=== PATIENT | female | born 1945 | race Caucasian/White ===

== ENCOUNTER → 2016-08-02 | Outpatient (CLI) | payer BC ==
[~2016-08-02] MED LIST: ACET-1311 PO; AML/5 PO; BENA-4 PO; BNC/20125 PO; CANA1TAB PO; CHOL100010 PO; DIPH-416 PO; LTN/10 PO; SITA100T3 PO; WARF3TAB PO; WARF3TAB6 PO
[2016-08-02 09:49] LABS: INR 2.6 (0.9-1.1); PROTHROMBIN TIME (PATIENT) 28.4 SECONDS (9.0-12.0)
== END | disposition home or self-care (01) ==
LOC: C.LAB 09:17
PROVIDERS: ATTEND Pathology Blood Banking & Transfusion Medicine
DX: Z79.01 Long term (current) use of anticoagulants (principal)

== ENCOUNTER → 2017-01-07 | Outpatient (CLI) | payer BC ==
[~2017-01-07] MED LIST changes: -AML/5 PO; -BNC/20125 PO; -LTN/10 PO; -WARF3TAB6 PO
--- NOTE | 2017-01-07 13:53 | MAMMOGRAPHY REPORT ---
BILATERAL DIGITAL SCREENING MAMMOGRAM WITH CAD: 01/07/2017 CLINICAL HISTORY: Routine screening. Patient has no complaints. TECHNIQUE: Current study was also evaluated with a Computer Aided Detection (CAD) system. Bilateral CC and MLO views were obtained. COMPARISON: Comparison is made to exams dated: 01/07/2016 mammogram, 01/04/2015 mammogram, 01/03/2014 m ammogram, 02/01/2012 mammogram, 02/02/2011 ultrasound, and 01/21/2009 mammogram - [facility]. BREAST COMPOSITION: There are scattered areas of fibroglandular density in both breasts. FINDINGS: No suspicious masses, calcifications, or areas of architectural distortion are noted in ei ther breast. There has been no significant interval change compared to prior exams. Scattered bilater al benign-appearing calcifications are not significantly changed. IMPRESSION: ACR BI-RADS CATEGORY 2: BENIGN There is no mammographic evidence of malignancy. A 1 year screening mammogram is recommended. The pa tient will receive written notification of the results. Approximately 10% of breast cancers are not detected with mammography. A negative mammographic report should not delay biopsy if a clinically suggestive mass is present. Milena Jean-Baptiste M.D. ah/:01/07/2017 11:50:15 [employer] Tender: Denisa ANNA(R)(M), [facility] letter sent: Normal 1/2 BI-RADS Code: ACR BI-RADS Category 2: Benign
== END | disposition home or self-care (01) ==
LOC: C.MAMM 11:12
PROVIDERS: ATTEND Family Medicine
DX: Z12.31 Encounter for screening mammogram for malignant neoplasm of breast (principal)

== ENCOUNTER → 2017-04-06 | Outpatient (CLI) | payer BC ==
[~2017-04-06] MED LIST changes: +CANA1TAB3 PO; +CLOT1CRE3 PV; +METF500T5 PO; +OPTIRAY 320 IV PRN
--- NOTE | 2017-04-06 14:13 | DIAGNOSTIC IMAGING REPORT ---
CT OF THE CHEST WITH IV CONTRAST CLINICAL HISTORY: COLON CANCER COMPARISON STUDY: 03/12/2016 TECHNIQUE: Following the IV administration of 95 mL of Optiray-320, CT of the thorax was performed from the thoracic inlet to the lung bases. Images are reviewed in the axial, sagittal, and coronal planes. IV contrast was administered without complication. A dose lowering technique was utilized adhering to the principles of ALARA. CT DOSE: 1627.37 mGy.cm FINDINGS: Thyroid: Imaged portions of the thyroid gland are normal in appearance. Thoracic aorta: The thoracic aorta is normal in course and caliber, noting standard 3-vessel arch anatomy. No aneurysm or dissection is seen. Pulmonary vasculature: The pulmonary trunk is normal in caliber. There are no central filling defects identified to suggest pulmonary embolus. Note that this examination was not protocoled for the evaluation of pulmonary emboli. HEART: The heart is normal in size and configuration, without pericardial effusion. Lungs and pleural spaces: There are bilateral subpleural interstitial opacities with upper lung zone predominance. These remain similar to the preceding study. There is no acute lobar consolidation. No suspicious pulmonary masses are visualized. Mediastinum: Subcentimeter mediastinal lymph nodes remain unchanged the preceding study Felicia: There is no evidence of pathologic hilar adenopathy Axilla: There is no evidence of pathologic axillary lymphadenopathy Upper abdomen: There is hepatic steatosis. There is a 17 mm peripheral hypervascular focus near the left and right lobe hepatic junction. It is unclear whether this represents a true hepatic lesion, perfusional variant, or a focus of focal fatty sparing. Skeletal structures: There are no lytic or blastic osseous lesions. IMPRESSION: 1. No evidence of intrathoracic metastasis 2. Hepatic steatosis. Nonspecific 17 mm peripheral hyperdense/hypervascular focus within the liver. Electronically signed by: Claudio Caldwell M.D. 04/06/2017 2:12 PM Dictated Date/Time: 04/06/2017 2:05 PM
--- NOTE | 2017-04-06 14:22 | DIAGNOSTIC IMAGING REPORT ---
ABD/PELVIS IV AND ORAL CONT CLINICAL HISTORY: 71 years-old Female presenting with COLON CANCER, surveillance, status post resection. TECHNIQUE: Multidetector CT of the abdomen and pelvis was performed after the administration of oral and intravenous contrast. IV contrast: 95 mL of Optiray 320. A dose lowering technique was used consistent with the principles of ALARA (as low as reasonably achievable). COMPARISON: 03/12/2016. CT DOSE (mGy.cm): The estimated cumulative dose is 1627.[address] chest. FINDINGS: Manager Resource topogram: Unremarkable. Lung bases: Minimal basilar opacities, likely atelectasis. Punctate solid nodule noted in the left lower lobe (series 10 image 29). Normal heart size. Coronary artery calcification. No pericardial or pleural effusion. Liver: Normal morphology. Density consistent with hepatic steatosis. No focal lesion. Patent hepatic vasculature. Biliary: Mild biliary ductal prominence likely a reservoir effect in the post cholecystectomy state. Gallbladder surgically absent. Pancreas: Mild parenchymal atrophy. Spleen: Normal. Adrenal glands: Normal. Kidneys and ureters: Subcentimeter hypodensity in the left kidney likely cyst. No hydronephrosis. No nephrolithiasis. Ureters normal. Nonspecific mild perinephric fat stranding. Bladder: Mild circumferential bladder wall thickening and mucosal hyperenhancement allowing for under distention. Pelvic organs: Uterus surgically absent. No adnexal masses. Bowel: Diverticulosis of the sigmoid colon. Postsurgical changes of right hemicolectomy with patent ileocolic anastomosis in the right mid abdomen. Motion artifact mildly degrades evaluation of the anastomosis and adjacent bowel. Allowing for this, no focal nodular masslike soft tissue at the anastomosis sutures suggested recurrent disease. Adjacent omental infarct noted. No bowel obstruction. Small hiatal hernia may be present versus extensive intraesophageal reflux of contrast. Peritoneal cavity: No free fluid or intraperitoneal gas. Lymph nodes: No enlarged lymph nodes in the abdomen or pelvis. Vasculature: Atherosclerosis of the normal caliber abdominal aorta. IVC patent. Abdominal wall: Midline surgical incision in the infraumbilical ventral abdominal wall. Postsurgical changes of the right upper quadrant abdominal wall likely from prior cholecystectomy. Small fat-containing midline ventral hernia associated with the surgical incision site. Musculoskeletal: Degenerative changes of the spine. No destructive osseous lesion. IMPRESSION: 1. Postoperative changes of right hemicolectomy with ileocolic anastomosis. No evidence of recurrent or residual disease. No metastatic disease in abdomen or pelvis. 2. Hepatic steatosis. 3. Mild circumferential bladder wall thickening and mucosal hyperenhancement could suggest cystitis. Correlate with urinalysis to exclude infection. Alternatively, this could be seen in the setting of post radiation change. Electronically signed by: Geraldo Augustine M.D. 04/06/2017 2:21 PM Dictated Date/Time: 04/06/2017 2:12 PM
== END | disposition home or self-care (01) ==
LOC: C.CTS 13:24
PROVIDERS: ATTEND Internal Medicine Hematology & Oncology
DX: C18.9 Malignant neoplasm of colon, unspecified (principal); K76.0 Fatty (change of) liver, not elsewhere classified

== ENCOUNTER → 2017-04-27 | Outpatient (CLI) | payer BC ==
[~2017-04-27] MED LIST changes: -CANA1TAB3 PO; -CLOT1CRE3 PV; -METF500T5 PO; -OPTIRAY 320 IV PRN
--- NOTE | 2017-04-27 11:30 | DIAGNOSTIC IMAGING REPORT ---
L FOOT MIN 3 VIEWS ROUTINE HISTORY: 71 years-old Female M20.62 acute deformity of the second third toes with history of diabetes. COMPARISON: None available TECHNIQUE: 4 views of the left foot FINDINGS: The bones appear mildly demineralized. Mild degenerative changes of the first MTP joint. Midfoot alignment is anatomic. No acute fracture identified. Moderate degenerative changes are seen throughout the interphalangeal joints with flexion deformities possible mild subluxation of the PIP joints. There is mild extension of the DIP joints throughout. Moderate spurring of the mid foot. Peripheral vascular disease. Moderate spurring about the calcaneus. IMPRESSION: 1. Osteopenia without acute fracture identified. 2. Flexion of the PIP joints with mild extension of the DIP joints noted predominantly within the second through fourth digits with moderate associated joint space narrowing, likely degenerative. 3. Peripheral vascular disease. The above report was generated using voice recognition software. It may contain grammatical, syntax or spelling errors. Electronically signed by: John Paul Ramos M.D. 04/27/2017 11:29 AM Dictated Date/Time: 04/27/2017 11:26 AM
== END | disposition home or self-care (01) ==
LOC: C.RAD 10:48
PROVIDERS: ATTEND Family Medicine
DX: M19.072 Primary osteoarthritis, left ankle and foot (principal); I73.9 Peripheral vascular disease, unspecified; M20.62 Acquired deformities of toe(s), unspecified, left foot

== ENCOUNTER 2018-08-13 10:50 | Inpatient (IN) ==
[2018-08-13] MEDS ORDERED: ONDANSETRON INJ 2 MG/ML 2 ML VIAL IV STA (11:19)
[2018-08-13] MEDS ORDERED: KETOROLAC TROMETHAMINE 15 MG/ML VIAL IV STA (11:19)
[2018-08-13] MEDS ORDERED: SODIUM CHLORIDE 0.9% 500 ML IV SCH (11:30)
[2018-08-13 11:45] LABS: Basophils # (auto) 0.06 K/uL (0-0.2); Basophils % (auto) 0.5 %; Eosinophils # (auto) 0.14 K/uL (0-0.5); Eosinophils % (auto) 1.1 %; Hematocrit (blood only) 42.6 % (37-47); Hemoglobin 15.5 g/dL (12.0-16.0); Immature Granulocytes # (auto) 0.16 K/uL (0.00-0.02); Immature Granulocytes % (auto) 1.3 %; Lymphocytes # (auto) 2.58 K/uL (1.2-3.4); Lymphocytes % (auto) 20.7 %; Mean Corpuscular Hgb Conc 36.4 g/dL (32-36); Mean Platelet Volume 9.7 fL (7.4-10.4); Monocytes # (auto) 0.94 K/uL (0.11-0.59); Monocytes % (auto) 7.5 %; Neutrophils # (auto) 8.61 K/uL (1.4-6.5); Neutrophils % (auto) 68.9 %; Platelet Count 279 K/uL (130-400); RDW Standard Deviation 45.7 fL (36.4-46.3); Red Blood Count 5.07 M/uL (4.2-5.4); White Blood Count 12.49 K/uL (4.8-10.8)
[2018-08-13 11:55] LABS: INR 3.2 (0.9-1.1); Partial Thromboplastin Ratio 1.3; Partial Thromboplastin Time 35.8 Seconds (21.0-31.0); Prothrombin Time 30.2 Seconds (9.0-12.0)
[2018-08-13 12:03] LABS: Alanine Aminotransferase 19 U/L (12-78); Albumin Level 3.5 gm/dl (3.4-5.0); Aspartate Aminotransferase 18 U/L (15-37); BUN Creatinine Ratio 24.2 (10-20); Blood Urea Nitrogen 22 mg/dl (7-18); Calcium 9.4 mg/dl (8.5-10.1); Carbon Dioxide 27 mmol/L (21-32); Chloride 106 mmol/L (98-107); Glucose 167 mg/dl (70-99); Sodium 137 mmol/L (136-145)
[2018-08-13 12:06] LABS: Albumin Globulin Ratio 0.8 (0.9-2); Alkaline Phosphatase 80 U/L (45-117); Bilirubin,Total 0.7 mg/dl (0.2-1); Globulin 4.2 gm/dl (2.5-4.0); Total Protein 7.7 gm/dl (6.4-8.2)
[2018-08-13 12:11] LABS: Appearance Urine Turbid (Clear); Bacteria Urine Automated Negative (Negative); Bilirubin Urine Negative (Negative); Blood Urine 2+ (Negative); Color Urine Yellow; Epithelial Cell Urine Auto 20-30 /lpf (0-5); Glucose Urine UA Negative (Negative); Ketones Urine Negative (Negative); Leukocyte Esterase Urine 3+ (Negative); Nitrite Urine Negative (Negative); Protein Urine 2+ (Negative); Specific Gravity Urine 1.017 (1.000-1.030); Urobilinogen Urine Negative (Negative); WBC Urine Automated >30 /hpf (0-5)
--- NOTE | 2018-08-13 13:09 | CT Scan Report ---
CT abd pelvis IV con only CT DOSE: 671.21 mGy.cm HISTORY: Pain pain, poss divertic or abscess TECHNIQUE: Multiaxial CT images of the abdomen and pelvis were performed following the use of intrave nous contrast. A dose lowering technique was utilized adhering to the principles of ALARA. COMPARISON STUDY: 04/07/2018 FINDINGS: Nonspecific left and to a lesser extent right basilar interstitial change. Fatty replacemen t of the liver.. Kidneys show moderate cortical scarring bilaterally. Several small renal cysts are present. No eviden ce for hydronephrosis. Postoperative changes again noted within the right colon. The abdominal bowel pattern is considered n onobstructive. Pelvis demonstrates findings of acute focal diverticulitis of the mid sigmoid. There is mild localize d pericolonic infiltrative change with mild reactive wall thickening of the base of the bladder. No evidence for drainable abscess or collection. No obstructive changes. IMPRESSION: 1. Focal acute mid sigmoid diverticulitis. 2. Moderate pericolonic infiltrative change with mild reactive thickening of the bladder base. 3. No evidence for abscess collection or obstructive change. The above report was generated using voice recognition software. It may contain grammatical, syntax or spelling errors. Electronically signed by: Dong Diaz M.D. 08/13/2018 1:08 PM
[2018-08-13] MEDS ORDERED: AMPICILLIN/SULBACTAM SOD 3,000 MG in 0.9 % SODIUM CHLORIDE 100 ML IV STA (13:13)
--- NOTE | 2018-08-13 14:06 | Emergency Department Note ---
Entered by Angie Tamayo acting as a scribe for Jefferson Siddiqui MD History of Present Illness General Chief complaint: Urinary Symptoms Stated complaint: URINARY SX Time Seen by Provider: 08/13/18 11:09 Source: patient, family () and old records reviewed History of Present Illness Onset (ago): month(s) 4 Location: pelvis Pain Consistency: + intermittent Maximum Pain Intensity: 10 Quality: + other (difficulty urinating) Associated symptoms: + other (pelvic pressure, vaginal redness and swelling); no fever/chills and no nausea/vomiting The patient is a 72 year old female that is presenting to the Emergency Room with complaints of intermittent difficulty urinating that started several months ago. The patient reports that she feels pressure in her pelvic region and that she is unable to urinate at times. She states that the pressure stops and that she is then able to urinate. She denies any fever or vomiting. She notes that her symptoms were better yesterday afternoon but worsened again in the evening. She notes that she is followed by MARIA DOLORES Ohara, who started her on Clobetasol 2 times a day for lichen sclerosis. The patient notes that she is very sore in her vaginal area and that the ointment relieves the discomfort only immediately after it is used. She reports that the soreness then returns shortly after. She states that Dr. Ramsey told her she can start using the ointment 3 ti mes a day and that she recommended using Aquaphor in between applications. The patients states that the area is red and swollen but notes that it improved initially with the ointment. The patient has been in the Emergency Department 4 times in the past year. She was last here on 07/31/18 for urinary symptoms Lab work was unrevealing urinalysis suggested infection but the urine culture returned negative. Genital culture showed normal clemente. Home Medications Home Medications Medication Instructions Recorded Confirmed Type benazepril 20 mg tablet 20 mg PO QAM 01/31/18 08/13/18 History cholecalciferol (vitamin D3) 5,000 5,000 units PO QAM 01/31/18 08/13/18 History unit capsule sitagliptin 100 mg tablet 100 mg PO QAM 01/31/18 08/13/18 History insulin detemir U-100 [Levemir 6 unit SUBCUT HS 04/04/18 08/13/18 History FlexTouch U-100 Insuln] warfarin 3 mg tablet 3 mg PO HS #30 tab 06/29/18 08/13/18 Rx cranberry 500 mg capsule 500 mg PO DAILY 07/11/18 08/13/18 History lactobacillus combination no.8 3 3,000 mmu cells PO DAILY 07/11/18 08/13/18 History billion cell capsule conjugated estrogens [Premarin] 1 applic VAGINAL HS 07/31/18 08/13/18 History nystatin 1 applic TOPICAL TID 07/31/18 08/13/18 History clobetasol 1 applic TOPICAL DIRECTED 08/13/18 08/13/18 History mineral oil-hydrophil petrolat 1 applic TOPICAL TID PRN 08/13/18 08/13/18 History [Aquaphor] Allergies Allergy/AdvReac Type Severity Reaction Status Date / Time No Known Allergies Allergy Unverified 07/31/18 11:09 Past Med/Surg History Medical History Essential hypertension (Chronic) Anticoagulated on Coumadin (Chronic) Acute diverticulitis (Acute) Colon cancer UTI (urinary tract infection) Hypokalemia (Resolved) Hypomagnesemia (Resolved) PNA (pneumonia) (Resolved) Community acquired pneumonia (Resolved) Cystitis (Resolved) Contusion of left knee (Acute) Forehead contusion (Acute) Left shoulder strain (Acute) Surgical History History of colon surgery S/P cholecystectomy Family History Other Family history non-contributory Social History Preferred Language: Telugu Communication Ability: Effective 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 and A total of 10 systems reviewed and were otherwise negative Physical Exam Vital Signs Vital Signs - 24 hr 08/13/18 11:00 08/13/18 12:51 08/13/18 14:00 Temperature 36.5 C Temperature Source Oral Sepsis Recent Fever Within 48 Hours No Sepsis New/Unexplained Change in Mental Status No Sepsis Action Taken by Nursing No Action Required Pulse Rate 56 L Pulse Rate [Apical] 90 68 Respiratory Rate 18 16 16 Respiratory Effort / Characteristics Non-Labored Spontaneous Respiratory Depth Normal Respiratory Pattern Regular Blood Pressure 184/81 H Blood Pressure [Right Arm] 176/65 H 134/76 Blood Pressure Mean 115 Blood Pressure Mean [Right Arm] 102 95 Blood Pressure Position Sitting Pulse Oximetry 98 99 97 Oxygen Delivery Method Room Air Room Air Room Air GENERAL: Patient is in no acute distress. HEENT: No acute trauma, normocephalic atraumatic, mucous membranes moist, no nasal congestion, no scleral icterus. NECK: No stridor, no adenopathy, no meningismus, trachea is midline. LUNGS: Clear to auscultation bilaterally, no wheeze, no rhonchi, breath sounds equal. HEART: Without murmurs gallops or rubs, regular rate and rhythm. ABDOMEN: Soft, diffusely mildly tender but moderately tender over the mid- pelvis, bowel sounds positive, no hernias, no peritonitis. EXTREMITIES: No cyanosis or edema, full range of motion of all the joints without pain or difficulty, no signs for acute trauma. NEUROLOGIC: Oriented x 3, no acute motor or sensory deficits, no focal weakness. SKIN: No rash, no jaundice, no diaphoresis. Course 1114:The patient was evaluated in room A10. A complete history and physical examination was performed. 1145: Nurses did straight catheter on the patient and noted vaginal swelling but no urinary retention. 1325: I updated the patient on her current lab and imaging results. 1341: I discussed the patients case with ANNE Mayo, who will evaluate the patient for further management and care. 1345: Upon reevaluation, the patient is resting comfortably. I discussed laboratory and radiographic results with the patient. She verbalized agreement of the treatment plan. The patient will be evaluated for further management and care. Consultations Consultation #1: I discussed the patients case with ANNE Mayo, who will evaluate the patient for further management and care. Time: 13:41 Administered Medications Discontinued Medications Sodium Chloride (Nss) 500 mls @ 999 mls/hr IV .Q31M YOLIS Stop: 08/13/18 12:00 Last Infusion: 08/13/18 12:22 Dose: 0 mls/hr Documented by: [id number] Admin: 08/13/18 11:44 Dose: 999 mls/hr Documented by: [id number] Ampicillin Sodium/Sulbactam Sodium 3,000 mg/ Sodium Chloride 108 mls @ 200 mls/hr IV NOW STA; Protocol Stop: 08/13/18 13:45 Last Infusion: 08/13/18 14:23 Dose: 0 mls/hr Documented by: [id number] Admin: 08/13/18 13:50 Dose: 200 mls/hr Documented by: [id number] Ketorolac Tromethamine (Toradol) 15 mg IV NOW STA Stop: 08/13/18 11:20 Last Admin: 08/13/18 11:43 Dose: 15 mg Documented by: [id number] Ondansetron HCl (Zofran) 4 mg IV NOW STA Stop: 08/13/18 11:20 Last Admin: 08/13/18 11:43 Dose: 4 mg Documented by: [id number] Medical Decision Making Differential Diagnosis Differential diagnosis includes: Etiologies such as urinary retention, cystitis, vaginal swelling and irritation, diverticulitis, abscess, colitis, abdominal mass, renal failure, electrolyte imbalance, cellulitis as well as others were entertained. Medical Records Attestation: I reviewed the patient's medical records. Home Medications Current Medication List: was personally reviewed by me Laboratory Data Attestation: I reviewed the patient's lab results. Result diagrams: 08/13/18 11:37 08/13/18 11:37 Lab Results 08/13/18 08/13/18 08/13/18 Range/Units 11:15 11:37 11:37 WBC 12.49 H (4.8-10.8) K/uL RBC 5.07 (4.2-5.4) M/uL Hgb 15.5 (12.0-16.0) g/dL Hct 42.6 (37-47) % MCV 84.0 (80-100) fL MCH 30.6 (25-34) pg MCHC 36.4 H (32-36) g/dL RDW Std Deviation 45.7 (36.4-46.3) fL RDW Coeff of Robin 15.0 H (11.5-14.5) % Plt Count 279 (130-400) K/uL MPV 9.7 (7.4-10.4) fL Immature Gran % (Auto) 1.3 % Neut % (Auto) 68.9 % Lymph % (Auto) 20.7 % [place]oke % (Auto) 7.5 % Eos % (Auto) 1.1 % Baso % (Auto) 0.5 % Immature Gran # (Auto) 0.16 H (0.00-0.02) K/uL Neut # (Auto) 8.61 H (1.4-6.5) K/uL Lymph # (Auto) 2.58 (1.2-3.4) K/uL [place]oke # (Auto) 0.94 H (0.11-0.59) K/uL Eos # (Auto) 0.14 (0-0.5) K/uL Baso # (Auto) 0.06 (0-0.2) K/uL PT 30.2 H (9.0-12.0) Seconds INR 3.2 H (0.9-1.1) APTT 35.8 H (21.0-31.0) Seconds PTT Ratio 1.3 Sodium (136-145) mmol/L Potassium (3.5-5.1) mmol/L Chloride (98-107) mmol/L Carbon Dioxide (21-32) mmol/L Anion Gap (3-11) BUN (7-18) mg/dl Creatinine (0.6-1.2) mg/dl Est Cr Clr Drug Dosing Est GFR ( Amer) Est GFR (Non-Af Amer) BUN/Creatinine Ratio (10-20) Glucose (70-99) mg/dl Calcium (8.5-10.1) mg/dl Total Bilirubin (0.2-1) mg/dl AST (15-37) U/L ALT (12-78) U/L Alkaline Phosphatase (45-117) U/L Total Protein (6.4-8.2) gm/dl Albumin (3.4-5.0) gm/dl Globulin (2.5-4.0) gm/dl Albumin/Globulin Ratio (0.9-2) Lipase (73-393) U/L Urine Color Yellow Urine Appearance Turbid A (Clear) Urine pH 5.0 (4.5-7.5) Ur Specific [place] 1.017 (1.000-1.030) Urine Protein 2+ H (Negative) Urine Glucose (UA) Negative (Negative) Urine Ketones Negative (Negative) Urine Blood 2+ H (Negative) Urine Nitrite Negative (Negative) Urine Bilirubin Negative (Negative) Urine Urobilinogen Negative (Negative) Ur Leukocyte Esterase 3+ H (Negative) Urine WBC (Auto) >30 H (0-5) /hpf Urine RBC (Auto) 10-30 H (0-4) /hpf U Hyaline Cast (Auto) 1-5 (0-5) /lpf U Epithel Cells (Auto) 20-30 H (0-5) /lpf Urine Bacteria (Auto) Negative (Negative) Urine Yeast Not Reportable 08/13/18 Range/Units 11:37 WBC (4.8-10.8) K/uL RBC (4.2-5.4) M/uL Hgb (12.0-16.0) g/dL Hct (37-47) % MCV (80-100) fL MCH (25-34) pg MCHC (32-36) g/dL RDW Std Deviation (36.4-46.3) fL RDW Coeff of Robin (11.5-14.5) % Plt Count (130-400) K/uL MPV (7.4-10.4) fL Immature Gran % (Auto) % Neut % (Auto) % Lymph % (Auto) % [place] % (Auto) % Eos % (Auto) % Baso % (Auto) % Immature Gran # (Auto) (0.00-0.02) K/uL Neut # (Auto) (1.4-6.5) K/uL Lymph # (Auto) (1.2-3.4) K/uL [place] # (Auto) (0.11-0.59) K/uL Eos # (Auto) (0-0.5) K/uL Baso # (Auto) (0-0.2) K/uL PT (9.0-12.0) Seconds INR (0.9-1.1) APTT (21.0-31.0) Seconds PTT Ratio Sodium 137 (136-145) mmol/L Potassium 4.0 (3.5-5.1) mmol/L Chloride 106 (98-107) mmol/L Carbon Dioxide 27 (21-32) mmol/L Anion Gap 4.0 (3-11) BUN 22 H (7-18) mg/dl Creatinine 0.90 (0.6-1.2) mg/dl Est Cr Clr Drug Dosing Not Reportable Est GFR ( Amer) 73.0 Est GFR (Non-Af Amer) 63.0 BUN/Creatinine Ratio 24.2 H (10-20) Glucose 167 H (70-99) mg/dl Calcium 9.4 (8.5-10.1) mg/dl Total Bilirubin 0.7 (0.2-1) mg/dl AST 18 (15-37) U/L ALT 19 (12-78) U/L Alkaline Phosphatase 80 (45-117) U/L Total Protein 7.7 (6.4-8.2) gm/dl Albumin 3.5 (3.4-5.0) gm/dl Globulin 4.2 H (2.5-4.0) gm/dl Albumin/Globulin Ratio 0.8 L (0.9-2) Lipase 156 (73-393) U/L Urine Color Urine Appearance (Clear) Urine pH (4.5-7.5) Ur Specific [place] (1.000-1.030) Urine Protein (Negative) Urine Glucose (UA) (Negative) Urine Ketones (Negative) Urine Blood (Negative) Urine Nitrite (Negative) Urine Bilirubin (Negative) Urine Urobilinogen (Negative) Ur Leukocyte Esterase (Negative) Urine WBC (Auto) (0-5) /hpf Urine RBC (Auto) (0-4) /hpf U Hyaline Cast (Auto) (0-5) /lpf U Epithel Cells (Auto) (0-5) /lpf Urine Bacteria (Auto) (Negative) Urine Yeast Imaging Data Radiologist's Impression: Radiology results as stated below per my review and the radiologist's interpretation: CT abd pelvis IV con only CT DOSE: 671.21 mGy.cm HISTORY: Pain pain, poss divertic or abscess TECHNIQUE: Multiaxial CT images of the abdomen and pelvis were performed following the use of intravenous contrast. A dose lowering technique was utilized adhering to the principles of ALARA. COMPARISON STUDY: 04/07/2018 FINDINGS: Nonspecific left and to a lesser extent right basilar interstitial change. Fatty replacement of the liver.. Kidneys show moderate cortical scarring bilaterally. Several small renal cysts are present. No evidence for hydronephrosis. Postoperative changes again noted within the right colon. The abdominal bowel pattern is considered nonobstructive. Pelvis demonstrates findings of acute focal diverticulitis of the mid sigmoid. There is mild localized pericolonic infiltrative change with mild reactive wall thickening of the base of the bladder. No evidence for drainable abscess or collection. No obstructive changes. IMPRESSION: 1. Focal acute mid sigmoid diverticulitis. 2. Moderate pericolonic infiltrative change with mild reactive thickening of the bladder base. 3. No evidence for abscess collection or obstructive change. The above report was generated using voice recognition software. It may contain grammatical, syntax or spelling errors. Electronically signed by: Dong Diaz M.D. 08/13/2018 1:08 PM Blood Pressure Blood Pressure Findings: Elevated blood pressure Blood Pressure Disposition: further management by hospitalist DAWSON Narrative There is a mild leukocytosis at 12.49, this would be consistent with infection. No concerning anemia. INR is elevated consistent with her Coumadin use. No significant electrolyte abnormality or kidney failure. No hepatitis. No pancreatitis. Urinalysis shows possible infection versus contamination. Urine culture is pending. A urine straight cath was performed, the patient was not retaining urine. Abdominal and pelvis CT shows evidence for diverticulitis. No bowel obstruction, no abscess noted. Patient received IV Unasyn, IV Toradol, IV Zofran and IV saline, she seems to be resting comfortably. Patient was quite weak when she tried to go to the restroom, 2 nurses had to hold her from falling. Patient admits to recent increased weakness. The patient presents with urinary complaints and lower abdominal pain. She has diverticulitis. Certainly, diverticulitis up against the bladder could be causing her urinary complaints. She is weak, she has been dealing with similar symptoms for several months. I do think IV hydration, strengthening, IV anti biotics are indicated. I am concerned that she will fall if sent home. I did speak to the patient and immigration case worker. The on-call hospitalist was consulted. Impression & Plan Acute diverticulitis, Weakness, Difficulty urinating, Leukocytosis Discharge Plan Visit Data Chief Complaint: Urinary Symptoms Stated Complaint: URINARY SX ED Provider: Jefferson Siddiqui Discharge Problem: Acute diverticulitis, Weakness, Difficulty urinating, Leukocytosis Patient Disposition: Being Evaluated by Hospitalist Discharge Instructions Interventions: ED Discharge Assessment Last Done: 08/13/18 14:47 Discharge Problem: Leukocytosis Qualifiers: Leukocytosis type: unspecified Qualified Code(s): D72.829 - Elevated white blood cell count, unspecified The scribe's documentation has been prepared under my direction and personally reviewed by me in its entirety. I confirm that the note above accurately reflects all work, treatment, procedures, and medical decision making performed by me.
--- NOTE | 2018-08-13 14:26 | History & Physical Report ---
Date of Service August 13, 2018 Assessment & Plan (1) Acute diverticulitis: CT scan reveals acute diverticulitis in the mid sigmoid area. Will treat with intravenous Unasyn. Clear liquid diet. Serial lab studies Present on Admission?: Yes (2) Anticoagulated on Coumadin: Monitor daily INR Present on Admission?: Yes (3) Type 2 diabetes mellitus: Levemir and sitagliptin are on hold. Sliding scale insulin coverage for now while on clear liquid diet Present on Admission?: Yes (4) Essential hypertension: Treated and controlled with benazepril Present on Admission?: Yes History of Present Illness Chief Complaint: Left-sided abdominal pain in addition to chronic lower midline abdominal pain Primary Care Provider: Palak Chiang MD 72-year-old white female with chronic recurrent UTI and chronic abdominal pain. However she developed more localized pain in the left lower quadrant over the past 2 days accompanied by weakness. CT scan today in the ED reveals evidence of mid sigmoid diverticulitis. White count is elevated at 12,000. She has been administered Unasyn. 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 Current INR 3.2. She will be placed on clear liquids and admitted for further evaluation and treatment. Allergies Allergy/AdvReac Type Severity Reaction Status Date / Time No Known Allergies Allergy Unverified 07/31/18 11:09 Home Medications Home Medications Medication Instructions Recorded Confirmed Type benazepril 20 mg tablet 20 mg PO QAM 01/31/18 08/13/18 History cholecalciferol (vitamin D3) 5,000 5,000 units PO QAM 01/31/18 08/13/18 History unit capsule sitagliptin 100 mg tablet 100 mg PO QAM 01/31/18 08/13/18 History insulin detemir U-100 [Levemir 6 unit SUBCUT HS 04/04/18 08/13/18 History FlexTouch U-100 Insuln] warfarin 3 mg tablet 3 mg PO HS #30 tab 06/29/18 08/13/18 Rx cranberry 500 mg capsule 500 mg PO DAILY 07/11/18 08/13/18 History lactobacillus combination no.8 3 3,000 mmu cells PO DAILY 07/11/18 08/13/18 History billion cell capsule conjugated estrogens [Premarin] 1 applic VAGINAL HS 07/31/18 08/13/18 History nystatin 1 applic TOPICAL TID 07/31/18 08/13/18 History clobetasol 1 applic TOPICAL DIRECTED 08/13/18 08/13/18 History mineral oil-hydrophil petrolat 1 applic TOPICAL TID PRN 08/13/18 08/13/18 History [Aquaphor] Past Med/Surg History Medical History Colon cancer UTI (urinary tract infection) Hypokalemia (Resolved) Hypomagnesemia (Resolved) PNA (pneumonia) (Resolved) Community acquired pneumonia (Resolved) Cystitis (Resolved) Contusion of left knee (Acute) Forehead contusion (Acute) Left shoulder strain (Acute) Surgical History History of colon surgery S/P cholecystectomy Family History Other Family history non-contributory Social History Preferred Language: French marital status: current occupational status: retired Feels Safe at Home: Yes Smoking Status: Never smoker Review of Systems Review of Systems: All systems reviewed & are unremarkable except as noted in HPI & below Gastrointestinal: Tender left lower quadrant. No rebound or guarding. No masses Physical Exam Constitutional: WD/WN, vitals as above Eyes: PERRL, conjunctivae normal, anicteric sclerae ENMT: external ear and nose normal, oropharynx normal Neck: trachea midline, no thyromegaly Respiratory: normal respiratory effort, lungs clear to auscultation Cardiovascular: RRR, no murmur, no edema Gastrointestinal (Abdomen): Inspection/Auscultation: abdomen normal to inspection and normal bowel sounds Percussion/Palpation: no hepatosplenomegaly Mild left lower quadrant tenderness. No rebound or guarding. No masses Musculoskeletal: no cyanosis or clubbing, extremities motor strength 5/5 Skin: no rashes, warm and dry Neurologic: CN's II-XI intact bilaterally and moves all extremities; no focal motor deficits Results & Data Vital Signs (Past 12 Hours) Vital Signs Temp Pulse Pulse Resp BP BP Pulse Ox 08/13/18 14:00 68 16 134/76 97 08/13/18 12:51 90 16 176/65 H 99 08/13/18 11:00 36.5 C 56 L 18 184/81 H 98 Laboratory Results 08/13/18 11:37 08/13/18 11:37
[2018-08-13] MEDS ORDERED: MINERAL OIL HYDROPHIL PETROLAT TOP PRN (16:02)
[2018-08-13] MEDS ORDERED: ALUMINUM/MAGNESIUM SUSP 30 ML UDC PO PRN (16:02)
[2018-08-13] MEDS ORDERED: ONDANSETRON INJ 2 MG/ML 2 ML VIAL IV PRN (16:02)
[2018-08-13] MEDS ORDERED: GLUCOSE 10 TABS/TUBE PO PRN (16:30)
[2018-08-13] MEDS ORDERED: GLUCAGON FOR INJ 1 MG VIAL IM PRN (16:30)
[2018-08-13] MEDS ORDERED: CARBOHYDRATES FOR HYPOGLYCEMIA PO PRN (16:30)
[2018-08-13] MEDS ORDERED: DEXTROSE 50% 50 ML SYRINGE IV PRN (16:30)
[2018-08-13] MEDS ORDERED: GLUCOSE 40% GEL 15 GM TUBE PO PRN (16:30)
[2018-08-13] MEDS: SODIUM CHLORIDE 0.9% 1000ML 1,000 ML IV SCH (17:34)
[2018-08-13] MEDS: INSULIN ASPART 100 UNITS/ML 3 ML PEN SC SCH ×2 (18:08→20:49)
[2018-08-13] MEDS: AMPICILLIN/SULBACTAM SOD 3,000 MG in 0.9 % SODIUM CHLORIDE 100 ML IV SCH (20:00)
[2018-08-13] MEDS: ACETAMINOPHEN 325 MG TAB PO PRN ×2 (20:03→23:49)
[2018-08-13] MEDS: WARFARIN SOD 3 MG TAB PO SCH (20:48)
[2018-08-13] MEDS: PREMARIN VAG CRM 14 APPLN/30 GM TUBE PV SCH (20:49)
[2018-08-14] MEDS: AMPICILLIN/SULBACTAM SOD 3,000 MG in 0.9 % SODIUM CHLORIDE 100 ML IV SCH ×4 (01:26→20:38)
[2018-08-14] MEDS: ACETAMINOPHEN 325 MG TAB PO PRN ×4 (03:43→21:07)
[2018-08-14] MEDS: SODIUM CHLORIDE 0.9% 1000ML 1,000 ML IV SCH (05:02)
[2018-08-14 06:33] LABS: Basophils # (auto) 0.04 K/uL (0-0.2); Basophils % (auto) 0.4 %; Eosinophils # (auto) 0.16 K/uL (0-0.5); Eosinophils % (auto) 1.6 %; Hemoglobin 13.4 g/dL (12.0-16.0); Immature Granulocytes # (auto) 0.11 K/uL (0.00-0.02); Immature Granulocytes % (auto) 1.1 %; Lymphocytes # (auto) 2.16 K/uL (1.2-3.4); Lymphocytes % (auto) 21.6 %; Mean Corpuscular Hgb Conc 34.4 g/dL (32-36); Mean Platelet Volume 9.6 fL (7.4-10.4); Neutrophils # (auto) 6.64 K/uL (1.4-6.5); Neutrophils % (auto) 66.3 %; Platelet Count 226 K/uL (130-400); RDW Standard Deviation 46.8 fL (36.4-46.3); Red Blood Count 4.59 M/uL (4.2-5.4); White Blood Count 10.01 K/uL (4.8-10.8)
[2018-08-14 06:45] LABS: INR 2.9 (0.9-1.1); Prothrombin Time 27.5 Seconds (9.0-12.0)
[2018-08-14 07:12] LABS: BUN Creatinine Ratio 25.5 (10-20); Calcium 8.1 mg/dl (8.5-10.1); Creatinine Clr Calc Pharmacy 63.5 ml/min; Est GFR (African American) 80.5; Est GFR (Non-African American) 69.5
[2018-08-14] MEDS: INSULIN ASPART 100 UNITS/ML 3 ML PEN SC SCH ×4 (08:30→20:39)
[2018-08-14] MEDS: LACTOBACILLUS ACIDOPHILUS (FLORANEX) TAB PO SCH (08:31)
[2018-08-14] MEDS: CHOLECALCIFEROL 1,000 UNITS TAB PO SCH (08:32)
[2018-08-14] MEDS: ENALAPRIL MALEATE 10 MG TAB PO SCH (08:33)
[2018-08-14] MEDS ORDERED: NON-FORMULARY MEDICATION (Cranberry 500 MG) PO SCH (09:00)
[2018-08-14] MEDS ORDERED: PHENAZOPYRIDINE HCL 200 MG TAB PO PRN (09:17)
--- NOTE | 2018-08-14 13:56 | Hospitalist Progress Note ---
Date of Service August 14, 2018 Assessment & Plan (1) Acute diverticulitis: - CT A/P: acute diverticulitis in the mid sigmoid area. - Unasyn IV for empiric coverage. - CLD as tolerated; will d/c IV fluids due to basilar crackles. - Tylenol prn pain. (2) Lichen sclerosus 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: - May be contributing to burning lower abd sensation. - Did not respond to Premarin cream in past. - Apply Clobetasol cream as prescribed -- her will bring med from home. - Follows with Dr. Ramsey; will need to follow up with gynecology as an outpatient. (3) UTI (urinary tract infection): - U/a was positive; UC +lactobacillus species. - Pyridium TID prn dysuria. (4) Type 2 diabetes mellitus: - Hold home meds during this admission. - SSI coverage while inpatient. - Hemoglobin A1C pending in the morning. (5) Essential hypertension: - Hold home Benazepril while inpatient (non-formulary) - Enalapril 20 mg qAM. - BP has been elevated, will monitor -- outpt records show HCTZ/ACEI combo but pt. is unsure of what medication she takes. - Hydralazine IV prn SBP >180, DBP >110. (6) History of DVT (deep vein thrombosis): - On Warfarin therapy; will continue 3 mg qPM. - Monitor INR daily -- was therapeutic this morning. (7) Metastatic colon cancer to liver: - History of colon cancer. (8) DVT prophylaxis: - Coumadin as noted above. Dispo: Med/surg for treatment of acute diverticulitis. Supervising Physician Co-Signing Physician Notes Attending Attestation- Chart reviewed in detail, care plan d/w KIRSTEN Sood. I agree w/ the hairston components of her documentation. 72yo female with uncomplicated sigmoid diverticulitis. Continue current management including IV antibiotics and diet restriction. Unasyn should cover her lactobacillus UTI as well if truly pathogenic. Labs/vitals stable although has periods of bradycardia. This appears chronic. She is not on any AV ligia agent. TSH last month was normal. Follow this closely. Jagdeep Edmonds MD Subjective Pt. is stable overall. She has abd pain with movement, stable at rest. Has been using Tylenol prn. Is tolerating CLD, will not advance today. Had nausea this morning, no vomiting noted. Complains of burning with urination, will start pyridium prn. Review of Systems Review of Systems: All systems reviewed & are unremarkable except as noted in HPI & below Constitutional: no fever, no chills, no fatigue, no weakness and no anorexia Respiratory: no cough, no dyspnea, no dyspnea on exertion and no wheezing Cardiovascular: no chest pain, no palpitations, no syncope and no edema Gastrointestinal: + abdominal pain and + nausea; no vomiting, no constipation and no diarrhea/loose stools Genitourinary: + dysuria; no difficulty urinating and no hematuria Musculoskeletal: no back pain and no joint pain Integumentary: no non-healing lesions Allergy / Immunological: no rash Physical Exam Physical Exam: General: Resting comfortably in no apparent distress; A&OX3 HEENT: NC/AT; PERRLA with EOMI; [place] conjunctiva, MMM. No erythema of posterior pharynx Neck: Supple and nontender Cardiac: RRR w/o murmurs, gallops or rubs Lungs: CTA bilaterally; No rhonchi, wheezing, or rales Abdomen: Bowel normoactive X 4; Tender to light palpation over lower abdomen Extremities: Warm. No edema present Neuro: No focal weakness Skin: No rash Results & Data Vital Signs (Past 12 Hours) Vital Signs Temp Pulse Resp BP Pulse Ox 08/14/18 07:16 36.4 C L 49 L 18 177/67 H 97 Laboratory Results 08/14/18 08/14/18 08/14/18 Range/Units 11:52 06:22 06:22 WBC (4.8-10.8) K/uL RBC (4.2-5.4) M/uL Hgb (12.0-16.0) g/dL Hct (37-47) % MCV (80-100) fL MCH (25-34) pg MCHC (32-36) g/dL RDW Std Deviation (36.4-46.3) fL RDW Coeff of Robin (11.5-14.5) % Plt Count (130-400) K/uL MPV (7.4-10.4) fL Immature Gran % (Auto) % Neut % (Auto) % Lymph % (Auto) % [place] % (Auto) % Eos % (Auto) % Baso % (Auto) % Immature Gran # (Auto) (0.00-0.02) K/uL Neut # (Auto) (1.4-6.5) K/uL Lymph # (Auto) (1.2-3.4) K/uL [place] # (Auto) (0.11-0.59) K/uL Eos # (Auto) (0-0.5) K/uL Baso # (Auto) (0-0.2) K/uL PT 27.5 H (9.0-12.0) Seconds INR 2.9 H (0.9-1.1) Sodium 140 (136-145) mmol/L Potassium 4.0 (3.5-5.1) mmol/L Chloride 111 H (98-107) mmol/L Carbon Dioxide 24 (21-32) mmol/L Anion Gap 6.0 (3-11) BUN 21 H (7-18) mg/dl Creatinine 0.83 (0.6-1.2) mg/dl Est Cr Clr Drug Dosing 63.5 ml/min Est GFR ( Amer) 80.5 Est GFR (Non-Af Amer) 69.5 BUN/Creatinine Ratio 25.5 H (10-20) Glucose 126 H (70-99) mg/dl POC Glucose 121 H (70-99) Calcium 8.1 L (8.5-10.1) mg/dl 08/14/18 08/13/18 08/13/18 Range/Units 06:22 20:15 17:00 WBC 10.01 (4.8-10.8) K/uL RBC 4.59 (4.2-5.4) M/uL Hgb 13.4 (12.0-16.0) g/dL Hct 39.0 (37-47) % MCV 85.0 (80-100) fL MCH 29.2 (25-34) pg MCHC 34.4 (32-36) g/dL RDW Std Deviation 46.8 H (36.4-46.3) fL RDW Coeff of Robin 15.0 H (11.5-14.5) % Plt Count 226 (130-400) K/uL MPV 9.6 (7.4-10.4) fL Immature Gran % (Auto) 1.1 % Neut % (Auto) 66.3 % Lymph % (Auto) 21.6 % [place] % (Auto) 9.0 % Eos % (Auto) 1.6 % Baso % (Auto) 0.4 % Immature Gran # (Auto) 0.11 H (0.00-0.02) K/uL Neut # (Auto) 6.64 H (1.4-6.5) K/uL Lymph # (Auto) 2.16 (1.2-3.4) K/uL [place] # (Auto) 0.90 H (0.11-0.59) K/uL Eos # (Auto) 0.16 (0-0.5) K/uL Baso # (Auto) 0.04 (0-0.2) K/uL PT (9.0-12.0) Seconds INR (0.9-1.1) Sodium (136-145) mmol/L Potassium (3.5-5.1) mmol/L Chloride (98-107) mmol/L Carbon Dioxide (21-32) mmol/L Anion Gap (3-11) BUN (7-18) mg/dl Creatinine (0.6-1.2) mg/dl Est Cr Clr Drug Dosing ml/min Est GFR ( Amer) Est GFR (Non-Af Amer) BUN/Creatinine Ratio (10-20) Glucose (70-99) mg/dl POC Glucose 175 H 113 H (70-99) Calcium (8.5-10.1) mg/dl (1) UTI (urinary tract infection) Hematuria presence: with hematuria Urinary tract infection type: site unspecified Qualified Code(s): N39.0 - Urinary tract infection, site not specified; R31.9 - Hematuria, unspecified
[2018-08-14] MEDS: WARFARIN SOD 3 MG TAB PO SCH (16:32)
[2018-08-14] MEDS ORDERED: MoRPHine SULFATE 2 MG/ML CARP IV PRN (16:47)
[2018-08-14] MEDS: PREMARIN VAG CRM 14 APPLN/30 GM TUBE PV SCH ×2 (20:38→21:08)
[2018-08-15] MEDS: HydrALAZINE HCL 20 MG/ML VIAL IV PRN (01:22)
[2018-08-15] MEDS: AMPICILLIN/SULBACTAM SOD 3,000 MG in 0.9 % SODIUM CHLORIDE 100 ML IV SCH ×4 (01:25→20:35)
[2018-08-15 07:52] LABS: Basophils # (auto) 0.04 K/uL (0-0.2); Basophils % (auto) 0.4 %; Eosinophils # (auto) 0.18 K/uL (0-0.5); Eosinophils % (auto) 1.9 %; Hematocrit (blood only) 40.1 % (37-47); Hemoglobin 13.9 g/dL (12.0-16.0); Immature Granulocytes # (auto) 0.07 K/uL (0.00-0.02); Immature Granulocytes % (auto) 0.8 %; Lymphocytes # (auto) 1.98 K/uL (1.2-3.4); Lymphocytes % (auto) 21.4 %; Mean Corpuscular Hgb Conc 34.7 g/dL (32-36); Mean Corpuscular Volume 85.5 fL (80-100); Mean Platelet Volume 9.6 fL (7.4-10.4); Monocytes # (auto) 0.84 K/uL (0.11-0.59); Monocytes % (auto) 9.1 %; Neutrophils # (auto) 6.14 K/uL (1.4-6.5); Neutrophils % (auto) 66.4 %; Platelet Count 237 K/uL (130-400); RDW Coefficient of Variation 15.2 % (11.5-14.5); RDW Standard Deviation 47.4 fL (36.4-46.3); Red Blood Count 4.69 M/uL (4.2-5.4); White Blood Count 9.25 K/uL (4.8-10.8)
[2018-08-15 08:09] LABS: INR 3.3 (0.9-1.1); Prothrombin Time 31.1 Seconds (9.0-12.0)
[2018-08-15 08:27] LABS: BUN Creatinine Ratio 17.4 (10-20); Calcium 8.5 mg/dl (8.5-10.1); Creatinine Clr Calc Pharmacy 73.2 ml/min; Est GFR (African American) 95.6; Est GFR (Non-African American) 82.5; Potassium 3.6 mmol/L (3.5-5.1)
[2018-08-15] MEDS: LACTOBACILLUS ACIDOPHILUS (FLORANEX) TAB PO SCH (09:35)
[2018-08-15] MEDS: INSULIN ASPART 100 UNITS/ML 3 ML PEN SC SCH ×4 (09:35→21:14)
[2018-08-15] MEDS: CHOLECALCIFEROL 1,000 UNITS TAB PO SCH (09:35)
[2018-08-15] MEDS: ENALAPRIL MALEATE 10 MG TAB PO SCH (09:35)
[2018-08-15] MEDS ORDERED: PROCHLORPERAZINE 10 MG in SYRINGE 8 ML IV PRN (09:48)
--- NOTE | 2018-08-15 14:25 | Hospitalist Progress Note ---
Date of Service August 15, 2018 Assessment & Plan (1) Acute diverticulitis: - CT A/P: acute diverticulitis in the mid sigmoid area. - Unasyn IV for empiric coverage. - CLD as tolerated, advance if abd pain is improving; hold IV fluids due to lung crackles on exam. - Tylenol & Morphine prn pain. (2) Lichen sclerosus 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: - Has ongoing lower abd/vaginal burning sensation -- is likely related to this condition. Was diagnosed by Dr. Ramsey as outpatient, recently started Clobetasol ointment on 08/02/18. - Continue Premarin qhs. - Apply Clobetasol ointment BID -- brought med from home, today will be first dose as inpatient. - Was also advised to use Eucerin ointment between doses of Clobetasol if needed. - Follows with Dr. Ramsey; will need to be evaluated/addressed as outpatient. (3) UTI (urinary tract infection): - U/a was positive; UC +lactobacillus species. - Unasyn IV for empiric coverage. - Pyridium prn dysuria -- symptoms are more likely related to vaginal issues alt bhavana pt. does describe burning. (4) Type 2 diabetes mellitus: - Hold home meds during this admission. - SSI coverage while inpatient. (5) Essential hypertension: - Hold home Benazepril while inpatient (non-formulary) - Enalapril 20 mg qAM. - BP has been elevated, will monitor -- may be response to pain vs. anxiety. Confirmed correct dose of outpatient anti-hypertensive with pharmacy (outpt records show combo med of HCTZ/ACEI, is not accurate) - Hydralazine IV prn SBP >180, DBP >110. (6) History of DVT (deep vein thrombosis): - On Warfarin therapy, 3 mg qhs at home. - Monitor INR daily -- was supratherapeutic this morning. - Will hold dose this evening and re-evaluate on 08/16/18. (7) Metastatic colon cancer to liver: - History of colon cancer. (8) DVT prophylaxis: - Coumadin as noted above. Dispo: Med/surg for treatment of acute diverticulitis/UTI. Discharge pending improvement in lower abd pain/burning sensation -- may need to be addressed as outpatient. Subjective Pt. has ongoing lower abd pain/burning. She states she felt worse overnight -- had nausea, denied vomiting, along with lower abdominal pain and burning sensation. When questioned further about burning sensation, pt. states it is vaginal burning and denies dysuria. She was recently diagnosed with lichen sclerosus 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 and prescribed Clobetasol cream by gynecology. She has not applied cream during this admission -- her did bring med from home today. Nausea now improved, is tolerating CLD. Does not have significant lower abdominal pain, is slightly tender on exam. Has been receiving Unasyn for treatment of diverticulitis and UTI. Burning sensation that patient has been describing is likely from chronic issues related to lichen sclerosus 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 vs. ongoing issues from diverticulitis and UTI. Discussed acute issues with the at bedside. Review of Systems Review of Systems: All systems reviewed & are unremarkable except as noted in HPI & below Constitutional: + fatigue and + weakness; no fever, no chills and no anorexia Respiratory: no cough, no dyspnea, no dyspnea on exertion and no wheezing Cardiovascular: no chest pain Gastrointestinal: + abdominal pain and + nausea; no bloating, no early satiety, no vomiting, no constipation and no diarrhea/loose stools Genitourinary: + vaginal dryness (And burning. ); no dysuria, no difficulty urinating, no vaginal discharge and no vaginal itching Musculoskeletal: no back pain and no joint pain Integumentary: no non-healing lesions Allergy / Immunological: no rash Physical Exam Physical Exam: General: Resting comfortably in no apparent distress HEENT: NC/AT; PERRLA with EOMI; [place] conjunctiva, MMM. No erythema of posterior pharynx Neck: Supple and nontender Cardiac: RRR Lungs: CTA bilaterally Abdomen: Bowel normoactive X 4; Tender to light palpation over LLQ. Extremities: Warm. No edema present Neuro: No focal weakness Skin: No rash Results & Data Vital Signs (Past 12 Hours) Vital Signs Temp Pulse Resp BP Pulse Ox 08/15/18 07:59 36.6 C 53 L 17 156/55 H 53 L 08/15/18 03:27 63 163/76 H Laboratory Results 08/15/18 08/15/18 08/15/18 Range/Units 11:40 08:13 07:33 WBC (4.8-10.8) K/uL RBC (4.2-5.4) M/uL Hgb (12.0-16.0) g/dL Hct (37-47) % MCV (80-100) fL MCH (25-34) pg MCHC (32-36) g/dL RDW Std Deviation (36.4-46.3) fL RDW Coeff of Robin (11.5-14.5) % Plt Count (130-400) K/uL MPV (7.4-10.4) fL Immature Gran % (Auto) % Neut % (Auto) % Lymph % (Auto) % [place] % (Auto) % Eos % (Auto) % Baso % (Auto) % Immature Gran # (Auto) (0.00-0.02) K/uL Neut # (Auto) (1.4-6.5) K/uL Lymph # (Auto) (1.2-3.4) K/uL [place] # (Auto) (0.11-0.59) K/uL Eos # (Auto) (0-0.5) K/uL Baso # (Auto) (0-0.2) K/uL PT (9.0-12.0) Seconds INR (0.9-1.1) Sodium 143 (136-145) mmol/L Potassium 3.6 (3.5-5.1) mmol/L Chloride 112 H (98-107) mmol/L Carbon Dioxide 24 (21-32) mmol/L Anion Gap 7.0 (3-11) BUN 13 (7-18) mg/dl Creatinine 0.72 (0.6-1.2) mg/dl Est Cr Clr Drug Dosing 73.2 ml/min Est GFR ( Amer) 95.6 Est GFR (Non-Af Amer) 82.5 BUN/Creatinine Ratio 17.4 (10-20) Glucose 140 H (70-99) mg/dl POC Glucose 183 H 129 H (70-99) Calcium 8.5 (8.5-10.1) mg/dl 08/15/18 08/15/18 08/14/18 Range/Units 07:33 07:33 20:15 WBC 9.25 (4.8-10.8) K/uL RBC 4.69 (4.2-5.4) M/uL Hgb 13.9 (12.0-16.0) g/dL Hct 40.1 (37-47) % MCV 85.5 (80-100) fL MCH 29.6 (25-34) pg MCHC 34.7 (32-36) g/dL RDW Std Deviation 47.4 H (36.4-46.3) fL RDW Coeff of Robin 15.2 H (11.5-14.5) % Plt Count 237 (130-400) K/uL MPV 9.6 (7.4-10.4) fL Immature Gran % (Auto) 0.8 % Neut % (Auto) 66.4 % Lymph % (Auto) 21.4 % [place] % (Auto) 9.1 % Eos % (Auto) 1.9 % Baso % (Auto) 0.4 % Immature Gran # (Auto) 0.07 H (0.00-0.02) K/uL Neut # (Auto) 6.14 (1.4-6.5) K/uL Lymph # (Auto) 1.98 (1.2-3.4) K/uL [place] # (Auto) 0.84 H (0.11-0.59) K/uL Eos # (Auto) 0.18 (0-0.5) K/uL Baso # (Auto) 0.04 (0-0.2) K/uL PT 31.1 H (9.0-12.0) Seconds INR 3.3 H (0.9-1.1) Sodium (136-145) mmol/L Potassium (3.5-5.1) mmol/L Chloride (98-107) mmol/L Carbon Dioxide (21-32) mmol/L Anion Gap (3-11) BUN (7-18) mg/dl Creatinine (0.6-1.2) mg/dl Est Cr Clr Drug Dosing ml/min Est GFR ( Amer) Est GFR (Non-Af Amer) BUN/Creatinine Ratio (10-20) Glucose (70-99) mg/dl POC Glucose 180 H (70-99) Calcium (8.5-10.1) mg/dl 08/14/18 Range/Units 16:45 WBC (4.8-10.8) K/uL RBC (4.2-5.4) M/uL Hgb (12.0-16.0) g/dL Hct (37-47) % MCV (80-100) fL MCH (25-34) pg MCHC (32-36) g/dL RDW Std Deviation (36.4-46.3) fL RDW Coeff of Robin (11.5-14.5) % Plt Count (130-400) K/uL MPV (7.4-10.4) fL Immature Gran % (Auto) % Neut % (Auto) % Lymph % (Auto) % [place] % (Auto) % Eos % (Auto) % Baso % (Auto) % Immature Gran # (Auto) (0.00-0.02) K/uL Neut # (Auto) (1.4-6.5) K/uL Lymph # (Auto) (1.2-3.4) K/uL [place] # (Auto) (0.11-0.59) K/uL Eos # (Auto) (0-0.5) K/uL Baso # (Auto) (0-0.2) K/uL PT (9.0-12.0) Seconds INR (0.9-1.1) Sodium (136-145) mmol/L Potassium (3.5-5.1) mmol/L Chloride (98-107) mmol/L Carbon Dioxide (21-32) mmol/L Anion Gap (3-11) BUN (7-18) mg/dl Creatinine (0.6-1.2) mg/dl Est Cr Clr Drug Dosing ml/min Est GFR ( Amer) Est GFR (Non-Af Amer) BUN/Creatinine Ratio (10-20) Glucose (70-99) mg/dl POC Glucose 113 H (70-99) Calcium (8.5-10.1) mg/dl (1) UTI (urinary tract infection) Hematuria presence: with hematuria Urinary tract infection type: site unspecified Qualified Code(s): N39.0 - Urinary tract infection, site not specified; R31.9 - Hematuria, unspecified
[2018-08-15] MEDS: ACETAMINOPHEN 325 MG TAB PO PRN ×2 (17:02→21:12)
[2018-08-15] MEDS: CLOBETASOL PROPIONATE 0.05% OINT 15 GM TUBE EXT SCH ×2 (17:40→20:38)
[2018-08-15] MEDS: PREMARIN VAG CRM 14 APPLN/30 GM TUBE PV SCH (20:38)
[2018-08-15] MEDS ORDERED: CLOBETASOL PROPIONATE 0.05% OINT 15 GM TUBE EXT SCH (21:00)
[2018-08-16] MEDS: AMPICILLIN/SULBACTAM SOD 3,000 MG in 0.9 % SODIUM CHLORIDE 100 ML IV SCH ×4 (02:34→19:56)
[2018-08-16 07:14] LABS: Basophils # (auto) 0.03 K/uL (0-0.2); Basophils % (auto) 0.4 %; Eosinophils # (auto) 0.16 K/uL (0-0.5); Hematocrit (blood only) 42.6 % (37-47); Hemoglobin 14.7 g/dL (12.0-16.0); Immature Granulocytes # (auto) 0.08 K/uL (0.00-0.02); Lymphocytes # (auto) 2.06 K/uL (1.2-3.4); Lymphocytes % (auto) 25.3 %; Mean Corpuscular Hgb Conc 34.5 g/dL (32-36); Mean Corpuscular Volume 86.6 fL (80-100); Mean Platelet Volume 9.5 fL (7.4-10.4); Monocytes # (auto) 0.69 K/uL (0.11-0.59); Monocytes % (auto) 8.5 %; Neutrophils # (auto) 5.11 K/uL (1.4-6.5); Neutrophils % (auto) 62.8 %; Platelet Count 264 K/uL (130-400); RDW Coefficient of Variation 15.3 % (11.5-14.5); RDW Standard Deviation 48.8 fL (36.4-46.3); Red Blood Count 4.92 M/uL (4.2-5.4); White Blood Count 8.13 K/uL (4.8-10.8)
[2018-08-16 07:21] LABS: INR 2.9 (0.9-1.1); Prothrombin Time 27.7 Seconds (9.0-12.0)
[2018-08-16 07:41] LABS: BUN Creatinine Ratio 12.2 (10-20); Calcium 8.7 mg/dl (8.5-10.1); Creatinine Clr Calc Pharmacy 64.3 ml/min; Est GFR (African American) 81.7; Est GFR (Non-African American) 70.5; Potassium 3.5 mmol/L (3.5-5.1)
[2018-08-16] MEDS: CHOLECALCIFEROL 1,000 UNITS TAB PO SCH (08:21)
[2018-08-16] MEDS: LACTOBACILLUS ACIDOPHILUS (FLORANEX) TAB PO SCH (08:21)
[2018-08-16] MEDS: ENALAPRIL MALEATE 10 MG TAB PO SCH (08:21)
[2018-08-16] MEDS: CLOBETASOL PROPIONATE 0.05% OINT 15 GM TUBE EXT SCH ×3 (08:21→21:01)
[2018-08-16] MEDS: INSULIN ASPART 100 UNITS/ML 3 ML PEN SC SCH ×4 (08:27→20:51)
[2018-08-16] MEDS: HydrALAZINE HCL 20 MG/ML VIAL IV PRN (11:01)
[2018-08-16] MEDS: ACETAMINOPHEN 325 MG TAB PO PRN (17:10)
[2018-08-16] MEDS: PREMARIN VAG CRM 14 APPLN/30 GM TUBE PV SCH (20:52)
--- NOTE | 2018-08-16 21:31 | Hospitalist Progress Note ---
Date of Service August 16, 2018 Assessment & Plan (1) Acute diverticulitis: - CT A/P: acute diverticulitis in the mid sigmoid area. - Unasyn IV for empiric coverage - possible can convert to oral medications tomorrow pending symptoms - Advance to full liquids and pending tolerance can do low fiber in AM - Tylenol & Morphine PRN Present on Admission?: Yes (2) Lichen sclerosus 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: - Has ongoing lower abd/vaginal burning sensation -- is likely related to this condition. Was diagnosed by Dr. Ramsey as outpatient, recently started Clobetasol ointment on 08/02/18. - Continue Premarin HS; Apply Clobetasol ointment BID -- brought med from home, today will be first dose as inpatient. - Was also advised to use Eucerin ointment between doses of Clobetasol if needed. - Follows with Dr. Ramsey and has F/U appt already established per Present on Admission?: Yes (3) UTI (urinary tract infection): - U/A was positive; H/O Cx with normal clemente Present on Admission?: Yes (4) Type 2 diabetes mellitus: - Hold home meds during this admission. - SSI coverage while inpatient. Present on Admission?: Yes (5) Essential hypertension: - Hold home Benazepril while inpatient (non-formulary) and use Enalapril 20 mg qAM. - BP has been elevated but asymptomatic -- may be response to pain vs. anxiety - Hydralazine IV prn SBP >180, DBP >110. - Can be further monitored with PCP when acute issues resolve and medication adjustments if necessary Present on Admission?: Yes (6) History of DVT (deep vein thrombosis): - On Warfarin therapy, 3 mg daily - Monitor INR daily -- was supratherapeutic and now at 2.9 but will hold today with INR check in the AM and adjustments per results Present on Admission?: Yes (7) Metastatic colon cancer to liver: - History of colon cancer - NOTED (8) DVT prophylaxis: - Coumadin Dispo: Pending diet advancement - possible D/C next 1-2 days Subjective Reports feeling a bit better today but continues with intermittent discomfort. However, seems like this may be more vaginal from her lichen sclerosus. Tolerating clear liquids and will advance to fulls today and monitor for tolerance and further advancement Anticipating home PT/OT Review of Systems Constitutional: + fatigue and + weakness; no fever, no chills and no anorexia Respiratory: no cough and no dyspnea Cardiovascular: + edema; no chest pain and no palpitations Gastrointestinal: + abdominal pain; no nausea, no vomiting, no constipation and no diarrhea/loose stools Genitourinary: + vaginal dryness (And burning); no dysuria, no vaginal discharge and no vaginal itching Musculoskeletal: no joint pain Integumentary: + rash (small unraised red spot on R buttocks) Physical Exam Constitutional: WD/WN, vitals as above Eyes: + anicteric sclerae ENMT: Ears: no hearing impairment Neck: normal visual inspection and trachea midline Respiratory: normal respiratory effort, lungs clear to auscultation Cardiovascular: RRR, no murmur, no edema Gastrointestinal (Abdomen): Inspection/Auscultation: normal bowel sounds; abdomen not distended Percussion/Palpation: + abdomen tender (mild with deep palpation of b/l lower quadrants) and abdomen soft; no guarding and abdomen not rigid Musculoskeletal: Head/Neck/Chest: normocephalic and head atraumatic Extremities: no cyanosis and no clubbing Skin: no rashes, warm and dry (other than in ) Neurologic: moves all extremities Psychiatric: A+Ox3, euthymic affect Genitourinary: no external lesions and no external erythema small unraised erythematous [place] on R buttocks without pain or drainage Results & Data Vital Signs (Past 12 Hours) Vital Signs Temp Pulse Pulse Resp BP BP Pulse Ox 08/16/18 17:14 57 L 164/71 H 97 08/16/18 16:48 62 175/69 H 08/16/18 15:10 36.5 C 59 L 18 138/64 98 08/16/18 11:32 67 154/65 H 08/16/18 10:58 51 L 196/64 H (1) UTI (urinary tract infection) Hematuria presence: with hematuria Urinary tract infection type: site unspecified Qualified Code(s): N39.0 - Urinary tract infection, site not specified; R31.9 - Hematuria, unspecified
[2018-08-17] MEDS: AMPICILLIN/SULBACTAM SOD 3,000 MG in 0.9 % SODIUM CHLORIDE 100 ML IV SCH ×3 (01:34→13:35)
[2018-08-17 08:04] LABS: Hematocrit (blood only) 38.4 % (37-47); Hemoglobin 13.5 g/dL (12.0-16.0); Mean Corpuscular Hgb Conc 35.2 g/dL (32-36); Mean Corpuscular Volume 85.1 fL (80-100); Mean Platelet Volume 9.7 fL (7.4-10.4); Platelet Count 239 K/uL (130-400); RDW Coefficient of Variation 15.2 % (11.5-14.5); RDW Standard Deviation 47.3 fL (36.4-46.3); Red Blood Count 4.51 M/uL (4.2-5.4); White Blood Count 8.91 K/uL (4.8-10.8)
[2018-08-17 08:13] LABS: Prothrombin Time 19.8 Seconds (9.0-12.0)
[2018-08-17] MEDS: ENALAPRIL MALEATE 10 MG TAB PO SCH (08:17)
[2018-08-17] MEDS: CHOLECALCIFEROL 1,000 UNITS TAB PO SCH (08:17)
[2018-08-17] MEDS: LACTOBACILLUS ACIDOPHILUS (FLORANEX) TAB PO SCH (08:17)
[2018-08-17] MEDS: CLOBETASOL PROPIONATE 0.05% OINT 15 GM TUBE EXT SCH ×3 (08:18→20:48)
[2018-08-17 08:32] LABS: BUN Creatinine Ratio 11.7 (10-20); Calcium 8.4 mg/dl (8.5-10.1); Creatinine Clr Calc Pharmacy 73.2 ml/min; Est GFR (African American) 95.6; Est GFR (Non-African American) 82.5; Potassium 3.2 mmol/L (3.5-5.1)
[2018-08-17] MEDS: INSULIN ASPART 100 UNITS/ML 3 ML PEN SC SCH ×4 (08:52→21:11)
[2018-08-17] MEDS ORDERED: POTASSIUM CHLORIDE 20 MEQ TABCR PO STA (08:54)
--- NOTE | 2018-08-17 13:21 | Hospitalist Progress Note ---
Date of Service August 17, 2018 Assessment & Plan (1) Acute diverticulitis: - CT A/P: acute diverticulitis in the mid sigmoid area. - Unasyn IV initially and will transition to Augmentin BID to complete 14 day course - treatment end date of 08/26 - Advance to low fiber diet; currently tolerating diet - Tylenol & Morphine PRN Present on Admission?: Yes (2) Lichen sclerosus 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: - Has ongoing lower abd/vaginal burning sensation -- is likely related to this condition. Was diagnosed by Dr. Ramsey as outpatient, recently started Clobetasol ointment on 08/02/18. - Continue Premarin HS; Apply Clobetasol ointment BID -- brought med from home - Was also advised to use Eucerin ointment between doses of Clobetasol if needed. - Follows with Dr. Ramsey and has F/U appt already established per Present on Admission?: Yes (3) UTI (urinary tract infection): - U/A was positive; H/O Cx with normal clemente - no further intervention at this time Present on Admission?: Yes (4) Type 2 diabetes mellitus: - Hold home meds during this admission. - SSI coverage while inpatient. Present on Admission?: Yes (5) Essential hypertension: - Hold home Benazepril while inpatient (non-formulary) and use Enalapril 20 mg daily - BP has been elevated but asymptomatic -- may be response to pain vs. anxiety - Hydralazine IV prn SBP >180, DBP >110. - Can be further monitored with PCP when acute issues resolve and medication adjustments if necessary Present on Admission?: Yes (6) History of DVT (deep vein thrombosis): - On Warfarin therapy, 3 mg daily; follows with Coumadin clinic - Monitor INR daily -- currently INR 2 and will resume Coumadin Present on Admission?: Yes (7) Metastatic colon cancer to liver: - History of colon cancer - NOTED Present on Admission?: Yes (8) DVT prophylaxis: - Coumadin Dispo: Possible D/C tomorrow or next day Subjective Reports feeling better today. Still with intermittent pain but seems to be improving. Tolerated a full diet and will advance to low fiber. Verbalizes no new complaints. Planning on returning home with services on discharge Review of Systems Constitutional: no fever, no chills and no anorexia Respiratory: no cough and no dyspnea Cardiovascular: + edema; no chest pain and no palpitations Gastrointestinal: + abdominal pain (improving; mild in lower quadrants) and + diarrhea/loose stools; no nausea, no vomiting and no constipation Genitourinary: + vaginal dryness (And burning); no dysuria, no vaginal discharge and no vaginal itching Integumentary: + rash (small unraised red spot on R buttocks) Physical Exam Constitutional: WD/WN, vitals as above Eyes: + anicteric sclerae ENMT: Ears: no hearing impairment Neck: normal visual inspection and trachea midline Respiratory: normal respiratory effort, lungs clear to auscultation Cardiovascular: RRR, no murmur, no edema Gastrointestinal (Abdomen): Inspection/Auscultation: normal bowel sounds; abdomen not distended Percussion/Palpation: abdomen soft; abdomen nontender, no guarding and abdomen not rigid Musculoskeletal: Head/Neck/Chest: normocephalic and head atraumatic Extremities: no cyanosis and no clubbing Neurologic: moves all extremities Psychiatric: A+Ox3, euthymic affect Results & Data Vital Signs (Past 12 Hours) Vital Signs Temp Pulse Resp BP Pulse Ox 08/17/18 07:10 36.8 C 49 L 20 175/66 H 96 (1) UTI (urinary tract infection) Hematuria presence: with hematuria Urinary tract infection type: site unspecified Qualified Code(s): N39.0 - Urinary tract infection, site not specified; R31.9 - Hematuria, unspecified
[2018-08-17] MEDS ORDERED: LOPERAMIDE HCL 2 MG CAP PO PRN (13:39)
[2018-08-17] MEDS: WARFARIN SOD 3 MG TAB PO SCH (16:38)
[2018-08-17] MEDS: AMOXICILLIN/CLAVULANATE 875 MG TAB PO SCH (17:37)
[2018-08-17] MEDS: ACETAMINOPHEN 325 MG TAB PO PRN (18:41)
[2018-08-17] MEDS: PREMARIN VAG CRM 14 APPLN/30 GM TUBE PV SCH (20:56)
[2018-08-17] MEDS: HydrALAZINE HCL 20 MG/ML VIAL IV PRN (23:32)
[2018-08-18] MEDS: ACETAMINOPHEN 325 MG TAB PO PRN (00:47)
[2018-08-18] MEDS: EUCERIN CR 120 GM JAR EXT PRN ×2 (03:46→21:20)
[2018-08-18] MEDS ORDERED: LORazepam 0.5 MG TAB PO ONE (05:00)
[2018-08-18] MEDS: CLOBETASOL PROPIONATE 0.05% OINT 15 GM TUBE EXT SCH ×3 (08:25→21:20)
[2018-08-18] MEDS: INSULIN ASPART 100 UNITS/ML 3 ML PEN SC SCH ×4 (08:25→21:22)
[2018-08-18] MEDS: CHOLECALCIFEROL 1,000 UNITS TAB PO SCH (08:26)
[2018-08-18] MEDS: AMOXICILLIN/CLAVULANATE 875 MG TAB PO SCH ×2 (08:26→18:01)
[2018-08-18] MEDS: LACTOBACILLUS ACIDOPHILUS (FLORANEX) TAB PO SCH (08:27)
[2018-08-18] MEDS: ENALAPRIL MALEATE 10 MG TAB PO SCH (08:27)
[2018-08-18] MEDS ORDERED: TRAMADOL HCL 50 MG TABLET PO PRN (10:41)
[2018-08-18 12:23] LABS: Appearance Urine Cloudy (Clear); Bacteria Urine Automated Negative (Negative); Bilirubin Urine Negative (Negative); Blood Urine Trace (Negative); Color Urine Yellow; Glucose Urine UA Negative (Negative); Ketones Urine Negative (Negative); Leukocyte Esterase Urine 2+ (Negative); Nitrite Urine Negative (Negative); Protein Urine 1+ (Negative); Specific Gravity Urine 1.019 (1.000-1.030); Urobilinogen Urine Negative (Negative); WBC Urine Automated >30 /hpf (0-5); pH Urine 6.5 (4.5-7.5)
[2018-08-18] MEDS: ACETAMINOPHEN 500 MG TAB PO PRN ×2 (15:23→21:30)
[2018-08-18] MEDS: WARFARIN SOD 3 MG TAB PO SCH (15:24)
--- NOTE | 2018-08-18 16:47 | Hospitalist Progress Note ---
Date of Service August 18, 2018 Assessment & Plan (1) Acute diverticulitis: - CT A/P: acute diverticulitis in the mid sigmoid area. - Unasyn IV initially and transitioned to Augmentin BID to complete 14 day course - treatment end date of 08/26 - Tolerating low fiber diet - Tylenol, Tramadol, & Morphine PRN (2) Lichen sclerosus 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: - Has ongoing lower abd/vaginal burning sensation -- is likely related to this condition. Was diagnosed by Dr. Ramsey as outpatient, recently started Clobetasol ointment on 08/02/18. - Continue Premarin HS; Apply Clobetasol ointment BID -- brought med from home - Was also advised to use Eucerin ointment between doses of Clobetasol if needed. - Follows with Dr. Ramsey and has F/U appt already established per - Seems to have flairs of this condition which can be painful and causing some anxiety (3) UTI (urinary tract infection): - U/A was positive; H/O Cx with normal vaginal clemente - no further intervention at this time - Given symptoms on 08/17 did repeat UA which does have epithelial cells and UCx pending - likely not infectious and Augmentin likely would cover most organisms but will monitor (4) Type 2 diabetes mellitus: - Hold home meds during this admission. - SSI coverage while inpatient. (5) Essential hypertension: - Hold home Benazepril while inpatient (non-formulary) and use Enalapril 20 mg daily - BP has been elevated but asymptomatic -- may be response to pain vs. anxiety - Hydralazine IV prn SBP >180, DBP >110. - Can be further monitored with PCP when acute issues resolve and medication adjustments if necessary (6) History of DVT (deep vein thrombosis): - On Warfarin therapy, 3 mg daily; follows with Coumadin clinic - Monitor INR daily (7) Metastatic colon cancer to liver: - History of colon cancer - NOTED (8) DVT prophylaxis: - Coumadin Dispo: Possible D/C tomorrow Subjective Reports feeling well today but had a rough night. Reports increasing burning pain likely from her lichen sclerosis which was severe requiring IV pain medication. Also reports experiencing a lot of anxiety last night due to this. Is more fearful about her pain and if this will occur again. Pain is not occurring due to food and seems to be more vaginal than abdominal. Review of Systems Constitutional: no fever and no chills Respiratory: no cough and no dyspnea Cardiovascular: no chest pain, no palpitations and no edema Gastrointestinal: + abdominal pain (improving; mild in lower quadrants); no nausea, no vomiting, no constipation and no diarrhea/loose stools Genitourinary: + vaginal dryness (And burning); no dysuria, no vaginal discharge and no vaginal itching Physical Exam Constitutional: WD/WN, vitals as above Eyes: + anicteric sclerae ENMT: Ears: no hearing impairment Neck: normal visual inspection and trachea midline Respiratory: normal respiratory effort, lungs clear to auscultation Cardiovascular: RRR, no murmur, no edema Gastrointestinal (Abdomen): Inspection/Auscultation: normal bowel sounds; abdomen not distended Percussion/Palpation: abdomen soft; abdomen nontender, no guarding and abdomen not rigid Musculoskeletal: Head/Neck/Chest: normocephalic and head atraumatic Extremities: no cyanosis and no clubbing Skin: no rashes, warm and dry Neurologic: moves all extremities Psychiatric: A+Ox3, euthymic affect Results & Data Vital Signs (Past 12 Hours) Vital Signs Temp Pulse Pulse Resp BP BP Pulse Ox 08/18/18 15:12 36.6 C 56 L 20 164/69 H 94 08/18/18 10:18 59 L 165/66 H 08/18/18 07:21 36.6 C 55 L 18 183/67 H 96 (1) UTI (urinary tract infection) Hematuria presence: with hematuria Urinary tract infection type: site unspecified Qualified Code(s): N39.0 - Urinary tract infection, site not specified; R31.9 - Hematuria, unspecified
[2018-08-18] MEDS: PREMARIN VAG CRM 14 APPLN/30 GM TUBE PV SCH (21:19)
[2018-08-18] MEDS: HydrALAZINE HCL 20 MG/ML VIAL IV PRN (22:52)
[2018-08-18 23:07] VITALS: TEMP 98.2
[2018-08-19 07:23] VITALS: O2SAT 96
[2018-08-19 07:43] LABS: Hematocrit (blood only) 41.1 % (37-47); Hemoglobin 14.1 g/dL (12.0-16.0); Mean Corpuscular Hgb Conc 34.3 g/dL (32-36); Mean Corpuscular Volume 85.6 fL (80-100); Mean Platelet Volume 10.2 fL (7.4-10.4); Platelet Count 251 K/uL (130-400); RDW Coefficient of Variation 15.1 % (11.5-14.5); White Blood Count 9.12 K/uL (4.8-10.8)
[2018-08-19 07:53] LABS: INR 1.6 (0.9-1.1); Prothrombin Time 16.2 Seconds (9.0-12.0)
[2018-08-19] MEDS: CLOBETASOL PROPIONATE 0.05% OINT 15 GM TUBE EXT SCH (08:15)
[2018-08-19] MEDS: ENALAPRIL MALEATE 10 MG TAB PO SCH (08:15)
[2018-08-19] MEDS: LACTOBACILLUS ACIDOPHILUS (FLORANEX) TAB PO SCH (08:15)
[2018-08-19] MEDS: CHOLECALCIFEROL 1,000 UNITS TAB PO SCH (08:15)
[2018-08-19] MEDS: AMOXICILLIN/CLAVULANATE 875 MG TAB PO SCH (08:15)
[2018-08-19] MEDS: ACETAMINOPHEN 500 MG TAB PO PRN (08:18)
[2018-08-19 08:19] LABS: Calcium 8.8 mg/dl (8.5-10.1); Creatinine Clr Calc Pharmacy 69.3 ml/min; Est GFR (African American) 89.6; Est GFR (Non-African American) 77.3; Potassium 3.5 mmol/L (3.5-5.1)
[2018-08-19] MEDS: INSULIN ASPART 100 UNITS/ML 3 ML PEN SC SCH ×2 (08:55→13:25)
[2018-08-19 12:31] VITALS: BP 190/70; PULSE 68
--- NOTE | 2018-08-19 23:08 | Discharge Summary ---
Date of Service August 19, 2018 Admission HPI Per Admitting Provider 72-year-old white female with chronic recurrent UTI and chronic abdominal pain. However she developed more localized pain in the left lower quadrant over the past 2 days accompanied by weakness. CT scan today in the ED reveals evidence of mid sigmoid diverticulitis. White count is elevated at 12,000. She has been administered Unasyn. 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 Current INR 3.2. She will be placed on clear liquids and admitted for further evaluation and treatment. Principal Diagnosis Acute sigmoid diverticulitis Discharge Exam Constitutional WD/WN, vitals as above Eyes PERRL, conjunctivae normal, anicteric sclerae ENMT external ear and nose normal, oropharynx normal Neck trachea midline, no thyromegaly Respiratory normal respiratory effort, lungs clear to auscultation Cardiovascular RRR, no murmur, no edema Gastrointestinal (Abdomen) normal bowel sounds, soft, nontender, no hepatosplenomegaly Musculoskeletal no cyanosis or clubbing, extremities motor strength 5/5 Skin no rashes, warm and dry Neurologic patellar DTR's 2+ bilat, sensation intact and PERRL, EOMI, accommodation nl, no face palsy, no dysarthria Psychiatric A+Ox3, euthymic affect Lymphatic no cervical or axillary lymphadenopathy Discharge Data Allergies Allergy/AdvReac Type Severity Reaction Status Date / Time No Known Allergies Allergy Unverified 07/31/18 11:09 Consultations 08/13/18 13:41 ED Decision to Admit Stat Ordered Studies 08/13/18 11:19 CT abd pelvis IV con only Stat Hospital Course (1) Acute diverticulitis: - CT A/P: acute diverticulitis in the mid sigmoid area. - Unasyn IV initially and transitioned to Augmentin BID, will complete 9 more days after discharge no pain, no fever, WBC normal to complete 14 day course - treatment end date of 08/26 - Tolerating low fiber diet, can advance as tolerated at home (2) Lichen sclerosus 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: - Has ongoing lower abd/vaginal burning sensation -- is likely related to this condition. Was diagnosed by Dr. Ramsey as outpatient, recently started Clobetasol ointment on 08/02/18. - Continue Premarin HS; Apply Clobetasol ointment BID -- brought med from home - Was also advised to use Eucerin ointment between doses of Clobetasol if needed. - Follows with Dr. Ramsey and has F/U appt already established per on 09/15 - Seems to have flairs of this condition which can be painful and causing some anxiety instructed to call Dr. Ramsey's office if she needs an earlier appointment (3) UTI (urinary tract infection): - U/A was positive; H/O Cx with normal vaginal clemente - no further intervention at this time - Given symptoms on 08/17 did repeat UA which does have epithelial cells and UCx pending - likely not infectious and Augmentin likely would cover most organisms but will monitor likely had WBC in her urine due to the inflammation in the adjacent sigmoid colon (4) Type 2 diabetes mellitus: - Hold home meds during this admission. - SSI coverage while inpatient. (5) Essential hypertension: - Hold home Benazepril while inpatient (non-formulary) and use Enalapril 20 mg daily - BP has been elevated but asymptomatic -- may be response to pain vs. anxiety - Hydralazine IV prn SBP >180, DBP >110. - Can be further monitored with PCP when acute issues resolve and medication adjustments if necessary (6) History of DVT (deep vein thrombosis): - On Warfarin therapy, 3 mg daily; follows with Coumadin clinic - Monitor INR daily (7) Metastatic colon cancer to liver: - History of colon cancer - NOTED (8) DVT prophylaxis: - Coumadin Dispo: d'c to home Total Time Total Time Spent Total Time Spent (In Minutes): 32 minutes Total Time Includes: Examination of the Patient, Discharge Planning and Medication Reconciliation Discharge Plan Discharge Items Patient Disposition: Home - Self-Care Reason For Visit: ACUTE SIGMOID DIVERTICULITIS Discharge Diagnosis: Sigmoid diverticulitis Lichen sclerosis Condition: Good Discharge Goals: Decrease discomfort, Improve disease control and Improve function Activity: Resume your previous activity Non-emergency contact: Primary Care Provider and Vacuum Drum Drier Operator Call non-emergency contact if: you have any medication questions, your symptoms worsen, your pain is not controlled and you have a fever Follow-up/Referrals: Palak Chiang MD [Primary Care Provider] - 08/24/18 9:30 am (Please, follow up at Dr. Palak Chiang' office with her assistant case manager, Emilie Nesbitt PA-C, on WednesdayAugust 24 at 9:30 am. *If you need to change this appointment, call the office at [phone].) Diet: Carb Consistent or DM2 Addtl Provider Instructions: Medications: - AUGMENTIN: antibiotic for diverticulitis, take twice a day, next dose is this evening, take 18 more doses - ULTRAM: use as needed for any abdominal pain or pain from vaginal irritation Diverticulitis improved on antibiotics, no fever, WBC normal for 5 days, pain gone treatment is antibiotics for 14 days will complete 9 more days at home on the Augmentin, take twice a day, next dose this evening use Ultram as needed for pain Lichen sclerosis continue the Premarin, Clobetasol as prescribed by Dr. Ramsey follow up with Dr. Ramsey as scheduled on 09/15 if symptoms continue to be intense, not relieved by creams, then call for sooner appointment Prescriptions: New tramadol 50 mg Tablet 50 mg PO Q4H PRN (Reason: pain) 10 Days Qty: 20 RF: 0 amoxicillin-pot clavulanate 875-125 mg Tablet 1 tab PO BIDM 9 Days Qty: 18 RF: 0 Continued cholecalciferol (vitamin D3) 5,000 unit capsule 5,000 units PO QAM RF: 0 benazepril 20 mg tablet 20 mg PO QAM RF: 0 sitagliptin [Januvia] 100 mg tablet 100 mg PO QAM RF: 0 Adult Probiotic 3 billion cell capsule 3,000 mmu cells PO DAILY RF: 0 cranberry 500 mg capsule 500 mg PO DAILY RF: 0 warfarin 3 mg tablet 3 mg PO HS Qty: 30 RF: 1 Levemir FlexTouch U-100 Insuln 100 unit/mL (3 mL) insulin pen 6 unit subcut HS RF: 0 clobetasol 0.05 % ointment 1 applic topical DIRECTED RF: 0 nystatin 100,000 unit/gram Powder 1 applic TOPICAL TID RF: 0 Stand-Alone Forms: [facility] Discharge Orders: Discharge Order (Routine); Ordered 08/19/18 Ordered By: Rex Leiva Admission Data Admit Date/Time: 08/13/18 14:29 Attending Provider: Rex Leiva Admit Provider: Anderson Dahl Primary Care Provider: Palak Chiang Other Providers: Anderson Dahl Service: Medical Other Interventions: Discharge Summary Assessment (RN) Last Done: 08/19/18 12:30 DC Date/Time DO NOT enter until pt leaves facility: 08/19/18 13:59
== END 2018-08-19 13:59 | disposition home or self-care (01) | DRG 392 ==
LOC: ED 10:50 → 4W 14:29 → SUATTDRO 14:29 → 4W 14:47
DX: Z85.038 Personal history of other malignant neoplasm of large intestine; Z85.05 Personal history of malignant neoplasm of liver; Z86.718 Personal history of other venous thrombosis and embolism; I10 Essential (primary) hypertension; Z79.4 Long term (current) use of insulin; K57.32 Diverticulitis of large intestine without perforation or abscess without bleeding; Z79.01 Long term (current) use of anticoagulants; L90.0 Lichen sclerosus et atrophicus; N39.0 Urinary tract infection, site not specified; C78.7 Secondary malignant neoplasm of liver and intrahepatic bile duct; E11.9 Type 2 diabetes mellitus without complications

== ENCOUNTER 2019-06-04 20:40 | Inpatient (IN) ==
[2019-06-04] MEDS ORDERED: KETOROLAC TROMETHAMINE 15 MG/ML VIAL IV STA (21:06)
[2019-06-04] MEDS ORDERED: SODIUM CHLORIDE 0.9% 500 ML IV SCH (21:15)
[2019-06-04 21:27] LABS: Appearance Urine Turbid (Clear); Bilirubin Urine Negative (Negative); Blood Urine 3+ (Negative); Color Urine Yellow; Glucose Urine UA Negative (Negative); Ketones Urine Trace (Negative); Leukocyte Esterase Urine 1+ (Negative); Nitrite Urine Negative (Negative); Protein Urine 2+ (Negative); Specific Gravity Urine >= 1.030 (1.000-1.030); Urobilinogen Urine Negative (Negative)
[2019-06-04 21:33] LABS: Basophils # (auto) 0.03 K/uL (0-0.2); Basophils % (auto) 0.3 %; Eosinophils # (auto) 0.18 K/uL (0-0.5); Eosinophils % (auto) 1.7 %; Hematocrit (blood only) 43.1 % (37-47); Hemoglobin 14.4 g/dL (12.0-16.0); Immature Granulocytes # (auto) 0.16 K/uL (0.00-0.02); Immature Granulocytes % (auto) 1.5 %; Lymphocytes # (auto) 2.79 K/uL (1.2-3.4); Lymphocytes % (auto) 26.6 %; Mean Corpuscular Hemoglobin 28.2 pg (25-34); Mean Corpuscular Hgb Conc 33.4 g/dL (32-36); Mean Corpuscular Volume 84.5 fL (80-100); Mean Platelet Volume 10.4 fL (7.4-10.4); Monocytes # (auto) 1.21 K/uL (0.11-0.59); Monocytes % (auto) 11.6 %; Neutrophils % (auto) 58.3 %; Platelet Count 248 K/uL (130-400); RDW Coefficient of Variation 15.7 % (11.5-14.5); RDW Standard Deviation 48.4 fL (36.4-46.3); White Blood Count 10.47 K/uL (4.8-10.8)
[2019-06-04 21:44] LABS: Bacteria Urine 2+ (Negative); WBC Urine >30 /hpf (0-5)
[2019-06-04 21:46] LABS: INR 1.8 (0.9-1.1); Partial Thromboplastin Time 28.2 Seconds (21.0-31.0); Prothrombin Time 18.1 Seconds (9.0-12.0)
[2019-06-04 21:51] LABS: Albumin Level 3.2 gm/dl (3.4-5.0); BUN Creatinine Ratio 25.8 (10-20); Calcium 9.5 mg/dl (8.5-10.1); Creatinine Clr Calc Pharmacy 48.2 ml/min; Est GFR (African American) 60.9; Est GFR (Non-African American) 52.5; Potassium 4.1 mmol/L (3.5-5.1)
[2019-06-04 21:54] LABS: Albumin Globulin Ratio 0.8 (0.9-2); Bilirubin,Total 0.8 mg/dl (0.2-1); Globulin 4.1 gm/dl (2.5-4.0); Total Protein 7.3 gm/dl (6.4-8.2)
[2019-06-04] MEDS ORDERED: cefTRIAXone SODIUM 1,000 MG/50 ML BAG IV STA (22:25)
[2019-06-04] MEDS ORDERED: SODIUM CHLORIDE 0.9% 500 ML IV ONE (22:26)
--- NOTE | 2019-06-05 00:45 | Emergency Department Note ---
Entered by Nickie Mercado acting as a scribe for History of Present Illness General Chief complaint: Urinary Symptoms Time Seen by Provider: 06/04/19 20:55 Source: patient and family History of Present Illness Onset (ago): day(s) 4 Location: abdomen Severity: severe Pain Consistency: + constant Quality: + burning Relieved By: + none Associated symptoms: + confusion, + nausea/vomiting (denies vomiting) and + other (burning with urination, abdominal pain, diarrhea); no fever/chills Treatments prior to arrival: none The patient is a 73 year old female who presents to the Emergency Room with complaints of urinary symptoms that have been ongoing for the past month, but worsened this week. The patient was seen in the hospital 3 weeks ago for similar urinary symptoms. After discharge, she was taken to [facility], where she stayed for about a month. She returned home on , 4 days ago. She complains of severe pain and burning with urination, as well as nausea. Her family notes that these symptoms have been going on for months, but recently worsened. She denies fever and vomiting. Her daughter reports that she has also had diarrhea for the past day and a half. Her family notes that her mental state has been declining as well. She has been diagnosed with Lichen sclerosis. The patient has not fallen since she has been home. The family decided to bring her in today because she had increased abdominal pain and trouble sleeping last night. The patient is diabetic and is on Coumadin. A recent CT scan showed a spot on her bladder. The patient also has a history of cancer. Home Medications Home Medications Medication Instructions Recorded Confirmed Type benazepril 20 mg tablet 20 mg PO QAM 01/31/18 06/04/19 History cholecalciferol (vitamin D3) 125 5,000 units PO QAM 01/31/18 06/04/19 History mcg (5,000 unit) capsule sitagliptin 100 mg tablet 100 mg PO QAM 01/31/18 06/04/19 History blood sugar diagnostic #10 ea 11/29/18 05/17/19 History lancets 28 gauge #25 ea 11/29/18 05/17/19 History acetaminophen 325 mg tablet 325 - 650 mg PO Q6H PRN tab 12/07/18 06/04/19 History warfarin 3 mg tablet 3 mg PO HS tab 12/07/18 06/04/19 History insulin detemir U-100 100 unit/mL 8 unit SUBCUT QAM 01/05/19 06/04/19 History (3 mL) subcutaneous pen escitalopram oxalate 10 mg tablet 10 mg PO .DAILY @ 1730 04/03/19 06/04/19 History Probiotic 0 mmu cells PO QAM 05/11/19 06/04/19 History clobetasol 1 applic TOPICAL 2XWK 05/11/19 06/04/19 History insulin detemir U-100 [Levemir 12 unit SUBCUT HS 05/22/19 06/04/19 History U-100 Insulin] Abh Cream Medication 1 dose TOPICAL Q8H 06/04/19 06/04/19 History acetaminophen [Tylenol Extra 1,000 mg PO Q6H PRN 06/04/19 06/04/19 History Strength] loperamide [Imodium A-D] 1 mg PO ONCE 06/04/19 06/04/19 History Allergies Allergy/AdvReac Type Severity Reaction Status Date / Time nitrofurantoin AdvReac Intermediate Abdominal Verified 06/04/19 21:28 [From Macrobid] Pain Past Med/Surg History Medical History Bladder mass Colon cancer Cystitis DVT prophylaxis Essential hypertension History of chemotherapy History of deep vein thrombophlebitis of lower extremity History of diverticulitis History of DVT (deep vein thrombosis) History of nephrolithiasis Lichen sclerosus 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 Metastatic colon cancer to liver Type 2 diabetes mellitus UTI (urinary tract infection) Surgical History History of appendectomy History of colon surgery History of colonoscopy History of hysterectomy History of partial colectomy History of tonsillectomy History of tubal ligation S/P cholecystectomy Status post cardiac surgery inferior vena cava bo filter placement Family History Father Diabetes Coronary heart disease Mother Colorectal cancer Sister Hypertension Diabetes Family/Other Diabetes Hypertension Other Family history non-contributory Social History Preferred Language: Cuban Communication Ability: Effective Manager Utilization Review Required: No Beliefs That Will Affect Care: None marital status: Current Living Situation: Spouse Current Living Situation Comment: [facility] current occupational status: retired Feels Safe at Home: Yes Safety Concerns: Feels Safe At This Time Smoking Status: Never smoker Second Hand Exposure: No ; Hx Alcohol Use: No Hx Substance Use: No Review of Systems See HPI for pertinent positives & negatives. and A total of 10 systems reviewed and were otherwise negative Physical Exam Vital Signs Vital Signs - 24 hr 06/04/19 20:55 06/04/19 23:31 Temperature 36.7 C Temperature Source Oral Pulse Rate 67 Pulse Rate [Bilateral] 57 L Pulse Rhythm Regular Pulse Rhythm [Bilateral] Regular Pulse Strength Normal Pulse Strength [Bilateral] Normal Respiratory Rate 18 18 Respiratory Effort / Characteristics Non-Labored Spontaneous Non-Labored Spontaneous Respiratory Depth Normal Normal Respiratory Pattern Regular Blood Pressure 175/77 H Blood Pressure [Left Arm] 170/72 H Blood Pressure Mean 109 Blood Pressure Mean [Left Arm] 104 Blood Pressure Position Lying Blood Pressure Position [Left Arm] Lying Pulse Oximetry 95 97 Oxygen Delivery Method Room Air Room Air Sepsis Recent Fever Within 48 Hours No Sepsis Action Taken by Nursing No Action Required General: Mildly-uncomfortably appearing older female in no acute distress who complains of abdominal pain. HEENT: Normal cephalic atraumatic. Pupils are equal round and reactive to light. Extraocular movements are intact. Oropharynx is pink with moist mucous membranes. No swelling of the mouth lips or tongue. Neck: Supple with a midline trachea. No meningeal signs or stiffness, no JVD or bruits. No Stridor. Chest: Clear to auscultation bilaterally. No wheezes or rhonchi. No increased work of breathing. Heart: regular rate and rhythm. Abdomen: Suprapubic abdominal tenderness. Cath urine specimen showed purulent looking urine. Soft, nondistended without rebound guarding or rigidity. Extremities: No cyanosis clubbing or edema. No calf tenderness or asymmetry Spine/Back. Non tender to palpation. No CVA tenderness Skin: Good turgor without rashes. Neurologic exam: Cranial nerves two through 12 are intact. Motor and sensation are intact and symmetrical throughout. Course Course 2057: Past medical records reviewed. The patient was evaluated in room C08. A complete history and physical exam was performed. 2232: The family does not think that the patient is stable enough to go home, especially due to her altered mental status. The hospitalist has been paged. 0005: I spoke to Dr. Álvarez, [facility] hospitalist, who agreed to take over care of the patient. The patient is agreeable to staying in the hospital and understands the treatment plan. The patient will stay for further evaluation. Administered Medications Discontinued Medications Sodium Chloride (Nss) 500 mls @ 999 mls/hr IV .Q31M YOLIS Stop: 06/04/19 21:45 Last Infusion: 06/04/19 22:37 Dose: 0 mls/hr Documented by: [id number] Admin: 06/04/19 21:40 Dose: 999 mls/hr Documented by: [id number] Ceftriaxone Sodium (Rocephin) 1,000 mg in 50 mls @ 100 mls/hr IV NOW STA Stop: 06/04/19 22:54 Last Infusion: 06/05/19 00:04 Dose: 0 mls/hr Documented by: [id number] Admin: 06/04/19 23:27 Dose: 100 mls/hr Documented by: [id number] Sodium Chloride (Nss) 500 mls @ 999 mls/hr IV .Q31M ONE Stop: 06/04/19 22:56 Last Infusion: 06/05/19 00:04 Dose: 0 mls/hr Documented by: [id number] Admin: 06/04/19 23:28 Dose: 999 mls/hr Documented by: [id number] Ketorolac Tromethamine (Toradol) 15 mg IV NOW STA Stop: 06/04/19 21:07 Last Admin: 06/04/19 21:39 Dose: 15 mg Documented by: [id number] Medical Decision Making Differential Diagnosis Differential diagnosis includes: UTI, sepsis, inter abdominal processes, electrolyte or metabolic abnormalities, among others were considered. Medical Records Attestation: I reviewed the patient's medical records. Home Medications Current Medication List: was personally reviewed by me Laboratory Data Attestation: I reviewed the patient's lab results. Result diagrams: 06/04/19 21:24 06/04/19 21:24 Lab Results 06/04/19 06/04/19 06/04/19 Range/Units 21:00 21:24 21:24 WBC 10.47 (4.8-10.8) K/uL RBC 5.10 (4.2-5.4) M/uL Hgb 14.4 (12.0-16.0) g/dL Hct 43.1 (37-47) % MCV 84.5 (80-100) fL MCH 28.2 (25-34) pg MCHC 33.4 (32-36) g/dL RDW Std Deviation 48.4 H (36.4-46.3) fL RDW Coeff of Robin 15.7 H (11.5-14.5) % Plt Count 248 (130-400) K/uL MPV 10.4 (7.4-10.4) fL Immature Gran % (Auto) 1.5 % Neut % (Auto) 58.3 % Lymph % (Auto) 26.6 % [place] % (Auto) 11.6 % Eos % (Auto) 1.7 % Baso % (Auto) 0.3 % Immature Gran # (Auto) 0.16 H (0.00-0.02) K/uL Neut # (Auto) 6.10 (1.4-6.5) K/uL Lymph # (Auto) 2.79 (1.2-3.4) K/uL [place] # (Auto) 1.21 H (0.11-0.59) K/uL Eos # (Auto) 0.18 (0-0.5) K/uL Baso # (Auto) 0.03 (0-0.2) K/uL PT 18.1 H (9.0-12.0) Seconds INR 1.8 H (0.9-1.1) APTT 28.2 (21.0-31.0) Seconds PTT Ratio 1.0 Sodium (136-145) mmol/L Potassium (3.5-5.1) mmol/L Chloride (98-107) mmol/L Carbon Dioxide (21-32) mmol/L Anion Gap (3-11) BUN (7-18) mg/dl Creatinine (0.6-1.2) mg/dl Est Cr Clr Drug Dosing ml/min Est GFR ( Amer) Est GFR (Non-Af Amer) BUN/Creatinine Ratio (10-20) Glucose (70-99) mg/dl Lactate (0.4-2.0) mmol/L Calcium (8.5-10.1) mg/dl Total Bilirubin (0.2-1) mg/dl AST (15-37) U/L ALT (12-78) U/L Alkaline Phosphatase (45-117) U/L Total Protein (6.4-8.2) gm/dl Albumin (3.4-5.0) gm/dl Globulin (2.5-4.0) gm/dl Albumin/Globulin Ratio (0.9-2) Lipase (73-393) U/L Urine Color Yellow Urine Appearance Turbid A (Clear) Urine pH 5.0 (4.5-7.5) Ur Specific [place] >= 1.030 (1.000-1.030) Urine Protein 2+ H (Negative) Urine Glucose (UA) Negative (Negative) Urine Ketones Trace H (Negative) Urine Blood 3+ H (Negative) Urine Nitrite Negative (Negative) Urine Bilirubin Negative (Negative) Urine Urobilinogen Negative (Negative) Ur Leukocyte Esterase 1+ H (Negative) Urine RBC 5-10 H (0-4) /hpf Urine WBC >30 H (0-5) /hpf Ur Epithelial Cells 5-10 H (0-5) /lpf Urine Bacteria 2+ H (Negative) 06/04/19 06/04/19 Range/Units 21:24 22:56 WBC (4.8-10.8) K/uL RBC (4.2-5.4) M/uL Hgb (12.0-16.0) g/dL Hct (37-47) % MCV (80-100) fL MCH (25-34) pg MCHC (32-36) g/dL RDW Std Deviation (36.4-46.3) fL RDW Coeff of Robin (11.5-14.5) % Plt Count (130-400) K/uL MPV (7.4-10.4) fL Immature Gran % (Auto) % Neut % (Auto) % Lymph % (Auto) % [place] % (Auto) % Eos % (Auto) % Baso % (Auto) % Immature Gran # (Auto) (0.00-0.02) K/uL Neut # (Auto) (1.4-6.5) K/uL Lymph # (Auto) (1.2-3.4) K/uL [place] # (Auto) (0.11-0.59) K/uL Eos # (Auto) (0-0.5) K/uL Baso # (Auto) (0-0.2) K/uL PT (9.0-12.0) Seconds INR (0.9-1.1) APTT (21.0-31.0) Seconds PTT Ratio Sodium 136 (136-145) mmol/L Potassium 4.1 (3.5-5.1) mmol/L Chloride 102 (98-107) mmol/L Carbon Dioxide 27 (21-32) mmol/L Anion Gap 6.0 (3-11) BUN 27 H (7-18) mg/dl Creatinine 1.04 (0.6-1.2) mg/dl Est Cr Clr Drug Dosing 48.2 ml/min Est GFR ( Amer) 60.9 Est GFR (Non-Af Amer) 52.5 BUN/Creatinine Ratio 25.8 H (10-20) Glucose 133 H (70-99) mg/dl Lactate 1.0 (0.4-2.0) mmol/L Calcium 9.5 (8.5-10.1) mg/dl Total Bilirubin 0.8 (0.2-1) mg/dl AST 21 (15-37) U/L ALT 20 (12-78) U/L Alkaline Phosphatase 55 (45-117) U/L Total Protein 7.3 (6.4-8.2) gm/dl Albumin 3.2 L (3.4-5.0) gm/dl Globulin 4.1 H (2.5-4.0) gm/dl Albumin/Globulin Ratio 0.8 L (0.9-2) Lipase 107 (73-393) U/L Urine Color Urine Appearance (Clear) Urine pH (4.5-7.5) Ur Specific [place] (1.000-1.030) Urine Protein (Negative) Urine Glucose (UA) (Negative) Urine Ketones (Negative) Urine Blood (Negative) Urine Nitrite (Negative) Urine Bilirubin (Negative) Urine Urobilinogen (Negative) Ur Leukocyte Esterase (Negative) Urine RBC (0-4) /hpf Urine WBC (0-5) /hpf Ur Epithelial Cells (0-5) /lpf Urine Bacteria (Negative) Blood Pressure Blood Pressure Findings: Elevated blood pressure Blood Pressure Disposition: further management by hospitalist DAWSON Vigil This patient comes in as described above. She was placed in room C8. She brought in by her family after having significant lower abdominal pain. She was recently in the hospital and she has been weak and they are concerned about her being able ambulate at home. she has also had some confusion that has been persistent. IV access was established and blood work was obtained. we did a cath urine and it looks like pus, it was dark and purulent appearing. IV access was established and multiple blood testing was obtained. She has no elevation white count or lactic acid to suggest sepsis. She has no sign of electrolyte or metabolic abnormality. I did give her IV Rocephin and blood cultures were obtai jose. I do think that she needs to be admitted/observe for her treatment of urinary tract infection and weakness. She is slightly subtherapeutic on her Coumadin with an INR of 1.8. I discussed with Dr. Mckenzie to see her in the ER for these measures Impression & Plan Weakness, UTI (urinary tract infection), Abdominal pain, lower, penitentiary (current) use of anticoagulants Discharge Plan Visit Data Chief Complaint: Urinary Symptoms ED Provider: Saleem Silva Discharge Problem: Weakness, UTI (urinary tract infection), Abdominal pain, lower, penitentiary (current) use of anticoagulants Forms Stand Alone Forms: My [facility] Prescriptions Prescriptions: No Action cholecalciferol (vitamin D3) 5,000 unit capsule 5,000 units PO QAM RF: 0 benazepril 20 mg tablet 20 mg PO QAM RF: 0 sitagliptin [Januvia] 100 mg tablet 100 mg PO QAM RF: 0 warfarin 3 mg tablet 3 mg PO HS RF: 0 escitalopram oxalate [Lexapro] 10 mg tablet 10 mg PO .DAILY @ 1730 RF: 0 (DME) FreeStyle Lite Strips strip See Dose Instructions .ROUTE .MEDSUPPLY Qty: 10 RF: 0 (DME) lancets [FreeStyle Lancets] 28 gauge misc See Dose Instructions .ROUTE .MEDSUPPLY Qty: 25 RF: 0 acetaminophen 325 mg tablet 325 - 650 mg PO Q6H PRN (Reason: fever or pain) RF: 0 Levemir FlexTouch U-100 Insuln 100 unit/mL (3 mL) insulin pen 8 unit subcut QAM RF: 0 clobetasol 0.05 % ointment 1 applic topical [id number] RF: 0 Probiotic 3 billion cell Capsule 0 mmu cells PO QAM RF: 0 acetaminophen [Tylenol Extra Strength] 500 mg Tablet 1,000 mg PO Q6H PRN (Reason: Pain) RF: 0 Abh Cream Medication 1 dose topical Q8H RF: 0 loperamide [Imodium A-D] 2 mg Tablet 1 mg PO ONCE RF: 0 Levemir U-100 Insulin 100 unit/mL Solution 12 unit SUBCUT HS RF: 0 Discharge Problem: UTI (urinary tract infection) Qualifiers: Urinary tract infection type: site unspecified Hematuria presence: without hematuria Qualified Code(s): N39.0 - Urinary tract infection, site not specified The scribe's documentation has been prepared under my direction and personally reviewed by me in its entirety. I confirm that the note above accurately reflects all work, treatment, procedures, and medical decision making performed by me.
[2019-06-05] MEDS ORDERED: GLUCOSE 10 TABS/TUBE PO PRN (02:59)
[2019-06-05] MEDS ORDERED: GLUCAGON FOR INJ 1 MG VIAL SQ PRN (02:59)
[2019-06-05] MEDS ORDERED: DEXTROSE 50% 50 ML SYRINGE IV PRN (02:59)
[2019-06-05] MEDS ORDERED: ONDANSETRON INJ 2 MG/ML 2 ML VIAL IV PRN (02:59)
[2019-06-05] MEDS ORDERED: CARBOHYDRATES FOR HYPOGLYCEMIA PO PRN (02:59)
[2019-06-05] MEDS ORDERED: GLUCOSE 40% GEL 15 GM TUBE PO PRN (02:59)
[2019-06-05] MEDS ORDERED: HEPARIN SODIUM/DEXTROSE 25,000 UNITS/500 ML BAG IV SCH (04:45)
--- NOTE | 2019-06-05 04:49 | History & Physical Report ---
Date of Service June 05, 2019 Assessment & Plan (1) UTI (urinary tract infection): Recurrent urinary tract infection- Placed on IV fluids. Follow urine culture and sensitivity. Empiric ceftriaxone 1 g IV daily. Present on Admission?: Yes (2) Bladder mass: Patient has been following with Dr. Burton from urology in the outpatient setting, and arrangements were being made for a procedure to assess a bladder mass. We will hold patient's warfarin, placed on heparin IV, and consult urology to see if procedure should be done this admission. Present on Admission?: Yes (3) Generalized weakness: Patient had presented as part of her symptom complex during her earlier admission with generalized weakness, for which she had gone to [facility] for rehab. She likely has become more deconditioned due to development of a UTI. Family has been making arrangements to have home care through [facility]. We will consult social director to see if any additional help is needed. Present on Admission?: Yes (4) History of DVT (deep vein thrombosis): History of DVT/long-term use of warfarin- INR 1.8 upon admission. Patient is potentially to undergo a procedure by urology for a bladder mass. We will hold warfarin, and place on low-dose heparin infusion in the interim. If no procedures is to be performed, patient can resume her usual warfarin dosing Present on Admission?: Yes (5) longterm (current) use of anticoagulants: See above Present on Admission?: Yes (6) Type 2 diabetes mellitus: Will reduce her Levemir in half. Hold Januvia. Placed on Accu-Cheks before meals and at bedtime/every 6 hours with NovoLog coverage per scale. Present on Admission?: Yes (7) Depression: Lexapro 10 mg p.o. daily. Present on Admission?: Yes History of Present Illness Chief Complaint: The patient presents to the emergency department with complaint of urinary symptoms and generalized weakness along with worsening of her baseline confusion over the past month, but in particular over the past few days. The patient herself is not able to contribute significantly to HPI or rev iew of systems, and information is primarily provided by the granddaughter and who are in attendance Primary Care Provider: Palak Chiang MD The patient is a 73-year-old female with a past medical history including urinary tract infections, colon cancer, history of DVT, bladder mass, lichen sclerosis atrophicus, gastroenteritis, acute diverticulitis, hypertension, pneumonia, cystitis and generalized weakness. She was most recently admitted to [facility] from 05/12-05/16/2019, and was then discharged to [facility] for rehab. She was released from [facility] 3 days ago, and began to develop lower abdominal and pelvic pressure, worsening confusion, and was brought by family to the ED for assessment. In the emergency department, work- up included a significantly abnormal urinalysis, and patient was found to be confused and disoriented. Allergies Allergy/AdvReac Type Severity Reaction Status Date / Time nitrofurantoin AdvReac Intermediate Abdominal Verified 06/04/19 21:28 [From Macrobid] Pain Home Medications Home Medications Medication Instructions Recorded Confirmed Type benazepril 20 mg tablet 20 mg PO QAM 01/31/18 06/04/19 History cholecalciferol (vitamin D3) 125 5,000 units PO QAM 01/31/18 06/04/19 History mcg (5,000 unit) capsule sitagliptin 100 mg tablet 100 mg PO QAM 01/31/18 06/04/19 History blood sugar diagnostic #10 ea 11/29/18 05/17/19 History lancets 28 gauge #25 ea 11/29/18 05/17/19 History acetaminophen 325 mg tablet 325 - 650 mg PO Q6H PRN tab 12/07/18 06/04/19 History warfarin 3 mg tablet 3 mg PO HS tab 12/07/18 06/04/19 History insulin detemir U-100 100 unit/mL 8 unit SUBCUT QAM 01/05/19 06/04/19 History (3 mL) subcutaneous pen escitalopram oxalate 10 mg tablet 10 mg PO .DAILY @ 1730 04/03/19 06/04/19 History Probiotic 0 mmu cells PO QAM 05/11/19 06/04/19 History clobetasol 1 applic TOPICAL 2XWK 05/11/19 06/04/19 History insulin detemir U-100 [Levemir 12 unit SUBCUT HS 05/22/19 06/04/19 History U-100 Insulin] Abh Cream Medication 1 dose TOPICAL Q8H 06/04/19 06/04/19 History acetaminophen [Tylenol Extra 1,000 mg PO Q6H PRN 06/04/19 06/04/19 History Strength] loperamide [Imodium A-D] 1 mg PO ONCE 06/04/19 06/04/19 History Past Med/Surg History Medical History Bladder mass Colon cancer Cystitis DVT prophylaxis Essential hypertension History of chemotherapy History of deep vein thrombophlebitis of lower extremity History of diverticulitis History of DVT (deep vein thrombosis) History of nephrolithiasis Lichen sclerosus 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 Metastatic colon cancer to liver Type 2 diabetes mellitus UTI (urinary tract infection) Surgical History History of appendectomy History of colon surgery History of colonoscopy History of hysterectomy History of partial colectomy History of tonsillectomy History of tubal ligation S/P cholecystectomy Status post cardiac surgery inferior vena cava bo filter placement Family History Father Diabetes Coronary heart disease Mother Colorectal cancer Sister Hypertension Diabetes Family/Other Diabetes Hypertension Other Family history non-contributory Social History Preferred Language: Armenian Communication Ability: Effective Instrument Tester Required: No Beliefs That Will Affect Care: None marital status: Current Living Situation: Spouse Current Living Situation Comment: [facility] current occupational status: retired Feels Safe at Home: Yes Safety Concerns: Feels Safe At This Time Smoking Status: Never smoker Second Hand Exposure: No ; Hx Alcohol Use: No Hx Substance Use: No Review of Systems Review of Systems: Unobtainable due to cognitive status Physical Exam Physical Exam: The patient is awake, alert. well developed and well nourished, normocephalic and atraumatic, lying in bed and in no acute distress. HEENT--PERRL, EOMI, mucous membranes and oropharynx dry. Neck--supple. No JVD. No bruits. Thyroid normal, trachea midline, no adenopathy. Heart--normal S1 and S2. No murmurs, rubs or gallops. Lungs--clear bilaterally, no respiratory distress, no accessory muscle use. Abdomen--normal bowel sounds and soft. Nontender. Nondistended. Extremities--no cyanosis or clubbing. No edema. Dermatologic--normal skin turgor, normal color, no abnormal lymph nodes, no rash. Neurologic--cranial nerves II through XII grossly intact. Rheumatologic--normal range of motion. Psychiatric--normal affect. Results & Data Vital Signs (Past 12 Hours) Vital Signs Temp Pulse Pulse Resp BP BP Pulse Ox 06/05/19 04:12 167/68 H 06/05/19 03:08 184/82 H 06/05/19 02:30 97.7 F 65 16 200/71 H 98 06/05/19 02:23 53 L 18 176/92 H 95 06/04/19 23:31 57 L 18 170/72 H 97 06/04/19 20:55 98.1 F 67 18 175/77 H 95 Laboratory Results Laboratory Results WBC 10.47 K/uL (4.8-10.8) 06/04/19 21:24 RBC 5.10 M/uL (4.2-5.4) 06/04/19 21:24 Hgb 14.4 g/dL (12.0-16.0) 06/04/19 21:24 Hct 43.1 % (37-47) 06/04/19 21:24 MCV 84.5 fL (80-100) 06/04/19 21:24 MCH 28.2 pg (25-34) 06/04/19 21:24 MCHC 33.4 g/dL (32-36) 06/04/19 21:24 RDW Std Deviation 48.4 fL (36.4-46.3) H 06/04/19 21:24 RDW Coeff of Robin 15.7 % (11.5-14.5) H 06/04/19 21:24 Plt Count 248 K/uL (130-400) 06/04/19 21:24 MPV 10.4 fL (7.4-10.4) 06/04/19 21:24 Immature Gran % (Auto) 1.5 % 06/04/19 21:24 Neut % (Auto) 58.3 % 06/04/19 21:24 Lymph % (Auto) 26.6 % 06/04/19 21:24 [place] % (Auto) 11.6 % 06/04/19 21:24 Eos % (Auto) 1.7 % 06/04/19 21:24 Baso % (Auto) 0.3 % 03/01/20 21:24 Immature Gran # (Auto) 0.16 K/uL (0.00-0.02) H 06/04/19 21:24 Neut # (Auto) 6.10 K/uL (1.4-6.5) 06/04/19 21:24 Lymph # (Auto) 2.79 K/uL (1.2-3.4) 06/04/19 21:24 [place] # (Auto) 1.21 K/uL (0.11-0.59) H 06/04/19 21:24 Eos # (Auto) 0.18 K/uL (0-0.5) 06/04/19 21:24 Baso # (Auto) 0.03 K/uL (0-0.2) 06/04/19 21:24 PT 18.1 Seconds (9.0-12.0) H 06/04/19 21:24 INR 1.8 (0.9-1.1) H 06/04/19 21:24 APTT 28.2 Seconds (21.0-31.0) 06/04/19 21:24 PTT Ratio 1.0 06/04/19 21:24 Sodium 136 mmol/L (136-145) 06/04/19 21:24 Potassium 4.1 mmol/L (3.5-5.1) 06/04/19 21:24 Chloride 102 mmol/L (98-107) 06/04/19 21:24 Carbon Dioxide 27 mmol/L (21-32) 06/04/19 21:24 Anion Gap 6.0 (3-11) 06/04/19 21:24 BUN 27 mg/dl (7-18) H 06/04/19 21:24 Creatinine 1.04 mg/dl (0.6-1.2) 06/04/19 21:24 Est Cr Clr Drug Dosing 48.2 ml/min 06/04/19 21:24 Est GFR ( Amer) 60.9 06/04/19 21:24 Est GFR (Non-Af Amer) 52.5 06/04/19 21:24 BUN/Creatinine Ratio 25.8 (10-20) H 06/04/19 21:24 Glucose 133 mg/dl (70-99) H 06/04/19 21:24 Lactate 1.0 mmol/L (0.4-2.0) 06/04/19 22:56 Calcium 9.5 mg/dl (8.5-10.1) 06/04/19 21:24 Total Bilirubin 0.8 mg/dl (0.2-1) 06/04/19 21:24 AST 21 U/L (15-37) 06/04/19 21:24 ALT 20 U/L (12-78) 06/04/19 21:24 Alkaline Phosphatase 55 U/L (45-117) 06/04/19 21:24 Total Protein 7.3 gm/dl (6.4-8.2) 06/04/19 21:24 Albumin 3.2 gm/dl (3.4-5.0) L 06/04/19 21:24 Globulin 4.1 gm/dl (2.5-4.0) H 06/04/19 21:24 Albumin/Globulin Ratio 0.8 (0.9-2) L 06/04/19 21:24 Lipase 107 U/L (73-393) 06/04/19 21:24 Urine Color Yellow 06/04/19 21:00 Urine Appearance Turbid (Clear) A 06/04/19 21:00 Urine pH 5.0 (4.5-7.5) 06/04/19 21:00 Ur Specific [place] >= 1.030 (1.000-1.030) 06/04/19 21:00 Urine Protein 2+ (Negative) H 06/04/19 21:00 Urine Glucose (UA) Negative (Negative) 06/04/19 21:00 Urine Ketones Trace (Negative) H 06/04/19 21:00 Urine Blood 3+ (Negative) H 06/04/19 21:00 Urine Nitrite Negative (Negative) 06/04/19 21:00 Urine Bilirubin Negative (Negative) 06/04/19 21:00 Urine Urobilinogen Negative (Negative) 06/04/19 21:00 Ur Leukocyte Esterase 1+ (Negative) H 06/04/19 21:00 Urine RBC 5-10 /hpf (0-4) H 06/04/19 21:00 Urine WBC >30 /hpf (0-5) H 06/04/19 21:00 Ur Epithelial Cells 5-10 /lpf (0-5) H 06/04/19 21:00 Urine Bacteria 2+ (Negative) H 06/04/19 21:00 Code Status & VTE Plan Code Status Full code VTE Prophylaxis Plan VTE Prophylaxis will be ordered: Yes PG Care Time/CCT Total # of Minutes Spent Total Time Spent with Patient: Total time spent is greater than 50% in coordination of care (as documented) at patient's floor/unit and/or counseling patient: Coding Level of Care Code 38144 Initial Inpt Care Lvl 3 Diagnoses UTI (urinary tract infection) N39.0 Hematuria presence: without hematuria Urinary tract infection type: site unspecified Bladder mass N32.89 Generalized weakness R53.1 History of DVT (deep vein thrombosis) Z86.718 longterm (current) use of anticoagulants Z79.01 Type 2 diabetes mellitus E11.9 Depression F32.9 (1) UTI (urinary tract infection) Hematuria presence: without hematuria Urinary tract infection type: site unspecified Qualified Code(s): N39.0 - Urinary tract infection, site not specified
[2019-06-05] MEDS ORDERED: Nursing to Pharmacy Communication ONE (05:41)
[2019-06-05] MEDS: INSULIN ASPART 100 UNITS/ML 3 ML PEN SC SCH ×5 (05:51→20:24)
[2019-06-05 06:13] LABS: Estimated Average Glucose 209 mg/dl; Hemoglobin A1C 8.9 % (4.5-5.6)
[2019-06-05 06:48] LABS: Basophils # (auto) 0.05 K/uL (0-0.2); Basophils % (auto) 0.5 %; Eosinophils # (auto) 0.21 K/uL (0-0.5); Eosinophils % (auto) 2.1 %; Hematocrit (blood only) 38.6 % (37-47); Hemoglobin 12.8 g/dL (12.0-16.0); Immature Granulocytes # (auto) 0.14 K/uL (0.00-0.02); Immature Granulocytes % (auto) 1.4 %; Lymphocytes # (auto) 2.22 K/uL (1.2-3.4); Lymphocytes % (auto) 21.8 %; Mean Corpuscular Hemoglobin 28.4 pg (25-34); Mean Corpuscular Hgb Conc 33.2 g/dL (32-36); Mean Corpuscular Volume 85.8 fL (80-100); Mean Platelet Volume 9.5 fL (7.4-10.4); Monocytes # (auto) 1.05 K/uL (0.11-0.59); Monocytes % (auto) 10.3 %; Neutrophils # (auto) 6.53 K/uL (1.4-6.5); Neutrophils % (auto) 63.9 %; Platelet Count 216 K/uL (130-400); RDW Coefficient of Variation 15.6 % (11.5-14.5); RDW Standard Deviation 49.6 fL (36.4-46.3)
[2019-06-05 07:00] LABS: INR 1.9 (0.9-1.1); Prothrombin Time 18.7 Seconds (9.0-12.0)
[2019-06-05] MEDS: Heparin IV Low Dose *NO* Bolus IV SCH ×4 (07:11→07:28)
[2019-06-05] MEDS: ENALAPRIL MALEATE 10 MG TAB PO SCH (08:48)
[2019-06-05] MEDS ORDERED: INSULIN DETEMIR FLEXPEN/FLEX TOUCH 100 UNITS/ML 3ML SC SCH ×2 (09:00→21:00)
[2019-06-05] MEDS ORDERED: INSULIN DETEMIR FLEXPEN/FLEX TOUCH 100 UNITS/ML 3ML SQ SCH (09:00)
[2019-06-05] MEDS: CHOLECALCIFEROL 1,000 UNITS 25 MCG TAB PO SCH (10:17)
--- NOTE | 2019-06-05 10:38 | Urology Consultation ---
Date of Consultation June 05, 2019 Assessment & Plan (1) UTI (urinary tract infection): (2) Bladder mass: 73 yo F with multiple comorbidities admitted for weakness and suspected UTI. - UC&S pending - BCx pending - Continue broad spectrum abx until sensitivity results, then treat based on s ensitivities - Discussed case with Dr. Burton - Pt will need UTI treated appropriately prior to upcoming procedure - Will plan to proceed with TURBT for bladder mass as scheduled on 06/11 - Will continue to follow History of Present Illness Reason for Consultation: UTI, bladder mass Attending Physician: Kushal Knott MD History of Present Illness 73 yo F with multiple comorbidities admitted for weakness and suspected UTI. New consultation for urinary tract infection and bladder mass. Patient is known to our service, last visit with Dr. Burton on 05/17 for bladder mass, scheduled for TURBT on 06/12/19. Pt admitted via [facility] ED on 06/04/19. Presented with worsening dysuria, nausea, and weakness. Recent admission to [facility] from 05/12 through 05/16/19, and was discharged to rehab facility. Per admitting note, she was disch arged from rehab 3 days prior to arrival to ED and family noted worsening urinary symptoms and abdominal pain which prompted ED evaluation. Lab work on admission: Lactate 1.0, WBC 10.47, Creatinine 1.04. UA 1+ Leuks, 5-10 RBCs, >30 WBC, 2+ bacteria. She was treated with IV fluids and IV Ceftriaxone in ED. Chart review: Afebrile Cr (06/03) - 1.04 WBC (06/04) - 10.20 UC&S - pending BCx - pending On IV Ceftriaxone Pt awake, lying in bed. Appears comfortable. No issues overnight. Denies abdominal or flank pain at present. Voiding spontaneously. Reports dysuria intermittently. Reports urinary frequency and urgency at baseline. No gross hematuria. Denies fever or chills. No nausea or vomiting. Reports BM yesterday. Denies any additional acute urological concerns today. Allergies Allergy/AdvReac Type Severity Reaction Status Date / Time nitrofurantoin AdvReac Intermediate Abdominal Verified 06/04/19 21:28 [From Macrobid] Pain Home Medications Home Medications Medication Instructions Recorded Confirmed Type benazepril 20 mg tablet 20 mg PO QAM 01/31/18 06/04/19 History cholecalciferol (vitamin D3) 125 5,000 units PO QAM 01/31/18 06/04/19 History mcg (5,000 unit) capsule sitagliptin 100 mg tablet 100 mg PO QAM 01/31/18 06/04/19 History blood sugar diagnostic #10 ea 11/29/18 05/17/19 History lancets 28 gauge #25 ea 11/29/18 05/17/19 History acetaminophen 325 mg tablet 325 - 650 mg PO Q6H PRN tab 12/07/18 06/04/19 History warfarin 3 mg tablet 3 mg PO HS tab 12/07/18 06/04/19 History insulin detemir U-100 100 unit/mL 8 unit SUBCUT QAM 01/05/19 06/04/19 History (3 mL) subcutaneous pen escitalopram oxalate 10 mg tablet 10 mg PO .DAILY @ 1730 04/03/19 06/04/19 History Probiotic 0 mmu cells PO QAM 05/11/19 06/04/19 History clobetasol 1 applic TOPICAL 2XWK 05/11/19 06/04/19 History insulin detemir U-100 [Levemir 12 unit SUBCUT HS 05/22/19 06/04/19 History U-100 Insulin] Abh Cream Medication 1 dose TOPICAL Q8H 06/04/19 06/04/19 History acetaminophen [Tylenol Extra 1,000 mg PO Q6H PRN 06/04/19 06/04/19 History Strength] loperamide [Imodium A-D] 1 mg PO ONCE 06/04/19 06/04/19 History Patient History Medical History Bladder mass Colon cancer Cystitis Depression DVT prophylaxis Essential hypertension History of chemotherapy History of deep vein thrombophlebitis of lower extremity History of diverticulitis History of DVT (deep vein thrombosis) History of nephrolithiasis Lichen sclerosus 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 Metastatic colon cancer to liver Type 2 diabetes mellitus UTI (urinary tract infection) Surgical History History of appendectomy History of colon surgery History of colonoscopy History of hysterectomy History of partial colectomy History of tonsillectomy History of tubal ligation S/P cholecystectomy Status post cardiac surgery inferior vena cava bo filter placement Family History Father Diabetes Coronary heart disease Mother Colorectal cancer Sister Hypertension Diabetes Family/Other Diabetes Hypertension Other Family history non-contributory Social History Preferred Language: Pakistani Communication Ability: Effective Mail Examiner Required: No Beliefs That Will Affect Care: None marital status: Current Living Situation: Spouse Current Living Situation Comment: [facility] current occupational status: retired Feels Safe at Home: Yes Safety Concerns: Feels Safe At This Time Smoking Status: Never smoker Second Hand Exposure: No ; Hx Alcohol Use: No Hx Substance Use: No Review of Systems Constitutional: as per Subjective / HPI Gastrointestinal: as per Subjective / HPI Genitourinary: as per Subjective / HPI Physical Exam Constitutional: well developed and well nourished; no acute distress Respiratory: normal respiratory effort and able to speak in complete sentenc es; no respiratory distress and no labored breathing Cardiovascular: Extremities: no pedal edema Gastrointestinal (Abdomen): Inspection/Auscultation: abdomen normal to inspection; abdomen not distended Percussion/Palpation: abdomen soft; abdomen nontender and no guarding Neurologic: moves all extremities and awake Psychiatric: Orientation: alert, oriented to person and cooperative Answers questions, forgetful at times Genitourinary: no CVA tenderness voiding spontaneously, urine not visualized during exam Results & Data Vital Signs (Past 12 Hours) Vital Signs Temp Pulse Pulse Resp BP Pulse Ox 06/05/19 07:40 36.3 C L 68 18 128/72 96 06/05/19 04:12 167/68 H 06/05/19 03:08 184/82 H 06/05/19 02:30 36.5 C 65 16 200/71 H 98 06/05/19 02:23 53 L 18 176/92 H 95 06/04/19 23:31 57 L 18 170/72 H 97 PG Care Time/CCT Total # of Minutes Spent Total Time Spent with Patient: Total time spent is greater than 50% in coordination of care (as documented) at patient's floor/unit and/or counseling patient: Coding Level of Care Code 77094 Inpt Consult Level 3 Diagnoses UTI (urinary tract infection) N39.0 Hematuria presence: without hematuria Urinary tract infection type: site unspecified Bladder mass N32.89 (1) UTI (urinary tract infection) Hematuria presence: without hematuria Urinary tract infection type: site unspecified Qualified Code(s): N39.0 - Urinary tract infection, site not specified
--- NOTE | 2019-06-05 12:13 | Hospitalist Progress Note ---
Date of Service June 05, 2019 Assessment & Plan (1) UTI (urinary tract infection): Recurrent urinary tract infection- Continue IV fluids. Follow urine culture and sensitivity. Continue ceftriaxone 1 g IV daily. (2) Bladder mass: Patient has been following with Dr. Burton from urology in the outpatient setting, and arrangements were being made for a procedure to assess a bladder mass. DC heparin gtt and resume warfarin as plan for TURBT on 06/11 remains - urology would like UTI treated before intervention (3) Generalized weakness: Patient had presented as part of her symptom complex during her earlier admission with generalized weakness, for which she had gone to [facility] for rehab. She likely has become more deconditioned due to development of a UTI. Family has been making arrangements to have home care through [facility]. appreciate social worker school asstance (4) History of DVT (deep vein thrombosis): History of DVT/long-term use of warfarin- INR 1.9 today (5) [facility] (current) use of anticoagulants: See above (6) Type 2 diabetes mellitus: Glycemic pharmacist consult Resume Juan Carlos reed ac & hs (7) Depression: Lexapro 10 mg p.o. daily. Admission and Anticipated Discharge Date Admission Date: June 05, 2019 Subjective Ms. Arguello is tired today but awakens to voice. She has no complaints. Disoriented. ROS Constitutional: no chills, aches, sweats or fever Respiratory: no sob,cough, sputum, or wheezing Cardiac: no chest pain, palpitations, edema, orthopnea or lightheadedness GI: no abdominal pain, nausea, vomiting, diarrhea or constipation : no dysuria or hesitancy Extremities: no joint pain or weakness Skin: no rash All other systems reviewed and negative Physical Exam Physical Exam: General: no distress Eyes: normal inspection, PERLL Respiratory: chest non tender, clear to auscultation, normal breath sounds, no respiratory distress, no accessory muscle use Cardiac: regular rate and rhythm, no rub or gallop, no murmur, no edema, no jvd GI/: active bowel sounds, no abd pain or tenderness, soft, non distended Extremities: normal range of motion, normal strength, non tender Neuro/Psych: alert and oriented to person, normal mood and affect Skin: normal color, dry Results & Data ([facility]) Vital Signs (Past 12 Hours) Vital Signs Temp Pulse Pulse Resp BP Pulse Ox 06/05/19 11:40 36.4 C L 58 L 16 130/76 96 06/05/19 07:40 36.3 C L 68 18 128/72 96 06/05/19 04:12 167/68 H 06/05/19 03:08 184/82 H 06/05/19 02:30 36.5 C 65 16 200/71 H 98 06/05/19 02:23 53 L 18 176/92 H 95 PG Care Time/CCT Total # of Minutes Spent Total Time Spent with Patient: Total time spent is greater than 50% in coordination of care (as documented) at patient's floor/unit and/or counseling patient: Coding Level of Care Code None Diagnoses UTI (urinary tract infection) N39.0 Hematuria presence: without hematuria Urinary tract infection type: site unspecified Bladder mass N32.89 Generalized weakness R53.1 History of DVT (deep vein thrombosis) 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
[2019-06-05] MEDS ORDERED: PHARMACY GLYCEMIC MGMT CONSULT PRN (12:25)
[2019-06-05] MEDS ORDERED: INSULIN DETEMIR FLEXPEN/FLEX TOUCH 100 UNITS/ML 3ML SC ONE (12:30)
[2019-06-05 13:46] LABS: Partial Thromboplastin Ratio 1.2; Partial Thromboplastin Time 32.5 Seconds (21.0-31.0)
--- NOTE | 2019-06-05 14:31 | Pharmacy Report ---
Glycemic Control Consultation - Date of Service June 05, 2019 - Scope Scope: Glycemic Pharmacist consulted for glycemic control and to write orders per [facility] inpatient glycemic control protocol. - Objective Weight: 77.8 kg Accuchecks BSG (last 24hrs): 06/04/19 06/05/19 06/05/19 21:24 05:49 12:01 Glucose 133 H POC Glucose 102 H 115 H Laboratory Data (last 24hrs): 06/04/19 21:24 Potassium 4.1 Carbon Dioxide 27 Anion Gap 6.0 Creatinine 1.04 Est Cr Clr Drug Dosing 48.2 HbA1c: Hemoglobin A1c 8.9 % (4.5-5.6) H 06/04/19 21:14 - Recent Pertinent Medications Outpatient Anti-diabetic Regimen: * Levemir 8 units in the morning and 12 units in the PM The patient is currently receiving: * Basal insulin: Levemir 4 units in morning and 6 units in the evening * Correctional Insulin: Novolog Correction per scale ACHS Goal Range: Low 110 mg/dL - High 140 mg/dL Correction Factor: 25 mg/dL/unit * Prandial insulin: Per carb ratio of 1 unit per 10 grams CHO consumed * Oral Agents: Risk Factors for Insulin Resistance: * Infection: Rocephin for UTI * IVF: heparin gtt (d/c'ed at time of consult around noon) * Diet: T2DM - Assessment & Plan Assessment & Plan: ASSESSMENT: * Ms Argulelo is a 73 y/o F with moderately controlled T2DM who presents with weakness and a UTI. Currently receiving Rocephin. She was NPO for possible urologic procedure but this has been placed on hold until infection clears. Converted off heparin infusion once surgery placed on hold. * BSG yesterday was 133 mg/dL yesterday evening. BSGs today were 102 mg/dL and 115 mg/dL. It appears patient missed Levemir evening dose --> only received 8 units in the morning. * Patient received 4 units of Levemir this morning. Gave additional 5 units to make 9 units total for today. Will not give dose tonight since the 8 units from yesterday appeared sufficient based upon fasting from today. Also attempt to force a more 50/50 basal/bolus split (at home patient's regimen entirely basal). * Start weight-based stress of 2-3 Novolog. May require loosening later. PLAN FOR INPATIENT GLYCEMIC CONTROL: * Basal insulin * Levemir 5 units SQ x 1 in additional to 4 units this morning * Bolus insulin * NovoLog per scale ACHS or Q6hrs while NPO * Goal Range: Low 110 mg/dL - High 140 mg/dL * Correction Factor: 25 mg/dL/unit * Nutritional / Prandial insulin per carb ratio of 1 unit per 8 grams CHO consumed * Please note that the plan above was derived based on current level of insulin resistance and hospital stress. These recommendations are appropriate for inpatient admission only. Plan of care upon discharge will need to be reassessed to avoid potential outpatient hypo/hyperglycemia. Thank you.
[2019-06-05] MEDS: ESCITALOPRAM OXALATE 10 MG TAB PO SCH (18:36)
[2019-06-05] MEDS: ACETAMINOPHEN 325 MG TAB PO PRN (18:36)
[2019-06-05] MEDS ORDERED: cefTRIAXone SODIUM 2,000 MG in DEXTROSE 5% 50 ML IV SCH (20:00)
[2019-06-05] MEDS ORDERED: INSULIN DETEMIR SQ SCH (21:00)
[2019-06-05] MEDS ORDERED: WARFARIN SOD 3 MG TAB PO SCH (21:00)
[2019-06-06] MEDS: ACETAMINOPHEN 325 MG TAB PO PRN ×2 (02:00→14:04)
[2019-06-06 08:40] LABS: Basophils # (auto) 0.05 K/uL (0-0.2); Basophils % (auto) 0.6 %; Eosinophils % (auto) 2.5 %; Hematocrit (blood only) 41.1 % (37-47); Hemoglobin 13.8 g/dL (12.0-16.0); Immature Granulocytes # (auto) 0.22 K/uL (0.00-0.02); Immature Granulocytes % (auto) 2.7 %; Lymphocytes # (auto) 1.72 K/uL (1.2-3.4); Lymphocytes % (auto) 21.3 %; Mean Corpuscular Hemoglobin 28.6 pg (25-34); Mean Corpuscular Hgb Conc 33.6 g/dL (32-36); Mean Corpuscular Volume 85.1 fL (80-100); Mean Platelet Volume 10.1 fL (7.4-10.4); Monocytes # (auto) 0.83 K/uL (0.11-0.59); Monocytes % (auto) 10.3 %; Neutrophils # (auto) 5.04 K/uL (1.4-6.5); Neutrophils % (auto) 62.6 %; Platelet Count 246 K/uL (130-400); RDW Coefficient of Variation 15.8 % (11.5-14.5); RDW Standard Deviation 49.2 fL (36.4-46.3); Red Blood Count 4.83 M/uL (4.2-5.4); White Blood Count 8.06 K/uL (4.8-10.8)
[2019-06-06 08:45] LABS: INR 1.8 (0.9-1.1); Prothrombin Time 17.5 Seconds (9.0-12.0)
[2019-06-06] MEDS: ENALAPRIL MALEATE 10 MG TAB PO SCH (08:55)
[2019-06-06] MEDS: CHOLECALCIFEROL 1,000 UNITS 25 MCG TAB PO SCH (08:55)
[2019-06-06] MEDS: INSULIN ASPART 100 UNITS/ML 3 ML PEN SC SCH ×4 (08:59→21:05)
[2019-06-06] MEDS ORDERED: INSULIN DETEMIR FLEXPEN/FLEX TOUCH 100 UNITS/ML 3ML SC ONE (09:00)
[2019-06-06] MEDS ORDERED: SITAGLIPTIN PHOSPHATE 100 MG TAB PO SCH (09:00)
[2019-06-06 09:04] LABS: BUN Creatinine Ratio 25.1 (10-20); Calcium 9.2 mg/dl (8.5-10.1); Creatinine Clr Calc Pharmacy 62.1 ml/min; Est GFR (African American) 84.9; Est GFR (Non-African American) 73.2; Potassium 3.7 mmol/L (3.5-5.1)
[2019-06-06] MEDS: ENOXAPARIN INJ 40 MG/0.4 ML SYR SQ SCH (09:50)
--- NOTE | 2019-06-06 09:57 | Urology Progress Note ---
Date of Service June 06, 2019 Assessment & Plan (1) UTI (urinary tract infection): (2) Bladder mass: 73 yo F with multiple comorbidities admitted for weakness and suspected UTI. - UC&S prelim yeast < 20,000 cfu - BCx - no growth x 24 hours - Plan to proceed with TURBT as scheduled on 06/11 - Reviewed case with Dr. Burton - Recommend transition abx to PO cefuroxime until procedure day - Follow UC&S and treat yeast if indicated Thank you for allowing us to participate in the acute care of Mrs. Arguello. Please reconsult us with additional questions, concerns or changes in patient status. Subjective Awake and alert, sitting up in bedside chair during exam this AM. No complaints at present. No issues overnight. No f/c/n/v. No abdominal, suprapubic, or abdominal pain. Voiding spontaneously. Continues to c/o intermittent dysuria. States it is painful and "sometimes wakes me at night." Denies hematuria. Urinary urgency and frequency at baseline. UC&S - prelim yeast < 20,000 cfu BCx - no growth x 24 hours Denies any acute urological concerns at present. Review of Systems Constitutional: as per Subjective / HPI Gastrointestinal: as per Subjective / HPI Genitourinary: as per Subjective / HPI Physical Exam Constitutional: well developed, well nourished and comfortable; no acute distress Respiratory: able to speak in complete sentences; no respiratory distress and no labored breathing Cardiovascular: Extremities: no pedal edema Neurologic: moves all extremities and awake Psychiatric: Orientation: oriented to person and cooperative Genitourinary: Voiding spontaneously, urine not visualized during exam. Results & Data Vital Signs (Past 12 Hours) Vital Signs Temp Pulse Resp BP Pulse Ox 06/06/19 07:53 36.5 C 63 18 152/75 H 95 06/05/19 23:16 36.8 C 56 L 16 154/73 H 96 PG Care Time/CCT Total # of Minutes Spent Total Time Spent with Patient: Total time spent is greater than 50% in coordination of care (as documented) at patient's floor/unit and/or counseling patient: Coding Level of Care Code 70583 Subseq Hosp Care Lvl 2 Diagnoses UTI (urinary tract infection) N39.0 Hematuria presence: without hematuria Urinary tract infection type: site unspecified Bladder mass N32.89 (1) UTI (urinary tract infection) Hematuria presence: without hematuria Urinary tract infection type: site unspecified Qualified Code(s): N39.0 - Urinary tract infection, site not specified
--- NOTE | 2019-06-06 11:45 | Hospitalist Progress Note ---
Date of Service June 06, 2019 Assessment & Plan (1) Generalized weakness: Patient had presented as part of her symptom complex during her earlier admission with generalized weakness, for which she had gone to [facility] for rehab. Urine culture and blood cultures were negative so antibiotics were discontinued Will have PT/OT re-evaluate. Unclear why patient had this episode of weakness. Per , memory issues are worsening but are still in the process of being worked up with [facility] neurology. It's possible that she is not eating and drinking as well as she should at home due to memory problems. Both this admission and the last she was admitted for UTI but then subsequently had a negative culture so I do not think chronic UTIs are the issue at this time. Family has been making arrangements to have home care through [facility]. appreciate social worker school assistance Await PT/OT evals (2) Bladder mass: Patient has been following with Dr. Burton from urology in the outpatient setting, and arrangements were being made for a procedure to assess a bladder mass. 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 daily. Admission and Anticipated Discharge Date Admission Date: June 05, 2019 Subjective Ms. Arguello is more oriented today. She has no complaints. ROS Constitutional: no chills, aches, sweats or fever Respiratory: no sob,cough, sputum, or wheezing Cardiac: no chest pain, palpitations, edema, orthopnea or lightheadedness GI: no abdominal pain, nausea, vomiting, diarrhea or constipation : no dysuria or hesitancy Extremities: no joint pain or weakness Skin: no rash All other systems reviewed and negative Physical Exam Physical Exam: General: no distress Eyes: normal inspection, PERLL Respiratory: chest non tender, clear to auscultation, normal breath sounds, no respiratory distress, no accessory muscle use Cardiac: regular rate and rhythm, no rub or gallop, no murmur, no edema, no jvd GI/: active bowel sounds, no abd pain or tenderness, soft, non distended Extremities: normal range of motion, normal strength, non tender Neuro/Psych: alert and oriented x 3, normal mood and affect Skin: normal color, dry Results & Data ([facility]) Vital Signs (Past 12 Hours) Vital Signs Temp Pulse Resp BP BP Pulse Ox 06/06/19 11:22 36.9 C 57 L 20 127/59 L 94 06/06/19 07:53 36.5 C 63 18 152/75 H 95 PG Care Time/CCT Total # of Minutes Spent Total Time Spent with Patient: Total time spent is greater than 50% in coordination of care (as documented) at patient's floor/unit and/or counseling patient: Coding Level of Care Code 19303 Subseq Hosp Care Lvl 2 Diagnoses Generalized weakness R53.1 Bladder mass N32.89 History of DVT (deep vein thrombosis) Z86.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
[2019-06-06] MEDS ORDERED: ENOXAPARIN INJ 40 MG/0.4 ML SYR SQ SCH (12:00)
--- NOTE | 2019-06-06 15:22 | Pharmacy Report ---
Glycemic Control Progress Note - Date of Service June 06, 2019 - Scope Glycemic Pharmacist consulted for glycemic control to write orders per [facility] inpatient glycemic control protocol. - Objective Accuchecks BSG(last 24 hours):: 06/05/19 06/05/19 06/06/19 17:05 20:20 07:55 Glucose POC Glucose 133 H 217 H 153 H 06/06/19 06/06/19 08:20 12:07 Glucose 168 H POC Glucose 175 H HbA1c:: Hemoglobin A1c 8.9 % (4.5-5.6) H 06/04/19 21:14 - Recent Pertinent Medications The patient is currently receiving: * Basal insulin: LEVEMIR 9 units yesterday * Correctional Insulin: Novolog Correction per scale ACHS Goal Range: Low 110 mg/dL - High 140 mg/dL Correction Factor: 25 mg/dL/unit * Prandial insulin: Per carb ratio of 1 unit per 8 grams CHO consumed - Outpatient Anti-Diabetic Meds Levemir 8 units in the morning and 12 units in the evening Januvia 100 mg PO daily - Assessment & Plan ASSESSMENT: * See progress note from 06/05/2019 for more background info, in short: * Pt receiving SQ basal bolus insulin regimen for hyperglycemia secondary to baseline DM (outpatient regimen on hold),stress/infection (on Ceftin and fluconazole). * Patient is currently receiving an average of 21 units of insulin per day * 9 units of basal insulin * 12 units of prandial/correctional insulin * BSGs ranging 102 - 217 mg/dl over the past 24hrs * Changes needed to insulin regimen: * AM Fasting BSG = 153 mg/dl. This is slightly above goal range for patient based on inpatient targets and co-morbidities. Therefore Basal insulin will be increased closer to home regimen of 20 units. Increase to 15 units daily. * Post-prandial BSGs trended upwards yesterday. Tighten both parameters. * Total daily dose = 30 units. * Additional notes / comments: Continue to hold Januvia PLAN FOR INPATIENT GLYCEMIC CONTROL: * Increasing Levemir to 15 units SQ qAM * TIGHTENING correction factor to 25 mg/dl/unit * TIGHTENING carb ratio to 1 unit per 7 grams CHO consumed * Continuing goal range of Low 110 mg/dL - High 140 mg/dL * Please note that the plan above was derived based on current level of insulin resistance and hospital stress. These recommendations are appropriate for inpatient admission only. Plan of care upon discharge will need to be reassessed to avoid potential outpatient hypo/hyperglycemia. Thank you.
[2019-06-06] MEDS ORDERED: PHENAZOPYRIDINE HCL 200 MG TAB PO ONE (15:30)
[2019-06-06] MEDS: ESCITALOPRAM OXALATE 10 MG TAB PO SCH (16:17)
[2019-06-06] MEDS: PHENAZOPYRIDINE HCL 200 MG TAB PO SCH (19:59)
[2019-06-06] MEDS: cefUROXime axetil 500 MG TAB PO SCH (19:59)
[2019-06-06] MEDS ORDERED: cefTRIAXone SODIUM 2,000 MG in DEXTROSE 5% 50 ML IV SCH (20:00)
[2019-06-07 08:36] LABS: INR 1.9 (0.9-1.1); Prothrombin Time 18.3 Seconds (9.0-12.0)
[2019-06-07 09:00] LABS: Creatinine Clr Calc Pharmacy 53.9 ml/min; Est GFR (African American) 71.5; Est GFR (Non-African American) 61.7
[2019-06-07] MEDS ORDERED: INSULIN DETEMIR FLEXPEN/FLEX TOUCH 100 UNITS/ML 3ML SC ONE (09:00)
[2019-06-07] MEDS: ENOXAPARIN INJ 40 MG/0.4 ML SYR SQ SCH (09:38)
[2019-06-07] MEDS: PHENAZOPYRIDINE HCL 200 MG TAB PO SCH ×3 (09:39→21:11)
[2019-06-07] MEDS: cefUROXime axetil 500 MG TAB PO SCH ×2 (09:39→21:10)
[2019-06-07] MEDS: ENALAPRIL MALEATE 10 MG TAB PO SCH (09:39)
[2019-06-07] MEDS: CHOLECALCIFEROL 1,000 UNITS 25 MCG TAB PO SCH (09:43)
[2019-06-07] MEDS: INSULIN ASPART 100 UNITS/ML 3 ML PEN SC SCH ×4 (09:45→20:57)
[2019-06-07] MEDS ORDERED: ENOXAPARIN 1 MG/KG SQ SCH (10:00)
--- NOTE | 2019-06-07 15:41 | Pharmacy Report ---
Glycemic Control Progress Note - Date of Service June 07, 2019 - Scope Glycemic Pharmacist consulted for glycemic control to write orders per [facility] inpatient glycemic control protocol. - Objective Accuchecks BSG(last 24 hours):: 06/06/19 06/06/19 06/07/19 17:03 20:30 08:16 POC Glucose 121 H 201 H 148 H 06/07/19 12:00 POC Glucose 219 H HbA1c:: Hemoglobin A1c 8.9 % (4.5-5.6) H 06/04/19 21:14 - Recent Pertinent Medications The patient is currently receiving: * Basal insulin: Levemir 15 units every 24 hours * Correctional Insulin: Novolog Correction per scale ACHS Goal Range: Low 110 mg/dL - High 140 mg/dL Correction Factor: 25 mg/dL/unit * Prandial insulin: Per carb ratio of 1 unit per 7 grams CHO consumed - Outpatient Anti-Diabetic Meds Levemir 8 units qAM plus Levemir 12 units qPM - Assessment & Plan ASSESSMENT: * See progress note from 06/06/2019 for more background info, in short: * Pt receiving SQ basal bolus insulin regimen for hyperglycemia secondary to baseline DM (outpatient regimen on hold) and infection (on ceftin) * Patient is currently receiving an average of 35 units of insulin per day * 15 units of basal insulin * 20 units of prandial/correctional insulin * BSGs ranging 121 - 201 mg/dl over the past 24hrs * Changes needed to insulin regimen: * AM Fasting BSG = 148 mg/dl. This is slightly above goal range for patient based on inpatient targets and co-morbidities. Therefore Basal insulin will be increased for today. Scale will be ordered ongoing. * Post-prandial BSGs trend upwards. Tighten Carbohydrate ratio slightly. * Total daily dose = 40 units. Adjusted meds accordingly. PLAN FOR INPATIENT GLYCEMIC CONTROL: * Increasing Levemir to 18 units SQ x 1 then 15-20 units SQ qAM * Continuing correction factor of 25 mg/dl/unit * TIGHTENING carb ratio to 1 unit per 6 grams CHO consumed * Continuing goal range of Low 110 mg/dL - High 140 mg/dL RECOMMENDATIONS FOR DISCHARGE: * Patient's HbA1C is slightly not controlled. Recommend: * Levemir 18 units daily * Novolog 5 with meals if possible - if not may do with largest meal of the day. Thank you.
[2019-06-07] MEDS ORDERED: CASPOFUNGIN 70 MG in SODIUM CHLORIDE 0.9% 250 ML IV ONE (16:30)
--- NOTE | 2019-06-07 16:41 | Hospitalist Progress Note ---
Date of Service June 07, 2019 Assessment & Plan (1) Generalized weakness: No bacterial growth on urine culture, but did grow yeast as below, blood cultures negative PT/OT evals (2) Bladder mass: Patient has been following with Dr. Burton from urology in the outpatient setting, and arrangements were being made for a procedure to assess a bladder mass. Hold warfarin for upcoming TURBT on June 11 Pyridium TID for pain - will need dc'd on 06/09 in preparation for procedure per uro Urine culture growing jose glabrata - discussed with urology and will need to treat. Per pharmacy recommendation with start caspofungin. Will order US guided IV to allow for continued administration after discharge to snf. (3) History of DVT (deep vein thrombosis): History of DVT/long-term use of warfarin- Hold warfarin for procedure, continue with enoxaparin for dvt proph in the interim (4) skilled nursing (current) use of anticoagulants: See above (5) Type 2 diabetes mellitus: Glycemic pharmacist consult Continue Juan Carlos bscatherine ac & hs (6) Depression: Lexapro 10 mg p.o. daily. Dispo: can discharge to [facility] tomorrow after IV caspofungin has been arranged for. Admission and Anticipated Discharge Date Admission Date: June 05, 2019 Subjective Ms. Arguello's pain has improved. No complaints ROS Constitutional: no chills, aches, sweats or fever Respiratory: no sob,cough, sputum, or wheezing Cardiac: no chest pain, palpitations, edema, orthopnea or lightheadedness GI: no abdominal pain, nausea, vomiting, diarrhea or constipation : no dysuria or hesitancy Extremities: no joint pain or weakness Skin: no rash All other systems reviewed and negative Physical Exam Physical Exam: General: no distress Eyes: normal inspection, PERLL Respiratory: chest non tender, clear to auscultation, normal breath sounds, no respiratory distress, no accessory muscle use Cardiac: regular rate and rhythm, no rub or gallop, no murmur, no edema, no jvd GI/: active bowel sounds, no abd pain or tenderness, soft, non distended Extremities: normal range of motion, normal strength, non tender Neuro/Psych: alert and oriented to person and place, normal mood and affect Skin: normal color, dry Results & Data ([facility]) Vital Signs (Past 12 Hours) Vital Signs Temp Pulse Resp BP Pulse Ox 06/07/19 15:58 36.9 C 61 17 138/57 L 94 06/07/19 07:15 36.6 C 59 L 18 166/68 H 93 PG Care Time/CCT Total # of Minutes Spent Total Time Spent with Patient: Total time spent is greater than 50% in coordination of care (as documented) at patient's floor/unit and/or counseling patient: Coding Level of Care Code 07461 Subseq Hosp Care Lvl 2 Diagnoses Generalized weakness R53.1 Bladder mass N32.89 History of DVT (deep vein thrombosis) 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
[2019-06-07] MEDS: ESCITALOPRAM OXALATE 10 MG TAB PO SCH (18:42)
[2019-06-08] MEDS ORDERED: INSULIN DETEMIR FLEXPEN/FLEX TOUCH 100 UNITS/ML 3ML SC SCH (09:00)
[2019-06-08] MEDS: cefUROXime axetil 500 MG TAB PO SCH (09:20)
[2019-06-08] MEDS: PHENAZOPYRIDINE HCL 200 MG TAB PO SCH ×2 (09:20→13:16)
[2019-06-08] MEDS: CHOLECALCIFEROL 1,000 UNITS 25 MCG TAB PO SCH (09:20)
[2019-06-08] MEDS: ENOXAPARIN INJ 40 MG/0.4 ML SYR SQ SCH (09:21)
[2019-06-08] MEDS: ENALAPRIL MALEATE 10 MG TAB PO SCH (09:21)
[2019-06-08] MEDS: INSULIN ASPART 100 UNITS/ML 3 ML PEN SC SCH ×2 (09:24→13:15)
[2019-06-08] MEDS: ACETAMINOPHEN 325 MG TAB PO PRN (13:18)
[2019-06-08] MEDS ORDERED: CASPOFUNGIN 50 MG in SODIUM CHLORIDE 0.9% 250 ML IV SCH (16:00)
--- NOTE | 2019-06-08 16:43 | Discharge Summary ---
Date of Service June 08, 2019 Admission HPI Per Admitting Provider The patient is a 73-year-old female with a past medical history including urinary tract infections, colon cancer, history of DVT, bladder mass, lichen sclerosis atrophicus, gastroenteritis, acute diverticulitis, hypertension, pneumonia, cystitis and generalized weakness. She was most recently admitted to [facility] from 05/12-05/16/2019, and was then discharged to [facility] for rehab. She was released from [facility] 3 days ago, and began to develop lower abdominal and pelvic pressure, worsening confusion, and was brought by family to the ED for assessment. In the emergency department, work-u p included a significantly abnormal urinalysis, and patient was found to be confused and disoriented. Principal Diagnosis Weakness due to jose UTI Discharge Exam Constitutional WD/WN, vitals as above Eyes PERRL, conjunctivae normal, anicteric sclerae ENMT external ear and nose normal, oropharynx normal Neck trachea midline, no thyromegaly Respiratory normal respiratory effort, lungs clear to auscultation Cardiovascular RRR, no murmur, no edema Gastrointestinal (Abdomen) normal bowel sounds, soft, nontender, no hepatosplenomegaly Musculoskeletal Head/Neck/Chest: normocephalic and head atraumatic Extremities: extremities normal to inspection and + abnormal strength (generalized weakness); full ROM of extremities Skin no rashes, warm and dry Neurologic patellar DTR's 2+ bilat, sensation intact and PERRL, EOMI, accommodation nl, no face palsy, no dysarthria Psychiatric A+Ox3, euthymic affect Lymphatic no cervical or axillary lymphadenopathy Discharge Data Allergies Allergy/AdvReac Type Severity Reaction Status Date / Time nitrofurantoin AdvReac Intermediate Abdominal Verified 06/04/19 21:28 [From Macrobid] Pain Consultations 06/04/19 23:03 ED Decision to Admit Stat 06/05/19 02:59 Consult Case Management - Discharge Planning Routine Consult Urology Routine Hospital Course (1) Generalized weakness: likely due to combination of Jose UTI and deconditioning PT/OT evaluations, recommend short term rehab treat UTI with Caspofungin, continue rehabilitation at SNF (2) Bladder mass: Patient has been following with Dr. Burton from urology in the outpatient setting, and arrangements were being made for a procedure to assess a bladder mass. Hold warfarin for upcoming TURBT on June 11 Pyridium TID for pain - instructed to stop this on 06/09 in preparation for procedure Urine culture growing jose glabrata - discussed with urology and will need to treat. 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 daily. (7) Candidal UTI (urinary tract infection): will treat with Caspofungin IV, tolerating well prescribed 10-14 days total to eradicate infection, can stop earlier if okay with urology Total Time Total Time Spent Total Time Spent (In Minutes): 33 minutes Total Time Includes: Examination of the Patient, Discharge Planning, Medication Reconciliation and Communication With Other Providers (urology) Discharge Plan Discharge Items Patient Disposition: Transfer [facility] Reason For Visit: URINARY SYMPTOMS Discharge Diagnosis: Weakness Jose UTI - treat with Caspofungin Bladder mass Condition on Discharge: Good Goals: complete treatment of Jose UTI follow up 06/[address] Burton for TURBT Activity: Resume your previous activity Non-emergency contact: Primary Care Provider and Urologist Call non-emergency contact if: you have any medication questions, your symptoms worsen and you have a fever Follow-up/Referrals: Palak Chiang MD [Primary Care Provider] - Diet: Carb Consistent or DM2 Addtl Attending Provider Instructions: Medications: - CASPOFUNGIN: 50mg daily via US guided peripheral IV, will need 14 days total, last day would be 06/20 - CEFUROXIME: continue taking 500mg twice a day until at least 06/11 at time of TURBT urine culture did not grow any bacteria, only grew the Jose - PYRIDIUM: you can continue to take this three times a day for bladder spasm however, you need to stop on 06/09 for planned bladder surgery on 06/11 - WARFARIN: continue to hold this medication in anticipation of bladder surgery on 06/11 UTI, Jose galbrata will treat with Caspofungin 50mg daily x 14 days total continue with IV infusion via US guided peripheral IV no fever, vitals stable Bladder tumor: plan for TURBT on 06/[address] Burton you will continue to hold Warfarin you should stop Pyridium on 06/09 nothing to eat after midnight on 06/10 for surgery on 06/11 Weakness: go to SNF for rehab, short term Pending Studies at Discharge: No Stand-Alone Forms: [employer] [place], Smoking Cessation Skilled Items Patient informed of condition?: Yes DNR: No Discharge Level of Care: Skilled Communicable Disease: No Discharge Prognosis: Stable Lines: US Guided Peripheral IV Urinary Catheter: No Medications and DC Order Prescriptions: New cefuroxime axetil 500 mg Tablet 500 mg PO BID 7 Days Qty: 14 RF: 0 Continued cholecalciferol (vitamin D3) 5,000 unit capsule 5,000 units PO QAM RF: 0 benazepril 20 mg tablet 20 mg PO QAM RF: 0 sitagliptin [Januvia] 100 mg tablet 100 mg PO QAM RF: 0 escitalopram oxalate [Lexapro] 10 mg tablet 10 mg PO .DAILY @ 1730 RF: 0 (DME) FreeStyle Lite Strips strip See Dose Instructions .ROUTE .MEDSUPPLY Qty: 10 RF: 0 (DME) lancets [FreeStyle Lancets] 28 gauge misc See Dose Instructions .ROUTE .MEDSUPPLY Qty: 25 RF: 0 acetaminophen 325 mg tablet 325 - 650 mg PO Q6H PRN (Reason: fever or pain) RF: 0 Levemir FlexTouch U-100 Insuln 100 unit/mL (3 mL) insulin pen 8 unit subcut QAM RF: 0 clobetasol 0.05 % ointment 1 applic topical 2XWK RF: 0 Probiotic 3 billion cell Capsule 0 mmu cells PO QAM RF: 0 acetaminophen [Tylenol Extra Strength] 500 mg Tablet 1,000 mg PO Q6H PRN (Reason: Pain) RF: 0 Abh Cream Medication 1 dose topical Q8H RF: 0 loperamide [Imodium A-D] 2 mg Tablet 1 mg PO ONCE RF: 0 Levemir U-100 Insulin 100 unit/mL Solution 12 unit SUBCUT HS RF: 0 Discontinued warfarin 3 mg tablet 3 mg PO HS RF: 0 Discharge Orders: Discharge Order (Routine); Ordered 03/05/20 Ordered By: Rex Leiva Admission Data Admit Date/Time: 06/05/19 01:59 Attending Provider: Rex Leiva Admit Provider: Tyron Álvarez Primary Care Provider: Palak Chiang Other Providers: Tee Burton ; Kushal Knott ; Karen Escobedo ; [facility] ; [facility] Other Interventions: Discharge Summary Assessment (RN) Last Done: 06/08/19 13:27 DC Date/Time DO NOT enter until pt leaves facility: 06/08/19 15:27 Coding Level of Care Code D/C Day Management >30 mins Diagnoses Generalized weakness R53.1 Bladder mass N32.89 History of DVT (deep vein thrombosis) Z86.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
== END 2019-06-08 15:27 | DRG 759 ==
LOC: ED 20:40 → SUATTDRO 06-05 01:59 → 3N 06-05 01:59

== ENCOUNTER 2019-07-15 16:08 | Inpatient (IN) ==
--- NOTE | 2019-07-15 16:52 | Emergency Department Note ---
History of Present Illness General Chief complaint: Fall Stated complaint: fall/ L shoulder & neck pain Time Seen by Provider: 07/15/19 16:19 History of Present Illness Provider complaint: Fall Onset (ago): hour(s) 3 Location: upper extremity and left Radiation: non-radiation Severity: severe 73-year-old female presents emergency department with granddaughter status post fall. Granddaughter reports the fall occurred approximate 145 when she was trying to get out of her wheelchair without waiting for the granddaughter help her up. The granddaughter reports she immediately fell on her left side and started having pain over her left shoulder area. Patient is on Coumadin. No loss of consciousness. No fevers or chest pain. Home Medications Home Medications Medication Instructions Recorded Confirmed Type cholecalciferol (vitamin D3) 125 5,000 units PO QAM 01/31/18 07/15/19 History mcg (5,000 unit) capsule sitagliptin 100 mg tablet 100 mg PO QAM 01/31/18 07/15/19 History blood sugar diagnostic #10 ea 11/29/18 07/13/19 History lancets 28 gauge #25 ea 11/29/18 07/13/19 History acetaminophen 325 mg tablet 325 - 650 mg PO Q6H PRN tab 12/07/18 07/15/19 History insulin detemir U-100 100 unit/mL 10 unit SUBCUT QAM 01/05/19 07/15/19 History (3 mL) subcutaneous pen escitalopram oxalate 10 mg tablet 10 mg PO QDD 04/03/19 07/15/19 History Probiotic 0 mmu cells PO QDD 05/11/19 07/15/19 History clobetasol 1 applic TOPICAL 5XWK 05/11/19 07/15/19 History Levemir U-100 Insulin 12 unit SUBCUT HS 05/22/19 07/15/19 History acetaminophen [Tylenol Extra 1,000 mg PO Q6H PRN 06/04/19 07/15/19 History Strength] warfarin 3 mg tablet 3 mg PO HS tab 07/13/19 07/15/19 History benazepril 20 mg PO QAM 07/15/19 07/15/19 History mirtazapine 3.75 mg PO HS 07/15/19 07/15/19 History nystatin 1 applic TOPICAL 5XWK 07/15/19 07/15/19 History Allergies Allergy/AdvReac Type Severity Reaction Status Date / Time nitrofurantoin AdvReac Intermediate Abdominal Verified 07/15/19 16:46 [From Macrobid] Pain Past Med/Surg History Medical History Bladder mass Colon cancer Cystitis Depression DVT prophylaxis Essential hypertension History of chemotherapy History of deep vein thrombophlebitis of lower extremity History of diverticulitis History of DVT (deep vein thrombosis) History of nephrolithiasis Lichen sclerosus 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 Metastatic colon cancer to liver Type 2 diabetes mellitus UTI (urinary tract infection) Surgical History History of appendectomy History of colon surgery History of colonoscopy History of hysterectomy History of partial colectomy History of tonsillectomy History of tubal ligation S/P cholecystectomy Status post cardiac surgery inferior vena cava bo filter placement Family History Father Diabetes Coronary heart disease Mother Colorectal cancer Sister Hypertension Diabetes Family/Other Diabetes Hypertension Other Family history non-contributory Social History Preferred Language: Bulgarian Communication Ability: Effective Shelter Advocate Required: No Beliefs That Will Affect Care: None marital status: Current Living Situation: Spouse Current Living Situation Comment: [facility] current occupational status: retired Feels Safe at Home: Yes Smoking Status: Never smoker Second Hand Exposure: No ; Hx Alcohol Use: No Hx Substance Use: No Review of Systems A total of 10 systems reviewed and were otherwise negative Physical Exam Vital Signs Vital Signs - 24 hr 07/15/19 16:08 07/15/19 16:12 07/15/19 16:56 Temperature 36.6 C Temperature Source Oral Pulse Rate 79 Pulse Rate from SpO2 Sensor 78 Respiratory Rate 20 Respiratory Effort / Characteristics Non-Labored Respiratory Depth Normal Respiratory Pattern Regular Blood Pressure 131/61 131/61 130/62 Blood Pressure Mean 84 76 93 Pulse Oximetry 92 93 Oxygen Delivery Method Room Air Sepsis Recent Fever Within 48 Hours No Sepsis New/Unexplained Change in Mental Status No Sepsis Action Taken by Nursing No Action Required 07/15/19 17:00 07/15/19 17:12 07/15/19 17:31 Temperature Temperature Source Pulse Rate 79 79 Pulse Rate from SpO2 Sensor 80 Respiratory Rate 19 21 Respiratory Effort / Characteristics Respiratory Depth Respiratory Pattern Blood Pressure 134/62 137/65 Blood Pressure Mean 99 106 Pulse Oximetry 94 94 94 Oxygen Delivery Method Room Air Sepsis Recent Fever Within 48 Hours Sepsis New/Unexplained Change in Mental Status Sepsis Action Taken by Nursing 07/15/19 18:14 Temperature Temperature Source Pulse Rate Pulse Rate from SpO2 Sensor 87 Respiratory Rate 22 Respiratory Effort / Characteristics Respiratory Depth Respiratory Pattern Blood Pressure 154/73 H Blood Pressure Mean 100 Pulse Oximetry 97 Oxygen Delivery Method Sepsis Recent Fever Within 48 Hours Sepsis New/Unexplained Change in Mental Status Sepsis Action Taken by Nursing Physical Exam EYES: Conjunctivae and EOM are normal. Pupils are equal, round, and reactive to light. Right eye exhibits no discharge. Left eye exhibits no discharge. No scleral icterus. NECK: No pain on palpation of the C-spine. CV: Normal rate, regular rhythm, normal heart sounds and intact distal pulses. There is no peripheral edema. Palpable radial pulses bue. PULM/CHEST: Effort normal and breath sounds normal. No respiratory distress. No stridor. She has no wheezes. She has no rales. -Chest Wall: She exhibits no tenderness. ABD: The abdomen is soft. Ecchymosis over the anterior abdominal wall. Bowel sounds are normal. She has no distension. No mass is present. There is no tenderness. There is no rebound, no guarding, no Marsh's sign and no tenderness at McBurney's point. Rovsig negative MUSC/SKEL: Pain on palpation of the left shoulder and left proximal humerus. LYMPH: No cervical adenopathy. NEURO: She is alert and oriented to person, place, and time. No cranial nerve deficit or sensory deficit. GCS eye subscore is 4. GCS verbal subscore is 5. GCS motor subscore is 6. Course Course 1645: The patient was evaluated in room B12. A complete history and physical exam was performed. 184: Vital signs stable. Imaging shows a left-sided humeral neck fracture and greater tuberosity fracture. Discussed with Dr. Doni Rjoo orthopedics who agrees to be on consult. The patient also appears to have a pyelonephritis with leukocytosis of 21. POC lactic acid 1.8. Family states that they cannot take care of the patient at home and want the patient admitted and will eventually n eed placement into a rehab facility. Discussed with hospitalist Dr. Roberts who agrees to the admission and states to admit under Dr. Rainey. Dr. Roberts asks that blood cultures also be drawn. Administered Medications Sodium Chloride (Nss) 500 mls @ 125 mls/hr IV .Q4H YOLIS Stop: 08/14/19 16:59 Last Admin: 07/15/19 17:25 Dose: 125 mls/hr Documented by: [id number] Discontinued Medications Morphine Sulfate (Morphine Sulfate) 4 mg IV NOW STA Stop: 07/15/19 17:16 Last Admin: 07/15/19 17:22 Dose: 4 mg Documented by: [id number] Ondansetron HCl (Zofran) 4 mg IV NOW STA Stop: 07/15/19 17:16 Last Admin: 07/15/19 17:23 Dose: 4 mg Documented by: [id number] Medical Decision Making Laboratory Data Result diagrams: 07/15/19 17:13 07/15/19 17:13 Lab Results 07/15/19 07/15/19 07/15/19 Range/Units 16:50 17:13 17:13 WBC 21.15 H (4.8-10.8) K/uL RBC 4.76 (4.2-5.4) M/uL Hgb 13.7 (12.0-16.0) g/dL POC Hgb (12.0-16.0) g/dl Hct 41.3 (37-47) % POC Hct (37-47) % MCV 86.8 (80-100) fL MCH 28.8 (25-34) pg MCHC 33.2 (32-36) g/dL RDW Std Deviation 50.5 H (36.4-46.3) fL RDW Coeff of Robin 15.7 H (11.5-14.5) % Plt Count 345 (130-400) K/uL MPV 9.7 (7.4-10.4) fL Immature Gran % (Auto) 0.9 % Neut % (Auto) 87.8 % Lymph % (Auto) 5.3 % Storey % (Auto) 5.6 % Eos % (Auto) 0.1 % Baso % (Auto) 0.3 % Immature Gran # (Auto) 0.19 H (0.00-0.02) K/uL Neut # (Auto) 18.56 H (1.4-6.5) K/uL Lymph # (Auto) 1.13 L (1.2-3.4) K/uL Storey # (Auto) 1.19 H (0.11-0.59) K/uL Eos # (Auto) 0.02 (0-0.5) K/uL Baso # (Auto) 0.06 (0-0.2) K/uL PT 23.9 H (9.0-12.0) Seconds INR 2.4 H (0.9-1.1) APTT 32.4 H (21.0-31.0) Seconds PTT Ratio 1.2 POC Sodium (135-144) mmol/L Sodium (136-145) mmol/L POC Potassium (3.3-5.0) mmol/L Potassium (3.5-5.1) mmol/L POC Chloride (101-112) mmol/L Chloride (98-107) mmol/L Carbon Dioxide (21-32) mmol/L POC Total CO2 (24-31) mEq/l Anion Gap (3-11) POC Anion Gap (16-25) mmol/L POC BUN (7-18) mg/dl BUN (7-18) mg/dl Creatinine (0.6-1.2) mg/dl POC Creatinine (0.6-1.3) mg/dl Est Cr Clr Drug Dosing ml/min Est GFR ( Amer) Est GFR (Non-Af Amer) BUN/Creatinine Ratio (10-20) Glucose (70-99) mg/dl POC Glucose (other) (70-99) mg/dl Calcium (8.5-10.1) mg/dl POC Ioniz Calcium Jeanette (1.12-1.32) mmol/l Urine Color Yellow Urine Appearance Turbid A (Clear) Urine pH 6.0 (4.5-7.5) Ur Specific Stuart 1.016 (1.000-1.030) Urine Protein 1+ H (Negative) Urine Glucose (UA) 1+ H (Negative) Urine Ketones Negative (Negative) Urine Blood 2+ H (Negative) Urine Nitrite Positive A (Negative) Urine Bilirubin Negative (Negative) Urine Urobilinogen Negative (Negative) Ur Leukocyte Esterase 3+ H (Negative) Urine WBC (Auto) >30 H (0-5) /hpf Urine RBC (Auto) 0-4 (0-4) /hpf U Hyaline Cast (Auto) 0 (0-5) /lpf U Epithel Cells (Auto) 5-10 H (0-5) /lpf Urine Bacteria (Auto) 4+ H (Negative) Urine Yeast Not Reportable 07/15/19 07/15/19 Range/Units 17:13 17:19 WBC (4.8-10.8) K/uL RBC (4.2-5.4) M/uL Hgb (12.0-16.0) g/dL POC Hgb 13.6 (12.0-16.0) g/dl Hct (37-47) % POC Hct 40 (37-47) % MCV (80-100) fL MCH (25-34) pg MCHC (32-36) g/dL RDW Std Deviation (36.4-46.3) fL RDW Coeff of Robin (11.5-14.5) % Plt Count (130-400) K/uL MPV (7.4-10.4) fL Immature Gran % (Auto) % Neut % (Auto) % Lymph % (Auto) % Storey % (Auto) % Eos % (Auto) % Baso % (Auto) % Immature Gran # (Auto) (0.00-0.02) K/uL Neut # (Auto) (1.4-6.5) K/uL Lymph # (Auto) (1.2-3.4) K/uL Storey # (Auto) (0.11-0.59) K/uL Eos # (Auto) (0-0.5) K/uL Baso # (Auto) (0-0.2) K/uL PT (9.0-12.0) Seconds INR (0.9-1.1) APTT (21.0-31.0) Seconds PTT Ratio POC Sodium 135 (135-144) mmol/L Sodium 135 L (136-145) mmol/L POC Potassium 4.7 (3.3-5.0) mmol/L Potassium 4.6 (3.5-5.1) mmol/L POC Chloride 99 L (101-112) mmol/L Chloride 102 (98-107) mmol/L Carbon Dioxide 29 (21-32) mmol/L POC Total CO2 25 (24-31) mEq/l Anion Gap 5.0 (3-11) POC Anion Gap 16.0 (16-25) mmol/L POC BUN 24 H (7-18) mg/dl BUN 24 H (7-18) mg/dl Creatinine 1.04 (0.6-1.2) mg/dl POC Creatinine 0.9 (0.6-1.3) mg/dl Est Cr Clr Drug Dosing 45.1 ml/min Est GFR ( Amer) 60.9 Est GFR (Non-Af Amer) 52.5 BUN/Creatinine Ratio 23.3 H (10-20) Glucose 251 H (70-99) mg/dl POC Glucose (other) 250 H (70-99) mg/dl Calcium 9.3 (8.5-10.1) mg/dl POC Ioniz Calcium Jeanette 1.15 (1.12-1.32) mmol/l Urine Color Urine Appearance (Clear) Urine pH (4.5-7.5) Ur Specific Stuart (1.000-1.030) Urine Protein (Negative) Urine Glucose (UA) (Negative) Urine Ketones (Negative) Urine Blood (Negative) Urine Nitrite (Negative) Urine Bilirubin (Negative) Urine Urobilinogen (Negative) Ur Leukocyte Esterase (Negative) Urine WBC (Auto) (0-5) /hpf Urine RBC (Auto) (0-4) /hpf U Hyaline Cast (Auto) (0-5) /lpf U Epithel Cells (Auto) (0-5) /lpf Urine Bacteria (Auto) (Negative) Urine Yeast Imaging Data Radiologist's Impression: XR shoulder LT min 2V routine, XR humerus LT 2V HISTORY: 73 years-old Female fall on coumadin acute left upper extremity pain status post fall COMPARISON: Chest radiograph of same day TECHNIQUE: 2 views of the left shoulder and 2 views of the left humerus FINDINGS: SHOULDER: Limited exam secondary to positioning. There is an acute fracture of the surgical neck left humerus with impaction of a least 11 mm. Acute nondisplaced fracture also involves the greater tuberosity. Moderate glenohumeral and AC joint osteoarthritis. Demineralized appearance of the bones limits the study. No definite dislocation. Moderate soft tissue swelling. HUMERUS: Mid and distal humerus appear intact. Calcifications of the left breast. IMPRESSION: 1. Acute and impacted fracture of the surgical neck left humerus with acute nondisplaced fracture involving the greater tuberosity. 2. Moderate glenohumeral osteoarthritis without dislocation. ACT 112: Negative or not required by law. The above report was generated using voice recognition software. It may contain grammatical, syntax or spelling errors. Electronically signed by: John Paul Ramos M.D. 07/15/2019 6:07 PM Dictated: 07/15/191804 Transcribed: 07/15/191804 XR pelvis 1-2V routine HISTORY: 73 years-old Female fall on coumadin acute pelvic trauma status post fall COMPARISON: Pelvic radiograph 03/17/2019 TECHNIQUE: AP view of the pelvis FINDINGS: Moderate osteoarthritis of the femoral acetabular joints. Demineralized appearance of the bones. No acute fracture, dislocation or avascular necrosis. Pelvic ring appears intact. Multilevel degenerative changes of the imaged lumbar spine. Vascular calcifications. The soft tissues are within normal limits. Surgi katja suture material projects over the abdominal right lower quadrant. IMPRESSION: No acute fracture or dislocation. ACT 112: Negative or not required by law. The above report was generated using voice recognition software. It may contain grammatical, syntax or spelling errors. Electronically signed by: John Paul Ramos M.D. 07/15/2019 6:11 PM Dictated: 07/15/191809 Transcribed: 07/15/191809 CT head/brain wo con CLINICAL HISTORY: 73 years-old Female with fall on coumadin. Acute head trauma status post fall TECHNIQUE: Multiple axial CT images of the head were obtained without contrast. A dose lowering technique was utilized adhering to the principles of ALARA. COMPARISON: Head CT 05/11/2019 FINDINGS: No acute intracranial hemorrhage, midline shift, intracranial mass, hydro cephalus, territorial ischemia or abnormal extra-axial collection. Age-related involutional changes with ex vacuo ventriculomegaly. Patchy white matter hypodensities suggest chronic microvascular ischemic disease. Cerebral vascular calcifications. The calvarium is intact. Skull apex is partially excluded from the [id number]. Mastoid air cells are clear. Mild mucosal thickening with tiny air-fluid levels of the sphenoid sinuses. Mild polypoid mucosal thickening of the ethmoid air cells. Soft tissues and orbits are unremarkable. IMPRESSION: No acute intracranial abnormality or calvarial fracture. ACT 112: Negative or not required by law. The above report was generated using voice recognition software. It may contain grammatical, syntax or spelling errors. Electronically signed by: John Paul Ramos M.D. 07/15/2019 6:14 PM Dictated: 07/15/191810 Transcribed: 07/15/191810 CT cervical spine wo con CT DOSE: 1494.23 mGy.cm CLINICAL HISTORY: 73 years-old Female with fall on coumadin. Acute neck injury status post fall COMPARISON: CT cervical spine 03/17/2019 TECHNIQUE: Multiple axial CT images of the cervical spine were obtained without contrast. A dose lowering technique was utilized adhering to the principles of ALARA. FINDINGS: Acute and impacted fracture of the proximal left humerus noted on the multiple pressure riveter operator localizer image. Demineralized appearance the bones. Severe degenerative changes at C1-C2 with severe disc space narrowing at C4-C5, C5-C6 and T1-T2 with moderate to severe disc space narrowing at C6-C7. Prominent multilevel spondylitic spurring with posterior disc osteophyte complex formations in multilevel severe facet arthrosis. Unchanged grade 1 anterolisthesis C7 on T1 and T2 on T3, likely secondary to long-standing facet arthropathy. Evaluation of the central canal and neuroforamina is better assessed by MRI. Note is made of multilevel forami nal narrowing. There is at least moderate central canal stenosis at C4-C5 and C5-C6. Mild convex right curvature. Mastoid air cells are clear. No prevertebral soft tissue swelling. Prominent calcified plaque of the thoracic aortic arch and carotid arteries. Right subclavian [id number] catheter p artially imaged. IMPRESSION: No acute cervical spine fracture or subluxation. ACT 112: Negative or not required by law. The above report was generated using voice recognition software. It may contain grammatical, syntax or spelling errors. Electronically signed by: John Paul Ramos M.D. 07/15/2019 6:19 PM Dictated: 07/15/191813 Transcribed: 07/15/191813 ABDOMEN AND PELVIS CT WITH IV CONTRAST CT DOSE: 1115.86 mGy.cm HISTORY: Acute anterior abdominal wall pain status post trauma fall on coumadin ecchymosis over anterior abdomen TECHNIQUE: Multiaxial CT images of the abdomen and pelvis were performed following the IV administration of 90 cc of Optiray 320, A dose lowering t echnique was utilized adhering to the principles of ALARA. COMPARISON STUDY: CT abdomen pelvis 05/11/2019 FINDINGS: Limited exam secondary to upper extremity positioning. Cardiomegaly without pericardial effusion. Bibasilar subpleural reticular opacities suggest mild fibrotic changes with atelectasis. No pneumatosis or pneumoperitoneum. The spleen and adrenal glands are unremarkable. Moderate generalized pancreatic atrophy. Collateral vessels of the nnamdi hepatis redemonstrated. Cholecystectomy with likely postsurgical biliary ductal dilation. Nonspecific bilateral perinephric stranding. Cortical scarring with parenchymal thinning of the superior pole and interpolar left kidney. Probable cyst of the superior pole left kidney, 9 mm. No renal or ureteral calculi or obstructive uropathy. Urothelial thickening of the right renal pelvis and superior pole calyces. Partial distention of the bladder with moderate circumferential wall thickening, hyperemia and perivesicular stranding. The previously questioned masslike area of enhancement and wall thickening of the right posterolateral urinary bladder is not identified on today's study. Hysterectomy. No adnexal mass lesions. Extensive calcified plaque of the abdominal aorta without aneurysm. No adenopathy. Small hiatal hernia with circumferential wall thickening and probable mucosal hyperemia of the fluid-filled distal esophagus. No bowel obstruction. Colonic diverticulosis without acute diverticulitis. Postoperative changes of the right hemicolon are redemonstrated with adjacent area of fat necrosis. Moderate fecal retention. No ascites or mesenteric stranding. No retroperitoneal hemorrhage. Small fat filled periumbilical hernia, diastases 2.0 cm. Soft tissues are unremarkable without large anterior abdominal wall hematoma. Demineralized appearance of the bones. Degenerative changes of the spine, pelvis and hips. No acute fracture identified identified. Mild convex right curvature of the lumbar spine. IMPRESSION: 1. No acute posttraumatic intra-abdominal or intrapelvic abnormality. 2. No acute fracture, abdominal free fluid or abdominal wall hematoma. 3. Urinary bladder wall thickening and hyperemia with perivesicular stranding redemonstrated suspicious for urinalysis. Additionally, there is mild urothelial thickening of the right renal collecting system suggestive of infectious or inflammatory pyelitis from ascending infection. 4. Additional findings as above. ACT 112: Negative or not required by law. The above report was generated using voice recognition software. It may contain grammatical, syntax or spelling errors. Electronically signed by: John Paul Ramos M.D. 07/15/2019 6:31 PM Dictated: 04/11/20 1820 Transcribed: 07/15/191819 [facility] Narrative Vital signs stable. Imaging shows a left-sided humeral neck fracture and greater tuberosity fracture. Discussed with Dr. Doni Rojo orthopedics who agrees to be on consult. The patient also appears to have a pyelonephritis with leukocytosis of 21. POC lactic acid 1.8. Family states that they cannot take care of the patient at home and want the patient admitted and will eventually need placement into a rehab facility. Discussed with hospitalist Dr. Roberts who agrees to the admission and states to admit under Dr. Rainey. Dr. Roberts asks that blood cultures also be drawn. Impression & Plan Fracture of neck of humerus, Acute pyelonephritis Discharge Plan Visit Data Chief Complaint: Fall Stated Complaint: fall/ L shoulder & neck pain ED Provider: Erick Westbrook Discharge Problem: Fracture of neck of humerus, Acute pyelonephritis Patient Disposition: Being Evaluated by Hospitalist Forms Stand Alone Forms: [facility] [employer] Prescriptions Prescriptions: No Action warfarin 3 mg tablet 3 mg PO HS RF: 0 cholecalciferol (vitamin D3) 5,000 unit capsule 5,000 units PO QAM RF: 0 sitagliptin [Januvia] 100 mg tablet 100 mg PO QAM RF: 0 escitalopram oxalate [Lexapro] 10 mg tablet 10 mg PO QDD RF: 0 (DME) FreeStyle Lite Strips strip See Dose Instructions .ROUTE .MEDSUPPLY Qty: 10 RF: 0 (DME) lancets [FreeStyle Lancets] 28 gauge misc See Dose Instructions .ROUTE .MEDSUPPLY Qty: 25 RF: 0 acetaminophen 325 mg tablet 325 - 650 mg PO Q6H PRN (Reason: fever or pain) RF: 0 Levemir FlexTouch U-100 Insuln 100 unit/mL (3 mL) insulin pen 10 unit subcut QAM RF: 0 clobetasol 0.05 % ointment 1 applic topical 5XWK RF: 0 Probiotic 3 billion cell Capsule 0 mmu cells PO QDD RF: 0 acetaminophen [Tylenol Extra Strength] 500 mg Tablet 1,000 mg PO Q6H PRN (Reason: Pain) RF: 0 Levemir U-100 Insulin 100 unit/mL Solution 12 unit SUBCUT HS RF: 0 mirtazapine 7.5 mg Tablet 3.75 mg PO HS RF: 0 nystatin 100,000 unit/gram Ointment 1 applic TOPICAL 5XWK RF: 0 benazepril 20 mg Tablet 20 mg PO QAM RF: 0 Referrals Referrals: Palak Chiang MD [Primary Care Provider] - Discharge Problem: Fracture of neck of humerus Qualifiers: Encounter type: initial encounter Fracture type: closed Laterality: left Qualified Code(s): S42.212A - Unspecified displaced fracture of surgical neck of left humerus, initial encounter for closed fracture
[2019-07-15] MEDS ORDERED: MoRPHine SULFATE 4 MG/ML 1 ML CARP\\VIAL IV STA ×2 (17:15→20:38)
[2019-07-15] MEDS ORDERED: ONDANSETRON INJ 2 MG/ML 2 ML VIAL IV STA (17:15)
[2019-07-15 17:22] LABS: Hematocrit (blood only) 41.3 % (37-47); Hemoglobin 13.7 g/dL (12.0-16.0); Mean Corpuscular Hemoglobin 28.8 pg (25-34); Mean Corpuscular Hgb Conc 33.2 g/dL (32-36); Mean Corpuscular Volume 86.8 fL (80-100); Mean Platelet Volume 9.7 fL (7.4-10.4); Platelet Count 345 K/uL (130-400); RDW Coefficient of Variation 15.7 % (11.5-14.5); RDW Standard Deviation 50.5 fL (36.4-46.3); Red Blood Count 4.76 M/uL (4.2-5.4); White Blood Count 21.15 K/uL (4.8-10.8)
[2019-07-15] MEDS: SODIUM CHLORIDE 0.9% 500 ML IV SCH ×2 (17:25→22:13)
[2019-07-15 17:27] LABS: Appearance Urine Turbid (Clear); Bacteria Urine Automated 4+ (Negative); Bilirubin Urine Negative (Negative); Blood Urine 2+ (Negative); Color Urine Yellow; Glucose Urine UA 1+ (Negative); Ketones Urine Negative (Negative); Leukocyte Esterase Urine 3+ (Negative); Nitrite Urine Positive (Negative); Protein Urine 1+ (Negative); Specific Gravity Urine 1.016 (1.000-1.030); Urobilinogen Urine Negative (Negative); WBC Urine Automated >30 /hpf (0-5)
[2019-07-15 17:31] LABS: iSTAT Creatinine 0.9 mg/dl (0.6-1.3); iSTAT Hemoglobin 13.6 g/dl (12.0-16.0); iSTAT Ionized Calcium 1.15 mmol/l (1.12-1.32); iSTAT Potassium 4.7 mmol/L (3.3-5.0)
[2019-07-15 17:35] LABS: INR 2.4 (0.9-1.1); Partial Thromboplastin Ratio 1.2; Partial Thromboplastin Time 32.4 Seconds (21.0-31.0); Prothrombin Time 23.9 Seconds (9.0-12.0)
[2019-07-15 17:38] LABS: BUN Creatinine Ratio 23.3 (10-20); Calcium 9.3 mg/dl (8.5-10.1); Creatinine Clr Calc Pharmacy 45.1 ml/min; Est GFR (African American) 60.9; Est GFR (Non-African American) 52.5; Potassium 4.6 mmol/L (3.5-5.1)
[2019-07-15 17:41] LABS: Basophils # (auto) 0.06 K/uL (0-0.2); Basophils % (auto) 0.3 %; Eosinophils # (auto) 0.02 K/uL (0-0.5); Eosinophils % (auto) 0.1 %; Immature Granulocytes # (auto) 0.19 K/uL (0.00-0.02); Immature Granulocytes % (auto) 0.9 %; Lymphocytes # (auto) 1.13 K/uL (1.2-3.4); Lymphocytes % (auto) 5.3 %; Monocytes # (auto) 1.19 K/uL (0.11-0.59); Monocytes % (auto) 5.6 %; Neutrophils # (auto) 18.56 K/uL (1.4-6.5); Neutrophils % (auto) 87.8 %
[2019-07-15 17:45] LABS: RBC Urine Automated 0-4 /hpf (0-4)
[2019-07-15 17:46] LABS: Cast Urine Automated 0 /lpf (0-5)
--- NOTE | 2019-07-15 18:09 | XRay Report ---
XR shoulder LT min 2V routine, XR humerus LT 2V HISTORY: 73 years-old Female fall on coumadin acute left upper extremity pain status post fall COMPARISON: Chest radiograph of same day TECHNIQUE: 2 views of the left shoulder and 2 views of the left humerus FINDINGS: SHOULDER: Limited exam secondary to positioning. There is an acute fracture of the surgical neck left humerus w ith impaction of a least 11 mm. Acute nondisplaced fracture also involves the greater tuberosity. Mod erate glenohumeral and AC joint osteoarthritis. Demineralized appearance of the bones limits the stud y. No definite dislocation. Moderate soft tissue swelling. HUMERUS: Mid and distal humerus appear intact. Calcifications of the left breast. IMPRESSION: 1. Acute and impacted fracture of the surgical neck left humerus with acute nondisplaced fracture inv olving the greater tuberosity. 2. Moderate glenohumeral osteoarthritis without dislocation. ACT 112: Negative or not required by law. The above report was generated using voice recognition software. It may contain grammatical, syntax o r spelling errors. Electronically signed by: John Paul Ramos M.D. 07/15/2019 6:07 PM
--- NOTE | 2019-07-15 18:10 | XRay Report ---
XR chest 1V portable HISTORY: 73 years-old Female fall on coumadin acute chest and left shoulder trauma status post fall COMPARISON: Shoulder radiographs of same day, chest radiographs 05/16/2019 TECHNIQUE: Portable AP view of the chest FINDINGS: Cardiac silhouette is mildly enlarged. Lungs are mildly hypoinflated. Interstitial coarsening of the lungs redemonstrated suggestive of chronic fibrotic changes. No pneumothorax, pleural effusion or ove rt pulmonary edema. Degenerative changes of the shoulders and spine. Acute mildly impacted fracture o f the proximal left humerus. No acute displaced rib fracture identified. IMPRESSION: 1. No acute cardiopulmonary abnormality. 2. Acute mildly impacted fracture of the proximal left humerus. ACT 112: Negative or not required by law. The above report was generated using voice recognition software. It may contain grammatical, syntax o r spelling errors. Electronically signed by: John Paul Ramos M.D. 07/15/2019 6:09 PM
--- NOTE | 2019-07-15 18:12 | XRay Report ---
XR pelvis 1-2V routine HISTORY: 73 years-old Female fall on coumadin acute pelvic trauma status post fall COMPARISON: Pelvic radiograph 03/17/2019 TECHNIQUE: AP view of the pelvis FINDINGS: Moderate osteoarthritis of the femoral acetabular joints. Demineralized appearance of the bones. No a cute fracture, dislocation or avascular necrosis. Pelvic ring appears intact. Multilevel degenerative changes of the imaged lumbar spine. Vascular calcifications. The soft tissues are within normal limi ts. Surgical suture material projects over the abdominal right lower quadrant. IMPRESSION: No acute fracture or dislocation. ACT 112: Negative or not required by law. The above report was generated using voice recognition software. It may contain grammatical, syntax o r spelling errors. Electronically signed by: John Paul Ramos M.D. 07/15/2019 6:11 PM
--- NOTE | 2019-07-15 18:15 | CT Scan Report ---
CT head/brain wo con CLINICAL HISTORY: 73 years-old Female with fall on coumadin. Acute head trauma status post fall TECHNIQUE: Multiple axial CT images of the head were obtained without contrast. A dose lowering tech nique was utilized adhering to the principles of ALARA. COMPARISON: Head CT 05/11/2019 FINDINGS: No acute intracranial hemorrhage, midline shift, intracranial mass, hydrocephalus, territorial ischem ia or abnormal extra-axial collection. Age-related involutional changes with ex vacuo ventriculomegal y. Patchy white matter hypodensities suggest chronic microvascular ischemic disease. Cerebral vascula r calcifications. The calvarium is intact. Skull apex is partially excluded from the [id number]. Mastoid air cells a re clear. Mild mucosal thickening with tiny air-fluid levels of the sphenoid sinuses. Mild polypoid m ucosal thickening of the ethmoid air cells. Soft tissues and orbits are unremarkable. IMPRESSION: No acute intracranial abnormality or calvarial fracture. ACT 112: Negative or not required by law. The above report was generated using voice recognition software. It may contain grammatical, syntax o r spelling errors. Electronically signed by: John Paul Ramos M.D. 07/15/2019 6:14 PM
--- NOTE | 2019-07-15 18:21 | CT Scan Report ---
CT cervical spine wo con CT DOSE: 1494.23 mGy.cm CLINICAL HISTORY: 73 years-old Female with fall on coumadin. Acute neck injury status post fall COMPARISON: CT cervical spine 03/17/2019 TECHNIQUE: Multiple axial CT images of the cervical spine were obtained without contrast. A dose low ering technique was utilized adhering to the principles of ALARA. FINDINGS: Acute and impacted fracture of the proximal left humerus noted on the neonatal intensive care unit nurse localizer image. Demineralized appearance the bones. Severe degenerative changes at C1-C2 with severe disc space narro wing at C4-C5, C5-C6 and T1-T2 with moderate to severe disc space narrowing at C6-C7. Prominent multi level spondylitic spurring with posterior disc osteophyte complex formations in multilevel severe fac et arthrosis. Unchanged grade 1 anterolisthesis C7 on T1 and T2 on T3, likely secondary to long-stand ing facet arthropathy. Evaluation of the central canal and neuroforamina is better assessed by MRI. N ote is made of multilevel foraminal narrowing. There is at least moderate central canal stenosis at C 4-C5 and C5-C6. Mild convex right curvature. Mastoid air cells are clear. No prevertebral soft tissue swelling. Prominent calcified plaque of the thoracic aortic arch and younger tid arteries. Right subclavian [id number] catheter partially imaged. IMPRESSION: No acute cervical spine fracture or subluxation. ACT 112: Negative or not required by law. The above report was generated using voice recognition software. It may contain grammatical, syntax o r spelling errors. Electronically signed by: John Paul Ramos M.D. 07/15/2019 6:19 PM
[2019-07-15] MEDS ORDERED: cefTRIAXone SODIUM 1,000 MG/50 ML BAG IV STA (18:22)
--- NOTE | 2019-07-15 18:32 | CT Scan Report ---
ABDOMEN AND PELVIS CT WITH IV CONTRAST CT DOSE: 1115.86 mGy.cm HISTORY: Acute anterior abdominal wall pain status post trauma fall on coumadin ecchymosis over ante rior abdomen TECHNIQUE: Multiaxial CT images of the abdomen and pelvis were performed following the IV administrat ion of 90 cc of Optiray 320, A dose lowering technique was utilized adhering to the principles of AL VINCE. COMPARISON STUDY: CT abdomen pelvis 05/11/2019 FINDINGS: Limited exam secondary to upper extremity positioning. Cardiomegaly without pericardial effusion. Bib asilar subpleural reticular opacities suggest mild fibrotic changes with atelectasis. No pneumatosis or pneumoperitoneum. The spleen and adrenal glands are unremarkable. Moderate generalized pancreatic atrophy. Collateral vessels of the nnamdi hepatis redemonstrated. Cholecystectomy with likely postsurg ical biliary ductal dilation. Nonspecific bilateral perinephric stranding. Cortical scarring with parenchymal thinning of the super ior pole and interpolar left kidney. Probable cyst of the superior pole left kidney, 9 mm. No renal o r ureteral calculi or obstructive uropathy. Urothelial thickening of the right renal pelvis and super ior pole calyces. Partial distention of the bladder with moderate circumferential wall thickening, hy peremia and perivesicular stranding. The previously questioned masslike area of enhancement and wall thickening of the right posterolateral urinary bladder is not identified on today's study. Hysterecto my. No adnexal mass lesions. Extensive calcified plaque of the abdominal aorta without aneurysm. No a denopathy. Small hiatal hernia with circumferential wall thickening and probable mucosal hyperemia of the fluid- filled distal esophagus. No bowel obstruction. Colonic diverticulosis without acute diverticulitis. P ostoperative changes of the right hemicolon are redemonstrated with adjacent area of fat necrosis. Mo derate fecal retention. No ascites or mesenteric stranding. No retroperitoneal hemorrhage. Small fat filled periumbilical hernia, diastases 2.0 cm. Soft tissues are unremarkable without large anterior a bdominal wall hematoma. Demineralized appearance of the bones. Degenerative changes of the spine, pel vis and hips. No acute fracture identified identified. Mild convex right curvature of the lumbar spin e. IMPRESSION: 1. No acute posttraumatic intra-abdominal or intrapelvic abnormality. 2. No acute fracture, abdominal free fluid or abdominal wall hematoma. 3. Urinary bladder wall thickening and hyperemia with perivesicular stranding redemonstrated suspicio us for urinalysis. Additionally, there is mild urothelial thickening of the right renal collecting sy stem suggestive of infectious or inflammatory pyelitis from ascending infection. 4. Additional findings as above. ACT 112: Negative or not required by law. The above report was generated using voice recognition software. It may contain grammatical, syntax o r spelling errors. Electronically signed by: John Paul Ramos M.D. 07/15/2019 6:31 PM
[2019-07-15] MEDS ORDERED: MAGNESIUM HYDROXIDE SUSP 30 ML UDC PO PRN (21:43)
[2019-07-15] MEDS ORDERED: DEXTROSE 50% 50 ML SYRINGE IV PRN (21:43)
[2019-07-15] MEDS ORDERED: ONDANSETRON INJ 2 MG/ML 2 ML VIAL IV PRN (21:43)
[2019-07-15] MEDS ORDERED: GLUCOSE 40% GEL 15 GM TUBE PO PRN (21:43)
[2019-07-15] MEDS ORDERED: GLUCAGON FOR INJ 1 MG VIAL SQ PRN (21:43)
[2019-07-15] MEDS ORDERED: MoRPHine SULFATE 2 MG/ML CARP IV PRN (21:43)
[2019-07-15] MEDS ORDERED: GLUCOSE 10 TABS/TUBE PO PRN (21:43)
[2019-07-15] MEDS ORDERED: CARBOHYDRATES FOR HYPOGLYCEMIA PO PRN (21:43)
[2019-07-15] MEDS ORDERED: ALUMINUM/MAGNESIUM SUSP 30 ML UDC PO PRN (21:43)
[2019-07-15] MEDS: SODIUM CHLORIDE 0.9% 1000ML 1,000 ML IV SCH (21:58)
[2019-07-15] MEDS: WARFARIN SOD 3 MG TAB PO SCH (22:26)
[2019-07-15] MEDS: INSULIN DETEMIR FLEXPEN/FLEX TOUCH 100 UNITS/ML 3ML SC SCH (22:29)
[2019-07-15] MEDS: INSULIN ASPART 100 UNITS/ML 3 ML PEN SC SCH (22:30)
[2019-07-15] MEDS: MIRTAZAPINE TAB 15 MG TAB PO SCH (22:32)
--- NOTE | 2019-07-16 00:39 | History & Physical Report ---
Date of Service July 16, 2019 Patient seen and examine on 07/15/2019 Assessment & Plan (1) Fracture of neck of humerus: Closed nondisplaced fracture of left humeral neck- Continue to keep arm in sling. With Tylenol 650 mg p.o. every 6 hours as needed for mild pain or temperature. [place] 5/325, 1 p.o. every 6 hours as needed moderate pain. Morphine sulfate 2 mg IV every 4 hours as needed severe pain. Consult Dr. Khalil from orthopedics, who is aware the patient. Patient has been living at home with her granddaughter and , may not be able to return directly home, as she was having issues with ambulatory dysfunction prior to this, and her left proximal humerus fracture will likely further impede her ability to walk with walker Present on Admission?: Yes (2) Acute pyelonephritis: Cystitis/Ascending pyelitis/acute pyelonephritis/recent resection of bladder mass- Follow urine culture and sensitivity. IV fluids. Ceftriaxone 1 g IV daily. Present on Admission?: Yes (3) Type 2 diabetes mellitus: Glucose 251 upon admission. Continue Levemir 10 units subcu every morning and 12 units subcu at bedtime. Patient Accu-Cheks before meals and at bedtime with NovoLog coverage per scale. Patient is unlikely to need surgery, so we will continue with her usual diabetic diet. Present on Admission?: Yes (4) Depression: Continue Lexapro 10 mg p.o. daily Present on Admission?: Yes (5) [facility] (current) use of anticoagulants: INR therapeutic at 2.4. Continue current dosing of warfarin. No suggestion of bleeding associate with humeral fracture. Present on Admission?: Yes (6) Bladder mass: Status post recent resection on 06/16/2019 Present on Admission?: Yes Admission and Anticipated Discharge Date Admission Date: July 15, 2019 Anticipated date of discharge: 07/17/19 History of Present Illness Chief Complaint: Patient presents to the emergency department with grand daughter after a fall while she was trying to get out of her wheelchair by herself, sustaining immediate left shoulder pain. Primary Care Provider: Palak Chiang MD The patient is a 73-year-old female with a past medical history including diabetes mellitus type 2, UTI, long-term use of warfarin, UTI, Cassi UTI, colon cancer, hypertension, diverticulitis, pneumonia, hospitalization from 06/04- 06/07 for UTI with associated bladder mass, and status post resection of bladder mass during same-day surgery procedure by Dr. Rinku Knott on 06/16/2019. Patient lives with and granddaughter at home, and had been working on physical therapy with some difficulty. Work-up in the emergency department included a urinalysis and urine culture suggestive of UTI, and CT of abdomen/pelvis suggestive of UTI and urothelial thickening of the right renal collecting system suggestive of infectious or infl ammatory pyelitis from ascending infection. Imaging of chest and humerus revealed and acute mildly impacted fracture of the proximal left humerus. Her granddaughter has become very concerned regarding the patient's progressive dementia, and she has a MRI scheduled in the outpatient setting for this coming Wednesday, to further assess possible causes. Allergies Allergy/AdvReac Type Severity Reaction Status Date / Time nitrofurantoin AdvReac Intermediate Abdominal Verified 07/15/19 16:46 [From Macrobid] Pain Home Medications Home Medications Medication Instructions Recorded Confirmed Type cholecalciferol (vitamin D3) 125 5,000 units PO QAM 01/31/18 07/15/19 History mcg (5,000 unit) capsule sitagliptin 100 mg tablet 100 mg PO QAM 01/31/18 07/15/19 History blood sugar diagnostic #10 ea 11/29/18 07/13/19 History lancets 28 gauge #25 ea 11/29/18 07/13/19 History acetaminophen 325 mg tablet 325 - 650 mg PO Q6H PRN tab 12/07/18 07/15/19 History insulin detemir U-100 100 unit/mL 10 unit SUBCUT QAM 01/05/19 07/15/19 History (3 mL) subcutaneous pen escitalopram oxalate 10 mg tablet 10 mg PO QDD 04/03/19 07/15/19 History Probiotic 0 mmu cells PO QDD 05/11/19 07/15/19 History clobetasol 1 applic TOPICAL 5XWK 05/11/19 07/15/19 History Levemir U-100 Insulin 12 unit SUBCUT HS 05/22/19 07/15/19 History acetaminophen [Tylenol Extra 1,000 mg PO Q6H PRN 06/04/19 07/15/19 History Strength] warfarin 3 mg tablet 3 mg PO HS tab 07/13/19 07/15/19 History benazepril 20 mg PO QAM 07/15/19 07/15/19 History mirtazapine 3.75 mg PO HS 07/15/19 07/15/19 History nystatin 1 applic TOPICAL 5XWK 07/15/19 07/15/19 History Past Med/Surg History Medical History Bladder mass Colon cancer Cystitis Depression DVT prophylaxis Essential hypertension History of chemotherapy History of deep vein thrombophlebitis of lower extremity History of diverticulitis History of DVT (deep vein thrombosis) History of nephrolithiasis Lichen sclerosus 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 Metastatic colon cancer to liver Type 2 diabetes mellitus UTI (urinary tract infection) Surgical History History of appendectomy History of colon surgery History of colonoscopy History of hysterectomy History of partial colectomy History of tonsillectomy History of tubal ligation S/P cholecystectomy Status post cardiac surgery inferior vena cava bo filter placement Family History Father Diabetes Coronary heart disease Mother Colorectal cancer Sister Hypertension Diabetes Family/Other Diabetes Hypertension Other Family history non-contributory Social History Preferred Language: Telugu Communication Ability: Effective Academic Coach Required: No Beliefs That Will Affect Care: None marital status: Current Living Situation: Family Current Living Situation Comment: [facility] current occupational status: retired Other Information That Helps Us Care for You: No Feels Safe at Home: Yes Safety Concerns: Feels Safe At This Time Smoking Status: Unknown if ever smoked Hx Alcohol Use: No Hx Substance Use: No Review of Systems Review of Systems: Review of systems somewhat limited by patient's worsening dementia, however, her granddaughter who is with her, supplies most of her HPI and review of systems. Physical Exam Physical Exam: The patient is awake, alert and oriented 2, lying in bed, periodically wincing from left upper arm pain HEENT--PERRL, EOMI, mucous membranes and oropharynx normal. Neck--supple. No JVD. No bruits. Thyroid normal, trachea midline, no adenopathy. Heart--normal S1 and S2. No murmurs, rubs or gallops. Lungs--clear bilaterally, no respiratory distress, no accessory muscle use. Abdomen--normal bowel sounds and soft. Nontender. Nondistended. Extremities--no cyanosis or clubbing. No edema. Dermatologic--few scattered ecchymoses noted Neurologic--cranial nerves II through XII grossly intact with limitation due to left upper arm pain Rheumatologic--examination limited due to left arm pain Psychiatric--normal affect. Results & Data Results & Data ([facility]) Vital Signs (Past 12 Hours) Vital Signs Temp Pulse Pulse Resp BP BP Pulse Ox 07/15/19 21:55 99.5 F 95 H 18 137/73 95 07/15/19 21:27 77 22 135/60 95 07/15/19 20:00 89 19 130/60 93 07/15/19 19:42 85 15 137/65 94 07/15/19 18:15 154/73 H 93 07/15/19 18:14 22 154/73 H 97 07/15/19 17:31 79 21 137/65 94 07/15/19 17:12 94 07/15/19 17:00 79 19 134/62 94 07/15/19 16:56 130/62 93 07/15/19 16:12 131/61 07/15/19 16:08 97.9 F 79 20 131/61 92 Laboratory Results Laboratory Results WBC 21.15 K/uL (4.8-10.8) H 07/15/19 17:13 RBC 4.76 M/uL (4.2-5.4) 07/15/19 17:13 Hgb 13.7 g/dL (12.0-16.0) 07/15/19 17:13 POC Hgb 13.6 g/dl (12.0-16.0) 07/15/19 17:19 Hct 41.3 % (37-47) 07/15/19 17:13 POC Hct 40 % (37-47) 07/15/19 17:19 MCV 86.8 fL (80-100) 07/15/19 17:13 MCH 28.8 pg (25-34) 07/15/19 17:13 MCHC 33.2 g/dL (32-36) 07/15/19 17:13 RDW Std Deviation 50.5 fL (36.4-46.3) H 07/15/19 17:13 RDW Coeff of Robin 15.7 % (11.5-14.5) H 07/15/19 17:13 Plt Count 345 K/uL (130-400) 07/15/19 17:13 MPV 9.7 fL (7.4-10.4) 07/15/19 17:13 Immature Gran % (Auto) 0.9 % 07/15/19 17:13 Neut % (Auto) 87.8 % 07/15/19 17:13 Lymph % (Auto) 5.3 % 07/15/19 17:13 [place] % (Auto) 5.6 % 07/15/19 17:13 Eos % (Auto) 0.1 % 07/15/19 17:13 Baso % (Auto) 0.3 % 07/15/19 17:13 Immature Gran # (Auto) 0.19 K/uL (0.00-0.02) H 07/15/19 17:13 Neut # (Auto) 18.56 K/uL (1.4-6.5) H 07/15/19 17:13 Lymph # (Auto) 1.13 K/uL (1.2-3.4) L 07/15/19 17:13 [place] # (Auto) 1.19 K/uL (0.11-0.59) H 07/15/19 17:13 Eos # (Auto) 0.02 K/uL (0-0.5) 07/15/19 17:13 Baso # (Auto) 0.06 K/uL (0-0.2) 07/15/19 17:13 PT 23.9 Seconds (9.0-12.0) H 07/15/19 17:13 INR 2.4 (0.9-1.1) H 07/15/19 17:13 APTT 32.4 Seconds (21.0-31.0) H 07/15/19 17:13 PTT Ratio 1.2 07/15/19 17:13 POC Sodium 135 mmol/L (135-144) 07/15/19 17:19 Sodium 135 mmol/L (136-145) L 07/15/19 17:13 POC Potassium 4.7 mmol/L (3.3-5.0) 07/15/19 17:19 Potassium 4.6 mmol/L (3.5-5.1) 07/15/19 17:13 POC Chloride 99 mmol/L (101-112) L 07/15/19 17:19 Chloride 102 mmol/L (98-107) 07/15/19 17:13 Carbon Dioxide 29 mmol/L (21-32) 07/15/19 17:13 POC Total CO2 25 mEq/l (24-31) 07/15/19 17:19 Anion Gap 5.0 (3-11) 07/15/19 17:13 POC Anion Gap 16.0 mmol/L (16-25) 07/15/19 17:19 POC BUN 24 mg/dl (7-18) H 07/15/19 17:19 BUN 24 mg/dl (7-18) H 07/15/19 17:13 Creatinine 1.04 mg/dl (0.6-1.2) 07/15/19 17:13 POC Creatinine 0.9 mg/dl (0.6-1.3) 07/15/19 17:19 Est Cr Clr Drug Dosing 45.1 ml/min 07/15/19 17:13 Est GFR ( Amer) 60.9 07/15/19 17:13 Est GFR (Non-Af Amer) 52.5 07/15/19 17:13 BUN/Creatinine Ratio 23.3 (10-20) H 07/15/19 17:13 Glucose 251 mg/dl (70-99) H 07/15/19 17:13 POC Glucose 215 mg/dl (70-99) H 07/15/19 21:50 POC Glucose (other) 250 mg/dl (70-99) H 07/15/19 17:19 POC Lactic Acid Misael 1.80 mmol/L (0.90-1.70) H 07/15/19 18:49 Calcium 9.3 mg/dl (8.5-10.1) 07/15/19 17:13 POC Ioniz Calcium Jeanette 1.15 mmol/l (1.12-1.32) 07/15/19 17:19 Urine Color Yellow 07/15/19 16:50 Urine Appearance Turbid (Clear) A 07/15/19 16:50 Urine pH 6.0 (4.5-7.5) 07/15/19 16:50 Ur Specific [place] 1.016 (1.000-1.030) 07/15/19 16:50 Urine Protein 1+ (Negative) H 07/15/19 16:50 Urine Glucose (UA) 1+ (Negative) H 07/15/19 16:50 Urine Ketones Negative (Negative) 07/15/19 16:50 Urine Blood 2+ (Negative) H 07/15/19 16:50 Urine Nitrite Positive (Negative) A 07/15/19 16:50 Urine Bilirubin Negative (Negative) 07/15/19 16:50 Urine Urobilinogen Negative (Negative) 07/15/19 16:50 Ur Leukocyte Esterase 3+ (Negative) H 07/15/19 16:50 Urine WBC (Auto) >30 /hpf (0-5) H 07/15/19 16:50 Urine RBC (Auto) 0-4 /hpf (0-4) 07/15/19 16:50 U Hyaline Cast (Auto) 0 /lpf (0-5) 07/15/19 16:50 U Epithel Cells (Auto) 5-10 /lpf (0-5) H 07/15/19 16:50 Urine Bacteria (Auto) 4+ (Negative) H 07/15/19 16:50 Urine Yeast Not Reportable 07/15/19 16:50 Diagnostic Findings [place], [place] [phone] CT Scan Report Patient: AUGUSTO CONRAD EAdmit Date: 07/15/19 MR#: [id number]: [address] Acct ID:[id number]: [address] Date: [address] [place] [address] Zip: [place] [address] Age: 73Location: ED Sex: F Room/Bed: Att Phy:Diagnosis: fall/ L shoulder & neck pain Priya Phy: Palak Chiang M.D.Service Date: 07/15/19 Fam Phy: Palak Chiang M.D.Interpreting Phy: Samir Ramos Admit Phy: Ordering Phy: Erick Westbrook MD cc: ~ ABDOMEN AND PELVIS CT WITH IV CONTRAST CT DOSE: 1115.86 mGy.cm HISTORY: Acute anterior abdominal wall pain status post trauma fall on coumadin ecchymosis over anterior abdomen TECHNIQUE: Multiaxial CT images of the abdomen and pelvis were performed following the IV administration of 90 cc of Optiray 320, A dose lowering technique was utilized adhering to the principles of ALARA. COMPARISON STUDY: CT abdomen pelvis 05/11/2019 FINDINGS: Limited exam secondary to upper extremity positioning. Cardiomegaly without pericardial effusion. Bibasilar subpleural reticular opacities suggest mild fi brotic changes with atelectasis. No pneumatosis or pneumoperitoneum. The spleen and adrenal glands are unremarkable. Moderate generalized pancreatic atrophy. Collateral vessels of the nnamdi hepatis redemonstrated. Cholecystectomy with likely postsurgical biliary ductal dilation. Nonspecific bilateral perinephric stranding. Cortical scarring with parenchymal thinning of the superior pole and interpolar left kidney. Probable cyst of the superior pole left kidney, 9 mm. No renal or ureteral calculi or obstructive uropathy. Urothelial thickening of the right renal pelvis and superior pole calyces. Partial distention of the bladder with moderate circumferential wall thickening, hyperemia and perivesicular stranding. The previously questioned masslike area of enhancement and wall thickening of the right posterolateral urinary bladder is not identified on today's study. Hysterectomy. No adnexal mass lesions. Extensive calcified plaque of the abdominal aorta without aneurysm. No adenopathy. Small hiatal hernia with circumferential wall thickening and probable mucosal hyperemia of the fluid-filled distal esophagus. No bowel obstruction. Colonic diverticulosis without acute diverticulitis. Postoperative changes of the right hemicolon are redemonstrated with adjacent area of fat necrosis. Moderate fecal retention. No ascites or mesenteric stranding. No retroperitoneal hemorrhage. Small fat filled periumbilical hernia, diastases 2.0 cm. Soft tissues are unremarkable without large anterior abdominal wall hematoma. Demineralized appearance of the bones. Degenerative changes of the spine, pelvis and hips. No acute fracture identified identified. Mild convex right curvature of the lumbar spine. IMPRESSION: 1. No acute posttraumatic intra-abdominal or intrapelvic abnormality. 2. No acute fracture, abdominal free fluid or abdominal wall hematoma. 3. Urinary bladder wall thickening and hyperemia with perivesicular stranding redemonstrated suspicious for urinalysis. Additionally, there is mild urothelial thickening of the right renal collecting system suggestive of infectious or inflammatory pyelitis from ascending infection. 4. Additional findings as above. ACT 112: Negative or not required by law. The above report was generated using voice recognition software. It may contain grammatical, syntax or spelling errors. Electronically signed by: John Paul Ramos M.D. 07/15/2019 6:31 PM Dictated: 07/15/191819 Transcribed: 07/15/191819 [place], [place] [phone] CT Scan Report Patient: AUGUSTO CONRAD Date: 07/15/19 MR#: [id number]: [address] Acct ID:[id number]: [address] Date: 4City Zip: [place] [address] Age: 73Location: ED Sex: F Room/Bed: Att Phy:Diagnosis: fall/ L shoulder & neck pain Priya Phy: Palak Chiang M.D.Service Date: 07/15/19 Fam Phy: Palak Chiang M.D.Interpreting Phy: Samir Ramos Admit Phy: Ordering Phy: Erick Westbrook MD cc: ~ CT cervical spine wo con CT DOSE: 1494.23 mGy.cm CLINICAL HISTORY: 73 years-old Female with fall on coumadin. Acute neck injury status post fall COMPARISON: CT cervical spine 03/17/2019 TECHNIQUE: Multiple axial CT images of the cervical spine were obtained without contrast. A dose lowering technique was utilized adhering to the principles of ALARA. FINDINGS: Acute and impacted fracture of the proximal left humerus noted on the heat curer localizer image. Demineralized appearance the bones. Severe degenerative changes at C1-C2 with severe disc space narrowing at C4-C5, C5-C6 and T1-T2 with moderate to severe disc space narrowing at C6-C7. Prominent multilevel spondylitic spurring with posterior disc osteophyte complex formations in multilevel severe facet arthrosis. Unchanged grade 1 anterolisthesis C7 on T1 and T2 on T3, likely secondary to long-standing facet arthropathy. Evaluation of the central canal and neuroforamina is better assessed by MRI. Note is made of multilevel fo raminal narrowing. There is at least moderate central canal stenosis at C4-C5 and C5-C6. Mild convex right curvature. Mastoid air cells are clear. No prevertebral soft tissue swelling. Prominent calcified plaque of the thoracic aortic arch and carotid arteries. Right subclavian Zfeanj-r-Ztzk catheter partially imaged. IMPRESSION: No acute cervical spine fracture or subluxation. ACT 112: Negative or not required by law. The above report was generated using voice recognition software. It may contain grammatical, syntax or spelling errors. Electronically signed by: John Paul Ramos M.D. 07/15/2019 6:19 PM Dictated: 07/15/191813 Transcribed: 07/15/191813 [place], [place] [phone] XRay Report Patient: AUGUSTO CONRAD EAdmit Date: 07/15/19 MR#: [id number]: [address] Acct ID:[id number]: [address] Date: 4City Zip: [place] [address] Age: 73Location: ED Sex: F Room/Bed: Att Phy:Diagnosis: fall/ L shoulder & neck pain Priya Phy: Palak Chiang M.D.Service Date: 07/15/19 Fam Phy: Palak Chiang M.D.Interpreting Phy: Samir Ramos Admit Phy: Ordering Phy: Erick Westbrook MD cc: ~ XR chest 1V portable HISTORY: 73 years-old Female fall on coumadin acute chest and left shoulder trauma status post fall COMPARISON: Shoulder radiographs of same day, chest radiographs 05/16/2019 TECHNIQUE: Portable AP view of the chest FINDINGS: Cardiac silhouette is mildly enlarged. Lungs are mildly hypoinflated. Interstitial coarsening of the lungs redemonstrated suggestive of chronic fibr otic changes. No pneumothorax, pleural effusion or overt pulmonary edema. Degenerative changes of the shoulders and spine. Acute mildly impacted fracture of the proximal left humerus. No acute displaced rib fracture identified. IMPRESSION: 1. No acute cardiopulmonary abnormality. 2. Acute mildly impacted fracture of the proximal left humerus. ACT 112: Negative or not required by law. The above report was generated using voice recognition software. It may contain grammatical, syntax or spelling errors. Electronically signed by: John Paul Ramos M.D. 07/15/2019 6:09 PM Dictated: 07/15/191806 Transcribed: 07/15/191806 [place], [place] [phone] CT Scan Report Patient: AUGUSTO CONRAD EAdmit Date: 07/15/19 MR#: [id number]: [address] Acct ID:[id number]: [address] Date: 4City Zip: [place] [address] Age: 73Location: ED Sex: F Room/Bed: Att Phy:Diagnosis: fall/ L shoulder & neck pain Priya Phy: Palak Chiang M.D.Service Date: 07/15/19 Fam Phy: Palak Chiang M.D.Interpreting Phy: Samir Ramos Admit Phy: Ordering Phy: Erick Westbrook MD cc: ~ CT head/brain wo con CLINICAL HISTORY: 73 years-old Female with fall on coumadin. Acute head trauma status post fall TECHNIQUE: Multiple axial CT images of the head were obtained without contrast. A dose lowering technique was utilized adhering to the principles of ALARA. COMPARISON: Head CT 05/11/2019 FINDINGS: No acute intracranial hemorrhage, midline shift, intracranial mass, hydrocephalus, territorial ischemia or abnormal extra-axial collection. Age- related involutional changes with ex vacuo ventriculomegaly. Patchy white matter hypodensities suggest chronic microvascular ischemic disease. Cerebral vascular calcifications. The calvarium is intact. Skull apex is partially excluded from the [id number]-[id number]. Mastoid air cells are clear. Mild mucosal thickening with tiny air-fluid levels of the sphenoid sinuses. Mild polypoid mucosal thickening of the ethmoid air cells. Soft tissues and orbits are unremarkable. IMPRESSION: No acute intracranial abnormality or calvarial fracture. ACT 112: Negative or not required by law. The above report was generated using voice recognition software. It may contain grammatical, syntax or spelling errors. Electronically signed by: John Paul Ramos M.D. 07/15/2019 6:14 PM Dictated: 07/15/191810 Transcribed: 07/15/191810 [place], [place] [phone] XRay Report Patient: AUGUSTO CONRAD EAdmit Date: 07/15/19 MR#: [id number]: [address] Acct ID:[id number]: [address] Date: [address] [place] [address] Zip: [place] [address] Age: 73Location: ED Sex: F Room/Bed: Att Phy:Diagnosis: fall/ L shoulder & neck pain Priya Phy: Palak Chiang M.D.Service Date: 07/15/19 Fam Phy: Palak Chiang M.D.Interpreting Phy: Samir Ramos Admit Phy: Ordering Phy: Erick Westbrook MD cc: ~ XR shoulder LT min 2V routine, XR humerus LT 2V HISTORY: 73 years-old Female fall on coumadin acute left upper extremity pain status post fall COMPARISON: Chest radiograph of same day TECHNIQUE: 2 views of the left shoulder and 2 views of the left humerus FINDINGS: SHOULDER: Limited exam secondary to positioning. There is an acute fracture of the surgical neck left humerus with impaction of a least 11 mm. Acute nondisplaced fracture also involves the greater tuberosity. Moderate glenohumeral and AC joint osteoarthritis. Demineralized appearance of the bones limits the study. No definite dislocation. Moderate soft tissue swelling. HUMERUS: Mid and distal humerus appear intact. Calcifications of the left breast. IMPRESSION: 1. Acute and impacted fracture of the surgical neck left humerus with acute non displaced fracture involving the greater tuberosity. 2. Moderate glenohumeral osteoarthritis without dislocation. ACT 112: Negative or not required by law. The above report was generated using voice recognition software. It may contain grammatical, syntax or spelling errors. Electronically signed by: John Paul Ramos M.D. 07/15/2019 6:07 PM Dictated: 07/15/191804 Transcribed: 07/15/191804 [facility] [place] [phone] XRay Report Patient: AUGUSTO CONRAD EAdmit Date: 07/15/19 MR#: [id number]: [address] Acct ID:[id number]: [address] Date: 1945[facility] Zip: [place] [address] Age: 73Location: ED Sex: F Room/Bed: Att Phy:Diagnosis: fall/ L shoulder & neck pain Priya Phy: Palak Chiang M.D.Service Date: 07/15/19 Fam Phy: Palak Chiang M.D.Interpreting Phy: Samir Ramos Admit Phy: Ordering Phy: Erick Westbrook MD cc: ~ XR pelvis 1-2V routine HISTORY: 73 years-old Female fall on coumadin acute pelvic trauma status post fall COMPARISON: Pelvic radiograph 03/17/2019 TECHNIQUE: AP view of the pelvis FINDINGS: Moderate osteoarthritis of the femoral acetabular joints. Demineralized appe arance of the bones. No acute fracture, dislocation or avascular necrosis. Pelvic ring appears intact. Multilevel degenerative changes of the imaged lumbar spine. Vascular calcifications. The soft tissues are within normal limits. Surgical suture material projects over the abdominal right lower quadrant. IMPRESSION: No acute fracture or dislocation. ACT 112: Negative or not required by law. The above report was generated using voice recognition software. It may contain grammatical, syntax or spelling errors. Electronically signed by: John Paul Ramos M.D. 07/15/2019 6:11 PM Dictated: 07/15/191809 Transcribed: 07/15/191809 [place], [place] [phone] XRay Report Patient: AUGUSTO CONRAD EAdmit Date: 07/15/19 MR#: [id number]: [address] Acct ID:[id number]: [address] Date: [address] [place] [address] Zip: [place] [address] Age: 73Location: ED Sex: F Room/Bed: Att Phy:Diagnosis: fall/ L shoulder & neck pain Priya Phy: Palak Chiang M.D.Service Date: 07/15/19 Fam Phy: Palak Chiang M.D.Interpreting Phy: Samir Ramos Admit Phy: Ordering Phy: Erick Westbrook MD cc: ~ XR shoulder LT min 2V routine, XR humerus LT 2V HISTORY: 73 years-old Female fall on coumadin acute left upper extremity pain status post fall COMPARISON: Chest radiograph of same day TECHNIQUE: 2 views of the left shoulder and 2 views of the left humerus FINDINGS: SHOULDER: Limited exam secondary to positioning. There is an acute fracture of the surgical neck left humerus with impaction of a least 11 mm. Acute nondisplaced fracture also involves the greater tuberosity. Moderate glenohumeral and AC joint osteoarthritis. Demineralized appearance of the bones limits the study. No definite dislocation. Moderate soft tissue swelling. HUMERUS: Mid and distal humerus appear intact. Calcifications of the left breast. IMPRESSION: 1. Acute and impacted fracture of the surgical neck left humerus with acute nondisplaced fracture involving the greater tuberosity. 2. Moderate glenohumeral osteoarthritis without dislocation. ACT 112: Negative or not required by law. The above report was generated using voice recognition software. It may contain grammatical, syntax or spelling errors. Electronically signed by: John Paul Ramos M.D. 07/15/2019 6:07 PM Dictated: 07/15/191804 Transcribed: 07/15/191804 Code Status & VTE Plan Code Status Full code VTE Prophylaxis Plan VTE Prophylaxis will be ordered: Yes PG Care Time/CCT Total # of Minutes Spent Total Time Spent with Patient: Total time spent is greater than 50% in coordination of care (as documented) at patient's floor/unit and/or counseling patient: Coding Level of Care Code 38072 Initial Inpt Care Lvl 3 Diagnoses Fracture of neck of humerus S42.212A Encounter type: initial encounter Fracture type: closed Laterality: left Acute pyelonephritis N10 Type 2 diabetes mellitus E11.9 Depression F32.9 FDC (current) use of anticoagulants Z79.01 Bladder mass N32.89 (1) Fracture of neck of humerus Encounter type: initial encounter Fracture type: closed Laterality: left Qualified Code(s): S42.212A - Unspecified displaced fracture of surgical neck of left humerus, initial encounter for closed fracture
[2019-07-16] MEDS: INSULIN DETEMIR FLEXPEN/FLEX TOUCH 100 UNITS/ML 3ML SQ SCH (08:54)
[2019-07-16] MEDS: BENAZEPRIL HCL 10 MG TAB PO SCH (08:55)
[2019-07-16] MEDS: CHOLECALCIFEROL 1,000 UNITS 25 MCG TAB PO SCH (08:56)
[2019-07-16] MEDS: INSULIN ASPART 100 UNITS/ML 3 ML PEN SC SCH ×4 (08:57→21:38)
[2019-07-16] MEDS ORDERED: IMIPENEM/CILASTATIN CONSULT ACTIVE PRN (09:05)
[2019-07-16] MEDS ORDERED: IMIPENEM/CILASTATIN SODIUM 1,000 MG in DEXTROSE 5% 100 ML IV SCH (09:15)
--- NOTE | 2019-07-16 09:15 | Urology Progress Note ---
Date of Service July 16, 2019 Assessment & Plan (1) UTI (urinary tract infection): Complex UTI complicated by encephalopathy/fall and fracture no indication for intervention now path from recent TURBT is benign received imipenem upon arrival - cont appropriate abx will follow peripherally Subjective Pt not seen in person secondary to covid crisis - chart review leading to recommendations s/p TURBT on 06/16/19 suspected tumor, but pathology returned as inflammatory epithelium only subsequent UTI initially treated with bactrm - but final culture results showing e. coli and klebsiella with e. coli resistant to bactrim converted to cipro per phone notes in the chart, it sounds as though she was exhibiting signs of encephalopathy with the UTI ultimately suffered a fall and fracture repeat cultures pending now + leukocytosis CT reviewed - no hydro, some inflammatory changes around the kidneys - could be secondary to infection. No hydronephrosis Results & Data Vital Signs (Past 12 Hours) Vital Signs Temp Pulse Pulse Resp BP BP Pulse Ox 07/16/19 08:16 36.7 C 54 L 18 150/71 H 96 07/15/19 21:55 37.5 C 95 H 18 137/73 95 07/15/19 21:27 77 22 135/60 95 PG Care Time/CCT Total # of Minutes Spent Total Time Spent with Patient: Total time spent is greater than 50% in coordination of care (as documented) at patient's floor/unit and/or counseling patient: Coding Level of Care Code None Diagnoses UTI (urinary tract infection) N30.01 Hematuria presence: with hematuria Urinary tract infection type: acute cystitis (1) UTI (urinary tract infection) Hematuria presence: with hematuria Urinary tract infection type: acute cystitis Qualified Code(s): N30.01 - Acute cystitis with hematuria
[2019-07-16 09:23] LABS: Basophils # (auto) 0.04 K/uL (0-0.2); Basophils % (auto) 0.3 %; Eosinophils # (auto) 0.13 K/uL (0-0.5); Eosinophils % (auto) 1.1 %; Hematocrit (blood only) 33.7 % (37-47); Immature Granulocytes # (auto) 0.13 K/uL (0.00-0.02); Immature Granulocytes % (auto) 1.1 %; Lymphocytes # (auto) 1.77 K/uL (1.2-3.4); Lymphocytes % (auto) 15.1 %; Mean Corpuscular Hgb Conc 32.6 g/dL (32-36); Mean Corpuscular Volume 88.9 fL (80-100); Mean Platelet Volume 9.3 fL (7.4-10.4); Monocytes # (auto) 1.31 K/uL (0.11-0.59); Monocytes % (auto) 11.2 %; Neutrophils # (auto) 8.36 K/uL (1.4-6.5); Neutrophils % (auto) 71.2 %; Platelet Count 290 K/uL (130-400); RDW Standard Deviation 52.5 fL (36.4-46.3); Red Blood Count 3.79 M/uL (4.2-5.4); White Blood Count 11.74 K/uL (4.8-10.8)
[2019-07-16 09:33] LABS: INR 2.7 (0.9-1.1); Prothrombin Time 26.6 Seconds (9.0-12.0)
[2019-07-16 09:48] LABS: BUN Creatinine Ratio 24.9 (10-20); Calcium 7.9 mg/dl (8.5-10.1); Creatinine Clr Calc Pharmacy 56.8 ml/min; Est GFR (African American) 81.1; Potassium 3.7 mmol/L (3.5-5.1)
[2019-07-16] MEDS: SODIUM CHLORIDE 0.9% 1000ML 1,000 ML IV SCH ×2 (10:22→23:59)
[2019-07-16] MEDS: IMIPENEM/CILASTATIN SODIUM 300 MG in DEXTROSE 5% 100 ML IV SCH ×3 (10:23→21:35)
--- NOTE | 2019-07-16 10:23 | CT Scan Report ---
CT shoulder LT wo con CT DOSE: 510.36 mGy.cm CLINICAL HISTORY: Prox humerus fx, please do CT w 3D reconstruction TECHNIQUE: Helical images were acquired in the transverse plane. Sagittal coronal reformatted images including 3-D reconstruction was performed A dose lowering technique was utilized adhering to the pr inciples of RAINE. COMPARISON STUDY: X-ray study dated 07/15/2019 FINDINGS: There are left apical pulmonary opacities, likely representing atelectasis/scarring. There is an acut e comminuted impacted fracture of the left humeral neck and head. There is 13 mm of anterior displace ment of the humeral shaft with respect to the humeral head. There is no dislocation. IMPRESSION: Displaced comminuted impacted fracture of the humeral neck and head. ACT 112: Negative or not required by law. Electronically signed by: Claudio Caldwell M.D. 07/16/2019 10:21 AM
[2019-07-16] MEDS: ACETAMINOPHEN 325 MG TAB PO PRN ×2 (10:28→21:33)
--- NOTE | 2019-07-16 12:10 | Consultation Report ---
DATE OF CONSULTATION: 07/16/2019 Special attention to left proximal humerus fracture. HISTORY OF PRESENT ILLNESS: This is a 73-year-old female who sustained a fall while she is trying to get out of her wheelchair by herself. She complains of pain in the left shoulder. She is admitted to the hospitalist service with diagnoses of proximal humerus fracture as well as acute pyelonephritis and UTI. PAST MEDICAL HISTORY: 1. Type 2 diabetes. 2. History of UTI. 3. History of Coumadin use. 4. History of colon cancer. 5. Hypertension. 6. Diverticulitis. 7. Pneumonia. 8. Recent hospitalization for UTI. 9. Status post resection of a bladder mass. SOCIAL HISTORY: The patient is not ambulatory but does use a wheelchair to get about. PHYSICAL EXAMINATION: On left shoulder examination, the patient exhibits tenderness of the left shoulder. She has moderate ecchymosis in the shoulder region, but no open injuries. She does exhibit some baseline confusion and is unable to follow commands with her left hand. Her left hand is warm and well perfused, and she can flex and extend the digits, but further examination is limited secondary to lack of patient cooperation. ASSESSMENT: 1. Left proximal humerus fracture. 2. Acute pyelonephritis and urinary tract infection. PLAN: I discussed findings with her. Currently, she is in a sling. Radiographs do show mild displacement, but axillary views unable to be obtained. Recommendation is for a CAT scan of the shoulder to evaluate for any intraarticular split and further evaluate displacement. We will review this with our shoulder specialist to ensure that nonoperative treatment can be continued. At this point in time, we will likely continue nonoperative treatment with a sling. ANGELINA
--- NOTE | 2019-07-16 12:17 | Hospitalist Progress Note ---
Date of Service July 16, 2019 Assessment & Plan (1) Fracture of neck of humerus: Fell out of her wheelchair and sustained an acute comminuted impacted fracture of the left humeral neck and head w/ 13 mm of anterior displacement of the humeral shaft with respect to the humeral head; no dislocation all as per CT of the left shoulder. Continue to keep arm in sling. Appreciate orthopedic consultation-continue sling and nonoperative management at this time, nonweightbearing of left upper extremity. CT is to be reviewed by orthopedics in consultation with shoulder expert to make final decision about whether surgical repair is needed -Continue pain control with Tylenol as needed, added Toradol but would avoid opioids given her confusion -Will DC IV morphine -Will hold Coumadin for tonight in case orthopedics decides she does need a surgery-if INR goes less than 2.0, would bridge with Lovenox given history of DVT Patient has been living at home with her granddaughter and , may not be able to return directly home, as she was having issues with ambulatory dysfunction prior to this, and her left proximal humerus fracture will likely further impede her ability to walk with walker -PT/OT consults placed (2) Fall: As above Head CT, cervical spine CT, and pelvis x-ray all without fractures or acute issues With left humerus fracture as above (3) Acute pyelonephritis: With cystitis/Ascending pyelitis/acute pyelonephritis/recent resection of bladder mass- With significant leukocytosis here, afebrile, with abnormal UA and encephalopathy She had just completed a course of Cipro x7 days as an outpatient for an ESBL Klebsiella and E. coli UTI on urine culture from 07/[address] abdomen/pelvis confirms cystitis and possible right-sided pyelonephritis Her bladder mass turned out to be chronic inflammation but fortunately no malignancy-this was resected just 3 weeks ago Urine culture growing gram-negative bacilli and Streptococcus species Leukocytosis is significantly improved down to 11-received 1 dose of ceftriaxone upon admission, but given history of ESBL Klebsiella, convert to antibiotics as below: -DC ceftriaxone and start imipenem on 07/15 -Add on daptomycin to cover for possible enterococcus -Follow final urine culture and sensitivities -Continue gentle IV fluids -Follow CBC Appreciate urology consultation-no indication for intervention at this time- will follow peripherally (4) Acute metabolic encephalopathy: Secondary to acute pyelonephritis -Treating infection as above -Supportive care and frequent orientation, redirection (5) Type 2 diabetes mellitus: With hyperglycemia here likely secondary to acute infection -Holding home sitagliptin Continue Levemir 10 units subcu every morning and 12 units subcu at bedtime. -Continue Accu-Cheks before meals and at bedtime with NovoLog coverage per scale. -Continue diabetic diet -Follow-up hemoglobin A1c which is pending (6) Depression: Continue Lexapro 10 mg p.o. 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: INR remains therapeutic at 2.7 -Will hold warfarin for today in case orthopedics recommends surgical repair of humerus fracture Hemoglobin did drop from 13.7 down to 11.0, however some of this is likely hemo- dilutional rather than blood loss -Follow INR in the morning -Would start bridging Lovenox if INR less than 2 -Restart Coumadin tomorrow if no orthopedic surgery planned (8) Bladder mass: Status post recent resection on 06/16/2019 and was found to be chronic inflammation and not malignancy on pathology Also had a bladder stone removed (9) HTN (hypertension): Blood pressures are controlled -Continue home benazepril 20 mg daily -Follow BPs (10) History of DVT (deep vein thrombosis): On Coumadin for this as above -Bridged with Lovenox if INR less than 2.0 (11) DVT prophylaxis: Coumadin Disposition-continued stay PT/OT consults placed Admission and Anticipated Discharge Date Admission Date: July 15, 2019 Anticipated date of discharge: 07/18/19 Subjective Patient is confused and tearful at times. Seems paranoid and reports that she does not trust anyone here and that she is "keeping an eye on all those people out there." She is having quite a bit of pain left shoulder especially when she forgets that it is broken and tries to move her left upper extremity. Denies abdominal pain. Denies chest pain or shortness of breath. Reports that she is scared and does not want to have to stay here another night. When asked if she knows where she is, she said "I am in this place." Review of Systems Review of Systems: All systems reviewed & are unremarkable except as noted in HPI & below Physical Exam Constitutional: WD/WN, vitals as above no acute distress Eyes: + anicteric sclerae and EOM intact bilaterally Neck: trachea midline, no thyromegaly Respiratory: normal respiratory effort, lungs clear to auscultation Cardiovascular: RRR, no murmur, no edema Chest (Breasts): Chest: normal inspection of chest Gastrointestinal (Abdomen): normal bowel sounds, soft, nontender, no hepatosplenomegaly Musculoskeletal: Extremities: + extremities abnormal to inspection (Left upper extremity in sling, significant pain with any motion of the left upper extremity, positive ecchymosis and mild edema, positive tenderness to palpation over left shoulder), no cyanosis and no clubbing 2+ radial pulses bilaterally, sensation intact in the left hand compared to the right, able to move fingers on the left Skin: no rashes, warm and dry Neurologic: moves all extremities and awake; no focal motor deficits Psychiatric: Orientation: alert, oriented to person and + guarded; + not oriented to place and + not oriented to time Speech: normal rate/rhyth m/volume of speech Affect: + tearful affect Thought Content: + paranoid Insight: + poor insight Lymphatic: no lymphedema Results & Data Results & Data ([facility]) Vital Signs (Past 12 Hours) Vital Signs Temp Pulse Resp BP Pulse Ox 07/16/19 08:16 36.7 C 54 L 18 150/71 H 96 Laboratory Results 07/16/19 07/16/19 07/16/19 Range/Units 12:17 09:15 09:15 WBC (4.8-10.8) K/uL RBC (4.2-5.4) M/uL Hgb (12.0-16.0) g/dL POC Hgb (12.0-16.0) g/dl Hct (37-47) % POC Hct (37-47) % MCV (80-100) fL MCH (25-34) pg MCHC (32-36) g/dL RDW Std Deviation (36.4-46.3) fL RDW Coeff of Robin (11.5-14.5) % Plt Count (130-400) K/uL MPV (7.4-10.4) fL Immature Gran % (Auto) % Neut % (Auto) % Lymph % (Auto) % Mcdonald % (Auto) % Eos % (Auto) % Baso % (Auto) % Immature Gran # (Auto) (0.00-0.02) K/uL Neut # (Auto) (1.4-6.5) K/uL Lymph # (Auto) (1.2-3.4) K/uL Mcdonald # (Auto) (0.11-0.59) K/uL Eos # (Auto) (0-0.5) K/uL Baso # (Auto) (0-0.2) K/uL PT 26.6 H (9.0-12.0) Seconds INR 2.7 H (0.9-1.1) APTT (21.0-31.0) Seconds PTT Ratio POC Sodium (135-144) mmol/L Sodium 140 (136-145) mmol/L POC Potassium (3.3-5.0) mmol/L Potassium 3.7 D (3.5-5.1) mmol/L POC Chloride (101-112) mmol/L Chloride 109 H (98-107) mmol/L Carbon Dioxide 27 (21-32) mmol/L POC Total CO2 (24-31) mEq/l Anion Gap 4.0 (3-11) POC Anion Gap (16-25) mmol/L POC BUN (7-18) mg/dl BUN 20 H (7-18) mg/dl Creatinine 0.82 (0.6-1.2) mg/dl POC Creatinine (0.6-1.3) mg/dl Est Cr Clr Drug Dosing 56.8 ml/min Est GFR ( Amer) 81.1 Est GFR (Non-Af Amer) 70.0 BUN/Creatinine Ratio 24.9 H (10-20) Glucose 168 H (70-99) mg/dl POC Glucose 175 H (70-99) mg/dl POC Glucose (other) (70-99) mg/dl Estimat Average Glucose Hemoglobin A1c POC Lactic Acid Misael (0.90-1.70) mmol/L Calcium 7.9 L D (8.5-10.1) mg/dl POC Ioniz Calcium Jeanette (1.12-1.32) mmol/l Urine Color Urine Appearance (Clear) Urine pH (4.5-7.5) Ur Specific [place] (1.000-1.030) Urine Protein (Negative) Urine Glucose (UA) (Negative) Urine Ketones (Negative) Urine Blood (Negative) Urine Nitrite (Negative) Urine Bilirubin (Negative) Urine Urobilinogen (Negative) Ur Leukocyte Esterase (Negative) Urine WBC (Auto) (0-5) /hpf Urine RBC (Auto) (0-4) /hpf U Hyaline Cast (Auto) (0-5) /lpf U Epithel Cells (Auto) (0-5) /lpf Urine Bacteria (Auto) (Negative) Urine Yeast 07/16/19 07/16/19 07/15/19 Range/Units 09:15 08:14 21:50 WBC 11.74 H (4.8-10.8) K/uL RBC 3.79 L (4.2-5.4) M/uL Hgb 11.0 L (12.0-16.0) g/dL POC Hgb (12.0-16.0) g/dl Hct 33.7 L (37-47) % POC Hct (37-47) % MCV 88.9 (80-100) fL MCH 29.0 (25-34) pg MCHC 32.6 (32-36) g/dL RDW Std Deviation 52.5 H (36.4-46.3) fL RDW Coeff of Robin 16.0 H (11.5-14.5) % Plt Count 290 (130-400) K/uL MPV 9.3 (7.4-10.4) fL Immature Gran % (Auto) 1.1 % Neut % (Auto) 71.2 % Lymph % (Auto) 15.1 % Mcdonald % (Auto) 11.2 % Eos % (Auto) 1.1 % Baso % (Auto) 0.3 % Immature Gran # (Auto) 0.13 H (0.00-0.02) K/uL Neut # (Auto) 8.36 H (1.4-6.5) K/uL Lymph # (Auto) 1.77 (1.2-3.4) K/uL Mcdonald # (Auto) 1.31 H (0.11-0.59) K/uL Eos # (Auto) 0.13 (0-0.5) K/uL Baso # (Auto) 0.04 (0-0.2) K/uL PT (9.0-12.0) Seconds INR (0.9-1.1) APTT (21.0-31.0) Seconds PTT Ratio POC Sodium (135-144) mmol/L Sodium (136-145) mmol/L POC Potassium (3.3-5.0) mmol/L Potassium (3.5-5.1) mmol/L POC Chloride (101-112) mmol/L Chloride (98-107) mmol/L Carbon Dioxide (21-32) mmol/L POC Total CO2 (24-31) mEq/l Anion Gap (3-11) POC Anion Gap (16-25) mmol/L POC BUN (7-18) mg/dl BUN (7-18) mg/dl Creatinine (0.6-1.2) mg/dl POC Creatinine (0.6-1.3) mg/dl Est Cr Clr Drug Dosing ml/min Est GFR ( Amer) Est GFR (Non-Af Amer) BUN/Creatinine Ratio (10-20) Glucose (70-99) mg/dl POC Glucose 133 H 215 H (70-99) mg/dl POC Glucose (other) (70-99) mg/dl Estimat Average Glucose Hemoglobin A1c POC Lactic Acid Misael (0.90-1.70) mmol/L Calcium (8.5-10.1) mg/dl POC Ioniz Calcium Jeanette (1.12-1.32) mmol/l Urine Color Urine Appearance (Clear) Urine pH (4.5-7.5) Ur Specific [place] (1.000-1.030) Urine Protein (Negative) Urine Glucose (UA) (Negative) Urine Ketones (Negative) Urine Blood (Negative) Urine Nitrite (Negative) Urine Bilirubin (Negative) Urine Urobilinogen (Negative) Ur Leukocyte Esterase (Negative) Urine WBC (Auto) (0-5) /hpf Urine RBC (Auto) (0-4) /hpf U Hyaline Cast (Auto) (0-5) /lpf U Epithel Cells (Auto) (0-5) /lpf Urine Bacteria (Auto) (Negative) Urine Yeast 07/15/19 07/15/19 07/15/19 Range/Units 18:49 17:19 17:13 WBC (4.8-10.8) K/uL RBC (4.2-5.4) M/uL Hgb (12.0-16.0) g/dL POC Hgb 13.6 (12.0-16.0) g/dl Hct (37-47) % POC Hct 40 (37-47) % MCV (80-100) fL MCH (25-34) pg MCHC (32-36) g/dL RDW Std Deviation (36.4-46.3) fL RDW Coeff of Robin (11.5-14.5) % Plt Count (130-400) K/uL MPV (7.4-10.4) fL Immature Gran % (Auto) % Neut % (Auto) % Lymph % (Auto) % Mcdonald % (Auto) % Eos % (Auto) % Baso % (Auto) % Immature Gran # (Auto) (0.00-0.02) K/uL Neut # (Auto) (1.4-6.5) K/uL Lymph # (Auto) (1.2-3.4) K/uL Mcdonald # (Auto) (0.11-0.59) K/uL Eos # (Auto) (0-0.5) K/uL Baso # (Auto) (0-0.2) K/uL PT (9.0-12.0) Seconds INR (0.9-1.1) APTT (21.0-31.0) Seconds PTT Ratio POC Sodium 135 (135-144) mmol/L Sodium (136-145) mmol/L POC Potassium 4.7 (3.3-5.0) mmol/L Potassium (3.5-5.1) mmol/L POC Chloride 99 L (101-112) mmol/L Chloride (98-107) mmol/L Carbon Dioxide (21-32) mmol/L POC Total CO2 25 (24-31) mEq/l Anion Gap (3-11) POC Anion Gap 16.0 (16-25) mmol/L POC BUN 24 H (7-18) mg/dl BUN (7-18) mg/dl Creatinine (0.6-1.2) mg/dl POC Creatinine 0.9 (0.6-1.3) mg/dl Est Cr Clr Drug Dosing ml/min Est GFR ( Amer) Est GFR (Non-Af Amer) BUN/Creatinine Ratio (10-20) Glucose (70-99) mg/dl POC Glucose (70-99) mg/dl POC Glucose (other) 250 H (70-99) mg/dl Estimat Average Glucose Pending Hemoglobin A1c Pending POC Lactic Acid Misael 1.80 H (0.90-1.70) mmol/L Calcium (8.5-10.1) mg/dl POC Ioniz Calcium Jeanette 1.15 (1.12-1.32) mmol/l Urine Color Urine Appearance (Clear) Urine pH (4.5-7.5) Ur Specific [place] (1.000-1.030) Urine Protein (Negative) Urine Glucose (UA) (Negative) Urine Ketones (Negative) Urine Blood (Negative) Urine Nitrite (Negative) Urine Bilirubin (Negative) Urine Urobilinogen (Negative) Ur Leukocyte Esterase (Negative) Urine WBC (Auto) (0-5) /hpf Urine RBC (Auto) (0-4) /hpf U Hyaline Cast (Auto) (0-5) /lpf U Epithel Cells (Auto) (0-5) /lpf Urine Bacteria (Auto) (Negative) Urine Yeast 07/15/19 07/15/19 07/15/19 Range/Units 17:13 17:13 17:13 WBC 21.15 H (4.8-10.8) K/uL RBC 4.76 (4.2-5.4) M/uL Hgb 13.7 (12.0-16.0) g/dL POC Hgb (12.0-16.0) g/dl Hct 41.3 (37-47) % POC Hct (37-47) % MCV 86.8 (80-100) fL MCH 28.8 (25-34) pg MCHC 33.2 (32-36) g/dL RDW Std Deviation 50.5 H (36.4-46.3) fL RDW Coeff of Robin 15.7 H (11.5-14.5) % Plt Count 345 (130-400) K/uL MPV 9.7 (7.4-10.4) fL Immature Gran % (Auto) 0.9 % Neut % (Auto) 87.8 % Lymph % (Auto) 5.3 % Mcdonald % (Auto) 5.6 % Eos % (Auto) 0.1 % Baso % (Auto) 0.3 % Immature Gran # (Auto) 0.19 H (0.00-0.02) K/uL Neut # (Auto) 18.56 H (1.4-6.5) K/uL Lymph # (Auto) 1.13 L (1.2-3.4) K/uL Mcdonald # (Auto) 1.19 H (0.11-0.59) K/uL Eos # (Auto) 0.02 (0-0.5) K/uL Baso # (Auto) 0.06 (0-0.2) K/uL PT 23.9 H (9.0-12.0) Seconds INR 2.4 H (0.9-1.1) APTT 32.4 H (21.0-31.0) Seconds PTT Ratio 1.2 POC Sodium (135-144) mmol/L Sodium 135 L (136-145) mmol/L POC Potassium (3.3-5.0) mmol/L Potassium 4.6 (3.5-5.1) mmol/L POC Chloride (101-112) mmol/L Chloride 102 (98-107) mmol/L Carbon Dioxide 29 (21-32) mmol/L POC Total CO2 (24-31) mEq/l Anion Gap 5.0 (3-11) POC Anion Gap (16-25) mmol/L POC BUN (7-18) mg/dl BUN 24 H (7-18) mg/dl Creatinine 1.04 (0.6-1.2) mg/dl POC Creatinine (0.6-1.3) mg/dl Est Cr Clr Drug Dosing 45.1 ml/min Est GFR ( Amer) 60.9 Est GFR (Non-Af Amer) 52.5 BUN/Creatinine Ratio 23.3 H (10-20) Glucose 251 H (70-99) mg/dl POC Glucose (70-99) mg/dl POC Glucose (other) (70-99) mg/dl Estimat Average Glucose Hemoglobin A1c POC Lactic Acid Misael (0.90-1.70) mmol/L Calcium 9.3 (8.5-10.1) mg/dl POC Ioniz Calcium Jeanette (1.12-1.32) mmol/l Urine Color Urine Appearance (Clear) Urine pH (4.5-7.5) Ur Specific [place] (1.000-1.030) Urine Protein (Negative) Urine Glucose (UA) (Negative) Urine Ketones (Negative) Urine Blood (Negative) Urine Nitrite (Negative) Urine Bilirubin (Negative) Urine Urobilinogen (Negative) Ur Leukocyte Esterase (Negative) Urine WBC (Auto) (0-5) /hpf Urine RBC (Auto) (0-4) /hpf U Hyaline Cast (Auto) (0-5) /lpf U Epithel Cells (Auto) (0-5) /lpf Urine Bacteria (Auto) (Negative) Urine Yeast 07/15/19 Range/Units 16:50 WBC (4.8-10.8) K/uL RBC (4.2-5.4) M/uL Hgb (12.0-16.0) g/dL POC Hgb (12.0-16.0) g/dl Hct (37-47) % POC Hct (37-47) % MCV (80-100) fL MCH (25-34) pg MCHC (32-36) g/dL RDW Std Deviation (36.4-46.3) fL RDW Coeff of Robin (11.5-14.5) % Plt Count (130-400) K/uL MPV (7.4-10.4) fL Immature Gran % (Auto) % Neut % (Auto) % Lymph % (Auto) % Mcdonald % (Auto) % Eos % (Auto) % Baso % (Auto) % Immature Gran # (Auto) (0.00-0.02) K/uL Neut # (Auto) (1.4-6.5) K/uL Lymph # (Auto) (1.2-3.4) K/uL Mcdonald # (Auto) (0.11-0.59) K/uL Eos # (Auto) (0-0.5) K/uL Baso # (Auto) (0-0.2) K/uL PT (9.0-12.0) Seconds INR (0.9-1.1) APTT (21.0-31.0) Seconds PTT Ratio POC Sodium (135-144) mmol/L Sodium (136-145) mmol/L POC Potassium (3.3-5.0) mmol/L Potassium (3.5-5.1) mmol/L POC Chloride (101-112) mmol/L Chloride (98-107) mmol/L Carbon Dioxide (21-32) mmol/L POC Total CO2 (24-31) mEq/l Anion Gap (3-11) POC Anion Gap (16-25) mmol/L POC BUN (7-18) mg/dl BUN (7-18) mg/dl Creatinine (0.6-1.2) mg/dl POC Creatinine (0.6-1.3) mg/dl Est Cr Clr Drug Dosing ml/min Est GFR ( Amer) Est GFR (Non-Af Amer) BUN/Creatinine Ratio (10-20) Glucose (70-99) mg/dl POC Glucose (70-99) mg/dl POC Glucose (other) (70-99) mg/dl Estimat Average Glucose Hemoglobin A1c POC Lactic Acid Misael (0.90-1.70) mmol/L Calcium (8.5-10.1) mg/dl POC Ioniz Calcium Jeanette (1.12-1.32) mmol/l Urine Color Yellow Urine Appearance Turbid A (Clear) Urine pH 6.0 (4.5-7.5) Ur Specific [place] 1.016 (1.000-1.030) Urine Protein 1+ H (Negative) Urine Glucose (UA) 1+ H (Negative) Urine Ketones Negative (Negative) Urine Blood 2+ H (Negative) Urine Nitrite Positive A (Negative) Urine Bilirubin Negative (Negative) Urine Urobilinogen Negative (Negative) Ur Leukocyte Esterase 3+ H (Negative) Urine WBC (Auto) >30 H (0-5) /hpf Urine RBC (Auto) 0-4 (0-4) /hpf U Hyaline Cast (Auto) 0 (0-5) /lpf U Epithel Cells (Auto) 5-10 H (0-5) /lpf Urine Bacteria (Auto) 4+ H (Negative) Urine Yeast Not Reportable Urine culture with gram-negative bacilli and Streptococcus species growing Blood cultures-no growth to date PG Care Time/CCT Total # of Minutes Spent Total Time Spent with Patient: Total time spent is greater than 50% in coordination of care (as documented) at patient's floor/unit and/or counseling patient: Coding Level of Care Code 29562 Subseq Hosp Care Lvl 3 Diagnoses Fracture of neck of humerus S42.212A Encounter type: initial encounter Fracture type: closed Laterality: left Fall W19.XXXA Acute pyelonephritis N10 Acute metabolic encephalopathy G93.41 Type 2 diabetes mellitus E11.9 Depression F32.9 retirement (current) use of anticoagulants Z79.01 Bladder mass N32.89 HTN (hypertension) I10 History of DVT (deep vein thrombosis) Z86.718 DVT prophylaxis Z29.9 (1) Fracture of neck of humerus Encounter type: initial encounter Fracture type: closed Laterality: left Qualified Code(s): S42.212A - Unspecified displaced fracture of surgical neck of left humerus, initial encounter for closed fracture
[2019-07-16] MEDS ORDERED: DAPTOMYCIN CONSULT ACTIVE PRN (12:54)
[2019-07-16] MEDS: DAPTOmycin 200 MG in SYRINGE 0 ML IV SCH (13:41)
[2019-07-16] MEDS: ESCITALOPRAM OXALATE 10 MG TAB PO SCH (16:23)
[2019-07-16] MEDS: KETOROLAC TROMETHAMINE 15 MG/ML VIAL IV PRN (16:50)
[2019-07-16] MEDS ORDERED: cefTRIAXone SODIUM 1,000 MG in DEXTROSE 5% 50 ML IV SCH (20:00)
[2019-07-16] MEDS: MIRTAZAPINE TAB 15 MG TAB PO SCH (21:33)
[2019-07-16] MEDS: INSULIN DETEMIR FLEXPEN/FLEX TOUCH 100 UNITS/ML 3ML SC SCH (21:38)
[2019-07-17] MEDS: IMIPENEM/CILASTATIN SODIUM 300 MG in DEXTROSE 5% 100 ML IV SCH (03:20)
[2019-07-17 06:36] LABS: Estimated Average Glucose 169 mg/dl; Hemoglobin A1C 7.5 % (4.5-5.6)
[2019-07-17] MEDS: INSULIN ASPART 100 UNITS/ML 3 ML PEN SC SCH ×4 (08:32→20:29)
[2019-07-17] MEDS: INSULIN DETEMIR FLEXPEN/FLEX TOUCH 100 UNITS/ML 3ML SQ SCH (08:33)
[2019-07-17] MEDS: BENAZEPRIL HCL 10 MG TAB PO SCH ×2 (08:38→11:06)
[2019-07-17] MEDS: CHOLECALCIFEROL 1,000 UNITS 25 MCG TAB PO SCH (08:38)
[2019-07-17] MEDS ORDERED: cephALEXin 500 MG CAP PO SCH (10:00)
[2019-07-17] MEDS: SODIUM CHLORIDE 0.9% 1000ML 1,000 ML IV SCH ×2 (11:09→23:47)
[2019-07-17] MEDS ORDERED: CEFAZOLIN 500 MG in SYRINGE 0 ML IV SCH (11:45)
--- NOTE | 2019-07-17 11:57 | Hospitalist Progress Note ---
Date of Service July 17, 2019 Assessment & Plan (1) Fracture of neck of humerus: Fell out of her wheelchair and sustained an acute comminuted impacted fracture of the left humeral neck and head w/ 13 mm of anterior displacement of the humeral shaft with respect to the humeral head; no dislocation all as per CT of the left shoulder. Continue to keep arm in sling. -await further ortho input in regards to CT findings -fortunately pain under reasonable control -continue to hold coumadin pending further ortho input in regards to CT - resume coumadin if no surgery to be necessary Patient has been living at home with her granddaughter and , may not be able to return directly home, as she was having issues with ambulatory dysfunction prior to this, and her left proximal humerus fracture will likely further impede her ability to walk with walker -PT/OT consults placed, family looking at [facility] if snf/rehab needed (2) Fall: As above Head CT, cervical spine CT, and pelvis x-ray all without fractures or acute issues With left humerus fracture as above (3) Acute pyelonephritis: With cystitis/Ascending pyelitis/acute pyelonephritis/recent resection of bladder mass- -growing E Coli (S to all but bactrim) and strep (sensitivities pending) - was on ceftriaxone and dapto - can drop ceftriaxone to 1st gen cep (will keep IV for now since she's been refusing meds at times with her delirium) and hopefully once strep sensitivities are returned can dc dapto (4) Acute metabolic encephalopathy: Secondary to acute pyelonephritis, pain, foreign environment - undoubtedly made worse by the inability to have visitors as related to COVID19 -Treating infection as above, pain seems controlled -Supportive care and frequent orientation, redirection (Dr Wills visited her and she took meds for her - corroborating that familiarity is hairston) -as noted by dr soria on 07/15 - will try to get outpt MRI rec'd by neuro done while here since coordinating it as outpt between fracture, infection, possible need for SNF, and COVID related difficulties may create significant delay (5) Type 2 diabetes mellitus: -sugars now acceptable, A1c 7.5% - reasonable for age/comorbidities (6) Depression: Continue Lexapro 10 mg p.o. 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 follow. charles today w med refusal (10) History of DVT (deep vein thrombosis): On Coumadin for this as above -Bridge with Lovenox if INR less than 2.0 (11) DVT prophylaxis: Coumadin as above Disposition-continued stay PT/OT consults placed to help determine ?home w additional help vs needing SNF Admission and Anticipated Discharge Date Admission Date: July 15, 2019 Anticipated date of discharge: 07/18/19 Subjective nursing notes that pt confused and a little combative today - refusing meds. when i talk with her she is quiet and calm - offers no complaints - denies much of any arm pain even. no other complaints - but then quickly devolves into discussion of not liking doctors and that one person says one thing and another does another - very hard to redirect, appearing c/w delirium. later d/w dr wills who has known pt for years who notes that this is a sharp decline from even her more recent concerns of mild dementia/cognitive decline. Review of Systems Review of Systems: All systems reviewed & are unremarkable except as noted in HPI & below Physical Exam Physical Exam: gen awake, pleasant but then starts to change into a bit of a paranoid demeanor, no physical distress. heent nc at mmm breathing unlabored no accessory muscles good effort skin no rashes no pallor or icterus neuro no focal deficits. msk L arm in sling Results & Data Results & Data (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
[2019-07-17] MEDS ORDERED: CEFAZOLIN 1,000 MG in SYRINGE 0 ML IV SCH (12:00)
[2019-07-17] MEDS: DAPTOmycin 200 MG in SYRINGE 0 ML IV SCH (13:30)
[2019-07-17] MEDS: ESCITALOPRAM OXALATE 10 MG TAB PO SCH (17:20)
[2019-07-17] MEDS: AMPICILLIN 500 MG in SODIUM CHLORIDE 0.9% 50 ML IV SCH ×2 (17:24→23:46)
[2019-07-17] MEDS: ACETAMINOPHEN 325 MG TAB PO PRN ×2 (17:36→22:33)
[2019-07-17 17:37] LABS: Basophils # (auto) 0.05 K/uL (0-0.2); Basophils % (auto) 0.5 %; Eosinophils # (auto) 0.23 K/uL (0-0.5); Eosinophils % (auto) 2.2 %; Hematocrit (blood only) 36.9 % (37-47); Hemoglobin 12.1 g/dL (12.0-16.0); Immature Granulocytes # (auto) 0.09 K/uL (0.00-0.02); Immature Granulocytes % (auto) 0.9 %; Lymphocytes # (auto) 1.95 K/uL (1.2-3.4); Lymphocytes % (auto) 18.7 %; Mean Corpuscular Hemoglobin 28.5 pg (25-34); Mean Corpuscular Hgb Conc 32.8 g/dL (32-36); Mean Corpuscular Volume 86.8 fL (80-100); Mean Platelet Volume 9.9 fL (7.4-10.4); Monocytes # (auto) 0.94 K/uL (0.11-0.59); Neutrophils # (auto) 7.18 K/uL (1.4-6.5); Neutrophils % (auto) 68.7 %; Platelet Count 295 K/uL (130-400); RDW Coefficient of Variation 15.6 % (11.5-14.5); Red Blood Count 4.25 M/uL (4.2-5.4); White Blood Count 10.44 K/uL (4.8-10.8)
[2019-07-17 17:47] LABS: INR 2.1 (0.9-1.1); Prothrombin Time 21.4 Seconds (9.0-12.0)
[2019-07-17 17:55] LABS: BUN Creatinine Ratio 19.1 (10-20); Calcium 8.8 mg/dl (8.5-10.1); Creatinine Clr Calc Pharmacy 63.8 ml/min; Est GFR (African American) 93.4; Est GFR (Non-African American) 80.6; Potassium 3.8 mmol/L (3.5-5.1)
[2019-07-17] MEDS: INSULIN DETEMIR FLEXPEN/FLEX TOUCH 100 UNITS/ML 3ML SC SCH ×2 (20:30→20:54)
[2019-07-17] MEDS: MIRTAZAPINE TAB 15 MG TAB PO SCH (20:38)
--- NOTE | 2019-07-18 04:31 | Communication Note ---
Date of Service: July 18, 2019 Notified overnight that pt refused her MRI yesterday afternoon, and has been subsequently refusing her medications and nursing vitals/assessments.
[2019-07-18] MEDS: AMPICILLIN 500 MG in SODIUM CHLORIDE 0.9% 50 ML IV SCH ×3 (06:18→18:16)
[2019-07-18] MEDS: KETOROLAC TROMETHAMINE 15 MG/ML VIAL IV PRN (06:20)
[2019-07-18 06:21] LABS: Creatinine Clr Calc Pharmacy 75.2 ml/min; Est GFR (African American) 102.2; Est GFR (Non-African American) 88.2
[2019-07-18] MEDS: BENAZEPRIL HCL 10 MG TAB PO SCH (07:40)
[2019-07-18] MEDS: ACETAMINOPHEN 325 MG TAB PO PRN (07:44)
--- NOTE | 2019-07-18 08:07 | Communication Note ---
Date of Service: July 18, 2019 CT scan and plain films reviewed by Dr Douglas. Continue sling to LUE at this time. NWB LUE. No ROM of the shoulder. You may loosen the sling to help with elbow/wrist discomfort. Gentle wrist/elbow ROM allowed.
[2019-07-18] MEDS: CHOLECALCIFEROL 1,000 UNITS 25 MCG TAB PO SCH (08:43)
[2019-07-18] MEDS: INSULIN DETEMIR FLEXPEN/FLEX TOUCH 100 UNITS/ML 3ML SQ SCH (08:44)
[2019-07-18] MEDS: INSULIN ASPART 100 UNITS/ML 3 ML PEN SC SCH ×5 (08:47→21:37)
[2019-07-18] MEDS: SODIUM CHLORIDE 0.9% 1000ML 1,000 ML IV SCH (13:14)
--- NOTE | 2019-07-18 17:36 | Hospitalist Progress Note ---
Date of Service July 18, 2019 Assessment & Plan (1) Fracture of neck of humerus: Fell out of her wheelchair and sustained an acute comminuted impacted fracture of the left humeral neck and head w/ 13 mm of anterior displacement of the humeral shaft with respect to the humeral head; no dislocation all as per CT of the left shoulder. -sling and outpt ortho f/u for fx -fortunately pain under reasonable control -resume coumadin since no surgery to be necessary Patient has been living at home with her granddaughter and , after extensive discussions w granddtr home had become very difficult for her to manage even before current delirium - sounds in d/w granddtr that dementia was p rogressing - now definitely worse from delirium but prior was not good either -- at least for now plan is SNF w rehab emphasis and ultimate hopes of back home, but granddtr realistic that she may end up transitioning to SNF/rehab emphasis but never progress to being able to be safely independent again (2) Fall: As above Head CT, cervical spine CT, and pelvis x-ray all without fractures or acute issues With left humerus fracture as above (3) Acute pyelonephritis: With cystitis/Ascending pyelitis/acute pyelonephritis/recent resection of bladder mass- -growing E Coli and strep - ampicillin for now - transition to amoxicillin *of note yesterday and today granddtr noted frequent UTIs being a recur ring cause of delirium - while her current infection does appear legitimate, statistically as well as based on her prior cultures, i suspect she was probably having delirium/AMS from other causes (?dehydration, ?viral illnesses, ?progression of her dementia) for a good proportion of these situations rather than having true recurrent UTIs. d/w family yesterday and today that each time she is delirious there should be assessment for sx beyond urine, and only treat for UTI if positive for symptoms (not just positive test) and/or no other probable cause with postive urine* (4) Acute metabolic encephalopathy: Secondary to acute pyelonephritis, pain, foreign environment - undoubtedly made worse by the inability to have visitors as related to COVID19 -Treating infection as above, pain seems controlled -Supportive care and frequent orientation, redirection (Dr Knight visited her 07/16 and she took meds for her - corroborating that familiarity is hairston) -as noted by dr soria on 07/15 - will try to get outpt MRI rec'd by neuro done while here since coordinating it as outpt between fracture, infection, possible need for SNF, and COVID related difficulties may create significant delay -- tried on 07/16 to where pt was even downstairs before refusing. d/w granddtr that this will be unlikely to be "game changing" as it relates to the dementia, however - that it might be clarifying some but unlikley to dramatically alter her grandmother's management (5) Type 2 diabetes mellitus: -sugars overall acceptable and A1c 7.5% - reasonable for age/comorbidities (6) Depression: Continue Lexapro 10 mg p.o. daily and Remeron at bedtime (7) alf (current) use of anticoagulants: coumadin (8) Bladder mass: Status post recent resection on 06/16/2019 and was found to be chronic i nflammation and not malignancy on pathology Also had a bladder stone removed (9) HTN (hypertension): asymptomatic w BP. follow. certainly/understandably higher when she is refusing medications, but is asymptomatic from this (10) History of DVT (deep vein thrombosis): On Coumadin for this as above - resume 07/17 -Bridge with Lovenox if INR less than 2.0 (11) DVT prophylaxis: Coumadin as above Disposition-continued stay PT/OT and case management - anticipate [facility] once approved. Admission and Anticipated Discharge Date Admission Date: July 15, 2019 Subjective no meaningful HPI or ROS obtainable. 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 (~25mins on the phone) and updated, answered all questions to the best of my ability Review of Systems Review of Systems: Unobtainable due to cognitive status Physical Exam Physical Exam: resting comfortably, nad heent nc at mmm breathing unlabored no accessory muscles good effort skin no rashes no pallor or icterus arm in sling Results & Data Results & Data ([facility]) Vital Signs (Past 12 Hours) Vital Signs Temp Pulse Resp BP Pulse Ox 07/18/19 15:28 98.6 F 52 L 16 175/72 H 98 07/18/19 10:11 170/72 H 07/18/19 07:40 187/100 H 07/18/19 07:29 97.9 F 68 18 206/71 H 99 PG Care Time/CCT Total # of Minutes Spent Total Time Spent with Patient: Total time spent is greater than 50% in coordination of care (as documented) at patient's floor/unit and/or counseling patient: Coding Level of Care Code 03835 Subseq Hosp Care Lvl 2 Diagnoses Fracture of neck of humerus S42.212A Encounter type: initial encounter Fracture type: closed Laterality: left Fall W19.XXXA Acute pyelonephritis N10 Acute metabolic encephalopathy G93.41 Type 2 diabetes mellitus E11.9 Depression F32.9 alf (current) use of anticoagulants Z79.01 Bladder mass N32.89 HTN (hypertension) I10 History of DVT (deep vein thrombosis) Z86.718 DVT prophylaxis Z29.9 (1) Fracture of neck of humerus Encounter type: initial encounter Fracture type: closed Laterality: left Qualified Code(s): S42.212A - Unspecified displaced fracture of surgical neck of left humerus, initial encounter for closed fracture
--- NOTE | 2019-07-18 17:49 | Billing Data ---
Date of Service July 18, 2019 Coding Level of Care Code 15756 Subseq Hosp Care Lvl 3 Comment should be 233 NOT 232, thanks
[2019-07-18] MEDS: ESCITALOPRAM OXALATE 10 MG TAB PO SCH (17:59)
[2019-07-18] MEDS: MIRTAZAPINE TAB 15 MG TAB PO SCH (21:30)
[2019-07-18] MEDS: WARFARIN SOD 3 MG TAB PO SCH (21:31)
[2019-07-18] MEDS: INSULIN DETEMIR FLEXPEN/FLEX TOUCH 100 UNITS/ML 3ML SC SCH (21:39)
[2019-07-19] MEDS: AMPICILLIN 500 MG in SODIUM CHLORIDE 0.9% 50 ML IV SCH ×5 (00:40→23:22)
[2019-07-19] MEDS: SODIUM CHLORIDE 0.9% 1000ML 1,000 ML IV SCH ×2 (00:41→14:18)
[2019-07-19] MEDS: KETOROLAC TROMETHAMINE 15 MG/ML VIAL IV PRN (03:06)
[2019-07-19] MEDS: BENAZEPRIL HCL 10 MG TAB PO SCH (07:40)
[2019-07-19] MEDS: CHOLECALCIFEROL 1,000 UNITS 25 MCG TAB PO SCH (09:10)
[2019-07-19] MEDS: INSULIN DETEMIR FLEXPEN/FLEX TOUCH 100 UNITS/ML 3ML SQ SCH (10:13)
[2019-07-19] MEDS: INSULIN ASPART 100 UNITS/ML 3 ML PEN SC SCH ×4 (10:16→21:36)
[2019-07-19] MEDS ORDERED: INSULIN DETEMIR FLEXPEN/FLEX TOUCH 100 UNITS/ML 3ML SQ SCH (10:30)
[2019-07-19 12:35] LABS: Basophils # (auto) 0.05 K/uL (0-0.2); Basophils % (auto) 0.6 %; Eosinophils % (auto) 2.2 %; Hemoglobin 11.6 g/dL (12.0-16.0); Immature Granulocytes # (auto) 0.11 K/uL (0.00-0.02); Immature Granulocytes % (auto) 1.2 %; Lymphocytes # (auto) 1.99 K/uL (1.2-3.4); Lymphocytes % (auto) 22.2 %; Mean Corpuscular Hgb Conc 33.1 g/dL (32-36); Mean Corpuscular Volume 87.5 fL (80-100); Mean Platelet Volume 9.4 fL (7.4-10.4); Monocytes # (auto) 0.55 K/uL (0.11-0.59); Monocytes % (auto) 6.1 %; Neutrophils # (auto) 6.06 K/uL (1.4-6.5); Neutrophils % (auto) 67.7 %; Platelet Count 298 K/uL (130-400); RDW Coefficient of Variation 15.4 % (11.5-14.5); RDW Standard Deviation 50.1 fL (36.4-46.3); White Blood Count 8.96 K/uL (4.8-10.8)
[2019-07-19 12:44] LABS: INR 1.6 (0.9-1.1); Prothrombin Time 16.1 Seconds (9.0-12.0)
[2019-07-19 12:53] LABS: BUN Creatinine Ratio 19.1 (10-20); Calcium 8.5 mg/dl (8.5-10.1); Creatinine Clr Calc Pharmacy 67.5 ml/min; Est GFR (African American) 98.7; Est GFR (Non-African American) 85.2; Potassium 3.8 mmol/L (3.5-5.1)
--- NOTE | 2019-07-19 14:10 | Hospitalist Progress Note ---
Date of Service July 19, 2019 Assessment & Plan (1) Fracture of neck of humerus: Fell out of her wheelchair and sustained an acute comminuted impacted fracture of the left humeral neck and head w/ 13 mm of anterior displacement of the humeral shaft with respect to the humeral head; no dislocation all as per CT of the left shoulder. -sling and outpt ortho f/u for fx -fortunately pain under reasonable control -resume coumadin since no surgery to be necessary Patient has been living at home with her granddaughter and , after extensive discussions w granddtr home had become very difficult for her to manage even before current delirium - sounds in d/w granddtr that dementia was p rogressing - now definitely worse from delirium but prior was not good either -- at least for now plan is SNF w rehab emphasis and ultimate hopes of back home, but granddtr realistic that she may end up transitioning to SNF/rehab emphasis but never progress to being able to be safely independent again call placed to [facility] today, awaiting determination on beds, should be ready for d/c tomorrow (2) Fall: As above Head CT, cervical spine CT, and pelvis x-ray all without fractures or acute issues With left humerus fracture as above (3) Acute pyelonephritis: With cystitis/Ascending pyelitis/acute pyelonephritis/recent resection of bladder mass- -growing E Coli and strep - ampicillin for now - transition to amoxicillin *of note yesterday and today granddtr noted frequent UTIs being a recurring cause of delirium - while her current infection does appear legitimate, statistically as well as based on her prior cultures, i suspect she was probably having delirium/AMS from other causes (?dehydration, ?viral illnesses, ?progression of her dementia) for a good proportion of these situat ions rather than having true recurrent UTIs. d/w family yesterday and today that each time she is delirious there should be assessment for sx beyond urine, and only treat for UTI if positive for symptoms (not just positive test) and/or no other probable cause with postive urine* (4) Acute metabolic encephalopathy: Secondary to acute pyelonephritis, pain, foreign environment - undoubtedly made worse by the inability to have visitors as related to COVID19 -Treating infection as above, pain seems controlled -Supportive care and frequent orientation, redirection (Dr Knight visited her 07/16 and she took meds for her - corroborating that familiarity is hairston) -as noted by dr soria on 07/15 - will try to get outpt MRI rec'd by neuro done while here since coordinating it as outpt between fracture, infection, possible need for SNF, and COVID related difficulties may create significant delay -- tried on 07/16 to where pt was even downstairs before refusing. d/w granddtr that this will be unlikely to be "game changing" as it relates to the dementia, however - that it might be clarifying some but unlikley to dramatically alter her grandmother's management (5) Type 2 diabetes mellitus: -sugars overall acceptable and A1c 7.5% - reasonable for age/comorbidities sugars 90's this morning, attempted to give patient 5 units Levemir, she refused all insulin sugars in 200's later in the day (6) Depression: Continue Lexapro 10 mg p.o. daily and Remeron at bedtime (7) detention (current) use of anticoagulants: coumadin (8) Bladder mass: Status post recent resection on 06/16/2019 and was found to be chronic inflammation and not malignancy on pathology Also had a bladder stone removed (9) HTN (hypertension): asymptomatic w BP. follow. certainly/understandably higher when she is refusing medications, but is asymptomatic from this (10) History of DVT (deep vein thrombosis): On Coumadin for this as above - resumed 07/17 INR is 1.6 bridge with Lovenox, give dose today (11) DVT prophylaxis: Coumadin as above Disposition-continued stay PT/OT and case management - anticipate [facility] once approved, hopefully tomorrow Admission and Anticipated Discharge Date Admission Date: July 15, 2019 Subjective patient doing okay this morning, says that the pain in her left arm is tolerable she did not want to eat breakfast, says she does not like the food, encouraged her to try to eat lunch blood sugar in the 90's this morning, d/w RN, instructed her to give 5 units of Levemir, patient refused to take it patient denies fever/chills, no chest pain, no cough, no dyspnea discussed going to rehab, she agrees with the plan, will want her to go tomorrow if possible d/w DEEJAY, looking into [facility], awaiting call back about bed availability urine culture growing E coli and Enterococcus reviewed chart, prior notes as this is my first day taking care of patient Review of Systems Review of Systems: All systems reviewed & are unremarkable except as noted in HPI & below Constitutional: + weakness; no fever, no chills, no sweats and no fatigue Respiratory: no cough and no dyspnea Cardiovascular: no chest pain and no edema Gastrointestinal: + constipation; no abdominal pain, no nausea, no vomiting and no diarrhea/loose stools Musculoskeletal: + joint pain (left upper arm) Integumentary: + unusual bruising (left upper arm with the fracture) Physical Exam Constitutional: WD/WN, vitals as above Eyes: PERRL, conjunctivae normal, anicteric sclerae ENMT: external ear and nose normal, oropharynx normal Neck: trachea midline, no thyromegaly Respiratory: normal respiratory effort, lungs clear to auscultation Cardiovascular: RRR, no murmur, no edema Gastrointestinal (Abdomen): normal bowel sounds, soft, nontender, no hepatosplenomegaly Musculoskeletal: Head/Neck/Chest: normocephalic and head atraumatic Extremities: + limited ROM of extremities (left arm) and + abnormal strength; + extremities abnormal to inspection (left arm in sling, extensive brusing from fracture), no cyanosis, no clubbing and no petechiae Skin: no rashes, warm and dry Neurologic: patellar DTR's 2+ bilat, sensation intact and PERRL, EOMI, accommodation nl, no face palsy, no dysarthria Psychiatric: Orientation: alert, oriented to person and + guarded; + not oriented to place and + not oriented to time Lymphatic: no cervical or axillary lymphadenopathy Results & Data Results & Data ([facility]) Vital Signs (Past 12 Hours) Vital Signs Temp Pulse Resp BP Pulse Ox 07/19/19 10:03 177/65 H 07/19/19 09:05 183/70 H 07/19/19 07:26 36.8 C 58 L 18 197/72 H 97 Laboratory Results Laboratory Results - last 24 hr 07/18/19 07/18/19 07/19/19 17:03 20:17 07:54 WBC RBC Hgb Hct MCV MCH MCHC RDW Std Deviation RDW Coeff of Robin Plt Count MPV Immature Gran % (Auto) Neut % (Auto) Lymph % (Auto) [place] % (Auto) Eos % (Auto) Baso % (Auto) Immature Gran # (Auto) Neut # (Auto) Lymph # (Auto) [place] # (Auto) Eos # (Auto) Baso # (Auto) PT INR Sodium Potassium Chloride Carbon Dioxide Anion Gap BUN Creatinine Est Cr Clr Drug Dosing Est GFR ( Amer) Est GFR (Non-Af Amer) BUN/Creatinine Ratio Glucose POC Glucose 110 H 204 H 98 Calcium 07/19/19 07/19/19 07/19/19 11:53 12:25 12:25 WBC RBC Hgb Hct MCV MCH MCHC RDW Std Deviation RDW Coeff of Robin Plt Count MPV Immature Gran % (Auto) Neut % (Auto) Lymph % (Auto) [place] % (Auto) Eos % (Auto) Baso % (Auto) Immature Gran # (Auto) Neut # (Auto) Lymph # (Auto) [place] # (Auto) Eos # (Auto) Baso # (Auto) PT 16.1 H INR 1.6 H Sodium 140 Potassium 3.8 Chloride 109 H Carbon Dioxide 28 Anion Gap 2.0 L BUN 13 Creatinine 0.69 Est Cr Clr Drug Dosing 67.5 Est GFR ( Amer) 98.7 Est GFR (Non-Af Amer) 85.2 BUN/Creatinine Ratio 19.1 Glucose 95 POC Glucose 97 Calcium 8.5 07/19/19 12:25 WBC 8.96 RBC 4.00 L Hgb 11.6 L Hct 35.0 L MCV 87.5 MCH 29.0 MCHC 33.1 RDW Std Deviation 50.1 H RDW Coeff of Robin 15.4 H Plt Count 298 MPV 9.4 Immature Gran % (Auto) 1.2 Neut % (Auto) 67.7 Lymph % (Auto) 22.2 [place] % (Auto) 6.1 Eos % (Auto) 2.2 Baso % (Auto) 0.6 Immature Gran # (Auto) 0.11 H Neut # (Auto) 6.06 Lymph # (Auto) 1.99 [place] # (Auto) 0.55 Eos # (Auto) 0.20 Baso # (Auto) 0.05 PT INR Sodium Potassium Chloride Carbon Dioxide Anion Gap BUN Creatinine Est Cr Clr Drug Dosing Est GFR ( Amer) Est GFR (Non-Af Amer) BUN/Creatinine Ratio Glucose POC Glucose Calcium Medications Administered Current Inpatient Medications Acetaminophen (Tylenol) 650 mg PO Q4H PRN PRN Reason: pain/fever Stop: 08/14/19 21:42 Last Admin: 07/18/19 07:44 Dose: 650 mg Documented by: Al Hydrox/Mg Hydrox/Simethicone (Maalox) 30 ml PO Q6H PRN PRN Reason: Dyspepsia Stop: 08/14/19 21:42 Benazepril HCl (Lotensin) 20 mg PO QAM [facility] Stop: 08/15/19 08:59 Last Admin: 07/19/19 07:40 Dose: 20 mg Documented by: Dextrose (Dextrose 50%) 25 - 50 ml IV UD PRN; Protocol PRN Reason: Hypoglycemia Protocol Stop: 08/14/19 21:42 Escitalopram Oxalate (Lexapro Tab) 10 mg PO QDD [facility] Stop: 08/15/19 16:29 Last Admin: 07/18/19 17:59 Dose: 10 mg Documented by: Glucagon (Glucagen) 1 mg SQ UD PRN; Protocol PRN Reason: Hypoglycemia Protocol Stop: 08/14/19 21:42 Glucose (Dex4 Glucose) 4 - 8 tabs PO UD PRN; Protocol PRN Reason: Hypoglycemia Protocol Stop: 08/14/19 21:42 Glucose (Glucose 40%) 15 - 30 gm PO UD PRN; Protocol PRN Reason: Hypoglycemia Protocol Stop: 08/14/19 21:42 Sodium Chloride (Nss 1000ml) 1,000 mls @ 80 mls/hr IV .[id number] [facility] Stop: 08/14/19 21:42 Last Infusion: 07/19/19 12:24 Dose: 80 mls/hr Documented by: Ampicillin Sodium 500 mg/ (Sodium Chloride) 52 mls @ 100 mls/hr IV Q6H [facility] Stop: 07/27/19 17:59 Last Infusion: 07/19/19 12:24 Dose: Infused Documented by: Insulin Aspart (Novolog Flexpen) 0 units SC ACHS [facility] Stop: 08/14/19 21:42 Last Admin: 07/19/19 13:19 Dose: 1 units Documented by: Insulin Detemir (Levemir Flextouch) 12 units SC HS [facility] Stop: 08/14/19 21:59 Last Admin: 07/18/19 21:39 Dose: 12 units Documented by: Insulin Detemir (Levemir Flextouch) 5 units SQ QAM [facility] Stop: 08/18/19 10:29 Last Admin: 07/19/19 10:17 Dose: Not Given Documented by: Ketorolac Tromethamine (Toradol) 15 mg IV Q6H PRN PRN Reason: Pain Last Admin: 07/19/19 03:06 Dose: 15 mg Documented by: Magnesium Hydroxide (Milk Of Magnesia) 30 ml PO Q6H PRN PRN Reason: Constipation Stop: 08/14/19 21:42 Mirtazapine (Remeron) 7.5 mg PO HS [facility] Stop: 08/14/19 21:42 Last Admin: 07/18/19 21:30 Dose: 7.5 mg Documented by: Miscellaneous (Carbohydrates For Hypoglycemia) 15 - 30 gm PO UD PRN PRN Reason: Hypoglycemia Protocol Stop: 08/14/19 21:42 Ondansetron HCl (Zofran) 4 mg IV Q6H PRN PRN Reason: Nausea Stop: 08/14/19 21:42 Last Admin: 07/17/19 20:21 Dose: 4 mg Documented by: Vitamin D (Vitamin D3) 5,000 units [facility] [place] Stop: 08/15/19 08:59 Last Admin: 07/19/19 09:10 Dose: Not Given Documented by: Warfarin Sodium (Coumadin) 3 mg PO [facility] Stop: 08/14/19 21:42 Last Admin: 07/18/19 21:31 Dose: 3 mg Documented by: PG Care Time/CCT Total # of Minutes Spent Total Time Spent with Patient: Total time spent is greater than 50% in coordination of care (as documented) at patient's floor/unit and/or counseling patient: Coding Level of Care Code 11035 Subseq Hosp Care Lvl 2 Diagnoses Fracture of neck of humerus S42.212A Encounter type: initial encounter Fracture type: closed Laterality: left Fall W19.XXXA Acute pyelonephritis N10 Acute metabolic encephalopathy G93.41 Type 2 diabetes mellitus E11.9 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
[2019-07-19] MEDS ORDERED: ENOXAPARIN 1 MG/KG SC SCH (14:45)
[2019-07-19] MEDS: ESCITALOPRAM OXALATE 10 MG TAB PO SCH (18:07)
[2019-07-19] MEDS: WARFARIN SOD 3 MG TAB PO SCH (21:33)
[2019-07-19] MEDS: MIRTAZAPINE TAB 15 MG TAB PO SCH (21:34)
[2019-07-19] MEDS: INSULIN DETEMIR FLEXPEN/FLEX TOUCH 100 UNITS/ML 3ML SC SCH (21:35)
[2019-07-19] MEDS: ENOXAPARIN 80 MG/0.8 ML SYR SQ SCH (21:43)
[2019-07-20] MEDS: SODIUM CHLORIDE 0.9% 1000ML 1,000 ML IV SCH ×2 (02:38→14:24)
[2019-07-20] MEDS: AMPICILLIN 500 MG in SODIUM CHLORIDE 0.9% 50 ML IV SCH ×3 (05:00→18:40)
[2019-07-20 06:36] LABS: INR 1.7 (0.9-1.1); Prothrombin Time 17.2 Seconds (9.0-12.0)
[2019-07-20] MEDS: ENOXAPARIN 80 MG/0.8 ML SYR SQ SCH ×3 (08:44→21:18)
[2019-07-20] MEDS: BENAZEPRIL HCL 10 MG TAB PO SCH ×2 (08:44→15:55)
[2019-07-20] MEDS: INSULIN ASPART 100 UNITS/ML 3 ML PEN SC SCH ×5 (08:45→21:12)
[2019-07-20] MEDS: INSULIN DETEMIR FLEXPEN/FLEX TOUCH 100 UNITS/ML 3ML SQ SCH (08:45)
[2019-07-20] MEDS: CHOLECALCIFEROL 1,000 UNITS 25 MCG TAB PO SCH (08:45)
--- NOTE | 2019-07-20 13:57 | Hospitalist Progress Note ---
Date of Service July 20, 2019 Assessment & Plan (1) Fracture of neck of humerus: Fell out of her wheelchair and sustained an acute comminuted impacted fracture of the left humeral neck and head w/ 13 mm of anterior displacement of the humeral shaft with respect to the humeral head; no dislocation all as per CT of the left shoulder. -sling and outpt ortho f/u for fx -fortunately pain under reasonable control -resume coumadin since no surgery to be necessary Patient has been living at home with her granddaughter and , after extensive discussions w granddtr home had become very difficult for her to manage even before current delirium - sounds in d/w granddtr that dementia was p rogressing - now definitely worse from delirium but prior was not good either -- at least for now plan is SNF w rehab emphasis and ultimate hopes of back home, but granddtr realistic that she may end up transitioning to SNF/rehab emphasis but never progress to being able to be safely independent again [facility] cannot take patient referral made to [facility], they cannot meet patient's needs at this time referral made to [facility], they will likely not have a bed until next week difficult situation because patient refuses to participate in therapy, not taking her medications discussed with her today that she needs to trust us but she is very suspicious, like we don't have her best interests in mind (2) Fall: As above Head CT, cervical spine CT, and pelvis x-ray all without fractures or acute issues With left humerus fracture as above (3) Acute pyelonephritis: With cystitis/Ascending pyelitis/acute pyelonephritis/recent resection of bladder mass- -growing E Coli and strep - ampicillin for now - transition to amoxicillin complete 14 days total, last day would be 07/29 (4) Acute metabolic encephalopathy: Secondary to acute pyelonephritis, pain, foreign environment - undoubtedly made worse by the inability to have visitors as related to COVID19 -Treating infection as above, pain is well controlled -Supportive care and frequent orientation, redirection (Dr Knight visited her 07/16 and she took meds for her - corroborating that familiarity is hairston) -as noted by dr soria on 07/15 - will try to get outpt MRI rec'd by neuro done while here since coordinating it as outpt between fracture, infection, possible need for SNF, and COVID related difficulties may create significant delay -- patient is refusing to cooperate (5) Type 2 diabetes mellitus: -sugars overall acceptable and A1c 7.5% - reasonable for age/comorbidities patient not always allowing RN to give insulin (6) Depression: Continue Lexapro 10 mg p.o. 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 follow. certainly/understandably higher when she is refusing medications, but is asymptomatic from this (10) History of DVT (deep vein thrombosis): On Coumadin for this as above - resumed 07/17 INR is 1.7 bridge with Lovenox, (11) DVT prophylaxis: Coumadin as above, Lovenox Disposition-continued stay PT/OT and case management - referral made to [facility], hopeful she can go next week Admission and Anticipated Discharge Date Admission Date: July 15, 2019 Subjective patient awake and alert she is suspicious of what we are trying to do here, refuses to take her medications assured her that she needs the medications for her blood pressure discussed that I am concerned with how high per BP has been, would not want anything to happen she said "if something happens, I have paper work" INR is 1.7 today discussed with CM, no success in finding placement today Review of Systems Review of Systems: Unobtainable due to cognitive status (won't answer questions, unsure if she is truthful) Physical Exam Constitutional: WD/WN, vitals as above Eyes: PERRL, conjunctivae normal, anicteric sclerae ENMT: external ear and nose normal, oropharynx normal Neck: trachea midline, no thyromegaly Respiratory: normal respiratory effort, lungs clear to auscultation Cardiovascular: RRR, no murmur, no edema Gastrointestinal (Abdomen): normal bowel sounds, soft, nontender, no hepatosplenomegaly Musculoskeletal: Head/Neck/Chest: normocephalic and head atraumatic Extremities: + limited ROM of extremities (left arm) and + abnormal strength; + extremities abnormal to inspection (left arm in sling, extensive brusing from fracture), no cyanosis, no clubbing and no petechiae Skin: no rashes, warm and dry Neurologic: patellar DTR's 2+ bilat, sensation intact and PERRL, EOMI, accommodation nl, no face palsy, no dysarthria Psychiatric: Orientation: alert, oriented to person and + guarded; + not oriented to place and + not oriented to time Lymphatic: no cervical or axillary lymphadenopathy Results & Data Results & Data ([facility]) Vital Signs (Past 12 Hours) Vital Signs Temp Pulse Resp BP Pulse Ox 07/20/19 07:23 36.7 C 64 16 202/72 H 96 Laboratory Results Laboratory Results - last 24 hr 07/19/19 07/19/19 07/20/19 17:12 20:36 06:00 PT 17.2 H INR 1.7 H POC Glucose 129 H 200 H 07/20/19 07:57 PT INR POC Glucose 90 Medications Administered Current Inpatient Medications Acetaminophen (Tylenol) 650 mg PO Q4H PRN PRN Reason: pain/fever Stop: 08/14/19 21:42 Last Admin: 07/18/19 07:44 Dose: 650 mg Documented by: Al Hydrox/Mg Hydrox/Simethicone (Maalox) 30 ml PO Q6H PRN PRN Reason: Dyspepsia Stop: 08/14/19 21:42 Benazepril HCl (Lotensin) 20 mg PO QAM COUNTS INCLUDE 234 BEDS AT THE [facility] Stop: 08/15/19 08:59 Last Admin: 07/20/19 08:44 Dose: Not Given Documented by: Dextrose (Dextrose 50%) 25 - 50 ml IV UD PRN; Protocol PRN Reason: Hypoglycemia Protocol Stop: 08/14/19 21:42 Enoxaparin Sodium (Lovenox) 80 mg SQ Q12H COUNTS INCLUDE 234 BEDS AT THE [facility] Stop: 08/18/19 20:59 Last Admin: 07/20/19 08:44 Dose: Not Given Documented by: Escitalopram Oxalate (Lexapro Tab) 10 mg PO QDD COUNTS INCLUDE 234 BEDS AT THE [facility] Stop: 08/15/19 16:29 Last Admin: 07/19/19 18:07 Dose: 10 mg Documented by: Glucagon (Glucagen) 1 mg SQ UD PRN; Protocol PRN Reason: Hypoglycemia Protocol Stop: 08/14/19 21:42 Glucose (Dex4 Glucose) 4 - 8 tabs PO UD PRN; Protocol PRN Reason: Hypoglycemia Protocol Stop: 08/14/19 21:42 Glucose (Glucose 40%) 15 - 30 gm PO UD PRN; Protocol PRN Reason: Hypoglycemia Protocol Stop: 08/14/19 21:42 Sodium Chloride (Nss 1000ml) 1,000 mls @ 80 mls/hr IV .[id number] COUNTS INCLUDE 234 BEDS AT THE [facility] Stop: 08/14/19 21:42 Last Infusion: 07/20/19 13:20 Dose: Infused Documented by: Ampicillin Sodium 500 mg/ (Sodium Chloride) 52 mls @ 100 mls/hr IV Q6H COUNTS INCLUDE 234 BEDS AT THE [facility] Stop: 07/27/19 17:59 Last Infusion: 07/20/19 12:15 Dose: Infused Documented by: Insulin Aspart (Novolog Flexpen) 0 units SC [facility] COUNTS INCLUDE 234 BEDS AT THE [facility] Stop: 08/14/19 21:42 Last Admin: 07/20/19 12:36 Dose: Not Given Documented by: Insulin Detemir (Levemir Flextouch) 12 units SC [facility] Stop: 08/14/19 21:59 Last Admin: 07/19/19 21:35 Dose: 12 units Documented by: Insulin Detemir (Levemir Flextouch) 10 units SQ QAM COUNTS INCLUDE 234 BEDS AT THE [facility] Stop: 08/19/19 08:59 Last Admin: 07/20/19 08:45 Dose: Not Given Documented by: Ketorolac Tromethamine (Toradol) 15 mg IV Q6H PRN PRN Reason: Pain Last Admin: 07/19/19 03:06 Dose: 15 mg Documented by: Magnesium Hydroxide (Milk Of Magnesia) 30 ml PO Q6H PRN PRN Reason: Constipation Stop: 08/14/19 21:42 Mirtazapine (Remeron) 7.5 mg PO [facility] Stop: 08/14/19 21:42 Last Admin: 07/19/19 21:34 Dose: 7.5 mg Documented by: Miscellaneous (Carbohydrates For Hypoglycemia) 15 - 30 gm PO UD PRN PRN Reason: Hypoglycemia Protocol Stop: 08/14/19 21:42 Ondansetron HCl (Zofran) 4 mg IV Q6H PRN PRN Reason: Nausea Stop: 08/14/19 21:42 Last Admin: 07/17/19 20:21 Dose: 4 mg Documented by: Vitamin D (Vitamin D3) 5,000 units PO QAM COUNTS INCLUDE 234 BEDS AT THE [facility] Stop: 08/15/19 08:59 Last Admin: 07/20/19 08:45 Dose: Not Given Documented by: Warfarin Sodium (Coumadin) 3 mg PO HS [facility] Stop: 08/14/19 21:42 Last Admin: 07/19/19 21:33 Dose: 3 mg Documented by: PG Care Time/CCT Total # of Minutes Spent Total Time Spent with Patient: Total time spent is greater than 50% in coordination of care (as documented) at patient's floor/unit and/or counseling patient: Coding Level of Care Code 38417 Subseq Hosp Care Lvl 2 Diagnoses Fracture of neck of humerus S42.212A Encounter type: initial encounter Fracture type: closed Laterality: left Fall W19.XXXA Acute pyelonephritis N10 Acute metabolic encephalopathy G93.41 Type 2 diabetes mellitus E11.9 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
[2019-07-20] MEDS: ESCITALOPRAM OXALATE 10 MG TAB PO SCH (18:11)
[2019-07-20] MEDS ORDERED: HALOPERIDOL LACTATE 5 MG/ML 1 ML VIAL IM STA (19:58)
[2019-07-20] MEDS: WARFARIN SOD 3 MG TAB PO SCH (21:00)
[2019-07-20] MEDS: MIRTAZAPINE TAB 15 MG TAB PO SCH (21:01)
[2019-07-20] MEDS: INSULIN DETEMIR FLEXPEN/FLEX TOUCH 100 UNITS/ML 3ML SC SCH ×2 (21:05→21:18)
[2019-07-21] MEDS: AMPICILLIN 500 MG in SODIUM CHLORIDE 0.9% 50 ML IV SCH ×4 (01:23→18:17)
[2019-07-21] MEDS: SODIUM CHLORIDE 0.9% 1000ML 1,000 ML IV SCH ×2 (03:59→18:12)
[2019-07-21] MEDS: INSULIN ASPART 100 UNITS/ML 3 ML PEN SC SCH ×4 (08:59→21:39)
[2019-07-21] MEDS: ENOXAPARIN 80 MG/0.8 ML SYR SQ SCH ×2 (09:00→21:45)
[2019-07-21] MEDS: INSULIN DETEMIR FLEXPEN/FLEX TOUCH 100 UNITS/ML 3ML SQ SCH (09:00)
[2019-07-21] MEDS: BENAZEPRIL HCL 10 MG TAB PO SCH ×3 (09:00→21:36)
[2019-07-21] MEDS: CHOLECALCIFEROL 1,000 UNITS 25 MCG TAB PO SCH (09:00)
[2019-07-21] MEDS: KETOROLAC TROMETHAMINE 15 MG/ML VIAL IV PRN (10:30)
[2019-07-21 11:58] LABS: INR 1.9 (0.9-1.1); Prothrombin Time 19.3 Seconds (9.0-12.0)
[2019-07-21 12:17] LABS: BUN Creatinine Ratio 15.3 (10-20); Calcium 8.6 mg/dl (8.5-10.1); Est GFR (African American) 101.7; Est GFR (Non-African American) 87.7; Potassium 3.8 mmol/L (3.5-5.1)
--- NOTE | 2019-07-21 14:52 | Hospitalist Progress Note ---
Date of Service July 21, 2019 Assessment & Plan (1) Fracture of neck of humerus: Fell out of her wheelchair and sustained an acute comminuted impacted fracture of the left humeral neck and head w/ 13 mm of anterior displacement of the humeral shaft with respect to the humeral head; no dislocation all as per CT of the left shoulder. -sling and outpt ortho f/u for fx -pain under control Patient has been living at home with her granddaughter and , after extensive discussions w granddtr home had become very difficult for her to manage even before current delirium - sounds in d/w granddaughter that dementia was progressing - now definitely worse from delirium but prior was not good either -- at least for now plan is SNF w rehab emphasis and ultimate hopes of back home, but granddtr realistic that she may end up transitioning to SNF/rehab emphasis but never progress to being able to be safely independent again Remains medically stable; Awaiting placement. difficult situation because patient intermittently refuses therapy and medications (2) Fall: As above Head CT, cervical spine CT, and pelvis x-ray all without fractures or acute issues With left humerus fracture as above (3) Acute pyelonephritis: With cystitis/Ascending pyelitis/acute pyelonephritis/recent resection of bladder mass- -growing E Coli and strep - switch IV ampicillin to amoxicillin 500mg TID complete 14 days total, last day would be 07/29 (4) Acute metabolic encephalopathy: Secondary to acute pyelonephritis, pain, foreign environment - undoubtedly made worse by the inability to have visitors as related to COVID19 -Treating infection as above, pain is well controlled -Supportive care and frequent orientation, redirection (Dr Knight visited her 07/16 and she took meds for her - corroborating that familiarity is hairston) -as noted by dr soria on 07/15 - MRI cancelled as patient not willing to have this done. (5) Type 2 diabetes mellitus: -sugars overall acceptable and A1c 7.5% - reasonable for age/comorbidities Reduce HS Levemir to 6 units to avoid AM hypoglycemia. Difficult to manage as intermittently refusing doses. (6) Depression: Continue Lexapro 10 mg p.o. daily and Remeron at bedtime (7) group home (current) use of anticoagulants: coumadin. d/c lovenox once PTINR > 2 (8) Bladder mass: Status post recent resection on 06/16/2019 and was found to be chronic inflammation and not malignancy on pathology Also had a bladder stone removed (9) HTN (hypertension): Consistently elevated possibly due to receiving IV fluids since admission - now discontinued Partly due to missed Anti-hypertensives Increase benazepril to 20mg BID and will also add amlodipine 5mg BID (10) History of DVT (deep vein thrombosis): On Coumadin for this as above - resumed 07/17 INR is 1.9 bridge with Lovenox, (11) DVT prophylaxis: Coumadin as above, Lovenox Disposition - medically stable for discharge pending placement PT/OT and case management - referral made to [facility], hopeful she can go next week Admission and Anticipated Discharge Date Admission Date: July 15, 2019 Subjective Patient reports no ongoing issues at this time. No concerns or complaints. Still having significant left arm pain from humeral fracture but relatively well controlled. Review of Systems Review of Systems: All systems reviewed & are unremarkable except as noted in HPI & below Physical Exam Constitutional: WD/WN, vitals as above + obese Eyes: + anicteric sclerae; normal pupil size Respiratory: normal respiratory effort, lungs clear to auscultation Cardiovascular: RRR, no murmur, no edema Skin: no rashes, warm and dry Neurologic: NV intact distal to left humeral fracture Psychiatric: A+Ox3, euthymic affect Results & Data Results & Data ([facility]) Vital Signs (Past 12 Hours) Vital Signs Temp Pulse Resp BP Pulse Ox 07/21/19 07:20 36.7 C 61 18 187/77 H 98 PG Care Time/CCT Total # of Minutes Spent Total Time Spent with Patient: Total time spent is greater than 50% in coordination of care (as documented) at patient's floor/unit and/or counseling patient: Coding Level of Care Code 57789 Subseq Hosp Care Lvl 2 Diagnoses Fracture of neck of humerus S42.212A Encounter type: initial encounter Fracture type: closed Laterality: left Fall W19.XXXA Acute pyelonephritis N10 Acute metabolic encephalopathy G93.41 Type 2 diabetes mellitus E11.9 Depression F32.9 group home (current) use of anticoagulants Z79.01 Bladder mass N32.89 HTN (hypertension) I10 History of DVT (deep vein thrombosis) Z86.718 DVT prophylaxis Z29.9 (1) Fracture of neck of humerus Encounter type: initial encounter Fracture type: closed Laterality: left Qualified Code(s): S42.212A - Unspecified displaced fracture of surgical neck of left humerus, initial encounter for closed fracture
[2019-07-21] MEDS: ESCITALOPRAM OXALATE 10 MG TAB PO SCH (17:22)
[2019-07-21] MEDS: ACETAMINOPHEN 325 MG TAB PO PRN (19:30)
[2019-07-21] MEDS: MIRTAZAPINE TAB 15 MG TAB PO SCH (21:32)
[2019-07-21] MEDS: AMLODIPINE BESYLATE 5 MG TAB PO SCH (21:33)
[2019-07-21] MEDS: WARFARIN SOD 3 MG TAB PO SCH (21:36)
[2019-07-21] MEDS: INSULIN DETEMIR FLEXPEN/FLEX TOUCH 100 UNITS/ML 3ML SC SCH (21:40)
[2019-07-22 05:06] LABS: Basophils # (auto) 0.04 K/uL (0-0.2); Basophils % (auto) 0.5 %; Eosinophils # (auto) 0.29 K/uL (0-0.5); Eosinophils % (auto) 3.9 %; Hematocrit (blood only) 35.8 % (37-47); Hemoglobin 11.8 g/dL (12.0-16.0); Immature Granulocytes # (auto) 0.16 K/uL (0.00-0.02); Immature Granulocytes % (auto) 2.1 %; Lymphocytes # (auto) 2.14 K/uL (1.2-3.4); Lymphocytes % (auto) 28.5 %; Mean Corpuscular Hemoglobin 28.8 pg (25-34); Mean Corpuscular Volume 87.3 fL (80-100); Mean Platelet Volume 9.3 fL (7.4-10.4); Monocytes % (auto) 9.3 %; Neutrophils # (auto) 4.19 K/uL (1.4-6.5); Neutrophils % (auto) 55.7 %; Platelet Count 314 K/uL (130-400); RDW Standard Deviation 50.7 fL (36.4-46.3); White Blood Count 7.52 K/uL (4.8-10.8)
[2019-07-22 05:32] LABS: BUN Creatinine Ratio 19.3 (10-20); Calcium 8.7 mg/dl (8.5-10.1); Creatinine Clr Calc Pharmacy 57.5 ml/min; Est GFR (African American) 82.3; Potassium 3.6 mmol/L (3.5-5.1)
[2019-07-22 05:44] LABS: INR 1.9 (0.9-1.1); Prothrombin Time 19.2 Seconds (9.0-12.0)
[2019-07-22] MEDS: AMLODIPINE BESYLATE 5 MG TAB PO SCH ×2 (08:30→20:22)
[2019-07-22] MEDS: CHOLECALCIFEROL 1,000 UNITS 25 MCG TAB PO SCH (08:30)
[2019-07-22] MEDS: AMOXICILLIN 500 MG CAP PO SCH ×3 (08:30→20:23)
[2019-07-22] MEDS: BENAZEPRIL HCL 10 MG TAB PO SCH ×2 (08:30→20:23)
[2019-07-22] MEDS: INSULIN ASPART 100 UNITS/ML 3 ML PEN SC SCH ×4 (08:33→20:24)
[2019-07-22] MEDS: INSULIN DETEMIR FLEXPEN/FLEX TOUCH 100 UNITS/ML 3ML SQ SCH (08:33)
[2019-07-22] MEDS: ESCITALOPRAM OXALATE 10 MG TAB PO SCH (15:31)
[2019-07-22] MEDS ORDERED: HydrALAZINE HCL 20 MG/ML VIAL IV PRN (17:18)
--- NOTE | 2019-07-22 17:18 | Hospitalist Progress Note ---
Date of Service July 22, 2019 Assessment & Plan (1) Fracture of neck of humerus: Fell out of her wheelchair and sustained an acute comminuted impacted fracture of the left humeral neck and head w/ 13 mm of anterior displacement of the humeral shaft with respect to the humeral head; no dislocation all as per CT of the left shoulder. -sling and outpt ortho f/u for fx -pain under control Patient has been living at home with her granddaughter and , after extensive discussions w granddtr home had become very difficult for her to manage even before current delirium - sounds in d/w granddaughter that dementia was progressing - now definitely worse from delirium but prior was not good either -- at least for now plan is SNF w rehab emphasis and ultimate hopes of back home, but granddtr realistic that she may end up transitioning to SNF/rehab emphasis but never progress to being able to be safely independent again Remains medically stable; Awaiting placement. difficult situation because patient intermittently refuses therapy and medications - although she took everything yesterday, please call if she refuses meds and I will talk to patient (2) Fall: As above Head CT, cervical spine CT, and pelvis x-ray all without fractures or acute issues With left humerus fracture as above (3) Acute pyelonephritis: With cystitis/Ascending pyelitis/acute pyelonephritis/recent resection of bladder mass- -growing E Coli and strep - continue amoxicillin 500mg TID complete 14 days total, last day would be 07/29 (4) Acute metabolic encephalopathy: Secondary to acute pyelonephritis, pain, foreign environment - undoubtedly made worse by the inability to have visitors as related to COVID19 -Treating infection as above, pain is well controlled -Supportive care and frequent orientation, redirection (Dr Knight visited her 07/16 and she took meds for her - corroborating that familiarity is hairston) -as noted by dr soria on 07/15 - MRI cancelled as patient not willing to have this done. (5) Type 2 diabetes mellitus: -sugars overall acceptable and A1c 7.5% - reasonable for age/comorbidities Continue Levemir 10units in AM, 6 units QPM with Novolog sliding scale (6) Depression: Continue Lexapro 10 mg p.o. daily and Remeron at bedtime (7) long-term (current) use of anticoagulants: Increase warfarin dose to 4mg HS. She is refusing lovenox and given INR now 1.9 for 2 consecutive days will discontinue this. (8) Bladder mass: Status post recent resection on 06/16/2019 and was found to be chronic inflammation and not malignancy on pathology Also had a bladder stone removed (9) HTN (hypertension): Continue benazepril 20mg BID and amlodipine 5mg BID If remains elevated tomorrow will add diuretic given excessive IV fluids given this admission likely contributed. (10) History of DVT (deep vein thrombosis): On warfarin for this as above - resumed 07/17 INR is 1.9 (11) DVT prophylaxis: Warfarin as above Disposition - medically stable for discharge pending placement PT/OT and case management - referral made to [facility], hopeful she can go next week Admission and Anticipated Discharge Date Admission Date: July 15, 2019 Subjective Patient reports no ongoing issues at this time. No concerns or complaints. She denies refusing her medications and asks for me to come and talk to her if that happens - appears she took everything as prescribed yesterday. Review of Systems Review of Systems: All systems reviewed & are unremarkable except as noted in HPI & below Physical Exam Constitutional: + obese; no acute distress Respiratory: normal respiratory effort Skin: no rashes, warm and dry Neurologic: moves all extremities and awake; not confused Psychiatric: Orientation: alert Results & Data Results & Data ([facility]) Vital Signs (Past 12 Hours) Vital Signs Temp Pulse Resp BP Pulse Ox 07/22/19 15:26 36.8 C 80 18 183/75 H 95 07/22/19 11:05 188/73 H 07/22/19 07:23 36.3 C L 60 16 181/73 H 97 PG Care Time/CCT Total # of Minutes Spent Total Time Spent with Patient: Total time spent is greater than 50% in coordination of care (as documented) at patient's floor/unit and/or counseling patient: Coding Level of Care Code 74616 Subseq Hosp Care Lvl 1 Diagnoses Fracture of neck of humerus S42.212A Encounter type: initial encounter Fracture type: closed Laterality: left Fall W19.XXXA Acute pyelonephritis N10 Acute metabolic encephalopathy G93.41 Type 2 diabetes mellitus E11.9 Depression F32.9 long-term (current) use of anticoagulants Z79.01 Bladder mass N32.89 HTN (hypertension) I10 History of DVT (deep vein thrombosis) Z86.718 DVT prophylaxis Z29.9 (1) Fracture of neck of humerus Encounter type: initial encounter Fracture type: closed Laterality: left Qualified Code(s): S42.212A - Unspecified displaced fracture of surgical neck of left humerus, initial encounter for closed fracture
[2019-07-22] MEDS: ACETAMINOPHEN 325 MG TAB PO PRN (18:17)
[2019-07-22] MEDS: MIRTAZAPINE TAB 15 MG TAB PO SCH (20:22)
[2019-07-22] MEDS: WARFARIN SOD 4 MG TAB PO SCH (20:22)
[2019-07-22] MEDS: INSULIN DETEMIR FLEXPEN/FLEX TOUCH 100 UNITS/ML 3ML SC SCH (20:23)
[2019-07-23 05:16] LABS: INR 2.1 (0.9-1.1); Prothrombin Time 20.9 Seconds (9.0-12.0)
[2019-07-23] MEDS: CHOLECALCIFEROL 1,000 UNITS 25 MCG TAB PO SCH (08:45)
[2019-07-23] MEDS: AMOXICILLIN 500 MG CAP PO SCH ×3 (08:45→21:06)
[2019-07-23] MEDS: AMLODIPINE BESYLATE 5 MG TAB PO SCH ×2 (08:45→21:05)
[2019-07-23] MEDS: hydroCHLOROthiazide 25 MG TAB PO SCH (08:45)
[2019-07-23] MEDS: BENAZEPRIL HCL 10 MG TAB PO SCH ×2 (08:45→21:05)
[2019-07-23] MEDS: INSULIN DETEMIR FLEXPEN/FLEX TOUCH 100 UNITS/ML 3ML SQ SCH (08:46)
[2019-07-23] MEDS: INSULIN ASPART 100 UNITS/ML 3 ML PEN SC SCH ×4 (08:47→21:04)
--- NOTE | 2019-07-23 13:20 | Hospitalist Progress Note ---
Date of Service July 23, 2019 Assessment & Plan (1) Fracture of neck of humerus: Fell out of her wheelchair and sustained an acute comminuted impacted fracture of the left humeral neck and head w/ 13 mm of anterior displacement of the humeral shaft with respect to the humeral head; no dislocation all as per CT of the left shoulder. -sling and outpt ortho f/u for fx -pain under control Patient has been living at home with her granddaughter and , after extensive discussions w granddtr home had become very difficult for her to manage even before current delirium - sounds in d/w granddaughter that dementia was progressing - now definitely worse from delirium but prior was not good either -- at least for now plan is SNF w rehab emphasis and ultimate hopes of back home, but granddtr realistic that she may end up transitioning to SNF/rehab emphasis but never progress to being able to be safely independent again Remains medically stable; Awaiting placement next week ?[facility]. (2) Fall: As above Head CT, cervical spine CT, and pelvis x-ray all without fractures or acute issues With left humerus fracture as above (3) Acute pyelonephritis: With cystitis/Ascending pyelitis/acute pyelonephritis/recent resection of bladder mass- -growing E Coli and strep - continue amoxicillin 500mg TID complete 14 days total, last day would be 07/29 (4) Acute metabolic encephalopathy: Secondary to acute pyelonephritis, pain, foreign environment - undoubtedly made worse by the inability to have visitors as related to COVID19 -Treating infection as above, pain is well controlled -Supportive care and frequent orientation, redirection (Dr Knight visited her 07/16 and she took meds for her - corroborating that familiarity is hairston) -as noted by dr soria on 07/15 - MRI cancelled as patient not willing to have this done. (5) Type 2 diabetes mellitus: -sugars overall acceptable and A1c 7.5% - reasonable for age/comorbidities Continue Levemir 10units in AM, 6 units QPM with Novolog sliding scale (6) Depression: Continue Lexapro 10 mg p.o. daily and Remeron at bedtime (7) prison (current) use of anticoagulants: Continue increased warfarin dose 4mg HS. INR 2.1. (8) Bladder mass: Status post recent resection on 06/16/2019 and was found to be chronic inflammation and not malignancy on pathology Also had a bladder stone removed (9) HTN (hypertension): Continue benazepril 20mg BID and amlodipine 5mg BID (10) History of DVT (deep vein thrombosis): On warfarin for this as above - resumed 07/17 INR is 2.1 (11) DVT prophylaxis: Warfarin as above Disposition - medically stable for discharge pending placement PT/OT and case management - referral made to [facility], hopeful she can go next week Admission and Anticipated Discharge Date Admission Date: July 15, 2019 Subjective No acute events overnight. No concerns or questions at this time. Review of Systems Review of Systems: All systems reviewed & are unremarkable except as noted in HPI & below Physical Exam Constitutional: WD/WN, vitals as above + obese; no acute distress Eyes: + anicteric sclerae; normal pupil size Respiratory: normal respiratory effort, lungs clear to auscultation Cardiovascular: RRR, no murmur, no edema Skin: no rashes, warm and dry Neurologic: moves all extremities and awake; not confused Psychiatric: Orientation: alert Results & Data Results & Data ([facility]) Vital Signs (Past 12 Hours) Vital Signs Temp Pulse Resp BP Pulse Ox 07/23/19 07:22 36.5 C 59 L 16 158/71 H 97 PG Care Time/CCT Total # of Minutes Spent Total Time Spent with Patient: Total time spent is greater than 50% in coordination of care (as documented) at patient's floor/unit and/or counseling patient: Coding Level of Care Code 65787 Subseq Hosp Care Lvl 1 Diagnoses Fracture of neck of humerus S42.212A Encounter type: initial encounter Fracture type: closed Laterality: left Fall W19.XXXA Acute pyelonephritis N10 Acute metabolic encephalopathy G93.41 Type 2 diabetes mellitus E11.9 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
[2019-07-23] MEDS: ACETAMINOPHEN 325 MG TAB PO PRN (14:40)
[2019-07-23] MEDS: ESCITALOPRAM OXALATE 10 MG TAB PO SCH (15:42)
[2019-07-23] MEDS: INSULIN DETEMIR FLEXPEN/FLEX TOUCH 100 UNITS/ML 3ML SC SCH (21:04)
[2019-07-23] MEDS: WARFARIN SOD 4 MG TAB PO SCH (21:05)
[2019-07-23] MEDS: MIRTAZAPINE TAB 15 MG TAB PO SCH (21:05)
--- NOTE | 2019-07-24 08:17 | Hospitalist Progress Note ---
Date of Service July 24, 2019 Assessment & Plan (1) Fracture of neck of humerus: Fell out of her wheelchair and sustained an acute comminuted impacted fracture of the left humeral neck and head w/ 13 mm of anterior displacement of the humeral shaft with respect to the humeral head; no dislocation all as per CT of the left shoulder. -sling and outpt ortho f/u for fx -pain under control Patient has been living at home with her granddaughter and , according to Dr. Yun, after extensive discussions w granddtr home had become very difficult for her to manage even before current delirium - sounds in d/w granddaughter that dementia was progressing - now definitely worse from delirium but prior was not good either -- at least for now plan is SNF w rehab emphasis and ultimate hopes of back home, Case management and Dr Augustin feel the granddtr is realistic that she may end up transitioning to SNF/rehab emphasis but never progress to being able to be safely independent again I spoke to her Dean on 07/23 he desperately wants her to return to home but is also realistic about her needs for support. His challenges that he is not able to physically see her because of visiting restrictions Remains medically stable; Awaiting placement next week ?[facility]. (2) Fall: As above Head CT, cervical spine CT, and pelvis x-ray all without fractures or acute issues With left humerus fracture as above (3) Acute pyelonephritis: With cystitis/Ascending pyelitis/acute pyelonephritis/recent resection of bladder mass- -growing E Coli and strep - continue amoxicillin 500mg TID complete 14 days total, last day would be 07/29 (4) Acute metabolic encephalopathy: Secondary to acute pyelonephritis, pain, foreign environment - undoubtedly made worse by the inability to have visitors as related to COVID19 -Treating infection as above, pain is well controlled -Supportive care and frequent orientation, redirection (Dr Knight visited her 07/16 and she took meds for her - corroborating that familiarity is hairston) -as noted by dr soria on 07/15 - MRI cancelled as patient not willing to have this done. Her brought up once again the need for considering her to have the MRI scan will continue to re-ask this question she does have significant volume loss on CT scan showing hydrocephalus ex vacuo (5) Type 2 diabetes mellitus: -sugars overall acceptable and A1c 7.5% - reasonable for age/comorbidities Continue Levemir 10units in AM, 6 units QPM with Novolog sliding scale (6) Depression: Continue Lexapro 10 mg p.o. daily and Remeron at bedtime (7) intermediate (current) use of anticoagulants: Continue increased warfarin dose 4mg HS, pharmacy is managing INR (8) Bladder mass: Status post recent resection on 06/16/2019 and was found to be chronic inflammation and not malignancy on pathology Also had a bladder stone removed (9) HTN (hypertension): Continue benazepril 20mg BID and amlodipine 5mg BID (10) History of DVT (deep vein thrombosis): On warfarin for this as above - resumed 07/17 INR is 2.1 (11) DVT prophylaxis: Warfarin as above Disposition - medically stable for discharge pending placement PT/OT and case management - referral made to [facility], hopeful she can go next week Admission and Anticipated Discharge Date Admission Date: July 15, 2019 Subjective Patient is pleasantly confused she is very concerned about wanting to go home however given her PT OT progress with the requiring 2 person assist in her 's age and caregiver support at home is likely that the patient will benefit from going to a senior care facility for subacute rehab. She has no focal complaints or problems her urinary tract infection symptoms have resolved Review of Systems Review of Systems: Mild distress and mild to moderate fatigue no headache, blurry or double vision no speech or swallowing issues no chest pain, pressure or palpitations no shortness of breath, cough or wheezes no abdominal pain, nausea or vomiting, diarrhea or constipation no dysuria, hematuria or frequency Left shoulder pain with movement no back pain, CVA tenderness or radicular pain no bruising, bleeding or rashes no focal signs of weakness or numbness or altered sensation no complaints or anxiety or depression Physical Exam Physical Exam: The patient appeared well nourished and normally developed. Vital signs as documented. Head exam is unremarkable. No scleral icterus Neck is without JVD, thyromegaly, or carotid bruits. Lungs are clear to auscultation and percussion. Cardiac exam, Rhythm is regular.. No murmurs, rubs or gallops. Abdominal exam reveals normal bowel sounds, no masses, no organomegaly and no aortic enlargement Extremities are nonedematous and both pedal pulses are normal. Neurologic exam is alert and oriented x2, no focal loss of strength or sensation with exception of her injured shoulder which is in a sling Skin is without bruises or rashes Psychologically is without concerns for anxiety or depression but likely has baseline dementia Results & Data Results & Data ([facility]) Vital Signs (Past 12 Hours) Vital Signs Temp Pulse Resp BP Pulse Ox 07/24/19 07:04 97.3 F L 60 16 161/67 H 96 07/23/19 23:38 98.2 F 64 16 126/71 95 PG Care Time/CCT Total # of Minutes Spent Total Time Spent with Patient: Total time spent is greater than 50% in coordin ation of care (as documented) at patient's floor/unit and/or counseling patient: Coding Level of Care Code 83827 Subseq Hosp Care Lvl 2 Diagnoses Fracture of neck of humerus S42.212A Encounter type: initial encounter Fracture type: closed Laterality: left Fall W19.XXXA Acute pyelonephritis N10 Acute metabolic encephalopathy G93.41 Type 2 diabetes mellitus E11.9 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
[2019-07-24] MEDS: AMOXICILLIN 500 MG CAP PO SCH ×3 (08:58→21:16)
[2019-07-24] MEDS: CHOLECALCIFEROL 1,000 UNITS 25 MCG TAB PO SCH (08:59)
[2019-07-24] MEDS: AMLODIPINE BESYLATE 5 MG TAB PO SCH ×2 (08:59→21:18)
[2019-07-24] MEDS: BENAZEPRIL HCL 10 MG TAB PO SCH ×2 (09:00→21:17)
[2019-07-24] MEDS: hydroCHLOROthiazide 25 MG TAB PO SCH (09:00)
[2019-07-24] MEDS: INSULIN DETEMIR FLEXPEN/FLEX TOUCH 100 UNITS/ML 3ML SQ SCH (09:03)
[2019-07-24] MEDS: INSULIN ASPART 100 UNITS/ML 3 ML PEN SC SCH ×4 (09:03→21:11)
[2019-07-24] MEDS: KETOROLAC TROMETHAMINE 15 MG/ML VIAL IV PRN (12:00)
[2019-07-24] MEDS: ACETAMINOPHEN 325 MG TAB PO PRN (12:25)
[2019-07-24] MEDS: ESCITALOPRAM OXALATE 10 MG TAB PO SCH (15:48)
[2019-07-24] MEDS: INSULIN DETEMIR FLEXPEN/FLEX TOUCH 100 UNITS/ML 3ML SC SCH (21:13)
[2019-07-24] MEDS: WARFARIN SOD 4 MG TAB PO SCH (21:17)
[2019-07-24] MEDS: MIRTAZAPINE TAB 15 MG TAB PO SCH (21:18)
[2019-07-25] MEDS: INSULIN ASPART 100 UNITS/ML 3 ML PEN SC SCH ×4 (08:48→21:53)
[2019-07-25] MEDS: AMOXICILLIN 500 MG CAP PO SCH ×4 (08:50→22:20)
[2019-07-25] MEDS: hydroCHLOROthiazide 25 MG TAB PO SCH (08:51)
[2019-07-25] MEDS: CHOLECALCIFEROL 1,000 UNITS 25 MCG TAB PO SCH (08:52)
[2019-07-25] MEDS: AMLODIPINE BESYLATE 5 MG TAB PO SCH ×2 (08:52→21:51)
[2019-07-25] MEDS: BENAZEPRIL HCL 10 MG TAB PO SCH ×2 (08:54→21:52)
[2019-07-25] MEDS: INSULIN DETEMIR FLEXPEN/FLEX TOUCH 100 UNITS/ML 3ML SQ SCH (08:55)
[2019-07-25] MEDS: ACETAMINOPHEN 325 MG TAB PO PRN ×2 (10:02→17:30)
[2019-07-25 12:07] LABS: Hemoglobin 12.1 g/dL (12.0-16.0); Mean Corpuscular Hgb Conc 32.7 g/dL (32-36); Mean Corpuscular Volume 88.7 fL (80-100); Mean Platelet Volume 9.6 fL (7.4-10.4); Platelet Count 359 K/uL (130-400); RDW Coefficient of Variation 16.6 % (11.5-14.5); RDW Standard Deviation 53.4 fL (36.4-46.3); Red Blood Count 4.17 M/uL (4.2-5.4); White Blood Count 11.12 K/uL (4.8-10.8)
[2019-07-25 12:32] LABS: Creatinine Clr Calc Pharmacy 52.9 ml/min; Est GFR (African American) 74.5; Est GFR (Non-African American) 64.3
--- NOTE | 2019-07-25 14:45 | Discharge Summary ---
Date of Service July 25, 2019 Admission HPI Per Admitting Provider The patient is a 73-year-old female with a past medical history including diabetes mellitus type 2, UTI, long-term use of warfarin, UTI, Cassi UTI, colon cancer, hypertension, diverticulitis, pneumonia, hospitalization from 06/04- 06/07 for UTI with associated bladder mass, and status post resection of bladder mass during same-day surgery procedure by Dr. Rinku Knott on 06/16/2019. Patient lives with and granddaughter at home, and had been working on physical therapy with some difficulty. Work-up in the emergency department included a urinalysis and urine culture suggestive of UTI, and CT of abdomen/pelvis suggestive of UTI and urothelial thickening of the right renal collecting system suggestive of infectious or inflammatory pyelitis from ascending infection. Imaging of chest and humerus revealed and acute mildly impacted fracture of the proximal left humerus. Her granddaughter has become very concerned regarding the patient's progressive dementia, and she has a MRI scheduled in the outpatient setting for this coming Wednesday, to further assess possible causes. Principal Diagnosis left humeral fracture e coli and strep uti Discharge Exam The patient appeared well nourished and normally developed. Vital signs as documented. Head exam is unremarkable. No scleral icterus Neck is without JVD, thyromegaly, or carotid bruits. Lungs are clear to auscultation and percussion. Cardiac exam, Rhythm is regular.. No murmurs, rubs or gallops. Abdominal exam reveals normal bowel sounds, no masses, no organomegaly and no aortic enlargement Extremities left shoulder in sling and is painful Neurologic exam is alert and oriented, no focal loss of strength or sensation Skin is without bruises or rashes Psychologically is without concerns for anxiety or depression Discharge Data Allergies Allergy/AdvReac Type Severity Reaction Status Date / Time nitrofurantoin AdvReac Intermediate Abdominal Verified 07/15/19 16:46 [From Macrobid] Pain Consultations 07/15/19 18:34 ED Decision to Admit Stat 07/15/19 21:43 Consult Case Management - Discharge Planning Routine Consult Urology Routine 07/16/19 04:36 Consult Orthopedic Surgery Routine Ordered Studies 07/15/19 16:47 CT abd pelvis IV con only Stat CT cervical spine wo con Stat 07/15/19 16:48 CT head/brain wo con Stat 07/16/19 09:24 CT shoulder LT wo con Routine Hospital Course (1) Fracture of neck of humerus: Fell out of her wheelchair and sustained an acute comminuted impacted fracture of the left humeral neck and head w/ 13 mm of anterior displacement of the humeral shaft with respect to the humeral head; no dislocation all as per CT of the left shoulder. -sling and outpt ortho f/u for fx -pain under control without the need for pain meds Patient has been living at home with her granddaughter and , according to Dr. Yun, after extensive discussions w granddtr home had become very difficult for her to manage even before current delirium - sounds in d/w granddaughter that dementia was progressing - now definitely worse from delirium but prior was not good either -- at least for now plan is SNF w rehab emphasis and ultimate hopes of back home, Case management and Dr Augustin feel the granddtr is realistic that she may end up transitioning to SNF/rehab emphasis but never progress to being able to be safely independent again I spoke to her Dean on 07/23 he desperately wants her to return to home but is also realistic about her needs for support. His challenges that he is not able to physically see her because of visiting restrictions (2) Fall: As above Head CT, cervical spine CT, and pelvis x-ray all without fractures or acute issues With left humerus fracture as above (3) Acute pyelonephritis: With cystitis/Ascending pyelitis/acute pyelonephritis/recent resection of bladder mass- -growing E Coli and strep - continue amoxicillin 500mg TID complete 14 days total, last day would be 07/31 (4) Acute metabolic encephalopathy: Secondary to acute pyelonephritis, pain, foreign environment - undoubtedly made worse by the inability to have visitors as related to COVID19 -Treating infection as above, pain is well controlled -Supportive care and frequent orientation, redirection (Dr Knight visited her 07/16 and she took meds for her - corroborating that familiarity is hairston) -as noted by dr soria on 07/15 - MRI cancelled as patient not willing to have this done. Her brought up once again the need for considering her to have the MRI scan will continue to re-ask this question she does have significant volume loss on CT scan showing hydrocephalus ex vacuo (5) Type 2 diabetes mellitus: -sugars overall acceptable and A1c 7.5% - reasonable for age/comorbidities Continue Levemir as her typical outpt regime (6) Depression: Continue Lexapro 10 mg p.o. daily and Remeron at bedtime (7) jail (current) use of anticoagulants: Continue increased warfarin dose 4mg HS, follow inr (8) Bladder mass: Status post recent resection on 06/16/2019 and was found to be chronic inflammation and not malignancy on pathology Also had a bladder stone removed (9) HTN (hypertension): Continue benazepril 20mg BID and amlodipine 5mg BID (10) History of DVT (deep vein thrombosis): On warfarin for this as above - resumed 07/17 INR is 2.1 (11) DVT prophylaxis: Warfarin as above Disposition - medically stable for discharge Total Time Total Time Spent Total Time Spent (In Minutes): It required greater than 30 minutes to prepare this patient for discharge Discharge Plan Discharge Items Patient Disposition: Transfer Half-Way Fac Reason For Visit: CYSTITIS,PYELONEPHRITIS,L HUMERUS FX,PROGRESSIVE D Discharge Diagnosis: left humeral fracture cystitis Activity: Per Instructions section Activity Comment: as per PT / OT care plan Non-emergency contact: Primary Care Provider and Specialist Call non-emergency contact if: you have any medication questions and your sympto ms worsen Follow-up/Referrals: Palak Chiang MD [Primary Care Provider] - Diet: Regular Addtl Attending Provider Instructions: please have pt at fall risk and consider evaluation from psychologist for cognitive imparement Pending Studies at Discharge: No Stand-Alone Forms: My [facility] Skilled Items Patient informed of condition?: Yes DNR: No Discharge Level of Care: Skilled Communicable Disease: No Discharge Prognosis: Improving Lines: None Urinary Catheter: No Medications and DC Order Prescriptions: New amoxicillin 500 mg Capsule 500 mg PO TID Qty: 21 RF: 0 amlodipine [Norvasc] 5 mg Tablet 5 mg PO BID Qty: 60 RF: 0 warfarin [Coumadin] 4 mg Tablet 4 mg PO HS Qty: 30 RF: 0 Continued cholecalciferol (vitamin D3) 5,000 unit capsule 5,000 units PO QAM RF: 0 sitagliptin [Januvia] 100 mg tablet 100 mg PO QAM RF: 0 escitalopram oxalate [Lexapro] 10 mg tablet 10 mg PO QDD RF: 0 (DME) FreeStyle Lite Strips strip See Dose Instructions .ROUTE .MEDSUPPLY Qty: 10 RF: 0 (DME) lancets [FreeStyle Lancets] 28 gauge misc See Dose Instructions .ROUTE .MEDSUPPLY Qty: 25 RF: 0 Levemir FlexTouch U-100 Insuln 100 unit/mL (3 mL) insulin pen 10 unit subcut QAM RF: 0 clobetasol 0.05 % ointment 1 applic topical [id number] RF: 0 Probiotic 3 billion cell Capsule 0 mmu cells PO QDD RF: 0 acetaminophen [Tylenol Extra Strength] 500 mg Tablet 1,000 mg PO Q6H PRN (Reason: Pain) RF: 0 Levemir U-100 Insulin 100 unit/mL Solution 12 unit SUBCUT HS RF: 0 mirtazapine 7.5 mg Tablet 3.75 mg PO HS RF: 0 benazepril 20 mg Tablet 20 mg PO QAM RF: 0 Discontinued warfarin 3 mg tablet 3 mg PO HS RF: 0 acetaminophen 325 mg tablet 325 - 650 mg PO Q6H PRN (Reason: fever or pain) RF: 0 nystatin 100,000 unit/gram Ointment 1 applic TOPICAL [id number] RF: 0 Discharge Orders: Discharge Order (Routine); Ordered 07/25/19 Ordered By: Cali Nguyen Admission Data Admit Date/Time: 07/15/19 21:05 Attending Provider: Cali Nguyen Admit Provider: Tyron Álvarez Primary Care Provider: Palak Chiang Other Providers: Tyron Álvarez ; Rinku Knott I. ; Betito Collins ; [facility] ; 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
[2019-07-25] MEDS ORDERED: POLYETHYLENE (MIRALAX) 17 GM PACK PO ONE (16:44)
--- NOTE | 2019-07-25 16:47 | Hospitalist Progress Note ---
Date of Service July 25, 2019 Assessment & Plan (1) Fracture of neck of humerus: Fell out of her wheelchair and sustained an acute comminuted impacted fracture of the left humeral neck and head w/ 13 mm of anterior displacement of the humeral shaft with respect to the humeral head; no dislocation all as per CT of the left shoulder. -sling and outpt ortho f/u for fx -pain under control without the need for pain meds Patient has been living at home with her granddaughter and , according to Dr. Yun, after extensive discussions w granddtr home had become very difficult for her to manage even before current delirium - sounds in d/w granddaughter that dementia was progressing - now definitely worse from delirium but prior was not good either -- at least for now plan is SNF w rehab emphasis and ultimate hopes of back home, Case management and Dr Augustin feel the granddtr is realistic that she may end up transitioning to SNF/rehab emphasis but never progress to being able to be safely independent again I spoke to her Dean on 07/23 he desperately wants her to return to home but is also realistic about her needs for support. His challenges that he is not able to physically see her because of visiting restrictions (2) Fall: As above Head CT, cervical spine CT, and pelvis x-ray all without fractures or acute issues With left humerus fracture as above (3) Acute pyelonephritis: With cystitis/Ascending pyelitis/acute pyelonephritis/recent resection of bladder mass- -growing E Coli and strep - continue amoxicillin 500mg TID complete 14 days total, last day would be 07/31 (4) Acute metabolic encephalopathy: Secondary to acute pyelonephritis, pain, foreign environment - undoubtedly made worse by the inability to have visitors as related to COVID19 -Treating infection as above, pain is well controlled -Supportive care and frequent orientation, redirection (Dr Knight visited her 07/16 and she took meds for her - corroborating that familiarity is hairston) -as noted by dr soria on 07/15 - MRI cancelled as patient not willing to have this done. Her brought up once again the need for considering her to have the MRI scan will continue to re-ask this question she does have significant volume loss on CT scan showing hydrocephalus ex vacuo (5) Type 2 diabetes mellitus: -sugars overall acceptable and A1c 7.5% - reasonable for age/comorbidities Continue Levemir as her typical outpt regime (6) Depression: Continue Lexapro 10 mg p.o. 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: Continue increased warfarin dose 4mg HS, follow inr (8) Bladder mass: Status post recent resection on 06/16/2019 and was found to be chronic inflammation and not malignancy on pathology Also had a bladder stone removed (9) HTN (hypertension): Continue benazepril 20mg BID and amlodipine 5mg BID (10) History of DVT (deep vein thrombosis): On warfarin for this as above - resumed 07/17 INR is 2.1 (11) DVT prophylaxis: Warfarin as above Disposition - medically stable for discharge (12) Constipation: pt has not had bowel movement for a few days, will check abd x ray and give miralax and dulcolax suppository Admission and Anticipated Discharge Date Admission Date: July 15, 2019 Subjective Patient is stable for discharge however [facility] refuses to take her due to the fact has not had a bowel movement for the last 3 days therefore we will delay discharge get a check an x-ray of her abdomen and increase her laxatives. Patient herself has no complaints to me in my examination of any abdominal discomfort. Review of Systems Review of Systems: Mild distress and fatigue no headache, blurry or double vision no speech or swallowing issues no chest pain, pressure or palpitations no shortness of breath, cough or wheezes no abdominal pain, nausea or vomiting, diarrhea or constipation no dysuria, hematuria or frequency no focal joint pain or swelling no back pain, CVA tenderness or radicular pain no bruising, bleeding or rashes no focal signs of weakness or numbness or altered sensation no complaints or anxiety or depression Physical Exam Physical Exam: The patient appeared well nourished and normally developed. Vital signs as documented. Head exam is unremarkable. No scleral icterus Neck is without JVD, thyromegaly, or carotid bruits. Lungs are clear to auscultation and percussion. Cardiac exam, Rhythm is regular.. No murmurs, rubs or gallops. Abdominal exam reveals normal bowel sounds, no masses, no organomegaly and no aortic enlargement Left arm is in sling she is good sensation distally to her hand Neurologic exam is alert and oriented, no focal loss of strength or sensation Skin is without bruises or rashes Psychologically is without concerns for anxiety or depression Results & Data Results & Data ([facility]) Vital Signs (Past 12 Hours) Vital Signs Temp Pulse Pulse Pulse Resp BP Pulse Ox 07/25/19 15:20 97.7 F 60 60 72 16 143/68 H 99 07/25/19 07:26 97.7 F 60 16 143/68 H 99 PG Care Time/CCT Total # of Minutes Spent Total Time Spent with Patient: Total time spent is greater than 50% in coordination of care (as documented) at patient's floor/unit and/or counseling patient: Coding Level of Care Code 52927 Subseq Hosp Care Lvl 2 Diagnoses Fracture of neck of humerus S42.212A Encounter type: initial encounter Fracture type: closed Laterality: left Fall W19.XXXA Acute pyelonephritis N10 Acute metabolic encephalopathy G93.41 Type 2 diabetes mellitus E11.9 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
[2019-07-25] MEDS: ESCITALOPRAM OXALATE 10 MG TAB PO SCH (17:04)
[2019-07-25] MEDS: bisacodyL 10 MG SUPP PR STA ×2 (17:04→17:33)
--- NOTE | 2019-07-25 17:31 | XRay Report ---
KUB HISTORY: Acute generalized abdominal pain with reported constipation eval for obstipation COMPARISON: CT left shoulder of same day, CT abdomen and pelvis 07/15/2019 FINDINGS: Moderate fecal retention it is most pronounced in the cecum and rectum. Nonobstructive lena l gas pattern. No pneumatosis or pneumoperitoneum. No urolith. Degenerative changes of the spine, pel vis and hips. Cardiomegaly. IMPRESSION: 1. Nonobstructive bowel gas pattern. 2. Moderate fecal retention. ACT 112: Negative or not required by law. The above report was generated using voice recognition software. It may contain grammatical, syntax o r spelling errors. Electronically signed by: John Paul Ramos M.D. 07/25/2019 5:30 PM
[2019-07-25] MEDS ORDERED: bisacodyL 10 MG SUPP PR ONE (21:35)
[2019-07-25] MEDS: MIRTAZAPINE TAB 15 MG TAB PO SCH (21:51)
[2019-07-25] MEDS: WARFARIN SOD 4 MG TAB PO SCH (21:52)
[2019-07-25] MEDS: INSULIN DETEMIR FLEXPEN/FLEX TOUCH 100 UNITS/ML 3ML SC SCH (21:53)
[2019-07-26] MEDS ORDERED: SOD PHOSPHATE/SOD BIPHOSPHATE ENEMA 132 ML BTL PR ONE ×2 (00:07→00:11)
[2019-07-26] MEDS: AMOXICILLIN 500 MG CAP PO SCH (08:14)
[2019-07-26] MEDS: hydroCHLOROthiazide 25 MG TAB PO SCH (08:14)
[2019-07-26] MEDS: BENAZEPRIL HCL 10 MG TAB PO SCH (08:15)
[2019-07-26] MEDS: CHOLECALCIFEROL 1,000 UNITS 25 MCG TAB PO SCH (08:15)
[2019-07-26] MEDS: AMLODIPINE BESYLATE 5 MG TAB PO SCH (08:15)
[2019-07-26] MEDS: INSULIN ASPART 100 UNITS/ML 3 ML PEN SC SCH (09:20)
[2019-07-26] MEDS: INSULIN DETEMIR FLEXPEN/FLEX TOUCH 100 UNITS/ML 3ML SQ SCH (09:21)
== END 2019-07-26 11:52 | DRG 689 ==
LOC: ED 16:08 → 3E 21:05 → SUATTDRO 21:05 → 3E 21:27

== ENCOUNTER 2019-11-23 19:03 | Inpatient (IN) ==
[2019-11-23] MEDS ORDERED: PROCHLORPERAZINE 1 ML IV ONE (19:25)
[2019-11-23] MEDS ORDERED: SODIUM CHLORIDE 0.9% 500 ML IV ONE (19:25)
[2019-11-23] MEDS ORDERED: ACETAMINOPHEN 1,000 MG/100 ML VIAL IV STA (19:31)
[2019-11-23 19:49] LABS: Basophils # (auto) 0.03 K/uL (0-0.2); Basophils % (auto) 0.2 %; Eosinophils # (auto) 0.04 K/uL (0-0.5); Eosinophils % (auto) 0.2 %; Hematocrit (blood only) 30.6 % (37-47); Hemoglobin 9.7 g/dL (12.0-16.0); Immature Granulocytes # (auto) 0.23 K/uL (0.00-0.02); Immature Granulocytes % (auto) 1.3 %; Lymphocytes # (auto) 0.59 K/uL (1.2-3.4); Lymphocytes % (auto) 3.4 %; Mean Corpuscular Hemoglobin 27.7 pg (25-34); Mean Corpuscular Hgb Conc 31.7 g/dL (32-36); Mean Corpuscular Volume 87.4 fL (80-100); Mean Platelet Volume 9.2 fL (7.4-10.4); Monocytes # (auto) 1.58 K/uL (0.11-0.59); Monocytes % (auto) 9.1 %; Neutrophils # (auto) 14.97 K/uL (1.4-6.5); Neutrophils % (auto) 85.8 %; Platelet Count 428 K/uL (130-400); RDW Coefficient of Variation 14.6 % (11.5-14.5); RDW Standard Deviation 46.7 fL (36.4-46.3); White Blood Count 17.44 K/uL (4.8-10.8)
[2019-11-23 20:02] LABS: INR 1.4 (0.9-1.1); Prothrombin Time 14.6 Seconds (9.0-12.0)
[2019-11-23] MEDS ORDERED: IOVERSOL 100ml IV ONE (20:02)
[2019-11-23 20:03] LABS: iSTAT Creatinine 1.5 mg/dl (0.6-1.3); iSTAT Hemoglobin 10.5 g/dl (12.0-16.0); iSTAT Ionized Calcium 1.24 mmol/l (1.12-1.32); iSTAT Potassium 5.2 mmol/L (3.3-5.0)
[2019-11-23 20:05] LABS: BUN Creatinine Ratio 25.3 (10-20); Creatinine Clr Calc Pharmacy 33.1 ml/min; Est GFR (African American) 37.3; Est GFR (Non-African American) 32.2; Magnesium 1.9 mg/dl (1.8-2.4); Potassium 5.1 mmol/L (3.5-5.1)
[2019-11-23 20:08] LABS: Albumin Globulin Ratio 0.6 (0.9-2); Bilirubin,Total 0.4 mg/dl (0.2-1); Phosphorus 2.9 mg/dl (2.5-4.9)
--- NOTE | 2019-11-23 20:21 | CT Scan Report ---
CT head/brain wo con CLINICAL HISTORY: 73 years-old Female with pain, fall, coumadin. Acute head injury status post fall TECHNIQUE: Multiple axial CT images of the head were obtained without contrast. A dose lowering tech nique was utilized adhering to the principles of ALARA. COMPARISON: CT cervical spine of same day, head CT 07/15/2019. FINDINGS: No acute intracranial hemorrhage, midline shift, intracranial mass, hydrocephalus, territorial ischem ia or abnormal extra-axial collection. Age-related involutional changes with ex vacuo ventriculomegal y. Patchy white matter hypodensities suggest chronic microvascular ischemic disease. Cerebral vascula r calcifications. The calvarium is intact. The mastoid air cells are clear. Mild mucosal thickening w ith tiny air-fluid levels of the sphenoid and maxillary sinuses. Mild polypoid mucosal thickening of the ethmoid air cells. Soft tissues and orbits are unremarkable. IMPRESSION: No acute intracranial abnormality. ACT 112: Negative or not required by law. The above report was generated using voice recognition software. It may contain grammatical, syntax o r spelling errors. Electronically signed by: John Paul Ramos M.D. 11/23/2019 8:20 PM
--- NOTE | 2019-11-23 20:28 | CT Scan Report ---
CT cervical spine wo con CT DOSE: 2641.60 mGy.cm CLINICAL HISTORY: 73 years-old Female with pain, fall, coumadin. Acute head and neck injury status p ost fall COMPARISON: Head CT of same day, CT cervical spine 07/15/2019 TECHNIQUE: Multiple axial CT images of the cervical spine were obtained without contrast. A dose low ering technique was utilized adhering to the principles of ALARA. FINDINGS: Demineralized appearance of the bones. Severe degenerative changes at C1-C2 with severe disc space na rrowing at C4-C5, C5-C6 and T1-T2 with moderate to severe disc space narrowing at C6-C7. Prominent mu ltilevel spondylitic spurring with posterior disc osteophyte complex formations in multilevel severe facet arthrosis. Unchanged grade 1 anterolisthesis C7 on T1 and T2 on T3, likely secondary to long-st anding facet arthropathy. Evaluation of the central canal and neuroforamina is better assessed by MRI . Note is made of multilevel foraminal narrowing. There is at least moderate central canal stenosis a t C4-C5 and C5-C6. Mild convex right curvature. Mastoid air cells are clear. No prevertebral soft tissue swelling. Prominent calcified plaque of the thoracic aortic arch and younger tid arteries. Right subclavian Mytnfr-l-Yjap catheter partially imaged. IMPRESSION: No acute fracture or subluxation. ACT 112: Negative or not required by law. The above report was generated using voice recognition software. It may contain grammatical, syntax o r spelling errors. Electronically signed by: John Paul Ramos M.D. 11/23/2019 8:26 PM
--- NOTE | 2019-11-23 20:48 | CT Scan Report ---
CHEST CT WITH CONTRAST; CT ABDOMEN AND PELVIS WITH IV CONTRAST ONLY HISTORY: Acute chest and abdominal trauma status post fall pain, fall, coumadin TECHNIQUE: Multiaxial CT images of the chest, abdomen and pelvis were performed following the IV admi nistration of 93 cc of Optiray 320. A dose lowering technique was utilized adhering to the principl es of RAINE. COMPARISON: Chest CT 04/07/2018, CT abdomen and pelvis 07/15/2019, left shoulder radiographs 10/25/2019. FINDINGS: CT CHEST: No large thyroid nodule. There is no adenopathy. Cardiomegaly with extensive coronary artery calcific ations. No pericardial effusion or thoracic aortic aneurysm. Right IJ Wsnglz-g-Opzi catheter distal t ip terminates within the inferior SVC. Pulmonary artery is unremarkable. No pneumothorax or pleural effusion. Linear subpleural consolidative opacities of the upper lung zone s and left lung base noted in conjunction with areas of subpleural reticulation compatible with fibro sis. No overt pulmonary edema or new airspace consolidation typical for pneumonia. The central airway s appear patent. Unremarkable soft tissues. There is an ununited comminuted and displaced fracture de formity of the proximal left humerus redemonstrated. CT ABDOMEN/PELVIS: There is no pneumatosis or pneumoperitoneum. Calcified granulomata of the spleen. Unremarkable pancre as and adrenal glands. The gallbladder appears surgically absent. Mild common bile duct dilation is l ikely postsurgical. Unremarkable liver. Bilateral hydroureteronephrosis, right greater than left with bilateral urothelial thickening and per ivesicular stranding. Delayed right-sided nephrogram. There is more pronounced urothelial thickening involving the distal 6 cm of the right ureter. Hyperemia with circumferential wall thickening and per ivesicular stranding of the urinary bladder. No ureteral calculi. Probable cyst of the superior pole left kidney, 10 mm. Hysterectomy. Extensive calcified plaque the abdominal aorta. No adenopathy. Small hiatal hernia. No bowel obstruction or bowel wall thickening. Colonic diverticulosis. Mild feca l retention. Postoperative changes of the right hemicolon redemonstrated. Unchanged fat necrosis, 3.2 cm. Mild diastases recti. Small fat filled periumbilical hernia. Unremarkable soft tissues. No acute fracture. IMPRESSION: 1. No acute posttraumatic intrathoracic, intra-abdominal or intrapelvic abnormality identified. 2. No pneumothorax, acute fracture or evidence of acute solid organ injury. 3. Moderate right greater than left bilateral hydroureteronephrosis with urothelial thickening and de layed right-sided nephrogram. There is increased attenuation of the distal 6 cm of the right ureter w hich may reflect hemorrhagic debris within the ureter or urothelial malignancy. 4. Chronic wall thickening and hyperenhancement of the urinary bladder with associated perivesicular stranding. Urology consultation recommended. 5. Additional findings as above. ACT 112: Negative or not required by law. Electronically signed by: John Paul Ramos M.D. 11/23/2019 8:47 PM
[2019-11-23 20:57] LABS: Appearance Urine Turbid (Clear); Bacteria Urine Automated Negative (Negative); Bilirubin Urine Negative (Negative); Blood Urine 3+ (Negative); Color Urine Yellow; Epithelial Cell Urine Auto >30 /lpf (0-5); Glucose Urine UA Negative (Negative); Ketones Urine Negative (Negative); Leukocyte Esterase Urine 3+ (Negative); Nitrite Urine Negative (Negative); Protein Urine 2+ (Negative); RBC Urine Automated >30 /hpf (0-4); Specific Gravity Urine 1.036 (1.000-1.030); Urobilinogen Urine Negative (Negative); WBC Urine Automated >30 /hpf (0-5)
--- NOTE | 2019-11-23 21:06 | Emergency Department Note ---
Impression & Plan UTI (urinary tract infection), Leukocytosis, Fall, Acute renal insufficiency ED Provider Note NAME: AGUUSTO CONRAD AGE: 73 SEX: F ARRIVES VIA: Ambulance INFORMANT: Patient, ED PROVIDER(S): Sergio High MD CHIEF COMPLAINT: Fall, UTI PLAN: Disposition: Admit MEDICAL DECISION MAKING: The patient is a pleasant 73-year-old woman with a past medical history of type 2 diabetes, history of DVT on Coumadin, admission in July 2023 pyelonephritis, history of bladder mass resection found to be related to chronic inflammation on pathology (06/16/2019 who presents emergency department accompanied by her daughter after the patient had a fall where she lost her balance losing her walker but was grabbed by her and lowered and reports that she did not hit her head. EMS found the patient on the ground and noted an axillary tem perature of 100.5. The daughter also reports the patient feeling increasingly weak recently with concern for urinary infection. On arrival the patient is in no acute distress, afebrile stable vital signs. She has mild discomfort with range of motion of the left shoulder which is chronic in the setting of having a humerus fracture. She moves both hips bilaterally with full range of motion with no pain. WBC 17.4 with neutrophil predominance and left shift. H/H9 0.7/30.6 similar to prior values. Platelets 400s similar to recent and possibly acute phase reactant. INR subtherapeutic at 1.4. Chemistry without acidosis. Creatinine 1.5 with BUN/creatinine> 20 suggestive of prerenal etiology and consistent with the patient's clinically dry appearance. LFTs unremarkable. Lipase is not el evated. UA is consistent with infection. Treatment initiated with Ertapenem given h/o ESBL ecoli. Likely will need Daptomycin given h/o Enterococcus EF. CT of the head, C-spine, chest, abdomen pelvis were performed and negative for acute traumatic findings. Note is made however of interval development of bilateral hydro-ureter nephrosis with urothelial thickening. Unclear significance of these findings however given history of bladder mass related to chronic inflammation may be related to this. The patient's leukocytosis in the setting of infectious source with fevers prior to arrival reasonable to proceed with admission. Patient and daughter agreeable with plan. Case was discussed with Dr. Hannah, admitting resident with Dr. Álvarez, [facility] hospitalist, who will evaluate the patient for admission. Triage Nursing notes reviewed and agree them. Prior medical records reviewed Vital Signs: reviewed and remarkable for no significant abnormalities Differential diagnosis: Fracture, dislocation, contusion, intra-abdominal, pneumothorax, intrathoracic, intracranial, neurologic, compartment syndrome, rhabdomyolysis, as well as other pathologies. ER treatment provided: See below. Diagnostics interpreted by me: Cardiac Monitoring: An order for continuous cardiac monitoring was placed and demonstrated NSR, 65 bpm, no ectopy Laboratory studies: See below Imaging studies: CT head/brain wo con CLINICAL HISTORY: 73 years-old Female with pain, fall, coumadin. Acute head inj ury status post fall TECHNIQUE: Multiple axial CT images of the head were obtained without contrast. A dose lowering technique was utilized adhering to the principles of ALARA. COMPARISON: CT cervical spine of same day, head CT 07/15/2019. FINDINGS: No acute intracranial hemorrhage, midline shift, intracranial mass, hydrocephalus, territorial ischemia or abnormal extra-axial collection. Age-r elated involutional changes with ex vacuo ventriculomegaly. Patchy white matter hypodensities suggest chronic microvascular ischemic disease. Cerebral vascular calcifications. The calvarium is intact. The mastoid air cells are clear. Mild mucosal thickening with tiny air-fluid levels of the sphenoid and maxillary sinuses. Mild polypoid mucosal thickening of the ethmoid air cells. Soft tissues and orbits are unremarkable. IMPRESSION: No acute intracranial abnormality. CT cervical spine wo con CT DOSE: 2641.60 mGy.cm CLINICAL HISTORY: 73 years-old Female with pain, fall, coumadin. Acute head and neck injury status post fall COMPARISON: Head CT of same day, CT cervical spine 07/15/2019 TECHNIQUE: Multiple axial CT images of the cervical spine were obtained without contrast. A dose lowering technique was utilized adhering to the principles of ALARA. FINDINGS: Demineralized appearance of the bones. Severe degenerative changes at C1-C2 with severe disc space narrowing at C4-C5, C5-C6 and T1-T2 with moderate to severe disc space narrowing at C6-C7. Prominent multilevel spondylitic spurring with posterior disc osteophyte complex formations in multilevel severe facet arthrosis. Unchanged grade 1 anterolisthesis C7 on T1 and T2 on T3, likely secondary to long-standing facet arthropathy. Evaluation of the central canal and neuroforamina is better assessed by MRI. Note is made of multilevel foraminal narrowing. There is at least moderate central canal stenosis at C4-C5 and C5-C6. Mild convex right curvature. Mastoid air cells are clear. No prevertebral soft tissue swelling. Prominent calcified plaque of the thoracic aortic arch and carotid arteries. Right subclavian Skbwrj-o-[id number] catheter partially imaged. IMPRESSION: No acute fracture or subluxation. CHEST CT WITH CONTRAST; CT ABDOMEN AND PELVIS WITH IV CONTRAST ONLY HISTORY: Acute chest and abdominal trauma status post fall pain, fall, coumadin TECHNIQUE: Multiaxial CT images of the chest, abdomen and pelvis were performed following the IV administration of 93 cc of Optiray 320. A dose lowering technique was utilized adhering to the principles of ALARA. COMPARISON: Chest CT 04/07/2018, CT abdomen and pelvis 07/15/2019, left shoulder radiographs 10/25/2019. FINDINGS: CT CHEST: No large thyroid nodule. There is no adenopathy. Cardiomegaly with extensive coronary artery calcifications. No pericardial effusion or thoracic aortic aneurysm. Right IJ Ikktad-f-Xblh catheter distal tip terminates within the inferior SVC. Pulmonary artery is unremarkable. No pneumothorax or pleural effusion. Linear subpleural consolidative opacities of the upper lung zones and left lung base noted in conjunction with areas of subpleural reticulation compatible with fibrosis. No overt pulmonary edema or new airspace consolidation typical for pneumonia. The central airways appear patent. Unremarkable soft tissues. There is an ununited comminuted and displaced fracture deformity of the proximal left humerus redemonstrated. CT ABDOMEN/PELVIS: There is no pneumatosis or pneumoperitoneum. Calcified granulomata of the spleen. Unremarkable pancreas and adrenal glands. The gallbladder appears surgically absent. Mild common bile duct dilation is likely postsurgical. Unremarkable liver. Bilateral hydroureteronephrosis, right greater than left with bilateral urothelial thickening and perivesicular stranding. Delayed right-sided nephrogram. There is more pronounced urothelial thickening involving the distal 6 cm of the right ureter. Hyperemia with circumferential wall thickening and perivesicular stranding of the urinary bladder. No ureteral calculi. Probable cyst of the superior pole left kidney, 10 mm. Hysterectomy. Extensive calcified plaque the abdominal aorta. No adenopathy. Small hiatal hernia. No bowel obstruction or bowel wall thickening. Colonic diverticulosis. Mild fecal retention. Postoperative changes of the right hemicolon redemonstrated. Unchanged fat necrosis, 3.2 cm. Mild diastases recti. Small fat filled periumbilical hernia. Unremarkable soft tissues. No acute fracture. IMPRESSION: 1. No acute posttraumatic intrathoracic, intra-abdominal or intrapelvic abnormality identified. 2. No pneumothorax, acute fracture or evidence of acute solid organ injury. 3. Moderate right greater than left bilateral hydroureteronephrosis with urothelial thickening and delayed right-sided nephrogram. There is increased attenuation of the distal 6 cm of the right ureter which may reflect hemorrhagic debris within the ureter or urothelial malignancy. 4. Chronic wall thickening and hyperenhancement of the urinary bladder with associated perivesicular stranding. Urology consultation recommended. 5. Additional findings as above. Consultation(s): Case was discussed with Dr. Hannah, admitting resident with Dr. Álvarez, [facility] hospitalist, who will evaluate the patient for admission. HPI: The patient is a pleasant 73-year-old woman with a past medical history of type 2 diabetes, history of DVT on Coumadin, admission in July 2023 pyelonephritis, history of bladder mass resection found to be related to chronic inflammation on pathology (06/16/2019 who presents emergency department accompanied by her daughter after the patient had a fall where she lost her balance losing her walker but was grabbed by her and lowered and reports that she did not hit her head. EMS found the patient on the ground and noted an axillary temperature of 100.5. The daughter also reports the patient feeling increasingly weak recently with concern for urinary infection. ROS: See above HPI for pertinent positives & negatives. A total of 10 systems reviewed and were otherwise negative. PAST MEDICAL HISTORY:See Below PAST SURGICAL HISTORY:See Below FAMILY HISTORY:See Below SOCIAL HISTORY:See Below HOME MEDICATIONS:See Below ALLERGIES:See Below VITALS:See Below PHYSICAL EXAMINATION: GENERAL: Awake, alert, well-appearing, in no distress HENT: Normocephalic, atraumatic. Oropharynx unremarkable. EYES: Normal conjunctiva. Sclera non-icteric. NECK: Supple. No nuchal rigidity. FROM. No JVD. No midline tenderness of stepoffs. RESPIRATORY: Clear to auscultation. CARDIAC: Regular rate, normal rhythm. Extremities warm and well perfused. Pulses equal. ABDOMEN: Soft, non-distended. No tenderness to palpation. No rebound or guarding. No masses. RECTAL: Deferred. MUSCULOSKELETAL: Chest examination reveals no tenderness. The back is symmetrical on inspection without obvious abnormality. There is no CVA tenderness to palpation. No joint edema. Mild discomfort with range of motion of the left shoulder LOWER EXTREMITIES: Calves are equal size bilaterally and non-tender. No edema. No discoloration. NEURO: Normal sensorium. No sensory or motor deficits noted. SKIN: No rash or jaundice noted. Sergio High MD Past Med/Surg History Medical History Bladder mass Colon cancer Cystitis Depression Depression DVT prophylaxis Essential hypertension History of chemotherapy History of deep vein thrombophlebitis of lower extremity History of diverticulitis History of DVT (deep vein thrombosis) History of nephrolithiasis Lichen sclerosus 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 Metastatic colon cancer to liver Type 2 diabetes mellitus UTI (urinary tract infection) Surgical History History of appendectomy History of colon surgery History of colonoscopy History of hysterectomy History of partial colectomy History of tonsillectomy History of tubal ligation S/P cholecystectomy Status post cardiac surgery inferior vena cava bo filter placement Family History Father Diabetes Coronary heart disease Mother Colorectal cancer Sister Hypertension Diabetes Family/Other Diabetes Hypertension Other Family history non-contributory Social History Smoking Status: Never smoker Second Hand Exposure: No; Do You Dip or Chew Tobacco: No; Tobacco Cessation Education Requested by Patient: No Hx Alcohol Use: No Hx Substance Use: No Preferred Language: Honduran Communication Ability: Effective [employer] Required: No Beliefs That Will Affect Care: None marital status: Current Living Situation: Spouse Current Living Situation Comment: [facility] current occupational status: retired How many Children do You have: 2 Other Information That Helps Us Care for You: No Feels Safe at Home: Yes Safety Concerns: Feels Safe At This Time Allergies Allergies Allergy/AdvReac Type Severity Reaction Status Date / Time nitrofurantoin AdvReac Intermediate Abdominal Verified 11/23/19 22:43 [From Macrobid] Pain Home Meds Home Medications Medication Instructions Recorded Confirmed cholecalciferol (vitamin D3) 125 5,000 units PO QAM 01/31/18 11/23/19 mcg (5,000 unit) capsule sitagliptin 100 mg tablet 100 mg PO QAM 01/31/18 11/23/19 blood sugar diagnostic #10 ea 11/29/18 11/17/19 lancets 28 gauge #25 ea 11/29/18 11/17/19 insulin detemir U-100 100 unit/mL 10 unit SUBCUT QAM 01/05/19 11/23/19 (3 mL) subcutaneous pen escitalopram oxalate 10 mg tablet 10 mg PO QDD 04/03/19 11/23/19 Probiotic 0 mmu cells PO QDD 05/11/19 11/23/19 clobetasol 1 applic TOPICAL 5XWK 05/11/19 11/23/19 Levemir U-100 Insulin 12 unit SUBCUT 05/22/19 11/23/19 benazepril 20 mg PO QAM 07/15/19 11/23/19 mirtazapine 3.75 mg PO HS 07/15/19 11/23/19 blood-glucose meter #1 ea 07/26/19 11/17/19 acetaminophen 325 mg tablet 650 mg PO QID PRN tab 10/18/19 11/23/19 amlodipine 10 mg tablet 5 mg PO DAILY tab 11/01/19 11/23/19 warfarin 3 mg tablet 1.5 - 3 mg PO DAILY tab 11/17/19 11/23/19 Previous Rx's Medication Instructions Recorded tamsulosin 0.4 mg capsule 0.4 mg PO DAILY #30 cap 10/13/19 Results & Data (ED) Vital Signs Vital Signs - 24 hr 11/23/19 19:14 11/23/19 19:25 11/23/19 19:30 Temperature 36.9 C Temperature Source Oral Pulse Rate 77 73 Pulse Rate from SpO2 Sensor 74 Respiratory Rate 20 23 Blood Pressure 131/90 148/58 H Blood Pressure Mean 103 83 Pulse Oximetry 96 94 Oxygen Delivery Method Room Air Room Air Room Air Sepsis Recent Fever Within 48 Hours No Sepsis New/Unexplained Change in Mental Status No Sepsis Action Taken by Nursing No Action Required 11/23/19 20:45 11/23/19 21:00 11/23/19 21:30 Temperature Temperature Source Pulse Rate 71 74 73 Pulse Rate from SpO2 Sensor 71 74 71 Respiratory Rate 20 24 22 Blood Pressure 132/39 L 135/48 L 147/59 H Blood Pressure Mean 64 72 90 Pulse Oximetry 96 92 95 Oxygen Delivery Method Room Air Room Air Room Air Sepsis Recent Fever Within 48 Hours Sepsis New/Unexplained Change in Mental Status Sepsis Action Taken by Nursing 11/23/19 22:00 11/23/19 22:30 Temperature Temperature Source Pulse Rate 67 64 Pulse Rate from SpO2 Sensor 66 64 Respiratory Rate 22 21 Blood Pressure 131/55 L 137/59 L Blood Pressure Mean 67 79 Pulse Oximetry 96 93 Oxygen Delivery Method Room Air Room Air Sepsis Recent Fever Within 48 Hours Sepsis New/Unexplained Change in Mental Status Sepsis Action Taken by Nursing Laboratory Data Attestation: I reviewed the patient's lab results. Result diagrams: 11/23/19 19:34 11/23/19 19:34 Lab Results 11/23/19 11/23/19 11/23/19 Range/Units 19:34 19:34 19:34 WBC 17.44 H (4.8-10.8) K/uL RBC 3.50 L (4.2-5.4) M/uL Hgb 9.7 L (12.0-16.0) g/dL POC Hgb (12.0-16.0) g/dl Hct 30.6 L (37-47) % POC Hct (37-47) % MCV 87.4 (80-100) fL MCH 27.7 (25-34) pg MCHC 31.7 L (32-36) g/dL RDW Std Deviation 46.7 H (36.4-46.3) fL RDW Coeff of Robin 14.6 H (11.5-14.5) % Plt Count 428 H (130-400) K/uL MPV 9.2 (7.4-10.4) fL Immature Gran % (Auto) 1.3 % Neut % (Auto) 85.8 % Lymph % (Auto) 3.4 % [place] % (Auto) 9.1 % Eos % (Auto) 0.2 % Baso % (Auto) 0.2 % Neut # (Auto) 14.97 H (1.4-6.5) K/uL Lymph # (Auto) 0.59 L (1.2-3.4) K/uL [place] # (Auto) 1.58 H (0.11-0.59) K/uL Eos # (Auto) 0.04 (0-0.5) K/uL Baso # (Auto) 0.03 (0-0.2) K/uL Immature Gran # (Auto) 0.23 H (0.00-0.02) K/uL PT 14.6 H (9.0-12.0) Seconds INR 1.4 H (0.9-1.1) POC Sodium (135-144) mmol/L Sodium 134 L (136-145) mmol/L POC Potassium (3.3-5.0) mmol/L Potassium 5.1 (3.5-5.1) mmol/L POC Chloride (101-112) mmol/L Chloride 105 (98-107) mmol/L Carbon Dioxide 23 (21-32) mmol/L POC Total CO2 (24-31) mmol/L Anion Gap 6.0 (3-11) POC Anion Gap (16-25) mmol/L POC BUN (7-18) mg/dl BUN 39 H (7-18) mg/dl Creatinine 1.56 H (0.6-1.2) mg/dl POC Creatinine (0.6-1.3) mg/dl Est Cr Clr Drug Dosing 33.1 ml/min Est GFR ( Amer) 37.3 Est GFR (Non-Af Amer) 32.2 BUN/Creatinine Ratio 25.3 H (10-20) Glucose 161 H (70-99) mg/dl POC Glucose (other) (70-99) mg/dl Lactate (0.4-2.0) mmol/L Calcium 9.0 (8.5-10.1) mg/dl POC Ioniz Calcium Jeanette (1.12-1.32) mmol/l Phosphorus 2.9 (2.5-4.9) mg/dl Magnesium 1.9 (1.8-2.4) mg/dl Total Bilirubin 0.4 (0.2-1) mg/dl AST 14 L (15-37) U/L ALT 10 L (12-78) U/L Alkaline Phosphatase 75 (45-117) U/L Total Protein 8.0 (6.4-8.2) gm/dl Albumin 3.0 L (3.4-5.0) gm/dl Globulin 5.0 H (2.5-4.0) gm/dl Albumin/Globulin Ratio 0.6 L (0.9-2) Lipase 156 (73-393) U/L Urine Color Urine Appearance (Clear) Urine pH (4.5-7.5) Ur Specific [place] (1.000-1.030) Urine Protein (Negative) Urine Glucose (UA) (Negative) Urine Ketones (Negative) Urine Blood (Negative) Urine Nitrite (Negative) Urine Bilirubin (Negative) Urine Urobilinogen (Negative) Ur Leukocyte Esterase (Negative) Urine WBC (Auto) (0-5) /hpf Urine RBC (Auto) (0-4) /hpf U Hyaline Cast (Auto) (0-5) /lpf U Epithel Cells (Auto) (0-5) /lpf Urine Bacteria (Auto) (Negative) Urine Yeast 11/23/19 11/23/19 11/23/19 Range/Units 19:49 20:45 21:52 WBC (4.8-10.8) K/uL RBC (4.2-5.4) M/uL Hgb (12.0-16.0) g/dL POC Hgb 10.5 L (12.0-16.0) g/dl Hct (37-47) % POC Hct 31 L (37-47) % MCV (80-100) fL MCH (25-34) pg MCHC (32-36) g/dL RDW Std Deviation (36.4-46.3) fL RDW Coeff of Robin (11.5-14.5) % Plt Count (130-400) K/uL MPV (7.4-10.4) fL Immature Gran % (Auto) % Neut % (Auto) % Lymph % (Auto) % [place] % (Auto) % Eos % (Auto) % Baso % (Auto) % Neut # (Auto) (1.4-6.5) K/uL Lymph # (Auto) (1.2-3.4) K/uL [place] # (Auto) (0.11-0.59) K/uL Eos # (Auto) (0-0.5) K/uL Baso # (Auto) (0-0.2) K/uL Immature Gran # (Auto) (0.00-0.02) K/uL PT (9.0-12.0) Seconds INR (0.9-1.1) POC Sodium 135 (135-144) mmol/L Sodium (136-145) mmol/L POC Potassium 5.2 H (3.3-5.0) mmol/L Potassium (3.5-5.1) mmol/L POC Chloride 103 (101-112) mmol/L Chloride (98-107) mmol/L Carbon Dioxide (21-32) mmol/L POC Total CO2 21 L (24-31) mmol/L Anion Gap (3-11) POC Anion Gap 16.0 (16-25) mmol/L POC BUN 38 H (7-18) mg/dl BUN (7-18) mg/dl Creatinine (0.6-1.2) mg/dl POC Creatinine 1.5 H (0.6-1.3) mg/dl Est Cr Clr Drug Dosing ml/min Est GFR ( Amer) Est GFR (Non-Af Amer) BUN/Creatinine Ratio (10-20) Glucose (70-99) mg/dl POC Glucose (other) 166 H (70-99) mg/dl Lactate 1.1 (0.4-2.0) mmol/L Calcium (8.5-10.1) mg/dl POC Ioniz Calcium Jeanette 1.24 (1.12-1.32) mmol/l Phosphorus (2.5-4.9) mg/dl Magnesium (1.8-2.4) mg/dl Total Bilirubin (0.2-1) mg/dl AST (15-37) U/L ALT (12-78) U/L Alkaline Phosphatase (45-117) U/L Total Protein (6.4-8.2) gm/dl Albumin (3.4-5.0) gm/dl Globulin (2.5-4.0) gm/dl Albumin/Globulin Ratio (0.9-2) Lipase (73-393) U/L Urine Color Yellow Urine Appearance Turbid A (Clear) Urine pH 5.0 (4.5-7.5) Ur Specific [place] 1.036 H (1.000-1.030) Urine Protein 2+ H (Negative) Urine Glucose (UA) Negative (Negative) Urine Ketones Negative (Negative) Urine Blood 3+ H (Negative) Urine Nitrite Negative (Negative) Urine Bilirubin Negative (Negative) Urine Urobilinogen Negative (Negative) Ur Leukocyte Esterase 3+ H (Negative) Urine WBC (Auto) >30 H (0-5) /hpf Urine RBC (Auto) >30 H (0-4) /hpf U Hyaline Cast (Auto) 0 (0-5) /lpf U Epithel Cells (Auto) >30 H (0-5) /lpf Urine Bacteria (Auto) Negative (Negative) Urine Yeast Not Reportable Administered Medications Daptomycin 225 mg/ Syringe 4.5 mls @ 2.25 mls/min IV Q24H [facility]; Protocol Stop: 12/04/19 00:00 Last Admin: 11/24/19 00:39 Dose: 2.25 mls/min Documented by: [id number] Sodium Chloride (Nss 1000ml) 1,000 mls @ 125 mls/hr IV .Q8H YOLIS Stop: 12/23/19 23:27 Last Admin: 11/23/19 23:50 Dose: 125 mls/hr Documented by: [id number] Discontinued Medications Sodium Chloride (Nss) 500 mls @ 999 mls/hr IV .Q31M ONE Stop: 11/23/19 19:55 Last Infusion: 11/23/19 21:18 Dose: 0 mls/hr Documented by: [id number] Admin: 11/23/19 20:47 Dose: 999 mls/hr Documented by: [id number] Prochlorperazine (Compazine) 1 mls @ 1 mls/min IV ONE ONE Stop: 11/23/19 19:26 Last Admin: 11/23/19 20:47 Dose: Not Given Documented by: [id number] Acetaminophen (Ofirmev) 1,000 mg in 100 mls @ 400 mls/hr IV NOW STA Stop: 11/23/19 19:45 Last Infusion: 11/23/19 21:02 Dose: 0 mls/hr Documented by: [id number] Admin: 11/23/19 20:47 Dose: 400 mls/hr Documented by: [id number] Ertapenem (Invanz) 10 mls @ 2 mls/min IV NOW STA Stop: 11/23/19 21:29 Last Admin: 11/23/19 22:17 Dose: 2 mls/min Documented by: [id number] Ioversol (Ioversol 100ml) 93 ml IV ONCE ONE Stop: 11/23/19 20:03 Last Admin: 11/23/19 20:03 Dose: 93 ml Documented by: [id number] Blood Pressure Blood Pressure Findings: Elevated blood pressure Blood Pressure Disposition: further management by hospitalist Discharge Plan Visit Data Chief Complaint: Fall ED Provider: Sergio High Discharge Problem: UTI (urinary tract infection), Leukocytosis, Fall, Acute renal insufficiency Patient Disposition: Admitted As Inpatient Discharge Instructions Interventions: ED Discharge Assessment Last Done: 11/23/19 23:06 Discharge Problem: UTI (urinary tract infection) Qualifiers: Urinary tract infection type: acute cystitis Hematuria presence: without hematuria Qualified Code(s): N30.00 - Acute cystitis without hematuria Leukocytosis Qualifiers: Leukocytosis type: unspecified Qualified Code(s): D72.829 - Elevated white blood cell count, unspecified Fall Qualifiers: Encounter type: initial encounter Qualified Code(s): W19.XXXA - Unspecified fall, initial encounter
[2019-11-23 21:10] LABS: Cast Urine Automated 0 /lpf (0-5)
[2019-11-23] MEDS ORDERED: ERTAPENEM SODIUM 10 ML IV STA (21:25)
--- NOTE | 2019-11-23 22:30 | History & Physical Report ---
Date of Service November 23, 2019 Assessment & Plan (1) UTI (urinary tract infection): Anabelle is a 73-year-old female with a past medical history of benign tremor, dyslipidemia, osteoarthritis, sacroiliitis, hypertension, DVT on anticoagulation, type 2 diabetes, colon cancer, recent left humeral fracture, and nonmalignant bladder tumor with resection in the past year who presents after progressive weakness leading to a mechanical fall and he was found to be febrile by EMS. Her weakness is thought to be due to UTI with obstructive symptoms as noted below. Urinary tract infection Leukocytosis to 17, patient with foul-smelling urine and increasing weakness over the last few weeks CT shows bilateral right greater than left hydro-and urothelial thickening with a delayed right urogram, in addition to potentially hemorrhagic debris in the postsurgical setting. Past UTIs culture positive for ESBL Klebsiella and clemente quinolone resistant enterococcus Treated with empiric ertapenem by the ED Admit on ertamycin and daptomycin. given hx of extended b-lactam resistance kleb consider conversion to gent if Cr improves Tylenol PRN Bilateral hydro w/ history of urothelial resection - CT: Moderate right greater than left bilateral hydroureteronephrosis with urothelial thickening and delayed right-sided nephrogram. There is increased attenuation of the distal 6 cm of the right ureter which may reflect hemorrhagic debris within the ureter or urothelial malignancy. Chronic wall thickening and hyperenhancement of the urinary bladder with associated perivesicular stranding. -Urology consulted N.p.o. for potential cystoscopy Anticoagulation held for potential procedure UTI tx as above History of remote DVT on anticoagulation Denies leg pain, intermittent pedal edema which improves in the morning without asymmetrical leg swelling Subtherapeutic on admission Warfarin held for potential cystoscopy Hx Left humeral fracture Patient with history of left humeral fracture, treated nonoperatively Acutely worsened pain following fall, although range of motion with guarding is only mildly restricted on external rotation and 5/5 strength Focally tender to palpation over head, greatly increased compared to prior per patient Shoulder x-ray ordered Type 2 diabetes mellitus on insulin Hold SHRUB GROWER anti-glycemics (sitagliptin) Weight-based insulin dosing Glucose checks AC/at bedtime BMP daily Depression/anxiety Continue Lexapro, mirtazapine DVT prophylaxis: Anticoagulation held as noted above. SCDs. Diet: N.p.o. at midnight Disposition: Med/surge CODE STATUS: DNR/DNI, confirmed with patient (2) Proximal humerus fracture: (3) Adhesive capsulitis of shoulder: (4) Alopecia: (5) Ankylosing spondylitis: (6) Arthritis: (7) Peripheral neuropathy: (8) Sacroiliitis: (9) Constipation: (10) History of DVT (deep vein thrombosis): (11) Fracture of neck of humerus: History of Present Illness Chief Complaint: Weakness, foul urine, fall Primary Care Provider: Palak Chiang MD Anabelle is a 73-year-old female with a past medical history of benign tremor, dyslipidemia, osteoarthritis, sacroiliitis, hypertension, DVT on anticoagulation, type 2 diabetes, colon cancer, recent left humeral fracture, and nonmalignant bladder tumor with resection in the past year who presents after progressive weakness leading to a mechanical fall and he was found to be febrile by EMS. Her weakness is thought to be due to UTI with obstructive symptoms as noted below. She reports that over the last couple of weeks she has progressively felt increasingly weak, however her weakness sharply increased 3 to 4 days ago. Her weakness coincides with onset of foul-smelling urine. She denies abdominal and back pain. She had a mechanical fall while walking and was caught by her today and did not hit her head on the ground, but she did hit/twist her shoulder which was noted to have a humeral head fracture treated nonoperatively in July. On EMS arrival she was noted to have a fever to 100.5. On ER evaluation she was found to have bilateral hydronephrosis and urothelial thickening. Patient reports that she had a bladder tumor resection a few months ago which did not return agent airport to be cancer. She also had a urinary infection in July and reports a history of resistant organisms. She has had chills for 1 day. She endorses baseline bladder spasms since her resection, but these seem to have increased in the last few days with polyuria improved somewhat with Azo. No other attempted treatments. She denies chest pain, chest pressure, shortness of breath. She endorses new intermittent swelling in her ankles which is gone in the morning but present at the end of the day. Denies prior heart history. Endorses some baseline dementia/forgetfulness with . Medications: Reviewed Surgical history: Reviewed Medical history: Reviewed Allergies: Reviewed Social: No current tobacco, alcohol, or recreational drug use. Lives with her and daughter. CODE STATUS: DNR/DNI, confirmed with patient and family Allergies Allergy/AdvReac Type Severity Reaction Status Date / Time nitrofurantoin AdvReac Intermediate Abdominal Verified 11/23/19 22:43 [From Macrobid] Pain Home Medications Home Medications Medication Instructions Recorded Confirmed Type cholecalciferol (vitamin D3) 125 5,000 units PO QAM 01/31/18 11/23/19 History mcg (5,000 unit) capsule sitagliptin 100 mg tablet 100 mg PO QAM 01/31/18 11/23/19 History blood sugar diagnostic #10 ea 11/29/18 11/17/19 History lancets 28 gauge #25 ea 11/29/18 11/17/19 History insulin detemir U-100 100 unit/mL 10 unit SUBCUT QAM 01/05/19 11/23/19 History (3 mL) subcutaneous pen escitalopram oxalate 10 mg tablet 10 mg PO QDD 04/03/19 11/23/19 History Probiotic 0 mmu cells PO QDD 05/11/19 11/23/19 History clobetasol 1 applic TOPICAL 5XWK 05/11/19 11/23/19 History Levemir U-100 Insulin 12 unit SUBCUT HS 05/22/19 11/23/19 History benazepril 20 mg PO QAM 07/15/19 11/23/19 History mirtazapine 3.75 mg PO HS 07/15/19 11/23/19 History blood-glucose meter #1 ea 07/26/19 11/17/19 History tamsulosin 0.4 mg capsule 0.4 mg PO DAILY #30 cap 10/13/19 11/23/19 Rx acetaminophen 325 mg tablet 650 mg PO QID PRN tab 10/18/19 11/23/19 History amlodipine 10 mg tablet 5 mg PO DAILY tab 11/01/19 11/23/19 History warfarin 3 mg tablet 1.5 - 3 mg PO DAILY tab 11/17/19 11/23/19 History Past Med/Surg History Medical History (Updated 11/24/19 @ 14:30 by Rex Belcher) Bladder mass Colon cancer Cystitis Depression Depression DVT prophylaxis Essential hypertension History of chemotherapy History of deep vein thrombophlebitis of lower extremity History of diverticulitis History of DVT (deep vein thrombosis) History of nephrolithiasis Lichen sclerosus 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 Metastatic colon cancer to liver Type 2 diabetes mellitus UTI (urinary tract infection) UTI (urinary tract infection) Surgical History History of appendectomy History of colon surgery History of colonoscopy History of hysterectomy History of partial colectomy History of tonsillectomy History of tubal ligation S/P cholecystectomy Status post cardiac surgery inferior vena cava bo filter placement Family History Father Diabetes Coronary heart disease Mother Colorectal cancer Sister Hypertension Diabetes Family/Other Diabetes Hypertension Other Family history non-contributory Social History Smoking Status: Never smoker Second Hand Exposure: No; Hx Alcohol Use: No Hx Substance Use: No Preferred Language: Yakut Communication Ability: Effective Insurance Coder Required: No Beliefs That Will Affect Care: None marital status: Current Living Situation: Spouse Current Living Situation Comment: [facility] current occupational status: retired How many Children do You have: 2 Feels Safe at Home: Yes Review of Systems Review of Systems: All systems reviewed & are unremarkable except as noted in HPI & below Physical Exam Physical Exam: General: Oriented to name, place, and year NAD. Cooperative. HEENT: Atraumatic, normocephalic. Pulls equal and responsive to light and acc ommodation. Pulm: CTAB A&P. -wheezes, -rales, -rhonchi. Symmetrical chest rise. No increase work of breathing. No respiratory distress. Cardiac: RRR, -mrg. Radial pulses intact and symmetrical. Abdominal: Nontender, nondistended, soft. BS present. Extremities: Warm, dry. Trace edema in the ankles bilaterally. PT pulses intact and symmetrical. Ankle dorsiflexion/plantar flexion 5/5 without asym metry. Sensation to soft touch intact in fingertips and toes bilaterally. Right shoulder with normal active/passive range of motion, no pain, 5/5 strength. Left shoulder with slightly restricted external rotation, 5/5 strength to pinsetter mechanic automatic strength, elbow flexion/extension, wrist flexion/extension with some guarding of the rotator cuff during motions, is able to passively flex the arm to 90 degrees. Focally tender to palpation overlying the humeral head. Results & Data Results & Data ([facility]) Vital Signs (Past 12 Hours) Vital Signs Temp Pulse Resp BP Pulse Ox 11/23/19 19:14 36.9 C 77 20 131/90 96 Supervising Physician Co-Signing Physician Notes Attending addendum: I have physically seen this patient, have supervised the medical residents activities, and agree with the H&P unless as otherwise noted. Assessment and Plan: Complicated urinary tract infection/bilateral hydroureteronephrosis/bladder wall thickening/history of urothelial resection- Follow urine culture and sensitivity N.p.o. for potential procedure Placed on daptomycin IV and ertapenem IV, to cover ESBL Klebsiella and fluoroquinolone resistant enterococcus. Hold warfarin. Consult urology. Diabetes mellitus- Hold sitagliptin. Cut dosing of Levemir in half to 5 units subcu every morning and 6 units subcu at bedtime Place on Accu-Cheks before meals and at bedtime with NovoLog coverage per scale Remaining orders and notations as noted Resident Activity Tracking Resident Involvement: Resident Care Provided Care Provided: Adult Hospital Medicine (1) Fracture of neck of humerus Encounter type: initial encounter Fracture type: closed Laterality: left Qualified Code(s): S42.212A - Unspecified displaced fracture of surgical neck of left humerus, initial encounter for closed fracture
[2019-11-23] MEDS ORDERED: DAPTOMYCIN CONSULT ACTIVE PRN (23:28)
[2019-11-23] MEDS ORDERED: POLYETHYLENE (MIRALAX) 17 GM PACK PO PRN (23:28)
[2019-11-23] MEDS: SODIUM CHLORIDE 0.9% 1000ML 1,000 ML IV SCH (23:50)
[2019-11-24] MEDS: DAPTOmycin 225 MG in SYRINGE 0 ML IV SCH (00:39)
[2019-11-24] MEDS ORDERED: GLUCAGON FOR INJ 1 MG VIAL SQ PRN (05:41)
[2019-11-24] MEDS ORDERED: CARBOHYDRATES FOR HYPOGLYCEMIA PO PRN (05:41)
[2019-11-24] MEDS ORDERED: DEXTROSE 50% 50 ML SYRINGE IV PRN (05:41)
[2019-11-24] MEDS ORDERED: GLUCOSE 40% GEL 15 GM TUBE PO PRN (05:41)
[2019-11-24] MEDS ORDERED: GLUCOSE 10 TABS/TUBE PO PRN (05:41)
[2019-11-24] MEDS ORDERED: Nursing to Pharmacy Communication SCH ×2 (06:15→18:45)
[2019-11-24] MEDS: INSULIN ASPART 100 UNITS/ML 3 ML PEN SC SCH ×3 (06:23→18:33)
[2019-11-24] MEDS ORDERED: DiphenhydrAMINE HCL 50 MG/ML VIAL IV ONE (06:30)
[2019-11-24] MEDS ORDERED: LORazepam 0.25 MG/0.5 ML VIAL IV STA (06:31)
--- NOTE | 2019-11-24 06:55 | XRay Report ---
XR shoulder LT min 2V routine CLINICAL HISTORY: Shoulder pain status post trauma COMPARISON: 07/15/2019 DISCUSSION: There is an ununited proximal left humeral fracture versus refracture of a healing proxim al left humeral fracture. There is no dislocation. IMPRESSION: 1. No evidence of dislocation 2. Ununited proximal left humeral fracture versus refracture of a healing proximal left humeral fract ure ACT 112: Negative or not required by law. Electronically signed by: Claudio Caldwell M.D. 11/24/2019 6:54 AM
[2019-11-24] MEDS ORDERED: INSULIN ASPART 100 UNITS/ML 3 ML PEN SC SCH ×3 (07:30→21:00)
[2019-11-24] MEDS: SODIUM CHLORIDE 0.9% 1000ML 1,000 ML IV SCH ×2 (08:12→16:45)
[2019-11-24] MEDS: ACETAMINOPHEN 325 MG TAB PO PRN (08:12)
--- NOTE | 2019-11-24 08:57 | Urology Consultation ---
Date of Consultation November 24, 2019 Assessment & Plan (1) UTI (urinary tract infection): (2) Bilateral hydronephrosis: 73 year-old female patient with multiple comorbidities admitted after fall with complicated urinary tract infection and bilateral hydronephrosis. -Plan of care reviewed with Dr. Olsen. -CT abd/pelvis reviewed, bilateral hydronephrosis, right greater than left, urothelial thickening, and perivesicular stranding - suspect pyelitis/pyelonephritis. -Patient febrile this morning at 38.0. -White count and creatinine improving. -Urine and blood cultures pending, continue IV antibiotics and supportive care. -Will keep NPO for now, if continues to be febrile or acute changes, will likely take to OR for right, possible bilateral stent placement. -Continue to follow while inpatient. Supervising Physician Co-Signing Physician Notes agree with above - pt seen and examined - has improved clinically since this morning - accompanied by her today - mentation improving - answering questions appropriately; now is oriented - afeb since this AM - leukocytosis trending down - no subjective pains Assessment: Infected system with cystitis/pyelitis improving clinically with ivf and abx concern for obstructing lesion within the right distal ureter Plan: cont ivf/abx - supportive management as long as she is improving I feel she needs a repeat cysto, R URS/biopsy - but this cannot likely be achieved with safety until her infection has resolved, so delaying until improvement would be best if she has clinical decompensation, immediate intervention with cysto b/l stent would be reasonable History of Present Illness Reason for Consultation: bilateral hydronephrosis, history of urothelial resection Attending Physician: Christopher Yun DO History of Present Illness 73-year-old female patient, with a past medical history of dyslipidemia, osteoarthritis, hypertension, DVT on anticoagulation, type 2 diabetes, colon cancer, recent left humeral fracture, and nonmalignant bladder tumor with resection on 06/16/19 who presented to hospital after she experienced a mechanical fall and found to be febrile by EMS. Urology was consulted for bilateral hydronephrosis. Patient is known to [facility] urology service. Chart review: Patient febrile this am - 38.0. White count 12.95 (previously 17.44) Hgb 8.7 (previously 9.7) Creatinine 1.43 (previously 1.56) Urinalysis on admission positive for leukocytes, >30 wbc, >30 rbc, negative bacteria. Urine and blood cultures pending. CT abd/pelvis notable for moderate right greater than left bilateral hydroureteronephrosis with urothelial thickening. There is increased attenuation of the distal 6 cm of the right ureter which may reflect hemorrhagic debris within the ureter or urothelial malignancy. Bladder wall thickening evident with associated perivesicular stranding. Patient examined, she does appear disoriented, however did recently receive Ativan and Benadryl prior to assessment. She reports she is not currently experiencing any flank or abdominal pain. Denies dysuria or hematuria. Denies urinary frequency or urgency. She denies fevers or chills overnight. Denies nausea or vomiting. Purewick catheter intact, draining clear yellow urine. Does have baseline incontinence. Overall, she states she is feeling "okay". Denies additional complaints this morning. Allergies Allergy/AdvReac Type Severity Reaction Status Date / Time nitrofurantoin AdvReac Intermediate Abdominal Verified 11/23/19 22:43 [From Macrobid] Pain Home Medications Home Medications Medication Instructions Recorded Confirmed Type cholecalciferol (vitamin D3) 125 5,000 units PO QAM 01/31/18 11/23/19 History mcg (5,000 unit) capsule sitagliptin 100 mg tablet 100 mg PO QAM 01/31/18 11/23/19 History blood sugar diagnostic #10 ea 11/29/18 11/17/19 History lancets 28 gauge #25 ea 11/29/18 11/17/19 History insulin detemir U-100 100 unit/mL 10 unit SUBCUT QAM 01/05/19 11/23/19 History (3 mL) subcutaneous pen escitalopram oxalate 10 mg tablet 10 mg PO QDD 04/03/19 11/23/19 History Probiotic 0 mmu cells PO QDD 05/11/19 11/23/19 History clobetasol 1 applic TOPICAL 5XWK 05/11/19 11/23/19 History Levemir U-100 Insulin 12 unit SUBCUT HS 05/22/19 11/23/19 History benazepril 20 mg PO QAM 07/15/19 11/23/19 History mirtazapine 3.75 mg PO HS 07/15/19 11/23/19 History blood-glucose meter #1 ea 07/26/19 11/17/19 History tamsulosin 0.4 mg capsule 0.4 mg PO DAILY #30 cap 10/13/19 11/23/19 Rx acetaminophen 325 mg tablet 650 mg PO QID PRN tab 10/18/19 11/23/19 History amlodipine 10 mg tablet 5 mg PO DAILY tab 11/01/19 11/23/19 History warfarin 3 mg tablet 1.5 - 3 mg PO DAILY tab 11/17/19 11/23/19 History Patient History Medical History (Updated 11/24/19 @ 14:30 by Rex Belcher) Bladder mass Colon cancer Cystitis Depression Depression DVT prophylaxis Essential hypertension History of chemotherapy History of deep vein thrombophlebitis of lower extremity History of diverticulitis History of DVT (deep vein thrombosis) History of nephrolithiasis Lichen sclerosus 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 Metastatic colon cancer to liver Type 2 diabetes mellitus UTI (urinary tract infection) UTI (urinary tract infection) Surgical History History of appendectomy History of colon surgery History of colonoscopy History of hysterectomy History of partial colectomy History of tonsillectomy History of tubal ligation S/P cholecystectomy Status post cardiac surgery inferior vena cava bo filter placement Family History Father Diabetes Coronary heart disease Mother Colorectal cancer Sister Hypertension Diabetes Family/Other Diabetes Hypertension Other Family history non-contributory Social History Smoking Status: Never smoker Second Hand Exposure: No; Do You Dip or Chew Tobacco: No; Tobacco Cessation Education Requested by Patient: No Hx Alcohol Use: No Hx Substance Use: No Preferred Language: Panamanian Communication Ability: Effective Utility Teller Required: No Beliefs That Will Affect Care: None marital status: Current Living Situation: Spouse Current Living Situation Comment: [facility] current occupational status: retired How many Children do You have: 2 Other Information That Helps Us Care for You: No Feels Safe at Home: Yes Safety Concerns: Feels Safe At This Time Review of Systems Constitutional: as per Subjective / HPI Ear, Nose, Mouth, Throat: no dizziness Respiratory: no cough and no dyspnea Cardiovascular: no chest pain and no edema Gastrointestinal: no nausea and no vomiting Genitourinary: as per Subjective / HPI Musculoskeletal: no problem reported Integumentary: no problem reported Neurologic: as per Subjective / HPI Psychiatric: as per Subjective / HPI Endocrine: no polydipsia and no polyuria Hematologic / Lymphatic: no problem reported Physical Exam Constitutional: well developed and comfortable; no acute distress and not ill appearing Eyes: no eyelid abnormality ENMT: Ears: no external ear abnormality Nose: no external nose abnormality Neck: normal visual inspection and trachea midline Respiratory: normal respiratory effort and able to speak in complete sentences; no respiratory distress and no audible wheezes Cardiovascular: Extremities: no calf tenderness and no edema Gastrointestinal (Abdomen): Inspection/Auscultation: abdomen normal to inspection; abdomen not distended Percussion/Palpation: abdomen soft; abdomen nontender and no guarding Musculoskeletal: Head/Neck/Chest: normocephalic Moves all extremities without difficulty. Skin: No visible rashes, lesions, or wounds noted. Neurologic: moves all extremities and awake Psychiatric: Orientation: alert, oriented to person and cooperative; + not oriented to place and + not oriented to time Affect: euthymic affect Genitourinary: no CVA tenderness Purewick cathter intact, draining clear yellow urine. Results & Data ([facility]) Vital Signs (Past 12 Hours) Vital Signs Temp Pulse Pulse Resp BP BP Pulse Ox 11/24/19 07:15 38.0 C H 68 19 118/68 94 11/23/19 23:20 36.4 C L 65 12 157/67 H 94 11/23/19 23:00 60 22 136/58 L 95 11/23/19 22:30 64 21 137/59 L 93 11/23/19 22:00 67 22 131/55 L 96 11/23/19 21:30 73 22 147/59 H 95 11/23/19 21:00 74 24 135/48 L 92 PG Care Time/CCT Total # of Minutes Spent Total Time Spent with Patient: Total time spent is greater than 50% in coordination of care (as documented) at patient's floor/unit and/or counseling patient: Coding Level of Care Code 92212 Initial Inpt Care Lvl 3 Diagnoses UTI (urinary tract infection) N30.00 Hematuria presence: without hematuria Urinary tract infection type: acute cystitis Bilateral hydronephrosis N13.30 (1) UTI (urinary tract infection) Hematuria presence: without hematuria Urinary tract infection type: acute cystitis Qualified Code(s): N30.00 - Acute cystitis without hematuria
[2019-11-24] MEDS: TAMSULOSIN HCL 0.4 MG CAP PO SCH (09:35)
[2019-11-24] MEDS: AMLODIPINE BESYLATE 5 MG TAB PO SCH (09:36)
[2019-11-24 11:15] LABS: BUN Creatinine Ratio 22.6 (10-20); Calcium 8.9 mg/dl (8.5-10.1); Creatinine Clr Calc Pharmacy 34.4 ml/min; Est GFR (African American) 41.4; Est GFR (Non-African American) 35.7; Potassium 4.4 mmol/L (3.5-5.1)
[2019-11-24 11:21] LABS: Basophils # (auto) 0.03 K/uL (0-0.2); Basophils % (auto) 0.2 %; Eosinophils # (auto) 0.02 K/uL (0-0.5); Eosinophils % (auto) 0.2 %; Hemoglobin 8.7 g/dL (12.0-16.0); Immature Granulocytes # (auto) 0.11 K/uL (0.00-0.02); Immature Granulocytes % (auto) 0.8 %; Lymphocytes # (auto) 0.81 K/uL (1.2-3.4); Lymphocytes % (auto) 6.3 %; Mean Corpuscular Hemoglobin 27.6 pg (25-34); Mean Corpuscular Hgb Conc 32.2 g/dL (32-36); Mean Corpuscular Volume 85.7 fL (80-100); Mean Platelet Volume 9.4 fL (7.4-10.4); Monocytes # (auto) 1.18 K/uL (0.11-0.59); Monocytes % (auto) 9.1 %; Neutrophils % (auto) 83.4 %; Platelet Count 378 K/uL (130-400); RDW Coefficient of Variation 14.6 % (11.5-14.5); RDW Standard Deviation 45.7 fL (36.4-46.3); Red Blood Count 3.15 M/uL (4.2-5.4); White Blood Count 12.95 K/uL (4.8-10.8)
--- NOTE | 2019-11-24 13:17 | XCELERA ---
[id number]
--- NOTE | 2019-11-24 14:39 | Medical Student Progress Note ---
Date of Service November 24, 2019 Assessment & Plan (1) Bilateral hydronephrosis: 1) UTI WBC elevated 17.44 on admission leukocyte esterase + on UA, no bacteria, not clean catch Hx of ESBL E.coli UTI, fluoro resistant enterococcus UTI continue daptomycin due to concern of esbl e.coli continue ertapenem due to concern of fluoro resistant enterococcus will downgrade abx pending results of urine culture and sensitivities 2) bilateral hydroureteronephrosis with urothelial thickening hx of resection of non-malignant bladder mass etiology inflammatory v. CA less concerning for CA given bilateral findings urology consult requested for cystoscopy placed on NPO and warfarin hold waiting for cystoscopy 3) pre-renal azotemia BUN 39, Cr 1.56 maintenance IVF NS 125ml/hr monitor i/o for urine output 4) possible L humerus fx shoulder CXR: ununited fx v. refracture refracture less concerning because fall was caught by , she did not fall directly onto shoulder no shoulder pain likely ununited fx Admission and Anticipated Discharge Date Admission Date: November 23, 2019 Supervising Attestation I personally examined the patient and verified all hairston points of history and exam, discussed case, and agree with decision making with P Im MS3. no real HPI or ROS. d/w dr bailon, input greatly appreciated. vitals ntoed nad heent nc at breathing unlabored no accessory muscles good effort skin no rashes no pallor or icterus UTI/sepsis/ERICA (?on baseline CKD questionable stage 2) and hydronephrosis -treat UTI, sepsis, hydration and follow w anticipated ipmrovement in ERICA - given that hydro does not seem to be from complete obstruction - then cysto once more stable. if Cr doesn't improve/hydro worsens, then will need to revisit cysto sooner otherwise as above Subjective Ms. Arguello is alert and responsive to questions but is only oriented to self. She does not endorse any abdominal pain, no suprapubic fullness. No sob, no c/p. Review of Systems Review of Systems: All systems reviewed & are unremarkable except as noted in Subjective Physical Exam Physical Exam: const: NAD, alert and responsive to questions, only oriented to self abd: non TTP, no suprapubic tenderness to palpation, no CVA tenderness MSK: no shoulder pain TTP Results & Data ([facility]) Vital Signs (Past 12 Hours) Vital Signs Temp Pulse Pulse Resp BP Pulse Ox 11/24/19 12:24 37.1 C 11/24/19 09:35 61 111/60 11/24/19 09:21 37.4 C 11/24/19 07:15 38.0 C H 68 19 118/68 94
--- NOTE | 2019-11-24 14:54 | Electrocardiogram Report ---
Test Reason : Blood Pressure : / mmHG Vent. Rate : 080 BPM Atrial Rate : 080 BPM P-R Int : 152 ms QRS Dur : 098 ms QT Int : 410 ms P-R-T Axes : 028 -35 064 degrees QTc Int : 472 ms Poor data quality, interpretation may be adversely affected Normal sinus rhythm with sinus arrhythmia Left axis deviation Septal infarct (cited on or before 31-JUL-2018) Abnormal ECG When compared with ECG of 11-MAY-2019 19:11, T wave inversion no longer evident in Inferior leads T wave amplitude has increased in Anterolateral leads Confirmed by Dale Meyers ([id number]) on 11/24/2019 2:54:12 PM Referred By: REFERRED SELF Confirmed By:Dale Meyers
[2019-11-24] MEDS: ESCITALOPRAM OXALATE 10 MG TAB PO SCH (16:46)
[2019-11-24] MEDS ORDERED: MELATONIN 3 MG TAB PO PRN (17:40)
[2019-11-24] MEDS ORDERED: POLYETHYLENE (MIRALAX) 17 GM PACK PO PRN (17:40)
--- NOTE | 2019-11-24 19:47 | Billing Data ---
Date of Service November 24, 2019 Coding Level of Care Code 88214 Subseq Hosp Care Lvl 3
[2019-11-24] MEDS: INSULIN GLARGINE SOLOSTAR 100 UNITS/ML 3 ML PEN SC SCH (21:52)
[2019-11-24] MEDS: MIRTAZAPINE TAB 15 MG TAB PO SCH (21:53)
[2019-11-24] MEDS: ERTAPENEM SODIUM 1,000 MG in SODIUM CHLORIDE 0.9% 50 ML IV SCH (22:28)
[2019-11-25] MEDS: DAPTOmycin 225 MG in SYRINGE 0 ML IV SCH ×2 (00:01→23:33)
[2019-11-25] MEDS: SODIUM CHLORIDE 0.9% 1000ML 1,000 ML IV SCH ×3 (01:37→17:41)
[2019-11-25] MEDS ORDERED: Nursing to Pharmacy Communication SCH ×2 (02:00→10:30)
--- NOTE | 2019-11-25 04:33 | Billing Data ---
Date of Service November 25, 2019 Coding Level of Care Code 87830 Initial Inpt Care Lvl 3
[2019-11-25] MEDS: INSULIN ASPART 100 UNITS/ML 3 ML PEN SC SCH ×5 (06:04→21:31)
[2019-11-25 09:14] LABS: Basophils # (auto) 0.05 K/uL (0-0.2); Basophils % (auto) 0.5 %; Eosinophils # (auto) 0.36 K/uL (0-0.5); Eosinophils % (auto) 3.6 %; Hematocrit (blood only) 27.9 % (37-47); Hemoglobin 8.8 g/dL (12.0-16.0); Lymphocytes # (auto) 1.52 K/uL (1.2-3.4); Lymphocytes % (auto) 15.1 %; Mean Corpuscular Hemoglobin 27.8 pg (25-34); Mean Corpuscular Hgb Conc 31.5 g/dL (32-36); Mean Corpuscular Volume 88.3 fL (80-100); Mean Platelet Volume 9.1 fL (7.4-10.4); Monocytes # (auto) 1.52 K/uL (0.11-0.59); Monocytes % (auto) 15.1 %; Neutrophils # (auto) 6.52 K/uL (1.4-6.5); Neutrophils % (auto) 64.7 %; Platelet Count 341 K/uL (130-400); RDW Coefficient of Variation 14.6 % (11.5-14.5); RDW Standard Deviation 47.5 fL (36.4-46.3); Red Blood Count 3.16 M/uL (4.2-5.4); White Blood Count 10.07 K/uL (4.8-10.8)
--- NOTE | 2019-11-25 09:25 | Urology Progress Note ---
Date of Service November 25, 2019 Assessment & Plan (1) Bilateral hydronephrosis: UTI Subjectively improved, objectively improving Continue conservative management with antibiotics, IV fluids Shoulder imaging shows a proximal humeral fracture No plans for interventions unless clinical condition acutely worsens Admission and Anticipated Discharge Date Admission Date: November 23, 2019 Subjective No major issues overnight She reports she had a good night of sleep and is pain-free this morning No fevers, no chills, no rigors Leukocytosis improving Creatinine pending Denies dysuria Physical Exam Physical Exam: Comfortable appearing Appropriately interactive, well oriented this morning Constitutional: well developed and well nourished Respiratory: no respiratory distress Cardiovascular: Extremities: no pedal edema Gastrointestinal (Abdomen): Inspection/Auscultation: abdomen normal to insp ection Results & Data ([facility]) Vital Signs (Past 12 Hours) Vital Signs Temp Pulse Resp BP Pulse Ox 11/25/19 08:22 36.9 C 57 L 16 148/61 H 92 11/25/19 00:20 37.2 C 71 15 146/71 H 94 PG Care Time/CCT Total # of Minutes Spent Total Time Spent with Patient: Total time spent is greater than 50% in coordination of care (as documented) at patient's floor/unit and/or counseling patient: Coding Level of Care Code 11765 Subseq Hosp Care Lvl 2 Diagnoses Bilateral hydronephrosis N13.30
[2019-11-25 09:28] LABS: Est GFR (African American) 51.2; Potassium 3.8 mmol/L (3.5-5.1)
[2019-11-25 09:29] LABS: BUN Creatinine Ratio 20.5 (10-20); Calcium 8.7 mg/dl (8.5-10.1); Est GFR (Non-African American) 44.2; Magnesium 1.8 mg/dl (1.8-2.4)
[2019-11-25] MEDS: TAMSULOSIN HCL 0.4 MG CAP PO SCH (09:57)
[2019-11-25] MEDS: AMLODIPINE BESYLATE 5 MG TAB PO SCH (10:00)
[2019-11-25] MEDS: INSULIN GLARGINE SOLOSTAR 100 UNITS/ML 3 ML PEN SC SCH ×2 (10:03→21:31)
--- NOTE | 2019-11-25 13:17 | Hospitalist Progress Note ---
Date of Service November 25, 2019 Assessment & Plan (1) UTI (urinary tract infection): Anabelle is a 73-year-old female with a past medical history of benign tremor, dyslipidemia, osteoarthritis, sacroiliitis, hypertension, DVT on anticoagulation, type 2 diabetes, colon cancer, recent left humeral fracture, and nonmalignant bladder tumor with resection in the past year who presents after progressive weakness leading to a mechanical fall and he was found to be febrile by EMS. Her weakness is thought to be due to UTI with obstructive symptoms as noted below. Urinary tract infection -CT shows bilateral right greater than left hydro-and urothelial thickening with a delayed right urogram, in addition to potentially hemorrhagic debris in the postsurgical setting. Past UTIs culture positive for ESBL Klebsiella and clemente quinolone resistant enterococcus Treated with empiric ertapenem by the ED Admit on ertamycin and daptomycin. given hx of extended b-lactam resistance kleb consider conversion to gent if Cr improves Tylenol PRN Bilateral hydro w/ history of urothelial resection -CT: Moderate right greater than left bilateral hydroureteronephrosis with urothelial thickening and delayed right-sided nephrogram. There is increased attenuation of the distal 6 cm of the right ureter which may reflect hemorrhagic debris within the ureter or urothelial malignancy. Chronic wall thickening and hyperenhancement of the urinary bladder with associated perivesicular stranding. -Urology consult: holding off on cystoscopy until infection resolves Remote history of DVT on anticoagulation Denies leg pain, intermittent pedal edema which improves in the morning without asymmetrical leg swelling Subtherapeutic on admission Restarting warfarin because cystoscopy is being delayed until infection clears Left humeral fracture Patient with history of left humeral fracture, treated nonoperatively Acutely worsened pain following fall, although range of motion with guarding is only mildly restricted on external rotation and 5/5 strength Focally tender to palpation over head, greatly increased compared to prior per patient Shoulder x-ray shows new fracture vs recurrent fracture; ortho unable to be consulted over the weekend Type 2 diabetes mellitus on insulin 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 (sitagliptin) Weight-based insulin dosing Glucose checks AC/at bedtime BMP daily Depression/anxiety Continue Lexapro, mirtazapine DVT prophylaxis: warfarin Diet: diabetic diet Disposition: Med/sure Code status: DNR/DNI, confirmed with patient (2) Proximal humerus fracture: (3) Adhesive capsulitis of shoulder: (4) Alopecia: (5) Ankylosing spondylitis: (6) Arthritis: (7) Peripheral neuropathy: (8) Sacroiliitis: (9) Constipation: (10) History of DVT (deep vein thrombosis): (11) Fracture of neck of humerus: Admission and Anticipated Discharge Date Admission Date: November 23, 2019 Subjective No major issues overnight. Patient reports another good night of sleep and is pain-free this morning. Patient denies fever, chills, or other symptoms at this time. Per urology, they would like to wait until patient's infection is resolved before proceeding with cystoscopy. Review of Systems Constitutional: no fever, no chills and no sweats Respiratory: no cough and no wheezing Cardiovascular: no chest pain and no palpitations Gastrointestinal: no nausea and no vomiting Physical Exam Constitutional: WD/WN, vitals as above Respiratory: normal respiratory effort, lungs clear to auscultation Cardiovascular: RRR, no murmur, no edema Gastrointestinal (Abdomen): Inspection/Auscultation: normal bowel sounds Percussion/Palpation: + abdomen tender (mild tenderness to palpation) and abdomen soft; no hepatosplenomegaly Results & Data Results & Data ([facility]) Vital Signs (Past 12 Hours) Vital Signs Temp Pulse Resp BP Pulse Ox 11/25/19 10:00 144/70 H 11/25/19 08:22 36.9 C 57 L 16 148/61 H 92 Resident Activity Tracking Resident Involvement: Resident Care Provided Care Provided: Adult Hospital Medicine (1) UTI (urinary tract infection) Hematuria presence: without hematuria Urinary tract infection type: acute cystitis Qualified Code(s): N30.00 - Acute cystitis without hematuria (2) Fracture of neck of humerus Encounter type: initial encounter Fracture type: closed Laterality: left Qualified Code(s): S42.212A - Unspecified displaced fracture of surgical neck of left humerus, initial encounter for closed fracture
[2019-11-25] MEDS: ENOXAPARIN 80 MG/0.8 ML SYR SQ SCH ×2 (15:06→23:34)
[2019-11-25] MEDS ORDERED: WARFARIN SOD 3 MG TAB PO SCH (16:00)
[2019-11-25] MEDS: ACETAMINOPHEN 325 MG TAB PO PRN (17:44)
[2019-11-25] MEDS: ESCITALOPRAM OXALATE 10 MG TAB PO SCH (17:44)
--- NOTE | 2019-11-25 19:37 | Billing Data ---
Date of Service November 25, 2019 Coding Level of Care Code 65304 Subseq Hosp Care Lvl 3
[2019-11-25] MEDS: ERTAPENEM SODIUM 1,000 MG in SODIUM CHLORIDE 0.9% 50 ML IV SCH (21:30)
[2019-11-25] MEDS: MIRTAZAPINE TAB 15 MG TAB PO SCH (21:32)
[2019-11-26] MEDS: SODIUM CHLORIDE 0.9% 1000ML 1,000 ML IV SCH ×2 (02:14→09:50)
[2019-11-26 06:35] LABS: INR 1.4 (0.9-1.1); Prothrombin Time 14.3 Seconds (9.0-12.0)
[2019-11-26 07:02] LABS: BUN Creatinine Ratio 20.2 (10-20); Calcium 8.5 mg/dl (8.5-10.1); Est GFR (African American) 58.8; Est GFR (Non-African American) 50.7; Potassium 3.9 mmol/L (3.5-5.1)
[2019-11-26] MEDS: ENOXAPARIN 80 MG/0.8 ML SYR SQ SCH ×2 (09:42→20:49)
[2019-11-26] MEDS: TAMSULOSIN HCL 0.4 MG CAP PO SCH (09:42)
[2019-11-26] MEDS: AMLODIPINE BESYLATE 5 MG TAB PO SCH (09:42)
[2019-11-26] MEDS: INSULIN GLARGINE SOLOSTAR 100 UNITS/ML 3 ML PEN SC SCH ×2 (09:46→21:50)
[2019-11-26] MEDS: INSULIN ASPART 100 UNITS/ML 3 ML PEN SC SCH ×4 (09:47→21:51)
[2019-11-26] MEDS: SODIUM CHLOR 0.45% + 20MEQ KCL 20 MEQ/1,000 ML BAG IV SCH ×2 (09:50→21:54)
--- NOTE | 2019-11-26 10:32 | Urology Progress Note ---
Date of Service November 26, 2019 Assessment & Plan (1) Bilateral hydronephrosis: (2) UTI (urinary tract infection): Clinically improved Mentation much better Afebrile Labs improved, renal function better Culture showing yeast which I suspect may be a contaminant and may be masking the true bacterial pathogen I would recommend continued empiric antibiotic coverage for several days as her initial imaging appears consistent with gross infection of the bladder and both the upper tracts Plan for outpatient follow-up and completion of work-up Admission and Anticipated Discharge Date Admission Date: November 23, 2019 Subjective Continues to improve clinically She appears to be much mentally sharper today She denies any pain on left or right flanks, no suprapubic pain Some leakage of urine Overall, feels that she is much better than she was previously Urine culture growing yeast, no bacterial pathogens identified Creatinine continues to improve1.0 (baseline 0.88) Review of Systems Review of Systems: All systems reviewed & are unremarkable except as noted in HPI & below Physical Exam Constitutional: well developed and well nourished Respiratory: no respiratory distress Cardiovascular: Extremities: no pedal edema Gastrointestinal (Abdomen): Inspection/Auscultation: abdomen normal to inspection Results & Data ([facility]) Vital Signs (Past 12 Hours) Vital Signs Temp Pulse Resp BP Pulse Ox 11/26/19 09:41 63 153/54 H 11/26/19 06:30 36.8 C 65 15 157/72 H 97 11/25/19 23:53 36.7 C 54 L 16 154/68 H 95 PG Care Time/CCT Total # of Minutes Spent Total Time Spent with Patient: Total time spent is greater than 50% in coordination of care (as documented) at patient's floor/unit and/or counseling patient: Coding Level of Care Code 02382 Subseq Hosp Care Lvl 2 Diagnoses Bilateral hydronephrosis N13.30 UTI (urinary tract infection) N30.00 Hematuria presence: without hematuria Urinary tract infection type: acute cystitis (1) UTI (urinary tract infection) Hematuria presence: without hematuria Urinary tract infection type: acute cystitis Qualified Code(s): N30.00 - Acute cystitis without hematuria
[2019-11-26] MEDS: ESCITALOPRAM OXALATE 10 MG TAB PO SCH (17:22)
[2019-11-26] MEDS: ACETAMINOPHEN 325 MG TAB PO PRN (17:22)
--- NOTE | 2019-11-26 18:45 | Hospitalist Progress Note ---
Date of Service November 26, 2019 Assessment & Plan (1) UTI (urinary tract infection): Anabelle is a 73-year-old female with a past medical history of benign tremor, dyslipidemia, osteoarthritis, sacroiliitis, hypertension, DVT on anticoagulation, type 2 diabetes, colon cancer, recent left humeral fracture, and nonmalignant bladder tumor with resection in the past year who presents after progressive weakness leading to a mechanical fall and he was found to be febrile by EMS. Her weakness is thought to be due to UTI with obstructive symptoms as noted below. Urinary tract infection -CT shows bilateral right greater than left hydro-and urothelial thickening with a delayed right urogram, in addition to potentially hemorrhagic debris in the postsurgical setting past UTI's culture positive for ESBL Klebsiella and floraquinolone-resistant Enterococcus d/c daptomycin -c/w ertapenem 1mg/NaCl 60mL @ 100mL/hr IV q24hr c/w tylenol 650mg PO prn Bilateral hydro w/ history of urothelial resection -CT: moderate right greater than left bilateral hydroureteronephrosis with urothelial thickening and delayed right-sided nephrogram. There is increased attenuation of the distal 6 cm of the right ureter which may reflect hemorrhagic debris within the ureter or urothelial malignancy. Chronic wall thickening and hyperenhancement of the urinary bladder with associated perivesicular stranding. -urology consult: holding off on cystoscopy until infection resolves Remote history of DVT on anticoagulation subtherapeutic on admission c/w lovenox 70mg q12hr -not treating with home warfarin due to difficulty reversing anticoagulation in the setting of upcoming cystoscopy Left humeral fracture patient with history of left humeral fracture, treated nonoperatively acutely worsened pain following fall, although range of motion with guarding is only mildly restricted on external rotation and 5/5 strength focally tender to palpation over head, greatly increased compared to prior per patient shoulder x-ray shows new fracture vs recurrent fracture; ortho unable to be consulted over the weekend Type 2 diabetes mellitus on insulin 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 (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) weight-based insulin dosing glucose checks qac and qhs BMP daily Depression, anxiety continue lexapro, mirtazapine DVT prophylaxis: lovenox 70mg subq qd Diet: diabetic diet Disposition: med/surg Code status: DNR/DNI (2) Proximal humerus fracture: (3) Adhesive capsulitis of shoulder: (4) Alopecia: (5) Ankylosing spondylitis: (6) Arthritis: (7) Peripheral neuropathy: (8) Sacroiliitis: (9) Constipation: (10) History of DVT (deep vein thrombosis): (11) Fracture of neck of humerus: Admission and Anticipated Discharge Date Admission Date: November 23, 2019 Supervising Physician Co-Signing Physician Notes I personally examined the patient and verified all hairston points of history and exam, discussed case, and agree with decision making with Dr Aleman feeling better, no new complaints. d/w urology input appreciated vitals noted nad heent nc at mmm breathing unlabored no accessory muscles good effort skin no rashes no pallor or icterus UTI/sepsis/ERICA (?on baseline CKD questionable stage 2) and hydronephrosis -treating UTI, sepsis, hydration and she is showing improvement- yeast likely is contaminant but may have overgrown precluding ability to have clear picture of what caused current infection. (highly doubt was yeast since she got better without yeast treatment, and yeast usually unlikely to be invasive infection in most cases). scope in more distant future per urology humerus fracture -appears to be same as in August - Xray appears similar as well - without much pain and no new pain highly doubt new fracture. can use sling for comfort, but with nonhealing/poor healing may need ortho involvement - obviously not emergent, and will need to remedy these issues first. (close outpt f/u) otherwise as above Subjective No issues overnight. Patient is pain-free this morning and feels "great". Patient denies fever, chills, or other symptoms at this time. Patient continues to improve clinically day by day. Review of Systems Constitutional: no fever, no chills, no sweats and no fatigue Respiratory: no cough, no dyspnea and no wheezing Cardiovascular: no chest pain, no radiating jaw, neck or arm pain and no palpitations Gastrointestinal: no abdominal pain, no nausea, no vomiting, no constipation and no diarrhea/loose stools Physical Exam Constitutional: WD/WN, vitals as above Respiratory: normal respiratory effort, lungs clear to auscultation Cardiovascular: RRR, no murmur, no edema Gastrointestinal (Abdomen): Inspection/Auscultation: normal bowel sounds Percussion/Palpation: + abdomen tender (mild tenderness to palpation) and abdomen soft; no hepatosplenomegaly Results & Data Results & Data ([facility]) Vital Signs (Past 12 Hours) Vital Signs Temp Pulse Resp BP Pulse Ox 11/26/19 15:27 36.7 C 67 16 158/70 H 97 11/26/19 09:41 63 153/54 H Resident Activity Tracking Resident Involvement: Resident Care Provided Care Provided: Adult Hospital Medicine (1) UTI (urinary tract infection) Hematuria presence: without hematuria Urinary tract infection type: acute cystitis Qualified Code(s): N30.00 - Acute cystitis without hematuria (2) Fracture of neck of humerus Encounter type: initial encounter Fracture type: closed Laterality: left Qualified Code(s): S42.212A - Unspecified displaced fracture of surgical neck of left humerus, initial encounter for closed fracture
--- NOTE | 2019-11-26 20:09 | Billing Data ---
Date of Service November 26, 2019 Coding Level of Care Code 71591 Subseq Hosp Care Lvl 3
[2019-11-26] MEDS: ERTAPENEM SODIUM 1,000 MG in SODIUM CHLORIDE 0.9% 50 ML IV SCH (20:44)
[2019-11-26] MEDS: MIRTAZAPINE TAB 15 MG TAB PO SCH (20:53)
[2019-11-27 06:36] LABS: INR 1.3 (0.9-1.1); Prothrombin Time 13.3 Seconds (9.0-12.0)
[2019-11-27] MEDS: AMLODIPINE BESYLATE 5 MG TAB PO SCH (08:04)
[2019-11-27] MEDS: INSULIN GLARGINE SOLOSTAR 100 UNITS/ML 3 ML PEN SC SCH ×2 (09:46→21:08)
[2019-11-27] MEDS: INSULIN ASPART 100 UNITS/ML 3 ML PEN SC SCH ×4 (09:47→21:07)
[2019-11-27] MEDS: ENOXAPARIN 80 MG/0.8 ML SYR SQ SCH ×2 (09:49→21:09)
[2019-11-27] MEDS: TAMSULOSIN HCL 0.4 MG CAP PO SCH (09:49)
[2019-11-27] MEDS: SODIUM CHLOR 0.45% + 20MEQ KCL 20 MEQ/1,000 ML BAG IV SCH (12:01)
[2019-11-27] MEDS ORDERED: WARFARIN SOD 1 MG TAB PO SCH (16:00)
[2019-11-27] MEDS ORDERED: WARFARIN SOD 0.5 MG TAB PO SCH (16:00)
[2019-11-27] MEDS: ESCITALOPRAM OXALATE 10 MG TAB PO SCH (16:44)
--- NOTE | 2019-11-27 17:13 | Hospitalist Progress Note ---
Date of Service November 27, 2019 Assessment & Plan (1) UTI (urinary tract infection): Anabelle is a 73-year-old female with a past medical history of benign tremor, dyslipidemia, osteoarthritis, sacroiliitis, hypertension, DVT on anticoagulation, type 2 diabetes, colon cancer, recent left humeral fracture, and nonmalignant bladder tumor with resection in the past year who presents after progressive weakness leading to a mechanical fall and he was found to be febrile by EMS. Her weakness is thought to be due to UTI with obstructive symptoms as noted below. Urinary tract infection - CT shows bilateral right greater than left hydro-and urothelial thickening with a delayed right urogram, in addition to potentially hemorrhagic debris in the postsurgical setting past UTI's culture positive for ESBL Klebsiella and floraquinolone- resistant Enterococcus - c/w ertapenem 1mg/NaCl 60mL @ 100mL/hr IV q24hr c/w tylenol 650mg PO prn - F/U PT/OT consult recommendations for post-discharge needs Bilateral hydro w/ history of urothelial resection -CT: moderate right greater than left bilateral hydroureteronephrosis with urothelial thickening and delayed right-sided nephrogram. There is increased attenuation of the distal 6 cm of the right ureter which may reflect hemorrhagic debris within the ureter or urothelial malignancy. Chronic wall thickening and hyperenhancement of the urinary bladder with associated perivesicular stranding. - urology consult: cystoscopy will be done on outpatient basis Remote history of DVT on anticoagulation subtherapeutic on admission c/w lovenox 70mg q12hr Left humeral fracture patient with history of left humeral fracture, treated nonoperatively acutely worsened pain following fall, although range of motion with guarding is only mildly restricted on external rotation and 5/5 strength focally tender to palpation over head, greatly increased compared to prior per patient shoulder x-ray shows new fracture vs recurrent fracture - Can follow-up with ortho in office--no concern for acute surgical needs Type 2 diabetes mellitus on insulin 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 (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) weight-based insulin dosing glucose checks qac and qhs BMP daily Depression, anxiety continue lexapro, mirtazapine DVT prophylaxis: lovenox 70mg subq qd Diet: diabetic diet Disposition: med/surg Code status: DNR/DNI (2) Proximal humerus fracture: (3) Adhesive capsulitis of shoulder: (4) Alopecia: (5) Ankylosing spondylitis: (6) Arthritis: (7) Peripheral neuropathy: (8) Sacroiliitis: (9) Constipation: (10) History of DVT (deep vein thrombosis): (11) Fracture of neck of humerus: Admission and Anticipated Discharge Date Admission Date: November 23, 2019 Subjective Today the patient reports feeling better. She does have some pain in her left upper arm and has been laying in bed leaning away from it to protect it. The patient and her family think given her current weakness and difficulty ambulating it will be difficult to properly care for her at home. They would appreciate evaluation for physical therapy and possibly some help with care. She denies any further symptoms. No fever, chills, CP, palpitations, SOB, cough, nausea, vomiting, abdominal pain. Review of Systems Constitutional: + weakness; no fever, no chills and no sweats Respiratory: no cough, no chest congestion, no dyspnea and no wheezing Cardiovascular: no chest pain, no dyspnea, no palpitations, no lightheadedness and no edema Genitourinary: no dysuria, no difficulty urinating, no urinary urgency and no flank pain Physical Exam Constitutional: WD/WN, vitals as above no acute distress Patient in bed leaning away from affected arm (left) Respiratory: no respiratory distress, no retractions and does not use accessory muscles Auscultation: + crackles (crackles at bases) Cardiovascular: RRR, no murmur, no edema Heart Sounds: normal S1 and normal S2 Musculoskeletal: Pain on palpation of LUE in shoulder area Results & Data Results & Data ([facility]) Vital Signs (Past 12 Hours) Vital Signs Temp Pulse Resp BP BP Pulse Ox 11/27/19 15:58 36.7 C 67 16 155/72 H 97 11/27/19 09:55 64 139/67 11/27/19 08:00 36.5 C 60 18 186/67 H 91 Resident Activity Tracking Resident Involvement: Resident Care Provided Care Provided: Adult Hospital Medicine (1) UTI (urinary tract infection) Hematuria presence: without hematuria Urinary tract infection type: acute cystitis Qualified Code(s): N30.00 - Acute cystitis without hematuria (2) Fracture of neck of humerus Encounter type: initial encounter Fracture type: closed Laterality: left Qualified Code(s): S42.212A - Unspecified displaced fracture of surgical neck of left humerus, initial encounter for closed fracture
[2019-11-27] MEDS ORDERED: FUROSEMIDE 20 MG in SYRINGE 0 ML IV ONE (17:30)
[2019-11-27] MEDS: MIRTAZAPINE TAB 15 MG TAB PO SCH (21:10)
[2019-11-27] MEDS: ERTAPENEM SODIUM 1,000 MG in SODIUM CHLORIDE 0.9% 50 ML IV SCH (21:11)
[2019-11-28] MEDS: SODIUM CHLOR 0.45% + 20MEQ KCL 20 MEQ/1,000 ML BAG IV SCH (02:37)
--- NOTE | 2019-11-28 08:52 | Urology Progress Note ---
Date of Service November 28, 2019 Assessment & Plan (1) Bilateral hydronephrosis: (2) UTI (urinary tract infection): 73 year-old female patient with multiple comorbidities admitted after fall with complicated urinary tract infection and bilateral hydronephrosis. -Remains afebrile. -White count has returned to normal, improvement in renal function. -Continue empiric antibiotic coverage for several days as initial imaging appears consistent with gross infection of bladder and upper tracts. -As she is clinically progressing, no acute surgical intervention warranted at this time. -Plan for patient to follow-up outpatient with urology service to repeat imaging and complete workup. Thank you for allowing us to participate in the acute care of Mrs Arguello. Please reconsult us with additional questions, concerns or changes in patient status. Subjective Patient alert, oriented, answers questions appropriately. She reports she slept well overnight. Does continue to have some left upper arm pain. Denies difficulty with urination, purewick catheter in place. Denies dysuria or hematuria. Denies abdominal or suprapubic pain. No flank pain. No fevers or chills overnight. No nausea or vomiting, tolerating diet. Plans for PT/OT today. Chart review: Afebrile White count 11/24 10.07 (17.44 on admission). Creatinine 11/25 1.07 (1.56 on admission). Urine culture with yeast, not candidate albicans. Preliminary blood cultures no growth after 48 hours. Currently on IV Ertapenem Denies additional urologic concerns today. Review of Systems Constitutional: no fever and no chills Gastrointestinal: no nausea and no vomiting Genitourinary: as per Subjective / HPI Musculoskeletal: as per Subjective / HPI Neurologic: as per Subjective / HPI Physical Exam Constitutional: well nourished and comfortable; no acute distress and not ill appearing Respiratory: normal respiratory effort and able to speak in complete sentences; no respiratory distress and no audible wheezes Gastrointestinal (Abdomen): Inspection/Auscultation: abdomen normal to inspection; abdomen not distended Percussion/Palpation: abdomen soft; abdomen nontender and no guarding Psychiatric: Orientation: alert, oriented x 3 and cooperative Affect: euthymic affect Genitourinary: no CVA tenderness Purewick catheter draining cloudy yellow urine. Results & Data ([facility]) Vital Signs (Past 12 Hours) Vital Signs Temp Pulse Resp BP Pulse Ox 11/28/19 07:34 36.4 C L 68 16 157/69 H 95 11/27/19 23:01 36.5 C 64 18 188/74 H 96 PG Care Time/CCT Total # of Minutes Spent Total Time Spent with Patient: Total time spent is greater than 50% in coordination of care (as documented) at patient's floor/unit and/or counseling patient: Coding Level of Care Code 48208 Subseq Hosp Care Lvl 2 Diagnoses Bilateral hydronephrosis N13.30 UTI (urinary tract infection) N30.00 Hematuria presence: without hematuria Urinary tract infection type: acute cystitis (1) UTI (urinary tract infection) Hematuria presence: without hematuria Urinary tract infection type: acute cystitis Qualified Code(s): N30.00 - Acute cystitis without hematuria
[2019-11-28] MEDS: AMLODIPINE BESYLATE 5 MG TAB PO SCH (09:45)
[2019-11-28] MEDS: TAMSULOSIN HCL 0.4 MG CAP PO SCH (09:45)
[2019-11-28] MEDS: INSULIN GLARGINE SOLOSTAR 100 UNITS/ML 3 ML PEN SC SCH ×2 (09:49→21:27)
[2019-11-28] MEDS: INSULIN ASPART 100 UNITS/ML 3 ML PEN SC SCH ×4 (09:50→21:27)
[2019-11-28] MEDS: ENOXAPARIN 80 MG/0.8 ML SYR SQ SCH ×2 (09:56→21:27)
[2019-11-28 11:25] LABS: Hematocrit (blood only) 28.1 % (37-47); Mean Corpuscular Hemoglobin 27.2 pg (25-34); Mean Corpuscular Volume 84.9 fL (80-100); Mean Platelet Volume 8.7 fL (7.4-10.4); Platelet Count 318 K/uL (130-400); RDW Coefficient of Variation 14.2 % (11.5-14.5); RDW Standard Deviation 43.9 fL (36.4-46.3); Red Blood Count 3.31 M/uL (4.2-5.4); White Blood Count 9.88 K/uL (4.8-10.8)
[2019-11-28 11:42] LABS: Est GFR (African American) 49.7; Est GFR (Non-African American) 42.9
[2019-11-28 11:53] LABS: INR 1.1 (0.9-1.1); Prothrombin Time 11.9 Seconds (9.0-12.0)
--- NOTE | 2019-11-28 14:27 | Hospitalist Progress Note ---
Date of Service November 28, 2019 Assessment & Plan (1) UTI (urinary tract infection): Anabelle is a 73-year-old female with a past medical history of benign tremor, dyslipidemia, osteoarthritis, sacroiliitis, hypertension, DVT on anticoagulation, type 2 diabetes, colon cancer, recent left humeral fracture, and nonmalignant bladder tumor with resection in the past year who presents after progressive weakness leading to a mechanical fall and he was found to be febrile by EMS. Her weakness initially thought to be due to UTI with obstructive symptoms but urine cultures came back negative. Weakness - likely deconditioning. - Urine culture, blood culture negative. - d/c abx. - PT/OT - rehab placement. Bilateral hydro w/ history of urothelial resection - CT shows bilateral right greater than left hydro-and urothelial thickening with a delayed right urogram, in addition to potentially hemorrhagic debris in the postsurgical setting - urology consult: cystoscopy will be done on outpatient basis - on tamsulosin at home - continue Remote history of DVT on anticoagulation subtherapeutic on admission was put on lovenox 70mg q12hr for possible cystoscopy- will switch to home warfarin. Left humeral fracture patient with history of left humeral fracture, treated nonoperatively acutely worsened pain following fall, although range of motion with guarding is only mildly restricted on external rotation and 5/5 strength focally tender to palpation over head, greatly increased compared to prior per patient shoulder x-ray shows new fracture vs recurrent fracture - Can follow-up with ortho in office--no concern for acute surgical needs Type 2 diabetes mellitus on insulin hold MAG[employer] T[employer] W[employer]ER antiglycemics (sitagliptin) weight-based insulin dosing glucose checks qac and qhs BMP daily Depression, anxiety continue lexapro, mirtazapine DVT prophylaxis: lovenox 70mg subq qd - switching back to warfarin Diet: diabetic diet Disposition: med/surg; PT/OT recommend inpt rehab/SNF; Case management finding placement Code status: DNR/DNI (2) Bilateral hydronephrosis: (3) History of DVT (deep vein thrombosis): (4) Fracture of neck of humerus: (5) Type 2 diabetes mellitus: (6) Depression: (7) Fall: Admission and Anticipated Discharge Date Admission Date: 11/23/2019 Supervising Physician Co-Signing Physician Notes Resident Physician Supervision Note: I independently interviewed and examined the patient and verified the hairston history and physical, reviewed labs and image studies, discussed the case with the resident Dr. Israel and agree with the findings and care plan. Subjective Patient feeling generally well today. She and her family are concerned about her current functional status/weakness and their ability to properly care for her in this situation. Left arm still mildly painful, but patient is comfortable. No new complaints today. Denies fever, chills, CP, palpitations, cough, SOB, nausea, vomiting, diarrhea. Review of Systems Constitutional: no fever, no chills, no sweats and no fatigue Respiratory: no cough, no dyspnea and no wheezing Cardiovascular: no chest pain, no palpitations and no calf pain Gastrointestinal: no abdominal pain, no nausea, no vomiting and no diarrhea/loose stools Physical Exam Constitutional: WD/WN, vitals as above no acute distress Respiratory: no respiratory distress, no retractions and does not use accessory muscles Auscultation: no crackles Cardiovascular: RRR, no murmur, no edema Heart Sounds: normal S1 and normal S2 Results & Data Results & Data ([facility]) Vital Signs (Past 12 Hours) Vital Signs Temp Pulse Resp BP Pulse Ox 11/28/19 07:34 36.4 C L 68 16 157/69 H 95 Resident Activity Tracking Resident Involvement: Resident Care Provided Care Provided: Adult Hospital Medicine (1) UTI (urinary tract infection) Hematuria presence: with hematuria Urinary tract infection type: acute cystitis Qualified Code(s): N30.01 - Acute cystitis with hematuria (2) Fracture of neck of humerus Encounter type: initial encounter Fracture type: closed Laterality: left Qualified Code(s): S42.212A - Unspecified displaced fracture of surgical neck of left humerus, initial encounter for closed fracture (3) Fall Encounter type: initial encounter Qualified Code(s): W19.XXXA - Unspecified fall, initial encounter
[2019-11-28] MEDS: ESCITALOPRAM OXALATE 10 MG TAB PO SCH (18:12)
[2019-11-28] MEDS: MIRTAZAPINE TAB 15 MG TAB PO SCH (21:28)
[2019-11-29 07:03] LABS: BUN Creatinine Ratio 17.3 (10-20); Calcium 9.7 mg/dl (8.5-10.1); Creatinine Clr Calc Pharmacy 39.4 ml/min; Est GFR (African American) 48.7
--- NOTE | 2019-11-29 07:07 | Hospitalist Progress Note ---
Date of Service November 29, 2019 Assessment & Plan (1) UTI (urinary tract infection): Anabelle is a 73-year-old female with a past medical history of benign tremor, dyslipidemia, osteoarthritis, sacroiliitis, hypertension, DVT on anticoagulation, type 2 diabetes, colon cancer, recent left humeral fracture, and nonmalignant bladder tumor with resection in the past year who presents after progressive weakness leading to a mechanical fall and he was found to be febrile by EMS. Her weakness initially thought to be due to UTI with obstructive symptoms but urine cultures came back negative. Weakness - likely deconditioning. - Urine culture, blood culture negative. - d/dona abx. - PT/OT - rehab placement. Bilateral hydro w/ history of urothelial resection - CT shows bilateral right greater than left hydro-and urothelial thickening with a delayed right urogram, in addition to potentially hemorrhagic debris in the postsurgical setting - urology consult: cystoscopy will be done on outpatient basis - on tamsulosin at home - continue Remote history of DVT on anticoagulation subtherapeutic on admission c/w home warfarin Left humeral fracture patient with history of left humeral fracture, treated nonoperatively acutely worsened pain following fall, although range of motion with guarding is only mildly restricted on external rotation and 5/5 strength focally tender to palpation over head, greatly increased compared to prior per patient shoulder x-ray shows new fracture vs recurrent fracture - Can follow-up with ortho in office--no concern for acute surgical needs Type 2 diabetes mellitus on insulin hold [employer]ANT [employer]INE[employer] antiglycemics (sitagliptin) weight-based insulin dosing glucose checks qac and qhs BMP daily Depression, anxiety continue lexapro, mirtazapine DVT prophylaxis: warfarin 3mg PO daily Diet: diabetic diet Disposition: med/surg; PT/OT recommend inpt rehab/SNF; Case management finding placement Code status: DNR/DNI (2) Bilateral hydronephrosis: (3) History of DVT (deep vein thrombosis): (4) Fracture of neck of humerus: (5) Type 2 diabetes mellitus: (6) Depression: (7) Fall: Admission and Anticipated Discharge Date Admission Date: November 23, 2019 Supervising Physician Co-Signing Physician Notes Resident Physician Supervision Note: I independently interviewed and examined the patient and verified the hairston history and physical, reviewed labs and image studies, discussed the case with the resident Dr. Israel and agree with the findings and care plan. Subjective Patient is feeling much better today. She is very pleasant and says she feels great. She does report some continued soreness in her left arm but not bad. Her weakness also remains and she is eager to hear back about placement from case management for rehab. No other complaints. Denies fever, chills, cp, palpitations, sob, cough, nausea, vomiting, diarrhea. Review of Systems Constitutional: no fever, no chills and no fatigue Respiratory: no cough and no dyspnea Cardiovascular: no chest pain, no palpitations, no syncope and no edema Gastrointestinal: no abdominal pain, no nausea, no vomiting and no diarrhea/loose stools Physical Exam Constitutional: WD/WN, vitals as above no acute distress Respiratory: normal respiratory effort, lungs clear to auscultation Auscultation: no crackles, no rales, no rhonchi and no wheezes Cardiovascular: RRR, no murmur, no edema Heart Sounds: normal S1 and normal S2 Psychiatric: A+Ox3, euthymic affect Orientation: alert Speech: normal rate/rhythm/volume of speech Results & Data Results & Data ([facility]) Vital Signs (Past 12 Hours) Vital Signs Temp Pulse Resp BP Pulse Ox 11/28/19 23:45 36.4 C L 66 16 156/74 H 97 Resident Activity Tracking Resident Involvement: Resident Care Provided Care Provided: Adult Hospital Medicine (1) UTI (urinary tract infection) Hematuria presence: with hematuria Urinary tract infection type: acute cystitis Qualified Code(s): N30.01 - Acute cystitis with hematuria (2) Fracture of neck of humerus Encounter type: initial encounter Fracture type: closed Laterality: left Qualified Code(s): S42.212A - Unspecified displaced fracture of surgical neck of left humerus, initial encounter for closed fracture (3) Fall Encounter type: initial encounter Qualified Code(s): W19.XXXA - Unspecified fall, initial encounter
[2019-11-29] MEDS: TAMSULOSIN HCL 0.4 MG CAP PO SCH (08:38)
[2019-11-29] MEDS: AMLODIPINE BESYLATE 5 MG TAB PO SCH (08:38)
[2019-11-29] MEDS: INSULIN GLARGINE SOLOSTAR 100 UNITS/ML 3 ML PEN SC SCH ×2 (08:38→20:42)
[2019-11-29] MEDS: INSULIN ASPART 100 UNITS/ML 3 ML PEN SC SCH ×4 (08:40→20:42)
[2019-11-29] MEDS ORDERED: WARFARIN SOD 3 MG TAB PO SCH (16:00)
[2019-11-29] MEDS: ESCITALOPRAM OXALATE 10 MG TAB PO SCH (17:10)
[2019-11-29] MEDS: MIRTAZAPINE TAB 15 MG TAB PO SCH (20:42)
[2019-11-30 06:40] LABS: Prothrombin Time 10.9 Seconds (9.0-12.0)
[2019-11-30 06:45] LABS: Calcium 9.3 mg/dl (8.5-10.1); Est GFR (African American) 45.2; Potassium 4.2 mmol/L (3.5-5.1)
[2019-11-30] MEDS: MIRTAZAPINE TAB 15 MG TAB PO SCH (08:57)
[2019-11-30] MEDS: INSULIN GLARGINE SOLOSTAR 100 UNITS/ML 3 ML PEN SC SCH (08:57)
[2019-11-30] MEDS: TAMSULOSIN HCL 0.4 MG CAP PO SCH (08:57)
[2019-11-30] MEDS: AMLODIPINE BESYLATE 5 MG TAB PO SCH (08:57)
[2019-11-30] MEDS: INSULIN ASPART 100 UNITS/ML 3 ML PEN SC SCH ×2 (09:00→12:40)
[2019-11-30] MEDS ORDERED: ENOXAPARIN INJ 30 MG/0.3 ML SYR SQ SCH (14:00)
--- NOTE | 2019-11-30 15:46 | Discharge Summary ---
Date of Service November 30, 2019 Admission HPI Per Admitting Provider Anabelle is a 73-year-old female with a past medical history of benign tremor, dyslipidemia, osteoarthritis, sacroiliitis, hypertension, DVT on anticoagulation, type 2 diabetes, colon cancer, recent left humeral fracture, and nonmalignant bladder tumor with resection in the past year who presents after progressive weakness leading to a mechanical fall and he was found to be febrile by EMS. Her weakness is thought to be due to UTI with obstructive symptoms as noted below. She reports that over the last couple of weeks she has progressively felt increasingly weak, however her weakness sharply increased 3 to 4 days ago. Her weakness coincides with onset of foul-smelling urine. She denies abdominal and back pain. She had a mechanical fall while walking and was caught by her today and did not hit her head on the ground, but she did hit/twist her shoulder which was noted to have a humeral head fracture treated nonoperatively in July. On EMS arrival she was noted to have a fever to 100.5. On ER e valuation she was found to have bilateral hydronephrosis and urothelial thickening. 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 She also had a urinary infection in July and reports a history of resistant organisms. She has had chills for 1 day. She endorses baseline bladder spasms since her resection, but these seem to have increased in the last few days with polyuria improved somewhat with Azo. No other attempted treatments. She denies chest pain, chest pressure, shortness of breath. She endorses new intermittent swelling in her ankles which is gone in the morning but present at the end of the day. Denies prior heart history. Endorses some baseline dementia/forgetfulness with . Medications: Reviewed Surgical history: Reviewed Medical history: Reviewed Allergies: Reviewed Social: No current tobacco, alcohol, or recreational drug use. Lives with her and daughter. CODE STATUS: DNR/DNI, confirmed with patient and family Admission Exam Per Admitting Provider General: Oriented to name, place, and year NAD. Cooperative. HEENT: Atraumatic, normocephalic. Pulls equal and responsive to light and accommodation. Pulm: CTAB A&P. -wheezes, -rales, -rhonchi. Symmetrical chest rise. No increase work of breathing. No respiratory distress. Cardiac: RRR, -mrg. Radial pulses intact and symmetrical. Abdominal: Nontender, nondistended, soft. BS present. Extremities: Warm, dry. Trace edema in the ankles bilaterally. PT pulses intact and symmetrical. Ankle dorsiflexion/plantar flexion 5/5 without asymmetry. Sensation to soft touch intact in fingertips and toes bilaterally. Right shoulder with normal active/passive range of motion, no pain, 5/5 strength. 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 Focally tender to palpation overlying the humeral head. Principal Diagnosis Weakness, deconditioning Discharge Exam Constitutional well developed, well nourished and comfortable; no acute distress and no altered mental status Respiratory normal respiratory effort, lungs clear to auscultation Auscultation: no crackles, no rales, no rhonchi and no wheezes Cardiovascular RRR, no murmur, no edema Heart Sounds: normal S1 and normal S2 Discharge Data Allergies Allergy/AdvReac Type Severity Reaction Status Date / Time nitrofurantoin AdvReac Intermediate Abdominal Verified 11/23/19 22:43 [From Macrobid] Pain Consultations 11/23/19 21:25 ED Decision to Admit Stat 11/23/19 23:28 Consult Urology Routine Ordered Studies 11/23/19 19:22 CT abd pelvis IV con only Stat CT cervical spine wo con Stat CT chest w con Stat CT head/brain wo con Stat Hospital Course (1) UTI (urinary tract infection): Patient came in to the ED following a fall at her home. Initial concern was for sepsis secondary to UTI--ruled out with negative urine and blood cultures. Her weakness was thus considered to be caused by deconditioning. She progressed well during her stay but some weakness remained. PT/OT recommended placement in [facility] for continued therapy. (2) Proximal humerus fracture: (3) History of DVT (deep vein thrombosis): (4) Weakness: (5) Fall: (6) Bilateral hydronephrosis: (7) Type 2 diabetes mellitus: Total Time Total Time Spent Total Time Spent (In Minutes): See Attending attestation Discharge Plan Discharge Items Patient Disposition: Transfer Long Term Fac Reason For Visit: ERICA, BILATE HYDRO, UTI Discharge Diagnosis: Weakness, deconditioning Activity: Per Instructions section Non-emergency contact: Primary Care Provider Call non-emergency contact if: your symptoms worsen Follow-up/Referrals: Palak Chiang MD [Primary Care Provider] - Diet: Carb Consistent or DM2 Addtl Attending Provider Instructions: You were admitted after you presented to the ED due to a fall. You were initially suspected to have sepsis due to a urinary infection but ultimately were found to have fallen likely due to weakness. A previous fracture in your left upper arm was found to be stable currently and can be treated as an outpatient with your orthopedist. You were also evaluated by urology during your stay and your doctors decided you can be seen as an outpatient as well. Continuing with physical and occupational therapy after your discharge will be very important for you to regain your strength. Please follow up with your urologist, orthopedist, and primary care provider at your earliest convenience. Continue DVT prophylaxis dose of lovenox treatment until INR therapeutic since patient has h/o past DVT. Coumadin dose for today 5mg and 4.5 mg tomorrow. Then resume home dosing of 1.5 mg on Wednesday & Wednesday, and 3mg on other days. She will need to have daily PT/INR checked in the meantime. Pending Studies at Discharge: No Stand-Alone Forms: My [facility] Skilled Items Patient informed of condition?: Yes DNR: Yes Discharge Level of Care: Skilled Communicable Disease: No Discharge Prognosis: Stable Lines: None Urinary Catheter: No Medications and DC Order Prescriptions: Continued acetaminophen 325 mg tablet 650 mg PO QID PRN (Reason: fever or pain) RF: 0 amlodipine 10 mg tablet 5 mg PO DAILY RF: 0 warfarin 3 mg tablet 1.5 - 3 mg PO DAILY RF: 0 cholecalciferol (vitamin D3) 5,000 unit capsule 5,000 units PO QAM RF: 0 sitagliptin [Januvia] 100 mg tablet 100 mg PO QAM RF: 0 escitalopram oxalate [Lexapro] 10 mg tablet 10 mg PO QDD RF: 0 (DME) blood-glucose meter [FreeStyle Lite Meter] Kit See Rx Instructions .ROUTE .MEDSUPPLY Qty: 1 RF: 0 tamsulosin 0.4 mg capsule 0.4 mg PO DAILY Qty: 30 RF: 11 (DME) FreeStyle Lite Strips strip See Dose Instructions .ROUTE .MEDSUPPLY Qty: 10 RF: 0 (DME) lancets [FreeStyle Lancets] 28 gauge misc See Dose Instructions .ROUTE .MEDSUPPLY Qty: 25 RF: 0 Levemir FlexTouch U-100 Insuln 100 unit/mL (3 mL) insulin pen 10 unit subcut QAM RF: 0 clobetasol 0.05 % ointment 1 applic topical 5XWK RF: 0 Probiotic 3 billion cell Capsule 0 mmu cells PO QDD RF: 0 Levemir U-100 Insulin 100 unit/mL Solution 12 unit SUBCUT HS RF: 0 mirtazapine 7.5 mg Tablet 3.75 mg PO HS RF: 0 benazepril 20 mg Tablet 20 mg PO QAM RF: 0 Discharge Orders: Discharge Order (Routine); Ordered 11/30/19 Ordered By: Adrian Israel Admission Data Admit Date/Time: 11/23/19 22:50 Attending Provider: Meg Penaloza Admit Provider: Geraldo Hannah Primary Care Provider: Palak Chiang Other Providers: Tyron Álvarez ; Tee Burton ; Christopher Yun ; Beronica Sloan Other Interventions: Discharge Summary Assessment (RN) Last Done: 11/30/19 12:58 Supervising Physician Co-Signing Physician Notes Resident Physician Supervision Note: I independently interviewed and examined the patient and verified the hairston history and physical, reviewed labs and image studies, discussed the case with the resident Dr. Israel and agree with the findings and care plan. Resident Activity Tracking Resident Involvement: Resident Care Provided Care Provided: Adult Hospital Medicine
== END 2019-11-30 15:00 | DRG 948 ==
LOC: ED 19:03 → SUATTDRO 22:50 → 3W 22:50

== ENCOUNTER 2019-12-31 11:33 | Inpatient (IN) ==
[2019-12-31] MEDS ORDERED: SODIUM CHLORIDE 0.9% 1000ML 1,000 ML IV ONE (12:02)
[2019-12-31 12:36] LABS: Appearance Urine Turbid (Clear); Bacteria Urine Automated Negative (Negative); Bilirubin Urine Negative (Negative); Blood Urine 3+ (Negative); Color Urine Yellow; Epithelial Cell Urine Auto 20-30 /lpf (0-5); Glucose Urine UA Negative (Negative); Ketones Urine Negative (Negative); Leukocyte Esterase Urine 3+ (Negative); Nitrite Urine Negative (Negative); Protein Urine 2+ (Negative); Specific Gravity Urine 1.013 (1.000-1.030); Urobilinogen Urine Negative (Negative); WBC Urine Automated >30 /hpf (0-5); pH Urine 5.5 (4.5-7.5)
--- NOTE | 2019-12-31 12:42 | XRay Report ---
XR chest 1V portable CLINICAL HISTORY: SEPSIS COMPARISON STUDY: Chest CT November 23, 2019. FINDINGS: Right subclavian [id number] is in place. There is no pneumothorax or pleural effusion. T here is no evidence for pulmonary edema. Incompletely healed left femoral neck fracture with angulati on is noted. Cardiomediastinal silhouette is stable. Mild interstitial thickening within the lungs is likely chronic. IMPRESSION: No change in appearance of the chest. No acute findings. Stable interstitial thickening. ACT 112: Negative or not required by law. Electronically signed by: Warren Mcqueen M.D. 12/31/2019 12:40 PM
--- NOTE | 2019-12-31 12:44 | Emergency Department Note ---
Impression & Plan Acute pyelonephritis, Generalized weakness, Acute on chronic renal failure ED Provider Note NAME: AUGUSTO CONRAD AGE: 74 SEX: F ARRIVES VIA: Ambulance INFORMANT: Patient, ED PROVIDER(S): Sergio High MD CHIEF COMPLAINT: Generalized weakness, urinary symptoms. PLAN: Disposition: Admit. MEDICAL DECISION MAKING: The patient is a pleasant 74-year-old woman with a past medical history of recurrent UTIs, obesity, osteoarthritis, hypertension, hyperlipidemia, type 2 diabetes, history of DVT on Eliquis, admission in July 2023 pyelonephritis, history of bladder mass resection found to be related to chronic inflammation on pathology who presents emergency department accompanied by her granddaughter for worsening generalized weakness with persistent urinary symptoms of foul-smelling urine and dysuria in setting of recently completing antibiotics for UTI and now on prophylactic antibiotics for upcoming cystoscopy. The patient's granddaughter reports she has become so weak over the past several days that she is unable to walk. She denies any fevers, chills, cough, congestion, chest pain, shortness of breath, diarrhea. On arrival the patient is fatigued appearing but no acute distress, afebrile stable vital signs. She appears clinically dry. Abdomen is benign. He has no focal neuro deficits. She does exhibit generalized weakness throughout with 4+/5 strength in all extremities. EKG without evidence of acute ischemia. CXR negative. WBC 12.9, nonspecific. H/H 9.3/29.0 similar to prior range of values. Platelets 400, nonspecific, likely reactive. Chemistry without significant and acidosis. Creatinine is 2.5 which is approximately double the patient's baseline. LFTs unremarkable. Troponin negative/undetectable. Lactate and procalcitonin are within normal limits. UA is suspicious for infection given the patient's symptoms. CT done pelvis performed and demonstrates unchanged chronic hydronephrosis but with urothelial thickening, bladder wall thickening and infiltration suggestive of infection. Given the patient's generalized weak ness with acute on chronic renal failure with concern for upper infection reasonable to meet the patient for further management. The patient and granddaughter are agreeable with this plan. Case was discussed with Dr. Roberts, [facility] [place], who will evaluate the patient for admission. Triage Nursing notes reviewed and agree them. Additional history obtained from granddaughter Prior medical records reviewed Vital Signs: reviewed and remarkable for no significant abnormalities Differential diagnosis: Renal colic, UTI, appendicitis, diverticulitis, mesenteric ischemia, aortic pathology, infections, inflammatory bowel disease, PUD, biliary pathology, as well as other pathologies. ER treatment provided: See below. Diagnostics interpreted by me: ECG: NSR, 66 bpm, PACs, no overt ST elevation or depression. Cardiac Monitoring: An order for continuous cardiac monitoring was placed and demonstrated NSR, 66 bpm, PACs. Laboratory studies: See below Imaging studies: XR chest 1V portable CLINICAL HISTORY: SEPSIS COMPARISON STUDY: Chest CT November 23, 2019. FINDINGS: Right subclavian [id number] is in place. There is no pneumothorax or pleural effusion. There is no evidence for pulmonary edema. Incompletely healed left femoral neck fracture with angulation is noted. Cardiomediastinal silhouette is stable. Mild interstitial thickening within the lungs is likely chronic. IMPRESSION: No change in appearance of the chest. No acute findings. Stable interstitial thickening. CT OF THE ABDOMEN AND PELVIS WITHOUT CONTRAST CLINICAL HISTORY: Lower abdominal pain. Urinary tract infection COMPARISON STUDY: CT of the abdomen and pelvis December 20, 2019. TECHNIQUE: Axial images of the abdomen and pelvis were obtained without IV cont rast. Images were reviewed in the axial, sagittal, and coronal planes. Automated exposure control was utilized for the study. A dose lowering technique was utilized adhering to the principles of ALARA. FINDINGS: No pneumatosis, free air or portal venous gas is present. Evaluation of the abdomen and pelvis is suboptimal on this unenhanced examination. The liver, spleen, adrenal glands and pancreas are unremarkable. The gallbladder is not visualized and is likely surgically absent. There is no significant biliary ductal dilatation. There is no peripancreatic infiltration. Postsurgical findi ngs within the right colon are noted. There is no evidence for a bowel obstruction. There is sigmoid diverticulosis without evidence for acute diverticulitis. Moderate to severe right and moderate left hydroureteronephrosis is similar to CT of December 20, 2019. Similar findings were also shown on CT of November 23, 2019. Urothelial thickening is suspected. Bladder wall thickening with adjacent infiltration is also unchanged. There are no ureteral calculi. Calcifications within the renal sinuses favor vascular calcifications. There are no ureteral calculus. There are no suspicious osseous lesions. IMPRESSION: 1. No significant change in moderate to severe right and moderate left hydrouret eronephrosis since CT of December 20, 2019. Persistent urothelial thickening, bladder wall thickening and infiltration adjacent to the right ureter and bladder. No ureteral calculi. The findings favor an infectious process and could be correlated with urinalysis. Etiology for hydronephrosis not clear on this exam but may be related to the bladder. 2. No bowel obstruction. 3. Colonic diverticulosis without evidence for acute diverticulitis. Consultation(s): Dr. Roberts, [facility] [place]. HPI: The patient is a pleasant 74-year-old woman with a past medical history of recurrent UTIs, obesity, osteoarthritis, hypertension, hyperlipidemia, type 2 diabetes, history of DVT on Eliquis, admission in July 2023 pyelonephritis, history of bladder mass resection found to be related to chronic inflammation on pathology who presents emergency department accompanied by her granddaughter for worsening generalized weakness with persistent urinary symptoms of foul-smelling urine and dysuria in setting of recently completing antibiotics for UTI and now on prophylactic antibiotics for upcoming cystoscopy. The patient's granddaughter reports she has become so weak over the past several days that she is unable to walk. She denies any fevers, chills, cough, congestion, chest pain, shortness of breath, diarrhea. ROS: See above HPI for pertinent positives & negatives. A total of 10 systems reviewed and were otherwise negative. PAST MEDICAL HISTORY:See Below PAST SURGICAL HISTORY:See Below FAMILY HISTORY:See Below SOCIAL HISTORY:See Below HOME MEDICATIONS:See Below ALLERGIES:See Below VITALS:See Below PHYSICAL EXAMINATION: GENERAL: Awake, alert, fatigued-appearing, in no distress HENT: Normocephalic, atraumatic. Oropharynx with dry mucous membranes and otherwise unremarkable. EYES: Normal conjunctiva. Sclera non-icteric. NECK: Supple. No nuchal rigidity. FROM. No JVD. RESPIRATORY: Clear to auscultation. CARDIAC: Regular rate, normal rhythm. Extremities warm and well perfused. Pulses equal. ABDOMEN: Soft, non-distended. No tenderness to palpation. No rebound or guarding. No masses. RECTAL: Deferred. MUSCULOSKELETAL: Chest examination reveals no tenderness. The back is symmetri katja on inspection without obvious abnormality. There is no CVA tenderness to palpation. No joint edema. LOWER EXTREMITIES: Calves are equal size bilaterally and non-tender. No edema. No discoloration. NEURO: Normal sensorium. No sensory or motor deficits noted. Generalized weakness with 4+/5 strength in all extremities. SKIN: No rash or jaundice noted. Sergio High MD Past Med/Surg History Medical History Adhesive capsulitis of shoulder Alopecia Ankylosing spondylitis Arthritis Benign familial tremor Bilateral hydronephrosis Bladder disorder, unspecified Bladder mass Chronic perineal pain in female Colon cancer Depression Depression Difficulty urinating Disc degeneration, lumbar Disease of jaw Diverticula of intestine Dyslipidemia Esophageal reflux Eustachian tube dysfunction Fracture of neck of humerus History of chemotherapy History of deep vein thrombophlebitis of lower extremity History of diverticulitis History of DVT (deep vein thrombosis) History of nephrolithiasis HTN (hypertension) Impaired gait and mobility Lichen sclerosus 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 Metastatic colon cancer to liver Obesity Osteoarthritis of hip Osteoarthritis of knee Osteopenia Peripheral neuropathy Port-A-Cath in place Prothrombin gene mutation Proximal humerus fracture Sacroiliitis Type 2 diabetes mellitus UTI (urinary tract infection) Vertigo Vitamin D deficiency Surgical History History of appendectomy History of colon surgery History of colonoscopy History of hysterectomy History of partial colectomy History of tonsillectomy History of tubal ligation S/P cholecystectomy Status post cardiac surgery inferior vena cava bo filter placement Family History Father Diabetes Coronary heart disease Mother Colorectal cancer Sister Hypertension Diabetes Family/Other Diabetes Hypertension Other Family history non-contributory Social History Smoking Status: Never smoker Second Hand Exposure: No; Do You Dip or Chew Tobacco: No; Tobacco Cessation Education Requested by Patient: No Hx Alcohol Use: No Hx Substance Use: No Preferred Language: Iraqi Communication Ability: Effective Visual Impairment: No Limitations Client 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 Required: No Beliefs That Will Affect Care: None marital status: Current Living Situation: Spouse current occupational status: retired How many Children do You have: 2 Other Information That Helps Us Care for You: No Feels Safe at Home: Yes Safety Concerns: Feels Safe At This Time Assistive Devices: Walker Allergies Allergies Allergy/AdvReac Type Severity Reaction Status Date / Time nitrofurantoin AdvReac Intermediate Abdominal Verified 12/31/19 13:03 [From Macrobid] Pain Home Meds Home Medications Medication Instructions Recorded Confirmed cholecalciferol (vitamin D3) 125 5,000 units PO QAM 01/31/18 12/31/19 mcg (5,000 unit) capsule insulin detemir U-100 100 unit/mL 10 unit SUBCUT QAM 01/05/19 12/31/19 (3 mL) subcutaneous pen escitalopram oxalate 10 mg tablet 10 mg PO QDD 04/03/19 12/31/19 Probiotic 0 mmu cells PO QDD 05/11/19 12/31/19 clobetasol 1 applic TOPICAL 5XWK 05/11/19 12/31/19 Levemir U-100 Insulin 12 unit SUBCUT HS 05/22/19 12/31/19 benazepril 20 mg PO QAM 07/15/19 12/31/19 mirtazapine 3.75 mg PO HS 07/15/19 12/31/19 acetaminophen 325 mg tablet 650 mg PO QID PRN tab 10/18/19 12/31/19 amlodipine 10 mg tablet 5 mg PO DAILY tab 11/01/19 12/31/19 nystatin 1 applic TOPICAL BID 12/31/19 12/31/19 sitagliptin [Januvia] 50 mg PO DAILY 12/31/19 12/31/19 Previous Rx's Medication Instructions Recorded tamsulosin 0.4 mg capsule 0.4 mg PO DAILY #30 cap 10/13/19 apixaban 2.5 mg tablet 2.5 mg PO Q12H #60 tab 12/26/19 trimethoprim 100 mg tablet 100 mg PO ONCE 30 Days #30 tab 12/28/19 Results & Data (ED) Vital Signs Vital Signs - 24 hr 12/31/19 11:47 12/31/19 12:30 12/31/19 13:00 Temperature 36.8 C Temperature Source Oral Pulse Rate 77 Pulse Rate [Left Finger] 72 60 Respiratory Rate 20 20 20 Respiratory Effort / Characteristics Non-Labored Spontaneous Non-Labored Spontaneous Non-Labored Spontaneous Respiratory Depth Normal Normal Normal Respiratory Pattern Regular Blood Pressure 128/76 Blood Pressure [Left Arm] 121/82 120/56 L Blood Pressure Mean 93 Blood Pressure Mean [Left Arm] 95 77 Pulse Oximetry 95 100 100 Oxygen Delivery Method Room Air Room Air Room Air Sepsis Recent Fever Within 48 Hours No Sepsis New/Unexplained Change in Mental Status N/A Sepsis Action Taken by Nursing No Action Required 12/31/19 14:14 12/31/19 14:33 12/31/19 15:00 Temperature Temperature Source Pulse Rate Pulse Rate [Left Finger] 58 L 59 L Respiratory Rate 20 20 Respiratory Effort / Characteristics Non-Labored Spontaneous Respiratory Depth Normal Respiratory Pattern Blood Pressure Blood Pressure [Left Arm] 131/62 130/49 L Blood Pressure Mean Blood Pressure Mean [Left Arm] 85 76 Pulse Oximetry 99 98 Oxygen Delivery Method Room Air Room Air Room Air Sepsis Recent Fever Within 48 Hours Sepsis New/Unexplained Change in Mental Status Sepsis Action Taken by Nursing Laboratory Data Attestation: I reviewed the patient's lab results. Result diagrams: 12/31/19 12:36 12/31/19 18:10 Lab Results 12/31/19 12/31/19 12/31/19 Range/Units 11:45 12:36 12:36 WBC 12.91 H (4.8-10.8) K/uL RBC 3.49 L (4.2-5.4) M/uL Hgb 9.3 L (12.0-16.0) g/dL Hct 29.0 L (37-47) % MCV 83.1 (80-100) fL MCH 26.6 (25-34) pg MCHC 32.1 (32-36) g/dL RDW Std Deviation 44.6 (36.4-46.3) fL RDW Coeff of Robin 14.8 H (11.5-14.5) % Plt Count 417 H (130-400) K/uL MPV 8.9 (7.4-10.4) fL Immature Gran % (Auto) 1.0 % Neut % (Auto) 81.4 % Lymph % (Auto) 10.3 % [place] % (Auto) 6.3 % Eos % (Auto) 0.8 % Baso % (Auto) 0.2 % Neut # (Auto) 10.51 H (1.4-6.5) K/uL Lymph # (Auto) 1.33 (1.2-3.4) K/uL [place] # (Auto) 0.81 H (0.11-0.59) K/uL Eos # (Auto) 0.10 (0-0.5) K/uL Baso # (Auto) 0.03 (0-0.2) K/uL Immature Gran # (Auto) 0.13 H (0.00-0.02) K/uL PT (9.0-12.0) Seconds INR (0.9-1.1) APTT (21.0-31.0) Seconds PTT Ratio Sodium (136-145) mmol/L Potassium (3.5-5.1) mmol/L Chloride (98-107) mmol/L Carbon Dioxide (21-32) mmol/L Anion Gap (3-11) BUN (7-18) mg/dl Creatinine (0.6-1.2) mg/dl Est Cr Clr Drug Dosing ml/min Est GFR ( Amer) Est GFR (Non-Af Amer) BUN/Creatinine Ratio (10-20) Glucose (70-99) mg/dl Lactate (0.4-2.0) mmol/L Calcium (8.5-10.1) mg/dl Phosphorus (2.5-4.9) mg/dl Magnesium (1.8-2.4) mg/dl Total Bilirubin (0.2-1) mg/dl Direct Bilirubin (0-0.2) mg/dl AST (15-37) U/L ALT (12-78) U/L Alkaline Phosphatase (45-117) U/L Total Creatine Kinase (26-192) U/L Troponin I (0-0.045) ng/ml Total Protein (6.4-8.2) gm/dl Albumin (3.4-5.0) gm/dl Globulin (2.5-4.0) gm/dl Albumin/Globulin Ratio (0.9-2) Procalcitonin 0.09 (0-0.5) ng/ml TSH (0.300-4.500) uIu/ml Urine Color Yellow Urine Appearance Turbid A (Clear) Urine pH 5.5 (4.5-7.5) Ur Specific [place] 1.013 (1.000-1.030) Urine Protein 2+ H (Negative) Urine Glucose (UA) Negative (Negative) Urine Ketones Negative (Negative) Urine Blood 3+ H (Negative) Urine Nitrite Negative (Negative) Urine Bilirubin Negative (Negative) Urine Urobilinogen Negative (Negative) Ur Leukocyte Esterase 3+ H (Negative) Urine WBC (Auto) >30 H (0-5) /hpf Urine RBC (Auto) >30 H (0-4) /hpf U Hyaline Cast (Auto) Not Reportable U Epithel Cells (Auto) 20-30 H (0-5) /lpf Urine Bacteria (Auto) Negative (Negative) Urine Yeast Not Reportable 12/31/19 12/31/19 12/31/19 Range/Units 12:36 12:36 12:36 WBC (4.8-10.8) K/uL RBC (4.2-5.4) M/uL Hgb (12.0-16.0) g/dL Hct (37-47) % MCV (80-100) fL MCH (25-34) pg MCHC (32-36) g/dL RDW Std Deviation (36.4-46.3) fL RDW Coeff of Robin (11.5-14.5) % Plt Count (130-400) K/uL MPV (7.4-10.4) fL Immature Gran % (Auto) % Neut % (Auto) % Lymph % (Auto) % [place] % (Auto) % Eos % (Auto) % Baso % (Auto) % Neut # (Auto) (1.4-6.5) K/uL Lymph # (Auto) (1.2-3.4) K/uL [place] # (Auto) (0.11-0.59) K/uL Eos # (Auto) (0-0.5) K/uL Baso # (Auto) (0-0.2) K/uL Immature Gran # (Auto) (0.00-0.02) K/uL PT 12.8 H (9.0-12.0) Seconds INR 1.2 H (0.9-1.1) APTT 30.2 (21.0-31.0) Seconds PTT Ratio 1.1 Sodium 132 L (136-145) mmol/L Potassium 5.4 H (3.5-5.1) mmol/L Chloride 103 (98-107) mmol/L Carbon Dioxide 20 L (21-32) mmol/L Anion Gap 9.0 (3-11) BUN 73 H (7-18) mg/dl Creatinine 2.58 H (0.6-1.2) mg/dl Est Cr Clr Drug Dosing 16.7 ml/min Est GFR ( Amer) 20.1 Est GFR (Non-Af Amer) 17.4 BUN/Creatinine Ratio 28.2 H (10-20) Glucose 199 H (70-99) mg/dl Lactate 1.8 (0.4-2.0) mmol/L Calcium 9.4 (8.5-10.1) mg/dl Phosphorus 4.3 (2.5-4.9) mg/dl Magnesium 1.9 (1.8-2.4) mg/dl Total Bilirubin 0.4 (0.2-1) mg/dl Direct Bilirubin < 0.1 (0-0.2) mg/dl AST 13 L (15-37) U/L ALT 16 (12-78) U/L Alkaline Phosphatase 72 (45-117) U/L Total Creatine Kinase 21 L (26-192) U/L Troponin I < 0.015 (0-0.045) ng/ml Total Protein 8.2 (6.4-8.2) gm/dl Albumin 2.9 L (3.4-5.0) gm/dl Globulin 5.3 H (2.5-4.0) gm/dl Albumin/Globulin Ratio 0.5 L (0.9-2) Procalcitonin (0-0.5) ng/ml TSH 1.480 (0.300-4.500) uIu/ml Urine Color Urine Appearance (Clear) Urine pH (4.5-7.5) Ur Specific [place] (1.000-1.030) Urine Protein (Negative) Urine Glucose (UA) (Negative) Urine Ketones (Negative) Urine Blood (Negative) Urine Nitrite (Negative) Urine Bilirubin (Negative) Urine Urobilinogen (Negative) Ur Leukocyte Esterase (Negative) Urine WBC (Auto) (0-5) /hpf Urine RBC (Auto) (0-4) /hpf U Hyaline Cast (Auto) U Epithel Cells (Auto) (0-5) /lpf Urine Bacteria (Auto) (Negative) Urine Yeast Administered Medications Acetaminophen (Acetaminophen 325 Mg Tab) 650 mg PO QID PRN PRN Reason: fever or pain Stop: 01/30/20 16:18 Last Admin: 12/31/19 23:04 Dose: 650 mg Documented by: [id number] Admin: 12/31/19 17:08 Dose: 650 mg Documented by: [id number] Apixaban (Apixaban 2.5 Mg Tab) 2.5 mg PO Q12 YOLIS Stop: 01/30/20 20:59 Last Admin: 12/31/19 20:44 Dose: 2.5 mg Documented by: [id number] Escitalopram Oxalate (Escitalopram Oxalate 10 Mg Tab) 10 mg PO QDD YOLIS Stop: 01/30/20 16:29 Last Admin: 12/31/19 17:05 Dose: 10 mg Documented by: [id number] Ertapenem 1,000 mg/ Sodium (Chloride) 60 mls @ 100 mls/hr IV Q24H YOLIS Stop: 01/10/20 15:14 Last Infusion: 12/31/19 18:24 Dose: 0 mls/hr Documented by: [id number] Admin: 12/31/19 17:34 Dose: 100 mls/hr Documented by: [id number] Sodium Chloride (Nss 1000ml) 1,000 mls @ 125 mls/hr IV .Q8H YOLIS Stop: 01/30/20 15:14 Last Admin: 12/31/19 23:03 Dose: 125 mls/hr Documented by: [id number] Infusion: 12/31/19 23:03 Dose: 125 mls/hr Documented by: [id number] Admin: 12/31/19 16:38 Dose: 125 mls/hr Documented by: [id number] Insulin Aspart (Insulin Aspart 100 Units/Ml 3 Ml Pen) 0 units SC ACHS YOLIS Stop: 01/30/20 16:29 Last Admin: 12/31/19 20:52 Dose: Not Given Documented by: [id number] Cosigned by: [id number] Admin: 12/31/19 17:39 Dose: Not Given Documented by: [id number] Cosigned by: [id number] Mirtazapine (Mirtazapine Tab 15 Mg Tab) 3.75 mg PO HS YOLIS Stop: 01/30/20 20:59 Last Admin: 12/31/19 20:45 Dose: 3.75 mg Documented by: [id number] Nystatin (Nystatin Oint 15 Gm Tube) 1 appln EXT BID YOLIS Stop: 01/30/20 20:59 Last Admin: 12/31/19 20:44 Dose: 1 appln Documented by: [id number] Discontinued Medications Sodium Chloride (Nss 1000ml) 1,000 mls @ 999 mls/hr IV .Q1H1M ONE Stop: 12/31/19 13:02 Last Infusion: 12/31/19 14:50 Dose: 0 mls/hr Documented by: [id number] Admin: 12/31/19 12:50 Dose: 999 mls/hr Documented by: [id number] Ceftriaxone Sodium (Rocephin) 2,000 mg in 70 mls @ 140 mls/hr IV NOW STA Stop: 12/31/19 14:15 Last Infusion: 12/31/19 14:50 Dose: 0 mls/hr Documented by: [id number] Admin: 12/31/19 14:08 Dose: 140 mls/hr Documented by: [id number] Ioversol (Ioversol 100ml) 94 ml IV ONCE ONE Stop: 12/31/19 13:11 Last Admin: 12/31/19 13:10 Dose: 94 ml Documented by: [id number] Blood Pressure Blood Pressure Findings: Elevated blood pressure Blood Pressure Disposition: further management by hospitalist Discharge Plan Visit Data Chief Complaint: Urinary Symptoms Stated Complaint: ams/weakness ED Provider: Sergio High Discharge Problem: Acute pyelonephritis, Generalized weakness, Acute on chronic renal failure Patient Disposition: Admitted As Inpatient Discharge Instructions Interventions: ED Discharge Assessment Last Done: 12/31/19 15:49
[2019-12-31 12:49] LABS: Basophils # (auto) 0.03 K/uL (0-0.2); Basophils % (auto) 0.2 %; Eosinophils % (auto) 0.8 %; Hemoglobin 9.3 g/dL (12.0-16.0); Immature Granulocytes # (auto) 0.13 K/uL (0.00-0.02); Lymphocytes # (auto) 1.33 K/uL (1.2-3.4); Lymphocytes % (auto) 10.3 %; Mean Corpuscular Hemoglobin 26.6 pg (25-34); Mean Corpuscular Hgb Conc 32.1 g/dL (32-36); Mean Corpuscular Volume 83.1 fL (80-100); Mean Platelet Volume 8.9 fL (7.4-10.4); Monocytes # (auto) 0.81 K/uL (0.11-0.59); Monocytes % (auto) 6.3 %; Neutrophils # (auto) 10.51 K/uL (1.4-6.5); Neutrophils % (auto) 81.4 %; Platelet Count 417 K/uL (130-400); RDW Coefficient of Variation 14.8 % (11.5-14.5); RDW Standard Deviation 44.6 fL (36.4-46.3); Red Blood Count 3.49 M/uL (4.2-5.4); White Blood Count 12.91 K/uL (4.8-10.8)
[2019-12-31 13:04] LABS: INR 1.2 (0.9-1.1); Partial Thromboplastin Ratio 1.1; Partial Thromboplastin Time 30.2 Seconds (21.0-31.0); Prothrombin Time 12.8 Seconds (9.0-12.0)
[2019-12-31 13:08] LABS: Alanine Aminotransferase 16 U/L (12-78); Albumin Level 2.9 gm/dl (3.4-5.0); Aspartate Aminotransferase 13 U/L (15-37); BUN Creatinine Ratio 28.2 (10-20); Bilirubin Direct < 0.1 mg/dl (0-0.2); Blood Urea Nitrogen 73 mg/dl (7-18); Calcium 9.4 mg/dl (8.5-10.1); Carbon Dioxide 20 mmol/L (21-32); Chloride 103 mmol/L (98-107); Creatinine Clr Calc Pharmacy 16.7 ml/min; Est GFR (African American) 20.1; Est GFR (Non-African American) 17.4; Glucose 199 mg/dl (70-99); Magnesium 1.9 mg/dl (1.8-2.4); Potassium 5.4 mmol/L (3.5-5.1); Sodium 132 mmol/L (136-145)
[2019-12-31] MEDS ORDERED: IOVERSOL 100ml IV ONE (13:10)
[2019-12-31 13:17] LABS: Albumin Globulin Ratio 0.5 (0.9-2); Alkaline Phosphatase 72 U/L (45-117); Bilirubin,Total 0.4 mg/dl (0.2-1); Creatine Kinase 21 U/L (26-192); Globulin 5.3 gm/dl (2.5-4.0); Phosphorus 4.3 mg/dl (2.5-4.9); Total Protein 8.2 gm/dl (6.4-8.2); Troponin I < 0.015 ng/ml (0-0.045)
[2019-12-31 13:22] LABS: RBC Urine Automated >30 /hpf (0-4)
[2019-12-31] MEDS ORDERED: cefTRIAXone SODIUM 2,000 MG/70 ML BAG IV STA (13:46)
--- NOTE | 2019-12-31 14:06 | CT Scan Report ---
CT OF THE ABDOMEN AND PELVIS WITHOUT CONTRAST CLINICAL HISTORY: Lower abdominal pain. Urinary tract infection COMPARISON STUDY: CT of the abdomen and pelvis December 20, 2019. TECHNIQUE: Axial images of the abdomen and pelvis were obtained without IV contrast. Images were revi ewed in the axial, sagittal, and coronal planes. Automated exposure control was utilized for the jabari dy. A dose lowering technique was utilized adhering to the principles of ALARA. FINDINGS: No pneumatosis, free air or portal venous gas is present. Evaluation of the abdomen and pel vis is suboptimal on this unenhanced examination. The liver, spleen, adrenal glands and pancreas are unremarkable. The gallbladder is not visualized and is likely surgically absent. There is no signific ant biliary ductal dilatation. There is no peripancreatic infiltration. Postsurgical findings within the right colon are noted. There is no evidence for a bowel obstruction. There is sigmoid diverticulo sis without evidence for acute diverticulitis. Moderate to severe right and moderate left hydroureteronephrosis is similar to CT of December 19. Similar findings were also shown on CT of November 23, 2019. Urothelial thickening is suspected. Bl adder wall thickening with adjacent infiltration is also unchanged. There are no ureteral calculi. Ca lcifications within the renal sinuses favor vascular calcifications. There are no ureteral calculus. There are no suspicious osseous lesions. IMPRESSION: 1. No significant change in moderate to severe right and moderate left hydroureteronephrosis since CT of December 20, 2019. Persistent urothelial thickening, bladder wall thickening and infiltration ad jacent to the right ureter and bladder. No ureteral calculi. The findings favor an infectious process and could be correlated with urinalysis. Etiology for hydronephrosis not clear on this exam but may be related to the bladder. 2. No bowel obstruction. 3. Colonic diverticulosis without evidence for acute diverticulitis. ACT 112: Negative or not required by law. Electronically signed by: Warren Mcqueen M.D. 12/31/2019 2:04 PM
--- NOTE | 2019-12-31 14:32 | History & Physical Report ---
Date of Service December 31, 2019 Assessment & Plan (1) Weakness: Presents with generalized weakness and acute metabolic encephalopathy likely secondary to acute kidney injury and UTI with pyelonephritis Treating UTI and ERICA as below PT/OT consultations ordered -Admit to medical/surgical floor (2) ERICA (acute kidney injury): With creatinine up to 2.58 on admission from 1.33 one month ago With known urethral stricture and pelvic floor dysfunction and incomplete bladder emptying, with bilateral hydronephrosis that is chronic on CT abdomen/pelvis and redemonstrated today Discussed case with urology With mild metabolic acidosis and mild hyperkalemia with potassium of 5.4, sodium mildly low at 132. No peaked T waves on ECG Most likely secondary to postobstructive cause, however was recently also started on trimethoprim 3 days ago which could be contributing -Place Oliver catheter and will leave in for at least a week. She is likely going to need to perform CIC at home after discharge. -Continue tamsulosin -Continue normal saline at 125 mL's per hour until creatinine improved -Follow-up BMP again this evening to see if creatinine decreasing and potassium comes down and sodium increases with IV fluids and relief of obstruction -Follow BMP in the morning -Renally dose medications when necessary -Hold home benazepril and trimethoprim (3) UTI (urinary tract infection): With abnormal urinalysis here in the setting of incomplete bladder emptying as noted above Was given 1 dose of IV Rocephin in the ER, however she has a history of ESBL Klebsiella, yeast not Cassi albicans, enterococcus, E. coli, and Cassi glabrata all on previous urine cultures. -Will start IV ertapenem instead in case of ESBL organism -Urology consultation placed -Placing Oliver catheter for incomplete bladder emptying as above -Follow urine culture and blood cultures (4) Acute metabolic encephalopathy: Likely secondary to acute kidney injury and UTI as above Treating both in the should improve Does have some underlying mild cognitive impairment as per her granddaughter (5) Bilateral hydronephrosis: As noted above Plan as per urology for cystoscopy after acute infection is resolved (6) Benign familial tremor: Noted in history, she is not on medication for this No tremor present on physical examination today (7) Esophageal reflux: Noted in chart but again she is not on medication for this (8) HTN (hypertension): Blood pressures are controlled -Continue home amlodipine -Holding home benazepril for acute kidney injury (9) Depression: Stable -Continue home mirtazapine 3.75 mg p.o. at bedtime and Lexapro 10 mg daily (10) Type 2 diabetes mellitus: Most recent hemoglobin A1c 7.1% in 10/2019, well controlled -Continue Lantus, but will cut dose in half given acute renal failure and monitor for hypoglycemia Home dose is Lantus 12 units at bedtime and 10 units in the morning-we will only continue the 10 units in the morning for now Hold home Januvia in the setting of acute kidney injury -Accu-Cheks and NovoLog sliding scale insulin before meals and at bedtime ADA diet (11) long-term (current) use of anticoagulants: Was on Coumadin for a long time for history of numerous DVTs, was just switched to apixaban on 12/29 by the anticoagulation clinic INR is now down to 1.2 Continue apixaban 2.5 mg p.o. twice daily as urology has no plans for procedures in the near future (12) Colon cancer: With history of partial colectomy, no further treatment since then (13) Diarrhea: Having 2 loose stools a day for last 3 days, was recently on cefuroxime -Check C. difficile Avoid antidiarrheals until C. difficile negative (14) Proximal humerus fracture: With a history of proximal humerus fracture which was treated with a sling and she was cleared by orthopedics to return to full weightbearing without restrictions. She does have limited range of motion Noted fracture with some displacement on chest x-ray here No pain at this time Will place order to have a limb restriction on the left side (15) Obesity: BMI 31.2 Needs weight loss (16) History of DVT (deep vein thrombosis): As noted above Continue home apixaban at 2.5 mg p.o. twice daily-dose is lower as it is the prophylaxis dose for DVT Disposition-admit to medical/surgical floor, expected least a 2 midnight stay PT/OT consultations placed and may need rehab placement at the time of discharge History of Present Illness Chief Complaint: Generalized weakness, UTI Primary Care Provider: Palak Chiang MD This patient is a 74-year-old female with a history of recurrent UTIs and pelvic floor dysfunction with urethral stricture, chronic bilateral hydronephrosis, DM 2, HTN, CKD stage III, hyperlipidemia, obesity, DVT on Haydee stephanie, depression/anxiety, colon cancer status post partial colectomy, OA, essential tremor, and lichen sclerosis who presents to the ER with worsening generalized weakness and some mild increased confusion over the last 3 days. Her granddaughter is her metal pattern maker and is at the bedside providing most of the history. She reports that since discharge from the hospital 1 month ago, she went to alf facility for about 1 week and then came home. She began having some cloudy urine and was prescribed cefuroxime x5 days by urology and plan to do cystoscopy in the near future for her bilateral hydronephrosis. She then started on daily trimethoprim prophylaxis 3 days ago. Since that time, she became so weak that she could not even stand up anymore to get out of bed. She is been having chills at home but no fevers. She has chronic dysuria due to her lichen sclerosis of the genitals, but the granddaughter noticed her urine was cloudy again. There was no odor or hematuria. The patient reports some suprapubic spasms of pain recently. In the ER, she was found to have an acute kidney injury with a creatinine up to 2.5, abnormal urinalysis consistent with UTI, and a leukocytosis of 12. She was afebrile her vitals were otherwise stable. A CT scan of the abdomen/pelvis showed no significant change in the moderate to severe right and moderate left hydroureteronephrosis since 11 days ago. She also had persistent urothelial thickening, bladder wall thickening and infiltration adjacent to the right ureter and bladder without any ureteral calculi. There was no bowel obstruction or acute diverticulitis. A chest x-ray only showed stable interstitial thickening, and an incompletely healed left humeral neck fracture with angulation which is a chronic issue for her. She was given 1 dose of IV Rocephin in the ER. She will be admitted for acute kidney injury, and complicated UTI with acute metabolic encephalopathy and generalized weakness. Allergies Allergy/AdvReac Type Severity Reaction Status Date / Time nitrofurantoin AdvReac Intermediate Abdominal Verified 12/31/19 13:03 [From Macrobid] Pain Home Medications Home Medications Medication Instructions Recorded Confirmed Type cholecalciferol (vitamin D3) 125 5,000 units PO QAM 01/31/18 12/31/19 History mcg (5,000 unit) capsule insulin detemir U-100 100 unit/mL 10 unit SUBCUT QAM 10/03/19 09/27/20 History (3 mL) subcutaneous pen escitalopram oxalate 10 mg tablet 10 mg PO QDD 04/03/19 12/31/19 History Probiotic 0 mmu cells PO QDD 05/11/19 12/31/19 History clobetasol 1 applic TOPICAL 5XWK 05/11/19 12/31/19 History Levemir U-100 Insulin 12 unit SUBCUT HS 05/22/19 12/31/19 History benazepril 20 mg PO QAM 07/15/19 12/31/19 History mirtazapine 3.75 mg PO HS 07/15/19 12/31/19 History tamsulosin 0.4 mg capsule 0.4 mg PO DAILY #30 cap 10/13/19 12/31/19 Rx acetaminophen 325 mg tablet 650 mg PO QID PRN tab 10/18/19 12/31/19 History amlodipine 10 mg tablet 5 mg PO DAILY tab 11/01/19 12/31/19 History apixaban 2.5 mg tablet 2.5 mg PO Q12H #60 tab 12/26/19 12/31/19 Rx trimethoprim 100 mg tablet 100 mg PO ONCE 30 Days #30 tab 12/28/19 12/31/19 Rx nystatin 1 applic TOPICAL BID 12/31/19 12/31/19 History sitagliptin [Januvia] 50 mg PO DAILY 12/31/19 12/31/19 History Past Med/Surg History Medical History (Updated 12/31/19 @ 19:56 by Carolin Roberts MD) Adhesive capsulitis of shoulder Alopecia Ankylosing spondylitis Arthritis Benign familial tremor Bilateral hydronephrosis Bladder disorder, unspecified Bladder mass Chronic perineal pain in female Colon cancer Depression Depression Difficulty urinating Disc degeneration, lumbar Disease of jaw Diverticula of intestine Dyslipidemia Esophageal reflux Eustachian tube dysfunction Fracture of neck of humerus History of chemotherapy History of deep vein thrombophlebitis of lower extremity History of diverticulitis History of DVT (deep vein thrombosis) History of nephrolithiasis HTN (hypertension) Impaired gait and mobility Lichen sclerosus 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 long-term (current) use of anticoagulants Metastatic colon cancer to liver Obesity Osteoarthritis of hip Osteoarthritis of knee Osteopenia Peripheral neuropathy Port-A-Cath in place Prothrombin gene mutation Proximal humerus fracture Sacroiliitis Type 2 diabetes mellitus UTI (urinary tract infection) Vertigo Vitamin D deficiency Surgical History History of appendectomy History of colon surgery History of colonoscopy History of hysterectomy History of partial colectomy History of tonsillectomy History of tubal ligation S/P cholecystectomy Status post cardiac surgery inferior vena cava bo filter placement Family History Father Diabetes Coronary heart disease Mother Colorectal cancer Sister Hypertension Diabetes Family/Other Diabetes Hypertension Other Family history non-contributory Social History Smoking Status: Never smoker Second Hand Exposure: No; Do You Dip or Chew Tobacco: No; Tobacco Cessation Education Requested by Patient: No Hx Alcohol Use: No Hx Substance Use: No Preferred Language: Uzbek Communication Ability: Effective Visual Impairment: No Limitations Service Desk Analyst Required: No Beliefs That Will Affect Care: None marital status: Current Living Situation: Spouse current occupational status: retired How many Children do You have: 2 Other Information That Helps Us Care for You: No Feels Safe at Home: Yes Safety Concerns: Feels Safe At This Time Assistive Devices: Walker Review of Systems Review of Systems: All systems reviewed & are unremarkable except as noted in HPI & below Has been having 2 loose stools a day that are relieved with Imodium for the last 3 days Physical Exam Constitutional: WD/WN, vitals as above + obese Eyes: PERRL, conjunctivae normal, anicteric sclerae ENMT: external ear and nose normal, oropharynx normal Neck: trachea midline, no thyromegaly Respiratory: normal respiratory effort, lungs clear to auscultation Cardiovascular: RRR, no murmur, no edema Chest (Breasts): Chest: normal inspection of chest Gastrointestinal (Abdomen): normal bowel sounds, soft, nontender, no hepatosplenomegaly Musculoskeletal: Extremities: extremities normal to inspection; no cyanosis and no clubbing Skin: no rashes, warm and dry Neurologic: moves all extremities and awake; no focal motor deficits and not confused Psychiatric: Orientation: alert, oriented to person, oriented to place and cooperative Eye Contact: good eye contact Affect: euthymic affect Lymphatic: no lymphedema Results & Data Results & Data ([facility]) Vital Signs (Past 12 Hours) Vital Signs Temp Pulse Pulse Resp BP BP Pulse Ox 12/31/19 14:14 58 L 20 131/62 99 12/31/19 11:47 36.8 C 77 20 128/76 95 Laboratory Results 12/31/19 12/31/19 12/31/19 Range/Units 18:10 18:00 16:57 WBC (4.8-10.8) K/uL RBC (4.2-5.4) M/uL Hgb (12.0-16.0) g/dL Hct (37-47) % MCV (80-100) fL MCH (25-34) pg MCHC (32-36) g/dL RDW Std Deviation (36.4-46.3) fL RDW Coeff of Robin (11.5-14.5) % Plt Count (130-400) K/uL MPV (7.4-10.4) fL Immature Gran % (Auto) % Neut % (Auto) % Lymph % (Auto) % Coleman % (Auto) % Eos % (Auto) % Baso % (Auto) % Neut # (Auto) (1.4-6.5) K/uL Lymph # (Auto) (1.2-3.4) K/uL Coleman # (Auto) (0.11-0.59) K/uL Eos # (Auto) (0-0.5) K/uL Baso # (Auto) (0-0.2) K/uL Immature Gran # (Auto) (0.00-0.02) K/uL PT (9.0-12.0) Seconds INR (0.9-1.1) APTT (21.0-31.0) Seconds PTT Ratio Sodium 137 (136-145) mmol/L Potassium 5.0 (3.5-5.1) mmol/L Chloride 109 H (98-107) mmol/L Carbon Dioxide 19 L (21-32) mmol/L Anion Gap 10.0 (3-11) BUN 66 H (7-18) mg/dl Creatinine 2.22 H D (0.6-1.2) mg/dl Est Cr Clr Drug Dosing 20.8 ml/min Est GFR ( Amer) 24.2 Est GFR (Non-Af Amer) 20.8 BUN/Creatinine Ratio 29.7 H (10-20) Glucose 92 (70-99) mg/dl POC Glucose 73 (70-99) mg/dl Lactate (0.4-2.0) mmol/L Calcium 9.3 (8.5-10.1) mg/dl Phosphorus (2.5-4.9) mg/dl Magnesium (1.8-2.4) mg/dl Total Bilirubin (0.2-1) mg/dl Direct Bilirubin (0-0.2) mg/dl AST (15-37) U/L ALT (12-78) U/L Alkaline Phosphatase (45-117) U/L Total Creatine Kinase (26-192) U/L Troponin I (0-0.045) ng/ml Total Protein (6.4-8.2) gm/dl Albumin (3.4-5.0) gm/dl Globulin (2.5-4.0) gm/dl Albumin/Globulin Ratio (0.9-2) Procalcitonin (0-0.5) ng/ml TSH (0.300-4.500) uIu/ml Urine Color Urine Appearance (Clear) Urine pH (4.5-7.5) Ur Specific [place] (1.000-1.030) Urine Protein (Negative) Urine Glucose (UA) (Negative) Urine Ketones (Negative) Urine Blood (Negative) Urine Nitrite (Negative) Urine Bilirubin (Negative) Urine Urobilinogen (Negative) Ur Leukocyte Esterase (Negative) Urine WBC (Auto) (0-5) /hpf Urine RBC (Auto) (0-4) /hpf U Hyaline Cast (Auto) U Epithel Cells (Auto) (0-5) /lpf Urine Bacteria (Auto) (Negative) Urine Yeast Stl C. diff Tox B Gene Negative Cdiff Gene (Neg) 12/31/19 12/31/19 12/31/19 Range/Units 12:36 12:36 12:36 WBC (4.8-10.8) K/uL RBC (4.2-5.4) M/uL Hgb (12.0-16.0) g/dL Hct (37-47) % MCV (80-100) fL MCH (25-34) pg MCHC (32-36) g/dL RDW Std Deviation (36.4-46.3) fL RDW Coeff of Robin (11.5-14.5) % Plt Count (130-400) K/uL MPV (7.4-10.4) fL Immature Gran % (Auto) % Neut % (Auto) % Lymph % (Auto) % Coleman % (Auto) % Eos % (Auto) % Baso % (Auto) % Neut # (Auto) (1.4-6.5) K/uL Lymph # (Auto) (1.2-3.4) K/uL Coleman # (Auto) (0.11-0.59) K/uL Eos # (Auto) (0-0.5) K/uL Baso # (Auto) (0-0.2) K/uL Immature Gran # (Auto) (0.00-0.02) K/uL PT 12.8 H (9.0-12.0) Seconds INR 1.2 H (0.9-1.1) APTT 30.2 (21.0-31.0) Seconds PTT Ratio 1.1 Sodium 132 L (136-145) mmol/L Potassium 5.4 H (3.5-5.1) mmol/L Chloride 103 (98-107) mmol/L Carbon Dioxide 20 L (21-32) mmol/L Anion Gap 9.0 (3-11) BUN 73 H (7-18) mg/dl Creatinine 2.58 H (0.6-1.2) mg/dl Est Cr Clr Drug Dosing 16.7 ml/min Est GFR ( Amer) 20.1 Est GFR (Non-Af Amer) 17.4 BUN/Creatinine Ratio 28.2 H (10-20) Glucose 199 H (70-99) mg/dl POC Glucose (70-99) mg/dl Lactate 1.8 (0.4-2.0) mmol/L Calcium 9.4 (8.5-10.1) mg/dl Phosphorus 4.3 (2.5-4.9) mg/dl Magnesium 1.9 (1.8-2.4) mg/dl Total Bilirubin 0.4 (0.2-1) mg/dl Direct Bilirubin < 0.1 (0-0.2) mg/dl AST 13 L (15-37) U/L ALT 16 (12-78) U/L Alkaline Phosphatase 72 (45-117) U/L Total Creatine Kinase 21 L (26-192) U/L Troponin I < 0.015 (0-0.045) ng/ml Total Protein 8.2 (6.4-8.2) gm/dl Albumin 2.9 L (3.4-5.0) gm/dl Globulin 5.3 H (2.5-4.0) gm/dl Albumin/Globulin Ratio 0.5 L (0.9-2) Procalcitonin (0-0.5) ng/ml TSH 1.480 (0.300-4.500) uIu/ml Urine Color Urine Appearance (Clear) Urine pH (4.5-7.5) Ur Specific [place] (1.000-1.030) Urine Protein (Negative) Urine Glucose (UA) (Negative) Urine Ketones (Negative) Urine Blood (Negative) Urine Nitrite (Negative) Urine Bilirubin (Negative) Urine Urobilinogen (Negative) Ur Leukocyte Esterase (Negative) Urine WBC (Auto) (0-5) /hpf Urine RBC (Auto) (0-4) /hpf U Hyaline Cast (Auto) U Epithel Cells (Auto) (0-5) /lpf Urine Bacteria (Auto) (Negative) Urine Yeast Stl C. diff Tox B Gene (Neg) 12/31/19 12/31/19 12/31/19 Range/Units 12:36 12:36 11:45 WBC 12.91 H (4.8-10.8) K/uL RBC 3.49 L (4.2-5.4) M/uL Hgb 9.3 L (12.0-16.0) g/dL Hct 29.0 L (37-47) % MCV 83.1 (80-100) fL MCH 26.6 (25-34) pg MCHC 32.1 (32-36) g/dL RDW Std Deviation 44.6 (36.4-46.3) fL RDW Coeff of Robin 14.8 H (11.5-14.5) % Plt Count 417 H (130-400) K/uL MPV 8.9 (7.4-10.4) fL Immature Gran % (Auto) 1.0 % Neut % (Auto) 81.4 % Lymph % (Auto) 10.3 % Coleman % (Auto) 6.3 % Eos % (Auto) 0.8 % Baso % (Auto) 0.2 % Neut # (Auto) 10.51 H (1.4-6.5) K/uL Lymph # (Auto) 1.33 (1.2-3.4) K/uL Coleman # (Auto) 0.81 H (0.11-0.59) K/uL Eos # (Auto) 0.10 (0-0.5) K/uL Baso # (Auto) 0.03 (0-0.2) K/uL Immature Gran # (Auto) 0.13 H (0.00-0.02) K/uL PT (9.0-12.0) Seconds INR (0.9-1.1) APTT (21.0-31.0) Seconds PTT Ratio Sodium (136-145) mmol/L Potassium (3.5-5.1) mmol/L Chloride (98-107) mmol/L Carbon Dioxide (21-32) mmol/L Anion Gap (3-11) BUN (7-18) mg/dl Creatinine (0.6-1.2) mg/dl Est Cr Clr Drug Dosing ml/min Est GFR ( Amer) Est GFR (Non-Af Amer) BUN/Creatinine Ratio (10-20) Glucose (70-99) mg/dl POC Glucose (70-99) mg/dl Lactate (0.4-2.0) mmol/L Calcium (8.5-10.1) mg/dl Phosphorus (2.5-4.9) mg/dl Magnesium (1.8-2.4) mg/dl Total Bilirubin (0.2-1) mg/dl Direct Bilirubin (0-0.2) mg/dl AST (15-37) U/L ALT (12-78) U/L Alkaline Phosphatase (45-117) U/L Total Creatine Kinase (26-192) U/L Troponin I (0-0.045) ng/ml Total Protein (6.4-8.2) gm/dl Albumin (3.4-5.0) gm/dl Globulin (2.5-4.0) gm/dl Albumin/Globulin Ratio (0.9-2) Procalcitonin 0.09 (0-0.5) ng/ml TSH (0.300-4.500) uIu/ml Urine Color Yellow Urine Appearance Turbid A (Clear) Urine pH 5.5 (4.5-7.5) Ur Specific [place] 1.013 (1.000-1.030) Urine Protein 2+ H (Negative) Urine Glucose (UA) Negative (Negative) Urine Ketones Negative (Negative) Urine Blood 3+ H (Negative) Urine Nitrite Negative (Negative) Urine Bilirubin Negative (Negative) Urine Urobilinogen Negative (Negative) Ur Leukocyte Esterase 3+ H (Negative) Urine WBC (Auto) >30 H (0-5) /hpf Urine RBC (Auto) >30 H (0-4) /hpf U Hyaline Cast (Auto) Not Reportable U Epithel Cells (Auto) 20-30 H (0-5) /lpf Urine Bacteria (Auto) Negative (Negative) Urine Yeast Not Reportable Stl C. diff Tox B Gene (Neg) Diagnostic Findings CT OF THE ABDOMEN AND PELVIS WITHOUT CONTRAST CLINICAL HISTORY: Lower abdominal pain. Urinary tract infection COMPARISON STUDY: CT of the abdomen and pelvis December 20, 2019. TECHNIQUE: Axial images of the abdomen and pelvis were obtained without IV contrast. Images were reviewed in the axial, sagittal, and coronal planes. Automated exposure control was utilized for the study. A dose lowering technique was utilized adhering to the principles of ALARA. FINDINGS: No pneumatosis, free air or portal venous gas is present. Evaluation of the abdomen and pelvis is suboptimal on this unenhanced examination. The liver, spleen, adrenal glands and pancreas are unremarkable. The gallbladder is not visualized and is likely surgically absent. There is no significant biliary ductal dilatation. There is no peripancreatic infiltration. Postsurgical findings within the right colon are noted. There is no evidence for a bowel obstruction. There is sigmoid diverticulosis without evidence for acute diverticulitis. Moderate to severe right and moderate left hydroureteronephrosis is similar to CT of December 20, 2019. Similar findings were also shown on CT of November 23, 2019. Urothelial thickening is suspected. Bladder wall thickening with adjacent infiltration is also unchanged. There are no ureteral calculi. Calcifications within the renal sinuses favor vascular calcifications. There are no ureteral calculus. There are no suspicious osseous lesions. IMPRESSION: 1. No significant change in moderate to severe right and moderate left hydroureteronephrosis since CT of December 20, 2019. Persistent urothelial thickening, bladder wall thickening and infiltration adjacent to the right ureter and bladder. No ureteral calculi. The findings favor an infectious process and could be correlated with urinalysis. Etiology for hydronephrosis not clear on this exam but may be related to the bladder. 2. No bowel obstruction. 3. Colonic diverticulosis without evidence for acute diverticulitis. XR chest 1V portable CLINICAL HISTORY: SEPSIS COMPARISON STUDY: Chest CT November 23, 2019. FINDINGS: Right subclavian [id number] is in place. There is no pneumothorax or pleural effusion. There is no evidence for pulmonary edema. Incompletely healed left femoral neck fracture with angulation is noted. Cardiomediastinal silhouette is stable. Mild interstitial thickening within the lungs is likely chronic. IMPRESSION: No change in appearance of the chest. No acute findings. Stable interstitial thickening. ECG Additional Comments: ECG on 12/31/2019 at 1221 with sinus rhythm with PACs, rate 66, no acute ischemic changes Code Status & VTE Plan Code Status DNR/DNI, has a POLST form with her VTE Prophylaxis Plan VTE Prophylaxis will be ordered: Yes PG Care Time/CCT Total # of Minutes Spent Total Time Spent with Patient: Total time spent is greater than 50% in coordination of care (as documented) at patient's floor/unit and/or counseling patient: Coding Level of Care Code 22074 Initial Inpt Care Lvl 3 Diagnoses Weakness R53.1 ERICA (acute kidney injury) N17.9 UTI (urinary tract infection) N30.00 Hematuria presence: without hematuria Urinary tract infection type: acute cystitis Acute metabolic encephalopathy G93.41 Bilateral hydronephrosis N13.30 Benign familial tremor G25.0 Esophageal reflux K21.9 HTN (hypertension) I10 Depression F32.9 Type 2 diabetes mellitus 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
[2019-12-31] MEDS ORDERED: DEXTROSE 50% 50 ML SYRINGE IV PRN (16:19)
[2019-12-31] MEDS ORDERED: ONDANSETRON INJ 2 MG/ML 2 ML VIAL IV PRN (16:19)
[2019-12-31] MEDS ORDERED: CARBOHYDRATES FOR HYPOGLYCEMIA PO PRN (16:19)
[2019-12-31] MEDS ORDERED: GLUCAGON FOR INJ 1 MG VIAL SQ PRN (16:19)
[2019-12-31] MEDS ORDERED: GLUCOSE 10 TABS/TUBE PO PRN (16:19)
[2019-12-31] MEDS ORDERED: GLUCOSE 40% GEL 15 GM TUBE PO PRN (16:19)
[2019-12-31] MEDS: SODIUM CHLORIDE 0.9% 1000ML 1,000 ML IV SCH ×2 (16:38→23:03)
[2019-12-31] MEDS: ESCITALOPRAM OXALATE 10 MG TAB PO SCH (17:05)
[2019-12-31] MEDS: ACETAMINOPHEN 325 MG TAB PO PRN ×2 (17:08→23:04)
[2019-12-31] MEDS: ERTAPENEM SODIUM 1,000 MG in SODIUM CHLORIDE 0.9% 50 ML IV SCH (17:34)
[2019-12-31] MEDS: INSULIN ASPART 100 UNITS/ML 3 ML PEN SC SCH ×2 (17:39→20:52)
--- NOTE | 2019-12-31 18:16 | Urology Consultation ---
Date of Consultation December 31, 2019 Assessment & Plan (1) UTI (urinary tract infection): (2) Bilateral hydronephrosis: Patient with long history of recurrent UTIs significant emptying issues and incomplete emptying with retention. Patient has recurrent UTIs which have increased in complexity. Has significant weakness and ill feelings and is well- known to the urology team. Patient is admitted with supportive care and close monitoring. Patient had plans for a scope to be done in the next few weeks after treatment of a ongoing urinary issue. However patient now acutely ill with likely issues related to reflux. Patient has emptying issues from combination of stricture, pelvic floor prolapse, and recurrent emptying issues. Discussed different options. At this point recommend decompression with Oliver catheter and broad-spectrum antibiotics awaiting cultures for de-escalation to an oral agent. Patient will likely need a prolonged course with plans to undergo imaging versus procedure to fully assess and better understand. We will need to await plans for long-term management. Has an infectious disease consultation. Also will need to consider long-term plans for dealing with emptying issues including possible intermittent catheterization versus indwelling catheters for improved drainage. At this point will continue with supportive care we will continue to monitor. Call if any major changes or issues. Patient complicated medical and surgical history was all reviewed and summarized above all imaging was reviewed interpreted by myself History of Present Illness Attending Physician: Carolin Roberts MD History of Present Illness New consultation for well-known patient with long history of recurrent UTIs and hydronephrosis with severe inflammation and incomplete emptying. Patient has increased confusion and weakness with signs of UTI/Pyelo, discomfort, and ill feelings. Patient developed sudden onset increased/acute issues of pain into flank going down and radiating into groin and back in waves comes and goes. Can be severe at times. Patient has significant chronic UTI issues at baseline Discussed and reviewed patient's family history for any history of issues, infections, and disease. Also, discussed patient's medical/surgery history especially related to any history of urinary issues or stone disease. Patient was admitted and is undergoing observation with broad spectrum IV antibiotics. Allergies Allergy/AdvReac Type Severity Reaction Status Date / Time nitrofurantoin AdvReac Intermediate Abdominal Verified 12/31/19 13:03 [From Macrobid] Pain Home Medications Home Medications Medication Instructions Recorded Confirmed Type cholecalciferol (vitamin D3) 125 5,000 units PO QAM 01/31/18 12/31/19 History mcg (5,000 unit) capsule insulin detemir U-100 100 unit/mL 10 unit SUBCUT QAM 01/05/19 12/31/19 History (3 mL) subcutaneous pen escitalopram oxalate 10 mg tablet 10 mg PO QDD 04/03/19 12/31/19 History Probiotic 0 mmu cells PO QDD 05/11/19 12/31/19 History clobetasol 1 applic TOPICAL 5XWK 05/11/19 12/31/19 History Levemir U-100 Insulin 12 unit SUBCUT HS 05/22/19 12/31/19 History benazepril 20 mg PO QAM 07/15/19 12/31/19 History mirtazapine 3.75 mg PO HS 07/15/19 12/31/19 History tamsulosin 0.4 mg capsule 0.4 mg PO DAILY #30 cap 10/13/19 12/31/19 Rx acetaminophen 325 mg tablet 650 mg PO QID PRN tab 10/18/19 12/31/19 History amlodipine 10 mg tablet 5 mg PO DAILY tab 11/01/19 12/31/19 History apixaban 2.5 mg tablet 2.5 mg PO Q12H #60 tab 12/26/19 12/31/19 Rx trimethoprim 100 mg tablet 100 mg PO ONCE 30 Days #30 tab 12/28/19 12/31/19 Rx nystatin 1 applic TOPICAL BID 12/31/19 12/31/19 History sitagliptin [Januvia] 50 mg PO DAILY 12/31/19 12/31/19 History Patient History Medical History Bladder mass Colon cancer Cystitis Depression Depression DVT prophylaxis Essential hypertension History of chemotherapy History of deep vein thrombophlebitis of lower extremity History of diverticulitis History of DVT (deep vein thrombosis) History of nephrolithiasis Lichen sclerosus 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 Metastatic colon cancer to liver Type 2 diabetes mellitus UTI (urinary tract infection) UTI (urinary tract infection) Surgical History History of appendectomy History of colon surgery History of colonoscopy History of hysterectomy History of partial colectomy History of tonsillectomy History of tubal ligation S/P cholecystectomy Status post cardiac surgery inferior vena cava bo filter placement Family History Father Diabetes Coronary heart disease Mother Colorectal cancer Sister Hypertension Diabetes Family/Other Diabetes Hypertension Other Family history non-contributory Social History Smoking Status: Never smoker Second Hand Exposure: No; Do You Dip or Chew Tobacco: No; Tobacco Cessation Education Requested by Patient: No Hx Alcohol Use: No Hx Substance Use: No Preferred Language: Moldovan Communication Ability: Effective Visual Impairment: No Limitations Mds Rn Required: No Beliefs That Will Affect Care: None marital status: Current Living Situation: Spouse current occupational status: retired How many Children do You have: 2 Other Information That Helps Us Care for You: No Feels Safe at Home: Yes Safety Concerns: Feels Safe At This Time Assistive Devices: Walker Review of Systems Review of Systems: All systems reviewed & are unremarkable except as noted in HPI & below Physical Exam Physical Exam: General: Alert in no acute distress. Advanced age. Chronic Medical issues. Poor historian due to acute illness HEENT: Normocephalic. Inspection normal. Cranial Nerves 2-12 Grossly intact with some hearing issues. Normal inspection of face. Normal inspection of neck. Psychologic: Normal affect. Baseline issues with memory. Respiratory: Nonlabored. No use of accessory muscles. No tachypnea or dyspnea. Cardiovascular: No tachycardia Skin: [place] and Dry. No rashes or visible lesions. Extremities/Lymphatics: Minor Mobility issues. Slow Gait. Abdomen: Moderately distended. No rebound or guarding. Results & Data ([facility]) Vital Signs (Past 12 Hours) Vital Signs Temp Pulse Pulse Resp BP BP Pulse Ox 12/31/19 16:15 36.8 C 57 L 18 119/57 L 98 12/31/19 15:39 59 L 20 137/61 99 12/31/19 14:33 59 L 20 130/49 L 98 12/31/19 14:14 58 L 20 131/62 99 12/31/19 13:00 60 20 120/56 L 100 12/31/19 12:30 72 20 121/82 100 12/31/19 11:47 36.8 C 77 20 128/76 95 PG Care Time/CCT Total # of Minutes Spent Total Time Spent with Patient: Total time spent is greater than 50% in coordination of care (as documented) at patient's floor/unit and/or counseling patient: Coding Level of Care Code 75540 Inpt Consult Level 5 Diagnoses UTI (urinary tract infection) N30.00 Hematuria presence: without hematuria Urinary tract infection type: acute cystitis Bilateral hydronephrosis N13.30 (1) UTI (urinary tract infection) Hematuria presence: without hematuria Urinary tract infection type: acute cystitis Qualified Code(s): N30.00 - Acute cystitis without hematuria
[2019-12-31 18:38] LABS: BUN Creatinine Ratio 29.7 (10-20); Calcium 9.3 mg/dl (8.5-10.1); Creatinine Clr Calc Pharmacy 20.8 ml/min; Est GFR (African American) 24.2; Est GFR (Non-African American) 20.8
[2019-12-31] MEDS: APIXABAN 2.5 MG TAB PO SCH (20:44)
[2019-12-31] MEDS: NYSTATIN OINT 15 GM TUBE EXT SCH (20:44)
[2019-12-31] MEDS: MIRTAZAPINE TAB 15 MG TAB PO SCH (20:45)
[2019-12-31] MEDS ORDERED: INSULIN DETEMIR SQ SCH (21:00)
[2020-01-01] MEDS: SODIUM CHLORIDE 0.9% 1000ML 1,000 ML IV SCH ×3 (07:13→23:12)
[2020-01-01] MEDS: INSULIN ASPART 100 UNITS/ML 3 ML PEN SC SCH ×4 (08:45→21:30)
[2020-01-01] MEDS: CLOBETASOL PROPIONATE 0.05% OINT 15 GM TUBE EXT SCH (08:49)
[2020-01-01] MEDS: INSULIN DETEMIR FLEXPEN/FLEX TOUCH 100 UNITS/ML 3ML SQ SCH (08:49)
[2020-01-01] MEDS: NYSTATIN OINT 15 GM TUBE EXT SCH ×2 (08:50→20:17)
[2020-01-01] MEDS: TAMSULOSIN HCL 0.4 MG CAP PO SCH (08:50)
[2020-01-01] MEDS: AMLODIPINE BESYLATE 5 MG TAB PO SCH (08:51)
[2020-01-01] MEDS: APIXABAN 2.5 MG TAB PO SCH ×2 (08:51→20:17)
[2020-01-01] MEDS: CHOLECALCIFEROL 1,000 UNITS 25 MCG TAB PO SCH (08:51)
[2020-01-01 10:22] LABS: Basophils # (auto) 0.04 K/uL (0-0.2); Basophils % (auto) 0.4 %; Eosinophils # (auto) 0.16 K/uL (0-0.5); Eosinophils % (auto) 1.8 %; Hematocrit (blood only) 27.3 % (37-47); Hemoglobin 8.3 g/dL (12.0-16.0); Immature Granulocytes # (auto) 0.09 K/uL (0.00-0.02); Lymphocytes # (auto) 1.05 K/uL (1.2-3.4); Lymphocytes % (auto) 11.8 %; Mean Corpuscular Hemoglobin 25.7 pg (25-34); Mean Corpuscular Hgb Conc 30.4 g/dL (32-36); Mean Corpuscular Volume 84.5 fL (80-100); Mean Platelet Volume 8.6 fL (7.4-10.4); Monocytes # (auto) 0.89 K/uL (0.11-0.59); Platelet Count 339 K/uL (130-400); RDW Coefficient of Variation 14.9 % (11.5-14.5); RDW Standard Deviation 46.4 fL (36.4-46.3); Red Blood Count 3.23 M/uL (4.2-5.4); White Blood Count 8.93 K/uL (4.8-10.8)
[2020-01-01 10:34] LABS: INR 1.2 (0.9-1.1); Prothrombin Time 12.4 Seconds (9.0-12.0)
[2020-01-01 10:55] LABS: Calcium 8.6 mg/dl (8.5-10.1); Creatinine Clr Calc Pharmacy 31.1 ml/min; Est GFR (African American) 39.5
[2020-01-01 11:09] LABS: Estimated Average Glucose 137 mg/dl; Hemoglobin A1C 6.4 % (4.5-5.6)
[2020-01-01] MEDS: ERTAPENEM SODIUM 1,000 MG in SODIUM CHLORIDE 0.9% 50 ML IV SCH (15:48)
--- NOTE | 2020-01-01 16:22 | Hospitalist Progress Note ---
Date of Service January 01, 2020 Assessment & Plan (1) Weakness: Presents with generalized weakness and acute metabolic encephalopathy likely secondary to acute kidney injury and UTI with pyelonephritis Treating UTI and ERICA as below PT/OT consultations ordered -Admit to medical/surgical floor (2) ERICA (acute kidney injury): With creatinine up to 2.58 on admission from 1.33 one month ago With known urethral stricture and pelvic floor dysfunction and incomplete bladder emptying, with bilateral hydronephrosis that is chronic on CT abdomen/pelvis and redemonstrated today. Discussed case with urology With mild metabolic acidosis and mild hyperkalemia with potassium of 5.4, sodium mildly low at 132. No peaked T waves on ECG. Most likely secondary to postobstructive cause, however was recently also started on trimethoprim 3 days ago which could be contributing - Placed Oliver catheter and will leave in for at least a week. She is likely going to need to perform CIC at home after discharge. - Continue tamsulosin - Hold home benazepril and trimethoprim - Cr much improved today back to 1.5. (3) UTI (urinary tract infection): With abnormal urinalysis here in the setting of incomplete bladder emptying as noted above Was given 1 dose of IV Rocephin in the ER, however she has a history of ESBL Klebsiella, yeast not Cassi albicans, enterococcus, E. coli, and Cassi glabrata all on previous urine cultures. - Will start IV ertapenem instead in case of ESBL organism - Urology consultation placed - Placing Oliver catheter for incomplete bladder emptying as above - Follow urine culture and blood cultures. - All cultures still negative. Urine culture has pinpoint growth. (4) Acute metabolic encephalopathy: Likely secondary to acute kidney injury and UTI as above Treating both in the should improve Does have some underlying mild cognitive impairment as per her granddaughter. (5) Bilateral hydronephrosis: As noted above - Plan as per urology for cystoscopy after acute infection is resolved. (6) Benign familial tremor: Noted in history, she is not on medication for this No tremor present on physical examination today (7) Esophageal reflux: Noted in chart but again she is not on medication for this (8) HTN (hypertension): Blood pressures are controlled today at 130/60. - Continue home amlodipine - Holding home benazepril for acute kidney injury (9) Depression: Stable -Continue home mirtazapine 3.75 mg p.o. at bedtime and Lexapro 10 mg daily (10) Type 2 diabetes mellitus: Most recent hemoglobin A1c 7.1% in 10/2019, well controlled - Continue Lantus, but will cut dose in half given acute renal failure and monitor for hypoglycemia Home dose is Lantus 12 units at bedtime and 10 units in the morning-we will only continue the 10 units in the morning for now Hold home Januvia in the setting of acute kidney injury -Accu-Cheks and NovoLog sliding scale insulin before meals and at bedtime -> Sugars 90 - 150 day. Stay steady. (11) group home (current) use of anticoagulants: Was on Coumadin for a long time for history of numerous DVTs, was just switched to apixaban on 12/29 by the [facility]. - Continue apixaban 2.5 mg p.o. twice daily as urology has no plans for procedures in the near future (12) Colon cancer: With history of partial colectomy, no further treatment since then (13) Diarrhea: Having 2 loose stools a day for last 3 days, was recently on cefuroxime. C. diff negative on 12/30. - Imodium PRN (14) Proximal humerus fracture: With a history of proximal humerus fracture which was treated with a sling and she was cleared by orthopedics to return to full weight-bearing without restrictions. She does have limited range of motion. Noted fracture with some displacement on chest x-ray here No pain at this time - Limb restriction on the left side (15) Obesity: BMI 31.2 Needs weight loss (16) History of DVT (deep vein thrombosis): As noted above Continue home apixaban at 2.5 mg p.o. twice daily-dose is lower as it is the prophylaxis dose for DVT Disposition-admit to medical/surgical floor, expected least a 2 midnight stay PT/OT consultations placed and may need rehab placement at the time of discharge Admission and Anticipated Discharge Date Admission Date: December 31, 2019 Subjective Feels fairly well today. Overall, no major concerns. Reports no fevers/chills, chest pain, shortness of breath, abdominal pain, nausea, or vomiting. Physical Exam Constitutional: WD/WN, vitals as above Eyes: EOM intact bilaterally; no conjunctival abnormality ENMT: external ear and nose normal, oropharynx normal Neck: trachea midline, no thyromegaly normal visual inspection Respiratory: normal respiratory effort, lungs clear to auscultation no respiratory distress Cardiovascular: RRR, no murmur, no edema Gastrointestinal (Abdomen): Inspection/Auscultation: abdomen normal to inspection; abdomen not distended Musculoskeletal: no cyanosis or clubbing, extremities motor strength 5/5 Skin: no rashes, warm and dry Neurologic: moves all extremities and awake Psychiatric: Orientation: alert, oriented to person and cooperative Results & Data Results & Data ([facility]) Vital Signs (Past 12 Hours) Vital Signs Temp Pulse Resp BP Pulse Ox 01/01/20 15:55 36.9 C 62 18 131/59 L 98 01/01/20 07:50 36.7 C 104 H 18 118/64 94 PG Care Time/CCT Total # of Minutes Spent Total Time Spent with Patient: Total time spent is greater than 50% in coordination of care (as documented) at patient's floor/unit and/or counseling patient: Coding Level of Care Code 79822 Subseq Hosp Care Lvl 2 Diagnoses Weakness R53.1 ERICA (acute kidney injury) N17.9 UTI (urinary tract infection) N30.00 Hematuria presence: without hematuria Urinary tract infection type: acute cystitis Acute metabolic encephalopathy G93.41 Bilateral hydronephrosis N13.30 Benign familial tremor G25.0 Esophageal reflux K21.9 HTN (hypertension) I10 Depression F32.9 Type 2 diabetes mellitus E11.9 group home (current) use of 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
[2020-01-01] MEDS: ESCITALOPRAM OXALATE 10 MG TAB PO SCH (17:30)
[2020-01-01] MEDS: MIRTAZAPINE TAB 15 MG TAB PO SCH (20:17)
[2020-01-01] MEDS: ACETAMINOPHEN 325 MG TAB PO PRN (20:18)
--- NOTE | 2020-01-01 22:26 | Electrocardiogram Report ---
Test Reason : Blood Pressure : / mmHG Vent. Rate : 066 BPM Atrial Rate : 066 BPM P-R Int : 158 ms QRS Dur : 094 ms QT Int : 414 ms P-R-T Axes : 060 -36 051 degrees QTc Int : 434 ms Sinus rhythm with Premature atrial complexes Left axis deviation Septal infarct (cited on or before 31-JUL-2018) Abnormal ECG When compared with ECG of 24-NOV-2019 06:33, No significant change Confirmed by Richar Mcdonnell ([id number]) on 01/01/2020 10:26:30 PM Referred By: REFERRED SELF Confirmed By:Richar Mcdonnell
[2020-01-02] MEDS: SODIUM CHLORIDE 0.9% 1000ML 1,000 ML IV SCH ×3 (06:25→21:54)
[2020-01-02 07:29] LABS: Hematocrit (blood only) 26.8 % (37-47); Hemoglobin 8.3 g/dL (12.0-16.0); Mean Corpuscular Hemoglobin 26.3 pg (25-34); Mean Corpuscular Volume 84.8 fL (80-100); Mean Platelet Volume 8.5 fL (7.4-10.4); Platelet Count 340 K/uL (130-400); RDW Standard Deviation 47.1 fL (36.4-46.3); Red Blood Count 3.16 M/uL (4.2-5.4); White Blood Count 9.07 K/uL (4.8-10.8)
[2020-01-02 08:09] LABS: BUN Creatinine Ratio 24.3 (10-20); Calcium 9.3 mg/dl (8.5-10.1); Creatinine Clr Calc Pharmacy 38.4 ml/min; Est GFR (African American) 50.8; Est GFR (Non-African American) 43.9; Magnesium 1.7 mg/dl (1.8-2.4); Potassium 4.8 mmol/L (3.5-5.1)
[2020-01-02] MEDS: CLOBETASOL PROPIONATE 0.05% OINT 15 GM TUBE EXT SCH (09:47)
[2020-01-02] MEDS: INSULIN ASPART 100 UNITS/ML 3 ML PEN SC SCH ×4 (09:47→21:23)
[2020-01-02] MEDS: APIXABAN 2.5 MG TAB PO SCH ×2 (09:48→21:17)
[2020-01-02] MEDS: CHOLECALCIFEROL 1,000 UNITS 25 MCG TAB PO SCH (09:48)
[2020-01-02] MEDS: TAMSULOSIN HCL 0.4 MG CAP PO SCH (09:49)
[2020-01-02] MEDS: NYSTATIN OINT 15 GM TUBE EXT SCH ×2 (09:50→21:18)
[2020-01-02] MEDS: INSULIN DETEMIR FLEXPEN/FLEX TOUCH 100 UNITS/ML 3ML SQ SCH (09:50)
[2020-01-02] MEDS: AMLODIPINE BESYLATE 5 MG TAB PO SCH (09:50)
--- NOTE | 2020-01-02 12:08 | Urology Progress Note ---
Date of Service January 02, 2020 Assessment & Plan (1) UTI (urinary tract infection): (2) Bilateral hydronephrosis: 74yo F admitted with weakness and mild confusion secondary to acute kidney injury and UTI with pyelonephritis. -Reviewed plan of care with -Remains Afebrile -Labs reviewed, WBC and Creatinine are stable -Blood and urine cultures pending -Recommend continue broad spectrum IV antibiotics while awaiting final culture results -Recommend continue Oliver catheter until scheduled follow-up with Urology -Appointment scheduled with Dr. Burton on 01/16 for outpatient management of hydronephrosis -No additional acute interventions indicated at this time -Thank you for allowing us to participate in the acute care of Mrs. Arguello. Please reconsult us with additional questions, concerns or changes in patient status. Admission and Anticipated Discharge Date Admission Date: December 31, 2019 Subjective 74yo F admitted with weakness and mild confusion secondary to acute kidney injury and UTI with pyelonephritis. Patient examined at beside this AM Awake and sitting up in bed on arrival Denies fevers or chills Tolerating PO diet without nausea or vomiting Denies any pain or discomfort Oliver catheter intact, draining cloudy, yellow urine Chart Review: Afebrile WBC 9.07 (previous 8.93) Hgb 8.3 (previous 8.3) Cr 1.20 (previous 1.48) Blood/Urine Culture - Pending, Continues with IV Ertapenem Review of Systems Constitutional: as per Subjective / HPI Gastrointestinal: as per Subjective / HPI Genitourinary: as per Subjective / HPI Physical Exam 2 Constitutional: well developed and well nourished; no acute distress Respiratory: normal respiratory effort and able to speak in complete sentences Gastrointestinal (Abdomen): Inspection/Auscultation: abdomen normal to inspection; abdomen not distended Musculoskeletal: Head/Neck/Chest: normocephalic Neurologic: awake; not confused Psychiatric: Orientation: alert, oriented x 3 and cooperative Genitourinary: Oliver catheter intact, draining cloudy, yellow urine Results & Data ([facility]) Vital Signs (Past 12 Hours) Vital Signs Temp Pulse Resp BP Pulse Ox 01/02/20 07:50 37 C 54 L 16 127/64 97 PG Care Time/CCT Total # of Minutes Spent Total Time Spent with Patient: Total time spent is greater than 50% in coordination of care (as documented) at patient's floor/unit and/or counseling patient: Coding Level of Care Code 06039 Subseq Hosp Care Lvl 2 Diagnoses UTI (urinary tract infection) N30.00 Hematuria presence: without hematuria Urinary tract infection type: acute cystitis Bilateral hydronephrosis N13.30 (1) UTI (urinary tract infection) Hematuria presence: without hematuria Urinary tract infection type: acute cystitis Qualified Code(s): N30.00 - Acute cystitis without hematuria
[2020-01-02] MEDS: ERTAPENEM SODIUM 1,000 MG in SODIUM CHLORIDE 0.9% 50 ML IV SCH (14:38)
[2020-01-02] MEDS: ESCITALOPRAM OXALATE 10 MG TAB PO SCH (16:09)
[2020-01-02] MEDS: MIRTAZAPINE TAB 15 MG TAB PO SCH (21:20)
--- NOTE | 2020-01-02 23:32 | Hospitalist Progress Note ---
Date of Service January 02, 2020 Assessment & Plan (1) Weakness: Presents with generalized weakness and acute metabolic encephalopathy likely secondary to acute kidney injury and UTI with pyelonephritis Treating UTI and ERICA as below Previous provider placed patient on antibiotics, Now that UA and culture are inconclusive, unsure if patient truly had a UTI. Patient did have ERICA which could explain her symptoms. will consult Infectious disease PT/OT consultations ordered -Admit to medical/surgical floor (2) ERICA (acute kidney injury): With creatinine up to 2.58 on admission from 1.33 one month ago With known urethral stricture and pelvic floor dysfunction and incomplete bladder emptying, with bilateral hydronephrosis that is chronic on CT abdomen/pelvis and redemonstrated today. Discussed case with urology With mild metabolic acidosis and mild hyperkalemia with potassium of 5.4, sodium mildly low at 132. No peaked T waves on ECG. Most likely secondary to postobstructive cause, however was recently also started on trimethoprim 3 days ago which could be contributing - Placed Oliver catheter and will leave in for at least a week. She is likely going to need to perform CIC at home after discharge. - Continue tamsulosin - Hold home benazepril and trimethoprim - Cr is back to normal. (3) UTI (urinary tract infection): With abnormal urinalysis here in the setting of incomplete bladder emptying as noted above Was given 1 dose of IV Rocephin in the ER, however she has a history of ESBL Klebsiella, yeast not Cassi albicans, enterococcus, E. coli, and Cassi glabrata all on previous urine cultures. - Will start IV ertapenem instead in case of ESBL organism - Urology consultation placed - Placing Oliver catheter for incomplete bladder emptying as above - Follow urine culture and blood cultures. - All cultures still negative. Will consult ID. (4) Acute metabolic encephalopathy: Likely secondary to acute kidney injury and UTI as above Treating both in the should improve Does have some underlying mild cognitive impairment as per her granddaughter. (5) Bilateral hydronephrosis: As noted above - Plan as per urology for cystoscopy after acute infection is resolved. (6) Benign familial tremor: Noted in history, she is not on medication for this No tremor present on physical examination today (7) Esophageal reflux: Noted in chart but again she is not on medication for this (8) HTN (hypertension): Blood pressures are controlled today at 130/60. - Continue home amlodipine - Holding home benazepril for acute kidney injury (9) Depression: Stable -Continue home mirtazapine 3.75 mg p.o. at bedtime and Lexapro 10 mg daily (10) Type 2 diabetes mellitus: Most recent hemoglobin A1c 7.1% in 10/2019, well controlled - Continue Lantus, but will cut dose in half given acute renal failure and monitor for hypoglycemia Home dose is Lantus 12 units at bedtime and 10 units in the morning-we will only continue the 10 units in the morning for now Hold home Januvia in the setting of acute kidney injury -Accu-Cheks and NovoLog sliding scale insulin before meals and at bedtime -> Sugars 90 - 150 day. Stay steady. (11) [facility] (current) use of anticoagulants: Was on Coumadin for a long time for history of numerous DVTs, was just switched to apixaban on 12/29 by the [facility]. - Continue apixaban 2.5 mg p.o. twice daily as urology has no plans for procedures in the near future (12) Colon cancer: With history of partial colectomy, no further treatment since then (13) Diarrhea: Having 2 loose stools a day for last 3 days, was recently on cefuroxime. C. diff negative on 12/30. - Imodium PRN (14) Proximal humerus fracture: With a history of proximal humerus fracture which was treated with a sling and she was cleared by orthopedics to return to full weight-bearing without restrictions. She does have limited range of motion. Noted fracture with some displacement on chest x-ray here No pain at this time - Limb restriction on the left side (15) Obesity: BMI 31.2 Needs weight loss (16) History of DVT (deep vein thrombosis): As noted above Continue home apixaban at 2.5 mg p.o. twice daily-dose is lower as it is the prophylaxis dose for DVT Disposition-admit to medical/surgical floor, expected least a 2 midnight stay PT/OT consultations placed and may need rehab placement at the time of discharge Admission and Anticipated Discharge Date Admission Date: December 31, 2019 Subjective 74 yo female reports feeling well. She has no new complaints. Review of Systems Review of Systems: All systems reviewed & are unremarkable except as noted in HPI & below Physical Exam Physical Exam: Constitutional: WD/WN, vitals as above Eyes: EOM intact bilaterally; no conjunctival abnormality ENMT: external ear and nose normal, oropharynx normal Neck: trachea midline, no thyromegaly normal visual inspection Respiratory: normal respiratory effort, lungs clear to auscultation no re spiratory distress Cardiovascular: \RRR, no murmur, no edema Gastrointestinal (Abdomen): Inspection/Auscultation: abdomen normal to inspection; abdomen not distended Musculoskeletal: no cyanosis or clubbing, extremities motor strength 5/5 Skin: no rashes, warm and dry Neurologic: moves all extremities and awake Psychiatric: Orientation: alert, oriented to person and cooperative Results & Data Results & Data ([facility]) Vital Signs (Past 12 Hours) Vital Signs Temp Pulse Resp BP Pulse Ox 01/02/20 22:56 37.0 C 60 16 147/82 H 98 01/02/20 15:03 36.8 C 63 18 135/68 98 PG Care Time/CCT Total # of Minutes Spent Total Time Spent with Patient: Total time spent is greater than 50% in coordination of care (as documented) at patient's floor/unit and/or counseling patient: Coding Level of Care Code 67194 Subseq Hosp Care Lvl 3 Diagnoses Weakness R53.1 ERICA (acute kidney injury) N17.9 UTI (urinary tract infection) N30.00 Hematuria presence: without hematuria Urinary tract infection type: acute cystitis Acute metabolic encephalopathy G93.41 Bilateral hydronephrosis N13.30 Benign familial tremor G25.0 Esophageal reflux K21.9 HTN (hypertension) I10 Depression F32.9 Type 2 diabetes mellitus 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
[2020-01-03] MEDS: SODIUM CHLORIDE 0.9% 1000ML 1,000 ML IV SCH ×3 (05:30→21:42)
[2020-01-03] MEDS: CLOBETASOL PROPIONATE 0.05% OINT 15 GM TUBE EXT SCH (08:44)
[2020-01-03] MEDS: APIXABAN 2.5 MG TAB PO SCH ×2 (08:44→21:42)
[2020-01-03] MEDS: CHOLECALCIFEROL 1,000 UNITS 25 MCG TAB PO SCH (08:45)
[2020-01-03] MEDS: TAMSULOSIN HCL 0.4 MG CAP PO SCH (08:45)
[2020-01-03] MEDS: AMLODIPINE BESYLATE 5 MG TAB PO SCH (08:45)
[2020-01-03] MEDS: NYSTATIN OINT 15 GM TUBE EXT SCH ×2 (08:46→21:45)
[2020-01-03] MEDS: INSULIN ASPART 100 UNITS/ML 3 ML PEN SC SCH ×4 (09:54→21:45)
[2020-01-03] MEDS: INSULIN DETEMIR FLEXPEN/FLEX TOUCH 100 UNITS/ML 3ML SQ SCH (09:57)
[2020-01-03] MEDS: ERTAPENEM SODIUM 1,000 MG in SODIUM CHLORIDE 0.9% 50 ML IV SCH (14:18)
[2020-01-03] MEDS: ESCITALOPRAM OXALATE 10 MG TAB PO SCH (15:57)
[2020-01-03] MEDS: MIRTAZAPINE TAB 15 MG TAB PO SCH (21:40)
--- NOTE | 2020-01-03 21:48 | Hospitalist Progress Note ---
Date of Service January 03, 2020 Assessment & Plan (1) Weakness: Presents with generalized weakness and acute metabolic encephalopathy likely secondary to acute kidney injury and UTI with pyelonephritis Treating UTI and ERICA as below Previous provider placed patient on antibiotics, Now that UA and culture are inconclusive, unsure if patient truly had a UTI. Patient did have ERICA which could explain her symptoms. will consult Infectious disease PT/OT consultations ordered -Admit to medical/surgical floor (2) ERICA (acute kidney injury): With creatinine up to 2.58 on admission from 1.33 one month ago With known urethral stricture and pelvic floor dysfunction and incomplete bladder emptying, with bilateral hydronephrosis that is chronic on CT abdomen/pelvis and redemonstrated today. Discussed case with urology With mild metabolic acidosis and mild hyperkalemia with potassium of 5.4, sodium mildly low at 132. No peaked T waves on ECG. Most likely secondary to postobstructive cause, however was recently also started on trimethoprim 3 days ago which could be contributing - Placed Oliver catheter and will leave in for at least a week. She is likely going to need to perform CIC at home after discharge. - Continue tamsulosin - Hold home benazepril and trimethoprim - Cr is back to normal. (3) UTI (urinary tract infection): With abnormal urinalysis here in the setting of incomplete bladder emptying as noted above Was given 1 dose of IV Rocephin in the ER, however she has a history of ESBL Klebsiella, yeast not Cassi albicans, enterococcus, E. coli, and Cassi glabrata all on previous urine cultures. - Will start IV ertapenem instead in case of ESBL organism - Urology consultation placed - Placing Oliver catheter for incomplete bladder emptying as above - Follow urine culture and blood cultures. - All cultures still negative. Will consult ID. (4) Acute metabolic encephalopathy: Likely secondary to acute kidney injury and UTI as above Treating both in the should improve Does have some underlying mild cognitive impairment as per her granddaughter. (5) Bilateral hydronephrosis: As noted above - Plan as per urology for cystoscopy after acute infection is resolved. (6) Benign familial tremor: Noted in history, she is not on medication for this No tremor present on physical examination today (7) Esophageal reflux: Noted in chart but again she is not on medication for this (8) HTN (hypertension): Blood pressures are controlled today at 130/60. - Continue home amlodipine - Holding home benazepril for acute kidney injury (9) Depression: Stable -Continue home mirtazapine 3.75 mg p.o. at bedtime and Lexapro 10 mg daily (10) Type 2 diabetes mellitus: Most recent hemoglobin A1c 7.1% in 10/2019, well controlled - Continue Lantus, but will cut dose in half given acute renal failure and monitor for hypoglycemia Home dose is Lantus 12 units at bedtime and 10 units in the morning-we will only continue the 10 units in the morning for now Hold home Januvia in the setting of acute kidney injury -Accu-Cheks and NovoLog sliding scale insulin before meals and at bedtime -> Sugars 90 - 150 day. Stay steady. (11) assisted (current) use of anticoagulants: Was on Coumadin for a long time for history of numerous DVTs, was just switched to apixaban on 12/29 by the [facility]. - Continue apixaban 2.5 mg p.o. twice daily as urology has no plans for procedures in the near future (12) Colon cancer: With history of partial colectomy, no further treatment since then (13) Diarrhea: Having 2 loose stools a day for last 3 days, was recently on cefuroxime. C. diff negative on 12/30. - Imodium PRN (14) Proximal humerus fracture: With a history of proximal humerus fracture which was treated with a sling and she was cleared by orthopedics to return to full weight-bearing without restrictions. She does have limited range of motion. Noted fracture with some displacement on chest x-ray here No pain at this time - Limb restriction on the left side (15) Obesity: BMI 31.2 Needs weight loss (16) History of DVT (deep vein thrombosis): As noted above Continue home apixaban at 2.5 mg p.o. twice daily-dose is lower as it is the prophylaxis dose for DVT Disposition-admit to medical/surgical floor, expected least a 2 midnight stay PT/OT consultations placed and may need rehab placement at the time of discharge Admission and Anticipated Discharge Date Admission Date: December 31, 2019 Subjective 74 yo female reports feeling well. is at bedside and wants to TALK TO Urologist. was updated. Review of Systems Review of Systems: All systems reviewed & are unremarkable except as noted in HPI & below Physical Exam Physical Exam: Constitutional: WD/WN, vitals as above Eyes: EOM intact bilaterally; no conjunctival abnormality ENMT: external ear and nose normal, oropharynx normal Neck: trachea midline, no thyromegaly normal visual inspection Respiratory: normal respiratory effort, lungs clear to auscultation no respiratory distress Cardiovascular: RRR, no murmur, no edema Gastrointestinal (Abdomen): Inspection/Auscultation: abdomen normal to inspection; abdomen not distended Musculoskeletal: no cyanosis or clubbing, extremities motor strength 5/5 Skin: no rashes, warm and dry Neurologic: moves all extremities and awake Psychiatric: Orientation: alert, oriented to person and cooperative Results & Data Results & Data ([facility]) Vital Signs (Past 12 Hours) Vital Signs Temp Pulse Resp BP Pulse Ox 01/03/20 15:06 36.4 C L 58 L 16 152/58 H 100 PG Care Time/CCT Total # of Minutes Spent Total Time Spent with Patient: Total time spent is greater than 50% in coordination of care (as documented) at patient's floor/unit and/or counseling patient: Coding Level of Care Code 28899 Subseq Hosp Care Lvl 2 Diagnoses Weakness R53.1 ERICA (acute kidney injury) N17.9 UTI (urinary tract infection) N30.00 Hematuria presence: without hematuria Urinary tract infection type: acute cystitis Acute metabolic encephalopathy G93.41 Bilateral hydronephrosis N13.30 Benign familial tremor G25.0 Esophageal reflux K21.9 HTN (hypertension) I10 Depression F32.9 Type 2 diabetes mellitus E11.9 assisted (current) use of anticoagulants Z79.01 Colon cancer C18.9 Diarrhea R19.7 Diarrhea type: unspecified type Proximal humerus fracture S42.209A Obesity E66.9 History of DVT (deep vein thrombosis) Z86.718 Time Spent (min) 25 (1) UTI (urinary tract infection) Hematuria presence: without hematuria Urinary tract infection type: acute cystitis Qualified Code(s): N30.00 - Acute cystitis without hematuria (2) Diarrhea Diarrhea type: unspecified type Qualified Code(s): R19.7 - Diarrhea, unspecified
[2020-01-04] MEDS: SODIUM CHLORIDE 0.9% 1000ML 1,000 ML IV SCH ×2 (05:49→14:24)
[2020-01-04] MEDS: CLOBETASOL PROPIONATE 0.05% OINT 15 GM TUBE EXT SCH (08:00)
[2020-01-04] MEDS: NYSTATIN OINT 15 GM TUBE EXT SCH (09:00)
[2020-01-04] MEDS: CHOLECALCIFEROL 1,000 UNITS 25 MCG TAB PO SCH (09:01)
[2020-01-04] MEDS: AMLODIPINE BESYLATE 5 MG TAB PO SCH (09:01)
[2020-01-04] MEDS: APIXABAN 2.5 MG TAB PO SCH (09:01)
[2020-01-04] MEDS: TAMSULOSIN HCL 0.4 MG CAP PO SCH (09:01)
[2020-01-04] MEDS: INSULIN ASPART 100 UNITS/ML 3 ML PEN SC SCH ×3 (09:03→16:53)
[2020-01-04] MEDS: INSULIN DETEMIR FLEXPEN/FLEX TOUCH 100 UNITS/ML 3ML SQ SCH (09:04)
--- NOTE | 2020-01-04 12:23 | Urology Progress Note ---
Date of Service January 04, 2020 Assessment & Plan (1) UTI (urinary tract infection): (2) Bilateral hydronephrosis: 74yo F admitted with weakness and mild confusion secondary to acute kidney injury and UTI with pyelonephritis. Patient is tolerating catheter without major issue or problem. Mild hematuria. Patient has a long history of obstructive issues with history of stricture, severe irritation inflammation and prolapse of bladder, and obstruction. Patient on most recent imaging appears to have a significant cystitis with likely pyelitis. Consider amount time discussing with patient and concerns and issues moving forward. Discussed possible multifactorial causes of her issues. Discussed cystitis versus true infectious process. At this point infectious disease has assessed the patient and feels that she does not need more long-term antibiotic management. Discussed inflammation and lower urinary tract symptoms and possible sources including obstruction, incomplete emptying, infections, inflammatory issues, and other concerns. Discussed findings on imaging and need for full assessment to assess urinary system. Will need to check for any signs of issues or obstruction due to ureters with severe thickening and changes. We will also need to reassess urethra as patient has a history of urethral stricture. Currently tolerating catheter and has been improving since catheter placement which may lean towards possibly obstructive source of most of her issues. We will need to consider different options moving forward if she is now failed multiple attempts to dilate the urethra for chronic emptying issues. Need to stabilize and improve patient prior to procedure. Will likely need an additional 1 to 2 weeks to fully clear and assist with supportive care to have patient prepared for intervention. We will try to stabilize throughout the outpatient process. Will have office contact to allow patient time to schedule procedure. Will need to coordinate with him for next step. Will likely need cystoscopy with bilateral retrogrades and ureteroscopy for finalization of work- up Admission and Anticipated Discharge Date Admission Date: December 31, 2019 Subjective 74yo F admitted with weakness and mild confusion secondary to acute kidney injury and UTI with pyelonephritis. Re-alerted as patient and family wanted to discuss further planning options. Have met with the infectious disease doctors and there has been some discussion that she may not be dealing with an acute UTI type issue. Discussed findings on imaging and concerns and issues. Patient does definitively have an acute episode of cystitis. Difficult to say if this is truly infectious or inflammatory or due to chronic outlet obstruction level or possibly a combination of all these. Patient has considerable medical issues. Has a history of major obstructive issues related to urethral stricture. Has also had considerable issues with bladder lesions. Currently on imaging has a considerable amount of thickening and stranding of the ureter especially on the left. Patient overall has been improving drastically. Is able to ambulate better. Plans are for further rehabilitation and management. Review of Systems Review of Systems: All systems reviewed & are unremarkable except as noted in HPI & below Physical Exam Physical Exam: General: Alert in no acute distress. Advanced age. Chronic Medical issues. HEENT: Normocephalic. Inspection normal. Cranial Nerves 2-12 Grossly intact with some hearing issues. Normal inspection of face. Normal inspection of neck. Psychologic: Normal affect. Baseline issues with memory. Respiratory: Nonlabored. No use of accessory muscles. No tachypnea or dyspnea. Cardiovascular: No tachycardia Skin: [place] and Dry. No rashes or visible lesions. Extremities/Lymphatics: Minor Mobility issues. Slow Gait. Abdomen: Soft Non-distended. No rebound or guarding. Results & Data ([facility]) Vital Signs (Past 12 Hours) Vital Signs Temp Pulse Resp BP Pulse Ox 01/04/20 07:32 36.9 C 68 16 153/55 H 95 PG Care Time/CCT Total # of Minutes Spent Total Time Spent with Patient: Total time spent is greater than 50% in coordination of care (as documented) at patient's floor/unit and/or counseling patient: Coding Level of Care Code 35649 Subseq Hosp Care Lvl 3 Diagnoses UTI (urinary tract infection) N30.00 Hematuria presence: without hematuria Urinary tract infection type: acute cystitis Bilateral hydronephrosis N13.30 (1) UTI (urinary tract infection) Hematuria presence: without hematuria Urinary tract infection type: acute cystitis Qualified Code(s): N30.00 - Acute cystitis without hematuria
[2020-01-04] MEDS: ERTAPENEM SODIUM 1,000 MG in SODIUM CHLORIDE 0.9% 50 ML IV SCH (14:41)
[2020-01-04] MEDS: ESCITALOPRAM OXALATE 10 MG TAB PO SCH (16:13)
--- NOTE | 2020-01-11 08:13 | Discharge Summary ---
Date of Service January 04, 2020 Admission HPI Per Admitting Provider This patient is a 74-year-old female with a history of recurrent UTIs and pelvic floor dysfunction with urethral stricture, chronic bilateral hydronephrosis, DM 2, HTN, CKD stage III, hyperlipidemia, obesity, DVT on Eliquis, depression/anxiety, colon cancer status post partial colectomy, OA, essential tremor, and lichen sclerosis who presents to the ER with worsening generalized weakness and some mild increased confusion over the last 3 days. Her granddaughter is her upper stitcher and is at the bedside providing most of the history. She reports that since discharge from the hospital 1 month ago, she went to correction facility for about 1 week and then came home. She began having some cloudy urine and was prescribed cefuroxime x5 days by urology and plan to do cystoscopy in the near future for her bilateral hydronephrosis. She then started on daily trimethoprim prophylaxis 3 days ago. Since that time, she became so weak that she could not even stand up anymore to get out of bed. She is been having chills at home but no fevers. She has chronic dysuria due to her lichen sclerosis of the genitals, but the granddaughter noticed her urine was cloudy again. There was no odor or hematuria. The patient reports some suprapubic spasms of pain recently. In the ER, she was found to have an acute kidney injury with a creatinine up to 2.5, abnormal urinalysis consistent with UTI, and a leukocytosis of 12. She was afebrile her vitals were otherwise stable. A CT scan of the abdomen/pelvis showed no significant change in the moderate to severe right and moderate left hydroureteronephrosis since 11 days ago. She also had persistent urothelial thickening, bladder wall thickening and infiltration adjacent to the right ureter and bladder without any ureteral calculi. There was no bowel obstruction or acute diverticulitis. A chest x-ray only showed stable interstitial thickening, and an incompletely healed left humeral neck fracture with angulation which is a chronic issue for her. She was given 1 dose of IV Rocephin in the ER. She will be admitted for acute kidney injury, and complicated UTI with acute metabolic encephalopathy and generalized weakness. Principal Diagnosis weakness Discharge Exam Constitutional: WD/WN, vitals as above Eyes: EOM intact bilaterally; no conjunctival abnormality ENMT: external ear and nose normal, oropharynx normal Neck: trachea midline, no thyromegaly normal visual inspection Respiratory: normal respiratory effort, lungs clear to auscultation no respiratory distress Cardiovascular: RRR, no murmur, no edema Gastrointestinal (Abdomen): Inspection/Auscultation: abdomen normal to inspection; abdomen not distended Musculoskeletal: no cyanosis or clubbing, extremities motor strength 5/5 Skin: no rashes, warm and dry Neurologic: moves all extremities and awake Psychiatric: Orientation: alert, oriented to person and cooperative Discharge Data Allergies Allergy/AdvReac Type Severity Reaction Status Date / Time nitrofurantoin AdvReac Intermediate Abdominal Verified 12/31/19 13:03 [From Macrobid] Pain Consultations 12/31/19 14:22 ED Decision to Admit Stat 12/31/19 16:19 Consult Case Management - Discharge Planning Routine Consult Urology Routine 01/02/20 11:29 Consult Infectious Diseases Routine Ordered Studies 12/31/19 13:12 CT abd pelvis wo con Stat Hospital Course (1) Weakness: Presents with generalized weakness and acute metabolic encephalopathy likely secondary to acute kidney injury and UTI with pyelonephritis Treating UTI and ERICA as below Previous provider placed patient on antibiotics, Now that UA and culture are inconclusive, unsure if patient truly had a UTI. Patient did have ERICA which could explain her symptoms. will consult Infectious disease PT/OT consultations ordered -Admit to medical/surgical floor (2) ERICA (acute kidney injury): With creatinine up to 2.58 on admission from 1.33 one month ago With known urethral stricture and pelvic floor dysfunction and incomplete bladder emptying, with bilateral hydronephrosis that is chronic on CT abdomen/pelvis and redemonstrated today. Discussed case with urology With mild metabolic acidosis and mild hyperkalemia with potassium of 5.4, sodium mildly low at 132. No peaked T waves on ECG. Most likely secondary to postobstructive cause, however was recently also started on trimethoprim 3 days ago which could be contributing - Placed Oliver catheter and will leave in for at least a week. She is likely going to need to perform CIC at home after discharge. - Continue tamsulosin - Hold home benazepril and trimethoprim - Cr is back to normal. (3) UTI (urinary tract infection): With abnormal urinalysis here in the setting of incomplete bladder em ptying as noted above Was given 1 dose of IV Rocephin in the ER, however she has a history of ESBL Klebsiella, yeast not Cassi albicans, enterococcus, E. coli, and Cassi glabrata all on previous urine cultures. - Will start IV ertapenem instead in case of ESBL organism - Urology consultation placed - Placing Oliver catheter for incomplete bladder emptying as above - Follow urine culture and blood cultures. - All cultures still negative. Will stop antibiotics as per ID. -Appears encephalopathy was mainly due to uremia and dehydration, than UTI. Updated family. (4) Acute metabolic encephalopathy: Likely secondary to acute kidney injury and UTI as above Treating both in the should improve Does have some underlying mild cognitive impairment as per her granddaughter. (5) Bilateral hydronephrosis: As noted above - Plan as per urology for cystoscopy after acute infection is resolved. (6) Benign familial tremor: Noted in history, she is not on medication for this No tremor present on physical examination today (7) Esophageal reflux: Noted in chart but again she is not on medication for this (8) HTN (hypertension): Blood pressures are controlled today at 130/60. - Continue home amlodipine - Holding home benazepril for acute kidney injury (9) Depression: Stable -Continue home mirtazapine 3.75 mg p.o. at bedtime and Lexapro 10 mg daily (10) Type 2 diabetes mellitus: Most recent hemoglobin A1c 7.1% in 10/2019, well controlled - Continue Lantus, but will cut dose in half given acute renal failure and monitor for hypoglycemia Home dose is Lantus 12 units at bedtime and 10 units in the morning-we will only continue the 10 units in the morning for now Hold home Januvia in the setting of acute kidney injury -Accu-Cheks and NovoLog sliding scale insulin before meals and at bedtime -> Sugars 90 - 150 day. Stay steady. (11) longterm (current) use of anticoagulants: Was on Coumadin for a long time for history of numerous DVTs, was just switched to apixaban on 12/29 by the [facility]ticoagulation Clinic. - Continue apixaban 2.5 mg p.o. twice daily as urology has no plans for procedures in the near future (12) Colon cancer: With history of partial colectomy, no further treatment since then (13) Diarrhea: Having 2 loose stools a day for last 3 days, was recently on cefuroxime. C. diff negative on 12/30. - Imodium PRN (14) Proximal humerus fracture: With a history of proximal humerus fracture which was treated with a sling and she was cleared by orthopedics to return to full weight-bearing without restrictions. She does have limited range of motion. Noted fracture with some displacement on chest x-ray here No pain at this time - Limb restriction on the left side (15) Obesity: BMI 31.2 Needs weight loss (16) History of DVT (deep vein thrombosis): As noted above Continue home apixaban at 2.5 mg p.o. twice daily-dose is lower as it is the prophylaxis dose for DVT Total Time Total Time Spent Total Time Spent (In Minutes): 32 Total Time Includes: Examination of the Patient, Discharge Planning and Medication Reconciliation Discharge Plan Discharge Items Patient Disposition: Transfer [facility] Reason For Visit: ERICA,UTI Discharge Diagnosis: ERICA, Activity: Resume your previous activity Non-emergency contact: Primary Care Provider Call non-emergency contact if: you have any medication questions Follow-up/Referrals: Palak Chiang MD [Primary Care Provider] - Diet: Carb Consistent or DM2 Addtl Attending Provider Instructions: will have you followupw ith Urology in 1-2 weeks and will likely get a stent placed. Will recheck BMP in 1 week. Pending Studies at Discharge: No Stand-Alone Forms: My [facility] Skilled Items Patient informed of condition?: Yes DNR: Yes (DNR) Discharge Level of Care: Skilled Communicable Disease: No Discharge Prognosis: Stable Lines: None Urinary Catheter: Yes Medications and DC Order Prescriptions: Continued acetaminophen 325 mg tablet 650 mg PO QID PRN (Reason: fever or pain) RF: 0 amlodipine 10 mg tablet 5 mg PO DAILY RF: 0 apixaban 2.5 mg tablet 2.5 mg PO Q12H Qty: 60 RF: 2 cholecalciferol (vitamin D3) 5,000 unit capsule 5,000 units PO QAM RF: 0 escitalopram oxalate [Lexapro] 10 mg tablet 10 mg PO QDD RF: 0 tamsulosin 0.4 mg capsule 0.4 mg PO DAILY Qty: 30 RF: 11 Levemir FlexTouch U-100 Insuln 100 unit/mL (3 mL) insulin pen 10 unit subcut QAM RF: 0 clobetasol 0.05 % ointment 1 applic topical 5XWK RF: 0 Probiotic 3 billion cell Capsule 0 mmu cells PO QDD RF: 0 Levemir U-100 Insulin 100 unit/mL Solution 12 unit SUBCUT HS RF: 0 mirtazapine 7.5 mg Tablet 3.75 mg PO HS RF: 0 benazepril 20 mg Tablet 20 mg PO QAM RF: 0 nystatin 100,000 unit/gram ointment 1 applic TOPICAL BID RF: 0 Januvia 50 mg tablet 50 mg PO DAILY RF: 0 Discontinued trimethoprim 100 mg tablet 100 mg PO ONCE 30 Days Qty: 30 RF: 3 Discharge Orders: Discharge Order (Routine); Ordered 01/04/20 Ordered By: Guillermo Carlos/Other Patient Handouts: Managing Type 2 Diabetes Admission Data Admit Date/Time: 12/31/19 15:10 Attending Provider: Guillermo Gonzales Admit Provider: Carolin Roberts Primary Care Provider: Palak Chiang Other Providers: Tee Burton ; Kushal Knott ; Beronica Sloan ; Eduardo Graham ; Kirit Fajardo ; Medhat Albright I. ; Albin Montero II ; Juanita Chicas ; Dong Anaya Other Interventions: Discharge Summary Assessment (RN) Last Done: 01/04/20 15:59 Coding Level of Care Code D/C Day Management >30 mins Diagnoses Weakness R53.1 ERICA (acute kidney injury) N17.9 UTI (urinary tract infection) N30.00 Hematuria presence: without hematuria Urinary tract infection type: acute cystitis Acute metabolic encephalopathy G93.41 Bilateral hydronephrosis N13.30 Benign familial tremor G25.0 Esophageal reflux K21.9 HTN (hypertension) I10 Depression F32.9 Type 2 diabetes mellitus E11.9 longterm (current) use of anticoagulants Z79.01 Colon cancer C18.9 Diarrhea R19.7 Diarrhea type: unspecified type Proximal humerus fracture S42.209A Obesity E66.9 History of DVT (deep vein thrombosis) Z86.718 Time Spent (min) 32
== END 2020-01-04 17:47 | DRG 689 ==
LOC: ED 11:33 → SUATTDRO 15:10 → 3W 15:10 → 3N 01-03 19:27